=== PATIENT | male | born 1950 | race Hispanic/Latino ===

== ENCOUNTER 2017-02-07 06:22 | Observation (INO) | payer MEDICARE ==
[2017-02-02 18:43] VITALS: BMI 26.2
[2017-02-07] MEDS ORDERED: Lactated Ringer's 1,000 ML IV ONE ×2 (07:00→10:30)
[2017-02-07] MEDS ORDERED: Succinylcholine 200 mg/10 ml Inj IV ONE (07:02)
[2017-02-07] MEDS ORDERED: Rocuronium 10 mg/ml (5 ml) ONE ×2 (07:02→09:40)
[2017-02-07] MEDS ORDERED: Propofol 10 mg/ml Inj (20 ML) ONE (07:02)
[2017-02-07] MEDS ORDERED: Midazolam 2 MG/2 ML VIAL ONE (07:02)
[2017-02-07] MEDS ORDERED: ePHEDrine 50 mg/ml Inj ONE (07:02)
[2017-02-07] MEDS ORDERED: Lidocaine 1% Inj (20ml) ONE (07:12)
[2017-02-07] MEDS ORDERED: Bupivacaine 0.5% Inj(30mL) ONE (07:12)
[2017-02-07] MEDS ORDERED: Lidocaine 2% w Epi 1:100,000 Inj IJ ONE (07:13)
[2017-02-07] MEDS ORDERED: Neostigmine Methylsulfate 3mg/3ml Syringe IV ONE (07:26)
[2017-02-07] MEDS ORDERED: Ropivacaine 0.5% 30ML IV ONE (07:26)
[2017-02-07] MEDS ORDERED: Vasopressin 20 Units/ml Inj ONE (07:26)
[2017-02-07] MEDS ORDERED: Bacitracin Ointment 30 GM TUBE ONE (10:28)
--- NOTE | 2017-02-07 11:26 | PCM.ANESB1 ---
Interscalene Block - Brachial Plexus Date of Procedure: 02/07/17 Procedure Performed: Interscalene Block of Brachial Plexus Left - Procedure Interscalene Block of Brachial Plexus: This procedure was explained to the patient that it is for post-operative pain management. Consent was obtained after a thorough discussion with the patient regarding the benefits and possible complications of local anesthetic block of the Brachial Plexus at the Interscalene area. The patient was brought to the Operating Room and standard monitors were applied. Time out was held with the circulating nurse to confirm the correct surgery and appropriate block. After applying Oxygen by nasal cannula and administering IV Sedation, the patient's head was gently rotated away from the ___left___operative shoulder and the anterior scalene groove was carefully palpated. The ultrasound transducer was then applied to the skin in the transverse plane and the brachial plexus was visualized lateral to the carotid artery and in between the anterior and middle scalene muscles. After identification,the anterior lateral portion of the neck was prepped with Betadine solution three times and Lidocaine 1% was injected subcutaneously for topical analgesia. At this point, a # 22 gauge Stimuplex 2 inches insulated needle was inserted into the interscalene groove and directed in a caudal and midline direction. The needle was inserted lateral to the ultrasound transducer in-plane towards the brachial plexus in a [id number] direction. Needle advancement was performed carefully under direct ultrasound visualization. Nerve stimulator was used and twitched of the affected extremity including the hand brachialis muscles, biceps and the deltoid was obtained at a current of MA. After repeated negative aspiration,__5___cc of___0.5% Ropivacaine__, were injected and this was followed with __15___cc of ___0.5__% __Ropivacaine___ . Under ultrasound guidance the local anesthetics were observed surrounding the roots of the brachial plexus. The needle was removed intact and sterile dressing was applied. The patient had stable vital signs, was conscious and in no apparent distress. The patient tolerated the interscalene block of the bracheal plexus well with stable vital signs and was prepared for subsequent surgery.
--- NOTE | 2017-02-07 15:35 | PCM.SURG1 ---
Surgeon's Initial Post Op Note - Surgeon's Notes Surgeon: Jerry Security Incident Handler: ABEL De Anda Type of Anesthesia: General Endo Anesthesia Administered By: DR Womack Pre-Operative Diagnosis: gr 3 Rotator cuff tear L shoulder. Arthritis L shoulder- glenohumeral joint/ A/C joint Operative Findings: gr 3 tear L rotator cuff. tear glenoid labrum. biceps tendon avulsion. A/C joint arthritis Post-Operative Diagnosis: gr 3 teqr L rotator cuff. tear glenoid labrum. biceps tendon avulsiuon. A/ C joint arthritis. subacromial adhesions/bursa/ Operation Performed: reapir ngr 3 rotator cuff. tear glenoid labrum/. biceps tenodesis. partial distal claviculectomy. arthroscopic debridement/lysis of adhesions in subacromial space Specimen/Specimens Removed: adhesions/bursa/bone/cartilage Estimated Blood Loss: EBL {In ML}: 10 Blood Products Given: N/A Drains Used: No Drains Post-Op Condition: Good Date of Surgery/Procedure: 02/07/17 Time of Surgery/Procedure: 08:35 (time in room anaesthesdia indcution time 0735)
[2017-02-07] MEDS ORDERED: Oxycodone/Acetaminophen 5/325 mg Tab PO PRN (18:35)
--- NOTE | 2017-02-07 18:59 | CP.PCM.HP ---
History of Present Illness - History of Present Illness History of Present Illness: 66 yo M with H/O OA S/P Right Hip replacement X2, Left Hip replacement , BPH , HTN, dyslipidemia and gout was admitted via SDS for left shoulder arthroscopy .Patient has been suffering of left shoulder pain for many years ,failing any conservative approach. Post op patient developed urinary retention with bladder scan showing > [address] Edwards will need to straight cath the patient and monitor overnight. Patient complaining of bilateral feet numbness post op, but able to move both feet with no difficulty. Denies any CP, SOB, palpitation. Developed 1 episode of nausea post op. States that has started to feel some pain to left shoulder despite nerve block. Allergies Percoset PMH; BPH, osteoarthritis, Dyslipidemia, gout Medications:ASA, tylenol # 3,Flomax, Atorvastatin, Norvasc surgery ; lap cholecystectomy, bilateral hip replacement , left shoulder arthroscopy Social history ; Lives in [facility], , denies any smoking ETOH or drug abuse, walks with no assisst devices Family history ; Non e ROS ; 14 point review of system negative except above PMD ; Dr Tres Edwards Present on Admission - Present on Admission Any Indicators Present on Admission: No Review of Systems - Review of Systems All systems: reviewed and no additional remarkable complaints except Past Patient History - Infectious Disease Hx of Infectious Diseases: None - Tetanus Immunizations Tetanus Immunization: Unknown - Past Medical History & Family History Past Medical History?: Yes Past Family History: Reviewed and not pertinent - Past Social History Smoking Status: Never Smoked Chewing Tobacco Use: No Cigar Use: No Alcohol: None Drugs: Denies Home Situation {Lives}: With Family Domestic Violence: Negative - CARDIAC Hx Cardiac Disorders: Yes Hx Hypercholesterolemia: Yes Hx Hypertension: Yes - PULMONARY Hx Respiratory Disorders: Yes Hx Sleep Apnea: Yes - NEUROLOGICAL Hx Neurological Disorder: No - HEENT Hx HEENT Problems: No - RENAL Hx Chronic Kidney Disease: Yes Other/Comment: frequent urination - ENDOCRINE/METABOLIC Hx Endocrine Disorders: No - HEMATOLOGICAL/ONCOLOGICAL Hx Blood Disorders: No - INTEGUMENTARY Hx Dermatological Problems: No - MUSCULOSKELETAL/RHEUMATOLOGICAL Hx Musculoskeletal Disorders: Yes Hx Arthritis: Yes Hx Falls: No Hx Gout: Yes Hx Osteoarthritis: Yes - GASTROINTESTINAL Hx Gastrointestinal Disorders: No - GENITOURINARY/GYNECOLOGICAL Hx Genitourinary Disorders: Yes Hx Prostate Problems: Yes - PSYCHIATRIC Hx Psychophysiologic Disorder: No Hx Substance Use: No - SURGICAL HISTORY Hx Surgeries: Yes Hx Cholecystectomy: Yes Hx Herniorrhaphy: Yes (Left ventral) Hx Joint Replacement: Yes Hx Musculoskeletal Surgery: Yes (Right Biceps and Rotator Cuff Repair after Trauma) Hx Orthopedic Surgery: Yes (right rotator cuff repair, right biceps tendon repair) Other/Comment: Right Hip replacement - ANESTHESIA Hx Anesthesia: Yes Hx Anesthesia Reactions: Yes (difficulty voiding post op) Hx Malignant Hyperthermia: No Has any member of the family had a problem w/ anesthesia?: No Meds Allergies/Adverse Reactions: Allergies Allergy/AdvReac Type Severity Reaction Status Date / Time acetaminophen [From Percocet] Allergy RASH Verified 02/07/17 07:20 oxycodone [From Percocet] Allergy RASH Verified 02/07/17 07:20 Physical Exam - Constitutional Appears: Well, Non-toxic, No Acute Distress - Head Exam Head Exam: ATRAUMATIC, NORMOCEPHALIC - Eye Exam Eye Exam: EOMI, PERRL Pupil Exam: NORMAL ACCOMODATION - ENT Exam ENT Exam: Mucous Membranes Moist, Normal Exam - Neck Exam Neck exam: Positive for: Full Rom, Normal Inspection - Respiratory Exam Respiratory Exam: Clear to Auscultation Bilateral, NORMAL BREATHING PATTERN. absent: Rales, Rhonchi, Wheezes - Cardiovascular Exam Cardiovascular Exam: REGULAR RHYTHM, +S1, +S2. absent: JVD - GI/Abdominal Exam GI & Abdominal Exam: Normal Bowel Sounds, Soft. absent: Distended, Guarding, Rebound, Tenderness - Rectal Exam Rectal Exam: Deferred - Extremities Exam Extremities exam: Positive for: normal capillary refill, normal inspection, pedal pulses present. Negative for: calf tenderness, pedal edema Additional comments: Left shoulder dressing clean and intact, immobilizer in place pulsesintcat, able to move fingers, capillary refill intact - Back Exam Back exam: NORMAL INSPECTION - Neurological Exam Neurological exam: Alert, CN II-XII Intact, Oriented x3, Reflexes Normal - Psychiatric Exam Psychiatric exam: Normal Affect - Skin Skin Exam: Dry, Intact, Normal Color, Warm Results - Vital Signs Recent Vital Signs: Last Vital Signs Temp 98.4 F 02/07/17 18:03 Pulse 77 02/07/17 18:03 Resp 18 02/07/17 18:03 BP 135/66 02/07/17 18:03 Pulse Ox 97 02/07/17 18:03 Assessment & Plan - Assessment and Plan (Free Text) Assessment: 66 yo M with H/O OA S/P Right Hip replacement X2, Left Hip replacement , BPH , HTN, dyslipidemia and gout was admitted via SDS for left shoulder arthroscopy .Patient has been suffering of left shoulder pain for many years ,failing any conservative approach. Post op patient developed urinary retention with bladder scan showing > [address] Edwards will need to straight cath the patient and monitor overnight. Patient complaining of bilateral feet numbness post op, but able to move both feet with no difficulty. Denies any CP, SOB, palpitation. Developed 1 episode of nausea post op. States that has started to feel some pain to left shoulder despite nerve block. 1.Post op urinary retention -Most likely related to anesthesia effect and history of BPH Straight cathed patient bedside with 900 ml output Promote ambulation Resume Flomax PO 2. Osteoarthritis s/p left shoulder arthroscopy and history of bilateral hip replacement pain management with Tramadol PRN Zofran PRN for nausea 3.HTN controlled on Norvasc 2.5 mgh po QD 4. Dyslipidemia on statin 5. Gout history 6. DVt prophylaxis Hold any anticoagulation for now SCD , ambulation Can restart ASA in AM
--- NOTE | 2017-02-07 20:01 | OP ---
PROCEDURE DATE: 02/07/2017 PREOPERATIVE DIAGNOSIS: Rotator cuff arthritis of the left shoulder. POSTOPERATIVE DIAGNOSES: 1. Grade III tear of the left rotator cuff. 2. Tear glenoid and labrum. 3. Biceps tendon avulsion from the superior aspect of the glenoid. 4. Acromioclavicular joint arthritis. 5. Adhesions and bursitis in the subacromial space. PROCEDURES: 1. Primary repair grade III rotator cuff tear, left shoulder. 2. Partial distal claviculectomy. 3. Repair of glenoid and labrum. 4. Biceps tenodesis. 5. Surgical arthroscopy and debridement of the subacromial space with lysis of adhesions and partial bursectomy. SURGEON: Soham Edwards MD. SHUFFLE BOARD OPERATOR: Chika Phelan, Certified Registered Nursing At Home Independent Call Center Agent. ANESTHESIA: General endotracheal anesthesia. COMPLICATIONS: None. DRAINS: None. BLOOD LOSS: Less than 20 mL. OPERATIVE INDICATION: The patient is a 66-year-old gentleman who presents with persistent pain and r estricted range of motion of the left shoulder. The patient has failed conservative management consi sting of anti-inflammatory medication, intraarticular injection therapy. MRI examination had been ac complished. The patient has failed conservative management. Pros, cons, risks and benefits of surgi yoni arthroscopy, decompression and repair are discussed, the possibility of mechanical failure, infec tion, thromboembolic disease, secondary or tertiary surgery is discussed. The patient can no longer stand the discomfort. OPERATIVE PROCEDURE: After having obtained informed consent, after the satisfactory induction of gen eral endotracheal anesthesia by Dr. Womack, after having identified side, site, and procedure, a cri tical pause/timeout, after having obtained informed consent in the above fashion, the patient identif ied, in the modified hou chair position with all bony prominences well padded, the left upper extr emity is prepped and free draped in the usual fashion for upper extremity surgery. The spider should er positioner was employed. The topographic anatomy of the shoulder is marked, the spine and the sca pula, lateral aspect of the acromion, coracoid process, distal third of the clavicle. At a point tone roximately 1 thumb's breadth inferior and 1 thumb's breadth medial to the lateral aspect of the acrom ion, the joint is insufflated with 10 mL of 1% lidocaine without epinephrine. Using a #11 blade, fol lowed by spreading, followed by introduction of blunt trocar, the arthroscope is introduced. Examina tion of the joint commences. With the arthroscope posteriorly, there is found to be a great deal of inflammation in the joint and synovitis and evidence of a labral tear and avulsion of the biceps tend on. Taking great care to stay lateral to the coracoid process, using a #18 gauge spinal needle, foll owed by #11 blade, followed by spreading, introduction of the blunt trocar, with the arthroscope post eriorly, the Wissinger seamus is introduced and the cannula was placed anteriorly. With the arthroscope posteriorly, examination of the joint commences. Again, there was found to be the aforementioned sy novitis. With the arthroscope posteriorly, extensive synovitis and debridement of the glenohumeral j oint is accomplished using the arthroscopic shaver. This having been accomplished, using the arthe-[employer] copic shaver, the synovitis is accomplished and there was found to be a grade III tear of the rotator cuff, grade III tear of the glenoid and labrum with evidence of avulsion of the biceps tendon. With the arthroscope posteriorly, the additional portal was placed posterolaterally, using a #18 gauge sp inal needle, followed by #11 blade, followed by spreading, introduction of the blunt trocar with the arthroscope posteriorly, the interval between the labral tear and the glenoid is developed using the 3.4 mm [employer] suction punch and the arthroscopic shaver. This having been accomplished, with the ar throscope posteriorly, the labral tear was then snared using the lasso. The lasso is burred out post eriorly and the FiberTape was placed. The FiberTape having been placed, this was brought out anterio rly and the second one was brought out anteriorly as well. Drilling is accomplished followed by intr oduction of the obturator. The PushLock anchor is loaded and PushLock anchor is introduced. This feliciano ving been accomplished, the glenoid and labrum was repaired. With the arthroscope posteriorly, the r oot of the biceps tendon was then snared using the lasso. The lasso is brought out posteriorly. Dri lling is accomplished after the sutures were brought out anteriorly and, again, using the PushLock an chor, the biceps tenodesis is accomplished. With the arthroscope posteriorly, further debridement of the glenohumeral joint is accomplished. Attention is now turned to the subacromial space. The arth roscope was placed in the subacromial space, a midlateral portal is accomplished, using a #18 gauge s richy needle, followed by #11 blade, followed by spreading, the arthroscope posteriorly, careful debr idement and lysis of adhesions in the subacromial space is accomplished. With the arthroscope accordion tuner iorly, a thorough lysis of adhesions and partial bursectomy is accomplished. At this point in time, with the arthroscope placed mid laterally, there was found to be a grade III tear of the rotator cuff with retraction both medially and posteriorly as well. Final 2 portals were accomplished just off t he clavicle to allow introduction of the anchors, using a #11 blade followed by spreading, introducti on of the blunt trocar. With the arthroscope mid laterally, 2 sutures are brought out ____ laterally with the arthroscope posterolaterally. These are shuttled superiorly. At this point in time, with the arm in abduction and internal rotation, the anchor is loaded, it is impacted, and with the arm in abduction and internal rotation, the rotator cuff is repaired. The second anchor is placed as well in the same fashion. At this point in time, with the arthroscope mid laterally, 2 sutures are placed in the posterior leaf and they are brought out again superiorly and laterally. This having been acc omplished, the anchors are loaded and with the arm in abduction and internal rotation, the posterior leaf was repaired as well. Extraordinarily complete coverage of the humeral head is accomplished. T he wound is thoroughly irrigated. At this point in time, an extensive debridement and lysis of adhes ions of the subacromial space is completed. Partial acromioplasty is accomplished using the arthrosc opic bur and with the arthroscope mid laterally from an anterior portal and from a posterolateral por shira, a partial distal claviculectomy is accomplished using ____ include the distal 1 cm of the clavic le to include the articular surface. Partial acromioplasty is accomplished. Partial acromioplasty h aving been accomplished, partial ____ claviculectomy having been accomplished, lysis of adhesions and partial bursectomy is completed. The wound is thoroughly irrigated. Closure is in layers with inte rrupted Vicryl and nylon. Intraarticular injection is offered. Frankie Samuels compression dressing an d shoulder immobilizer is applied. Soham Edwards MD cc: [id number] TT: 02/07/2017 20:01:22 vandana
[2017-02-07] MEDS: Acetaminophen-Codeine 300/30 mg Tab PO PRN (22:27)
--- NOTE | 2017-02-07 22:52 | CP.PCM.PCO ---
Physician Communication Note - Physician Communication Note Physician Communication Note: Urinary frequency and lower abdominal pain. Bladder scan =800mls
[2017-02-08 00:53] VITALS: RESP 20
[2017-02-08] MEDS: Acetaminophen-Codeine 300/30 mg Tab PO PRN ×4 (03:14→15:34)
[2017-02-08 06:50] LABS: HEMATOCRIT 42.7 % (35.0-51.0); MEAN CELL VOLUME 89.7 fl (80.0-94.0); MEAN CORPUSCULAR HEMOGLOBIN 30.8 pg (27.0-31.0); MEAN CORPUSCULAR HGB CONC 34.4 g/dL (33.0-37.0); RED CELL DISTRIBUTION WIDTH 13.3 % (11.5-14.5); WHITE BLOOD COUNT 10.5 K/uL (4.8-10.8)
[2017-02-08 07:21] LABS: RBC URINE 1 /hpf (0-3); URINE BACTERIA RARE (<OCC); URINE BILIRUBIN NEGATIVE (NEGATIVE); URINE BLOOD MODERATE (NEGATIVE); URINE COLOR STRAW (YELLOW); URINE GLUCOSE (UA) NEG (Normal); URINE KETONE NEGATIVE (NEGATIVE); URINE LEUKOCYTE ESTERASE NEG Leu/uL (Negative); URINE PROTEIN NEGATIVE (NEGATIVE); URINE UROBILINOGEN 0.2-1.0 mg/dL (0.2-1.0); WBC URINE 1 /hpf (0-5)
[2017-02-08 07:30] LABS: BLOOD UREA NITROGEN 9 mg/dl (9-20); CALCIUM 8.9 mg/dL (8.4-10.2); CARBON DIOXIDE 24 mmol/L (22-30); CHLORIDE 107 mmol/L (98-107); GFR AFRICAN-AMERICAN > 60; GLUCOSE,RANDOM 119 mg/dL (75-110); POTASSIUM 3.5 MMOL/L (3.6-5.0); SODIUM 140 mmol/l (132-148)
--- NOTE | 2017-02-08 08:35 | CP.PCM.PN ---
Subjective - Date & Time of Evaluation Date of Evaluation: 02/08/17 Time of Evaluation: 07:30 - Subjective Subjective: Patient seen and examined bedside. Still complaining of bilateral feet numbness and states that is afraid to walk , because might fall. Again with urinary retention overnight requiring Prince re insertion that was removed early this morning. Pain is controlled. Objective - Vital Signs/Intake and Output Vital Signs (last 24 hours): Temp Pulse Resp BP Pulse Ox 98.7 F 75 20 154/80 H 92 L 02/08/17 08:22 02/08/17 08:22 02/08/17 08:22 02/08/17 08:22 02/08/17 08:22 Intake and Output: 02/08/17 02/08/17 06:59 18:59 Output Total 800 Balance -800 - Medications Medications: Current Medications Acetaminophen/Codeine Phosphate (Tylenol/Codeine 300 Mg/30 Mg) 1 tab PO Q4 PRN PRN Reason: pain scale 4-10 Last Admin: 02/08/17 07:32 Dose: 1 tab Amlodipine Besylate (Norvasc) 5 mg PO DAILY [facility] Aspirin (Aspirin Chewable) 81 mg PO DAILY [facility] Meperidine HCl (Demerol) 12.5 mg IVP Q10M PRN PRN Reason: Pain, severe (8-10) Ondansetron HCl (Zofran Inj) 4 mg IVP Q6 PRN PRN Reason: Nausea/Vomiting Pantoprazole Sodium (Protonix Ec Tab) 40 mg PO DAILY [facility] Tamsulosin HCl (Flomax) 0.4 mg PO DAILY [facility] - Labs Labs: 02/08/17 05:20 02/08/17 05:20 - Constitutional Appears: Non-toxic, No Acute Distress - Head Exam Head Exam: ATRAUMATIC, NORMAL INSPECTION, NORMOCEPHALIC - Eye Exam Eye Exam: EOMI, Normal appearance, PERRL Pupil Exam: NORMAL ACCOMODATION - ENT Exam ENT Exam: Mucous Membranes Moist, Normal Exam - Neck Exam Neck Exam: Full ROM, Normal Inspection - Respiratory Exam Respiratory Exam: Clear to Ausculation Bilateral, NORMAL BREATHING PATTERN. absent: Rales, Rhonchi, Wheezes - Cardiovascular Exam Cardiovascular Exam: REGULAR RHYTHM, RRR, +S1, +S2. absent: JVD - GI/Abdominal Exam GI & Abdominal Exam: Soft, Normal Bowel Sounds. absent: Distended, Guarding, Tenderness - Rectal Exam Rectal Exam: Deferred - Extremities Exam Extremities Exam: Normal Capillary Refill, Normal Inspection. absent: Calf Tenderness, Joint Swelling, Pedal Edema Additional comments: LUE to immobilizer, pulses intact, warm to touch, moving all fingers, capillary refill intact Dressing to Left shoulder clean and intact - Back Exam Back Exam: NORMAL INSPECTION - Neurological Exam Neurological Exam: Alert, Awake, CN II-XII Intact, Oriented x3 - Psychiatric Exam Psychiatric exam: Normal Affect - Skin Skin Exam: Dry, Intact, Normal Color, Warm Assessment and Plan - Assessment and Plan (Free Text) Assessment: 66 yo M with H/O OA S/P Right Hip replacement X2, Left Hip replacement , BPH , HTN, dyslipidemia and gout was admitted via SDS for left shoulder arthroscopy .Patient has been suffering of left shoulder pain for many years ,failing any conservative approach. Post op patient developed urinary retention with bladder scan showing > 500 ml. Patient was straight cathed and placed under observation. He also is complaining of bilateral feet numbness post op, but able to move both feet with no difficulty. Denies any CP, SOB, palpitation.With requrent episode of urinary retention overnight requiring insertion of Prince catheter. Patient known to have BPH and developing urinary retention post op in the past . 1.Post op urinary retention Most likely related to anesthesia effect and history of BPH Prince catheter was inserted overnight due to patient being uncomfortable and restless D/c Prince this AM Continue [facility] PT eval since atient complaining f bilateral feet numbness and fear of fall. Promote ambulation Monitor closely for signs of retention 2. Osteoarthritis s/p left shoulder arthroscopy and history of bilateral hip replacement pain management withTylenol # 3. Off note patient has been taking Tylenol # 3 at home so he has no allergy to Tylenol Zofran PRN for nausea 3.HTN controlled on Norvasc 2.5 mg po QD 4. Dyslipidemia on statin 5. Gout history 6. DVt prophylaxis Hold any anticoagulation for now SCD , ambulation Can restart ASA today
[2017-02-08] MEDS ORDERED: Pantoprazole 40 mg EC Tab PO SCH (09:00)
[2017-02-08] MEDS ORDERED: Potassium Chloride 20 mEq/15 ml LIQ UD PO ONE (09:30)
--- NOTE | 2017-02-08 13:23 | CP.PCM.DIS ---
Provider - Provider Date of Admission: 02/07/17 18:46 Attending physician: Celestina Bearden MD Primary care physician: Soham Edwards III, MD Time Spent in preparation of Discharge (in minutes): 20 Hospital Course - Lab Results Lab Results: Most Recent Lab Values WBC 10.5 K/uL (4.8-10.8) 02/08/17 05:20 RBC 4.76 Mil/uL (4.40-5.90) 02/08/17 05:20 Hgb 14.7 g/dL (12.0-18.0) 02/08/17 05:20 Hct 42.7 % (35.0-51.0) 02/08/17 05:20 MCV 89.7 fl (80.0-94.0) 02/08/17 05:20 MCH 30.8 pg (27.0-31.0) 02/08/17 05:20 MCHC 34.4 g/dL (33.0-37.0) 02/08/17 05:20 RDW 13.3 % (11.5-14.5) 02/08/17 05:20 Plt Count 188 K/uL (130-400) 02/08/17 05:20 Sodium 140 mmol/l (132-148) 02/08/17 05:20 Potassium 3.5 MMOL/L (3.6-5.0) L 02/08/17 05:20 Chloride 107 mmol/L (98-107) 02/08/17 05:20 Carbon Dioxide 24 mmol/L (22-30) 02/08/17 05:20 Anion Gap 13 (10-20) 02/08/17 05:20 BUN 9 mg/dl (9-20) 02/08/17 05:20 Creatinine 0.6 mg/dL (0.8-1.5) L 02/08/17 05:20 Est GFR ( Amer) > 60 02/08/17 05:20 Est GFR (Non-Af Amer) > 60 02/08/17 05:20 Random Glucose 119 mg/dL (75-110) H 02/08/17 05:20 Calcium 8.9 mg/dL (8.4-10.2) 02/08/17 05:20 Urine Color Straw (YELLOW) 02/07/17 06:40 Urine Clarity Clear (Clear) 02/07/17 06:40 Urine pH 6.0 (5.0-8.0) 02/07/17 06:40 Ur Specific [place] 1.005 (1.003-1.030) 02/07/17 06:40 Urine Protein Negative mg/dL (NEGATIVE) 02/07/17 06:40 Urine Glucose (UA) Neg mg/dL (Normal) 02/07/17 06:40 Urine Ketones Negative mg/dL (NEGATIVE) 02/07/17 06:40 Urine Blood Moderate (NEGATIVE) 02/07/17 06:40 Urine Nitrate Negative (NEGATIVE) 02/07/17 06:40 Urine Bilirubin Negative (NEGATIVE) 02/07/17 06:40 Urine Urobilinogen 0.2-1.0 mg/dL (0.2-1.0) 02/07/17 06:40 Ur Leukocyte Esterase Neg Gale/uL (Negative) 02/07/17 06:40 Urine RBC (Auto) 1 /hpf (0-3) 02/07/17 06:40 Urine Microscopic WBC 1 /hpf (0-5) 02/07/17 06:40 Urine Bacteria Rare (<OCC) 02/07/17 06:40 - Hospital Course Hospital Course: 66 yo M with H/O OA S/P Right Hip replacement X2, Left Hip replacement , BPH , HTN, dyslipidemia and gout was admitted via [facility] for left shoulder arthroscopy .Patient has been suffering of left shoulder pain for many years ,failing any conservative approach. Post op patient developed urinary retention with bladder scan showing > 500 ml. Patient was straight cathed and placed under observation. He also is complaining of bilateral feet numbness post op, but able to move both feet with no difficulty. Denies any CP, SOB, palpitation.With recurrent episode of urinary retention overnight requiring insertion of Prince catheter. Patient known to have BPH and developing urinary retention post op in the past . Prince catheter removed this AM @ & AQM and able to void 1100 ml the next 6 hours. PT bhavana appreciated , Patient able to ambulate Cleared by ortho for discharge Will d/c patient home with follow up with prtho and urologist 1.Post op urinary retention Most likely related to anesthesia effect and history of BPH Prince catheter was inserted overnight due to patient being uncomfortable and restless D/c Prince this AM @ 7 AM and able to void > 1100 ml over last 6 hours Continue Flomax. Patient to follow up w ith his urologist PT bhavana appreciated ,since patient complained of bilateral feet numbness and fear of fall. Promote ambulation will d/c home 2. Osteoarthritis s/p left shoulder arthroscopy and history of bilateral hip replacement pain management withTylenol # 3. Off note patient has been taking Tylenol # 3 at home so he has no allergy to Tylenol Zofran PRN for nausea 3.HTN controlled on Norvasc 2.5 mg po QD 4. Dyslipidemia on statin 5. Gout history 6. DVt prophylaxis Hold any anticoagulation for now SCD , ambulation Can restart ASA today Discharge Exam - Head Exam Head Exam: ATRAUMATIC, NORMAL INSPECTION, NORMOCEPHALIC - Eye Exam Eye Exam: EOMI, Normal appearance, PERRL Pupil Exam: NORMAL ACCOMODATION - ENT Exam ENT Exam: Mucous Membranes Moist, Normal Exam - Neck Exam Neck exam: Full Rom, Normal Inspection - Respiratory Exam Respiratory Exam: Clear to PA & Lateral, NORMAL BREATHING PATTERN. absent: Rales, Rhonchi, Wheezes - Cardiovascular Exam Cardiovascular Exam: REGULAR RHYTHM, RRR, +S1, +S2. absent: JVD - GI/Abdominal Exam GI & Abdominal Exam: Normal Bowel Sounds, Soft. absent: Distended, Guarding, Rigid, Tenderness - Rectal Exam Rectal Exam: Deferred - Extremities Exam Extremities exam: normal capillary refill, normal inspection, pedal pulses present Additional comments: Left shoulder dressings clean and intact Left arm to immobilizer, pulses intact - Back Exam Back exam: NORMAL INSPECTION - Neurological Exam Neurological exam: Alert, CN II-XII Intact, Oriented x3, Reflexes Normal - Psychiatric Exam Psychiatric exam: Normal Affect - Skin Skin Exam: Dry, Intact, Normal Color, Warm Discharge Plan - Follow Up Plan Condition: GOOD Disposition: HOME/ ROUTINE Patient education suggested?: Yes Instructions: Shoulder Arthroscopy (DC) Referrals: Soham Edwards III, MD [Primary Care Provider] -
[2017-02-08 16:23] VITALS: BP 133/73; PULSE 72; TEMP 98.3; O2SAT 93
== END 2017-02-08 17:00 | disposition home or self-care (01) ==
LOC: H.OPSURG 06:22 → H.ERHOLD 18:46 → H.MEDSURG1 20:24 → H.OPSURG 20:24 → H.MEDSURG1 21:28
PROVIDERS: ADMIT Hospitalist; ATTEND Hospitalist
DX: M75.102 Unspecified rotator cuff tear or rupture of left shoulder, not specified as traumatic (principal); M19.012 Primary osteoarthritis, left shoulder; M65.9 Synovitis and tenosynovitis, unspecified; N99.89 Other postprocedural complications and disorders of genitourinary system; R33.8 Other retention of urine; E78.5 Hyperlipidemia, unspecified; I10 Essential (primary) hypertension; M10.9 Gout, unspecified; N40.0 Benign prostatic hyperplasia without lower urinary tract symptoms; Z96.643 Presence of artificial hip joint, bilateral
CPT/HCPCS: 29827; 29828; 36415; 80048; 81003; 85027; 88307; 97161; G0378; G8978; G8979; G8980; J0171; J0330; J0690; J2001; J2250; J2405; J2704; J2710; J3010; J7030; J7120

== ENCOUNTER 2017-11-19 06:07 | Observation (INO) | payer MEDICARE ==
[2017-11-19 06:08] VITALS: BMI 26.2
[2017-11-19] MEDS ORDERED: MethylPREDNISolone Depo 40 mg/ml Inj ONE (07:39)
[2017-11-19] MEDS ORDERED: methylPREDNISolone Depo 80 mg/ml Inj ONE (07:39)
[2017-11-19] MEDS ORDERED: Lidocaine 1% Inj (20ml) ONE ×2 (07:40→07:41)
[2017-11-19] MEDS ORDERED: Iohexol 300 10 ML ONE (07:40)
--- NOTE | 2017-11-19 07:50 | ED PDOC ---
HPI: Male Pain Time Seen by Provider: 11/19/17 07:20 Chief Complaint (Nursing): Groin Pain Chief Complaint (Provider): Groin Pain History Per: Patient History/Exam Limitations: no limitations Onset/Duration Of Symptoms: Days (x10) Current Symptoms Are (Timing): Still Present Associated Symptoms: denies: Fever Additional Complaint(s): 67 year old male presents to ED with complaints of right sided groin pain x10 days, has no past medical history, and bilateral hip replacements. (-) weakness , recent injury, or fever. Patient states that the pain is gradually worsening and is affecting his ability to walk properly. Patient states his orthopedist Dr. Edwards recommended ED evaluation if pain became unbearable. PCP: JORDAN Past Medical History Reviewed: Historical Data, Nursing Documentation, Vital Signs Vital Signs: Last Vital Signs Temp 97.7 F 11/19/17 06:26 Pulse 63 11/19/17 06:26 Resp 16 11/19/17 06:26 BP 154/87 H 11/19/17 06:26 Pulse Ox 98 11/19/17 06:26 - Medical History PMH: Arthritis, HTN, Hypercholesterolemia, Chronic Kidney Disease, Sleep Apnea - Surgical History Surgical History: Appendectomy, Cholecystectomy, Hernia Repair Denies: No Surg Hx Other surgeries: bilateral hip replacement surgeries - Family History Family History: States: Unknown Family Hx - Living Arrangements Living Arrangements: With Family - Immunization History Hx Tetanus Toxoid Vaccination: No Hx Influenza Vaccination: No Hx Pneumococcal Vaccination: No - Home Medications Home Medications: Ambulatory Orders Medication Instructions Recorded Aspirin [Aspirin Chewable] 1 tab PO DAILY 11/19/17 Atorvastatin [Lipitor] 1 tab PO DAILY 11/19/17 Multivitamin [Multivitamins] 1 tab PO DAILY 11/19/17 - Allergies Allergies/Adverse Reactions: Allergies Allergy/AdvReac Type Severity Reaction Status Date / Time acetaminophen [From Percocet] Allergy RASH Verified 11/19/17 06:26 oxycodone [From Percocet] Allergy RASH Verified 11/19/17 06:26 Review of Systems ROS Statement: Except As Marked, All Systems Reviewed And Found Negative Constitutional: Negative for: Fever Genitourinary Male: Positive for: Other (Right sided groin pain) Neurological: Negative for: Weakness, Numbness Physical Exam - Reviewed Nursing Documentation Reviewed: Yes Vital Signs Reviewed: Yes - Physical Exam Appears: Positive for: Non-toxic, No Acute Distress Skin: Positive for: Normal Color, Warm, Dry Neck: Positive for: Decreased ROM Cardiovascular/Chest: Negative for: Murmur Respiratory: Positive for: Normal Breath Sounds. Negative for: Respiratory Distress Gastrointestinal/Abdominal: Positive for: Soft. Negative for: Tenderness Male Genital Exam: Positive for: no hernia, inguinal tenderness (TTP to right groin area, no sweling or erythema). Negative for: erythema, hernia mass Extremity: Positive for: Normal ROM. Negative for: Deformity Neurologic/Psych: Positive for: Alert, Oriented. Negative for: Motor/Sensory Deficits - Laboratory Results Result Diagrams: 11/19/17 08:25 11/19/17 08:25 - ECG O2 Sat by Pulse Oximetry: 98 (RA) Pulse Ox Interpretation: Normal Medical Decision Making Medical Decision Makin Initial impression: groin pain Initial plan: * Call Dr. Edwards [phone] Edwards, who will admit the patient under his service. * T&S * EKG * Labs * PTT/PT * CXR * UA Scribe Attestation: Documented by Katrina North acting as a scribe Priscila James MD. Scribe Attestation: All medical record entries made by the Scribe were at my direction and personally dictated by me. I have reviewed the chart and agree that the record accurately reflects my personal performance of the history, physical exam, medical decision making, and the department course for this patient. I have also personally directed, reviewed, and agree with the discharge instructions and disposition. Disposition - Clinical Impression Clinical Impression: Groin pain, DJD (degenerative joint disease) - Patient ED Disposition Is Patient to be Admitted: Yes Discussed With : Soham Edwards III Doctor Will See Patient In The: Hospital Counseled Patient/Family Regarding: Studies Performed, Diagnosis - Disposition Disposition Time: 08:56 Condition: FAIR - Pt Status Changed To: Hospital Disposition Of: Observation - POA Present On Arrival: None
[2017-11-19] MEDS ORDERED: Bacitracin Ointment 30 GM TUBE ONE (07:53)
[2017-11-19] MEDS ORDERED: Propofol 10 mg/ml Inj (20 ML) ONE ×2 (07:58→10:00)
[2017-11-19] MEDS ORDERED: Etomidate 20 mg/10ml Inj IV ONE ×2 (07:58→10:00)
--- NOTE | 2017-11-19 08:04 | CP.SDSHP ---
Same Day Surgery H & P - History Proposed Procedure: Bilateral hip steroid injection Pre-Op Diagnosis: Bilateral intractable hip pain, right greater than left - Previous Medical/Surgical History Cardiac: Hypertension, ASHD/CAD Pain: 6.Severe Pain Previous Surgical History: Bilateral JACK, L shoulder rotator cuff repair, appendectomy, cholecystectomy, right biceps tendon repair - Allergies Allergies: Allergies acetaminophen [From Percocet] Allergy (Verified 11/19/17 06:26) RASH oxycodone [From Percocet] Allergy (Verified 11/19/17 06:26) RASH - Current Medications Current Medications: Atorvastatin, ASA 81 mg, amplodipine - Physical Exam General Appearance: No acute distress Vital Signs: Vital Signs 11/19/17 11/19/17 06:26 07:56 Temperature 97.7 F Pulse Rate 63 Respiratory 16 Rate Blood Pressure 154/87 H O2 Sat by Pulse 98 98 Oximetry Mental Status: Alert & Oriented x3 Neuro: WNL Heart: WNL Lungs: WNL GI: WNL - {Optional Preform as Required} Abdomen: WNL Integument: WNL Ortho: Other (R hip: old JACK scar well healed, groin tenderness, painful ROM 0- 50, no erythema or swelling, sensation DP/SP/TN, motor intact EHL/FHL/TA/G/Q/HS 4/5 hip flex, pedal pulses intact, comp soft NT L hip:old JACK scar well healed, painful ROM 0-50, no erythema or swelling, sensation DP/SP/TN, motor intact EHL/ FHL/TA/G/Q/HS 4/5 hip flex, pedal pulses intact, comp soft NT) - Impression Impression: Patient is a 67 y/o male who presents to the ER with severe bilateral hip pain, right greater than left, which has progressively worsened over the past 10 days. The pain is constant and has severly hindered his activities of daily living, especially walking and flexing his hips. The pain has been resistant to oral pain medications prompting his visit to the ER today. Pt. Evaluated Today:Candidate for Anesthesia & Procedure: Yes (Risks/Chris discussed w/ pt, he agrees to proceed w/ procedure) - Date & Time Date: 11/19/17 Time: 07:30 Short Stay Discharge - Short Stay Discharge Admitting Diagnosis/Reason for Visit: GROIN PAIN Disposition: HOME/ ROUTINE
[2017-11-19 08:37] LABS: BASO % 0.3 % (0.0-2.0); HEMOGLOBIN 15.9 g/dL (12.0-18.0); LYMPH # 1.6 K/uL (1.0-4.3); MEAN CELL VOLUME 88.7 fl (80.0-94.0); MEAN CORPUSCULAR HGB CONC 33.9 g/dL (33.0-37.0); MEAN PLATELET VOLUME 9.3 fl (7.2-11.7); MONO # 0.9 K/uL (0.0-0.8); MONO % 7.1 % (0.0-10.0); NEUT # 9.7 K/uL (1.8-7.0); NEUT % 79.6 % (50.0-75.0); NRBC % 0.1 % (0.0-0.0); RBC 5.28 Mil/uL (4.40-5.90); RED CELL DISTRIBUTION WIDTH 14.2 % (11.5-14.5); WHITE BLOOD COUNT 12.1 K/uL (4.8-10.8)
[2017-11-19 08:38] LABS: URINE BILIRUBIN NEGATIVE (NEGATIVE); URINE BLOOD NEGATIVE (NEGATIVE); URINE CLARITY CLEAR (Clear); URINE COLOR STRAW (YELLOW); URINE GLUCOSE (UA) NEG (Normal); URINE LEUKOCYTE ESTERASE NEG Leu/uL (Negative); URINE PROTEIN NEGATIVE (NEGATIVE); URINE UROBILINOGEN 0.2-1.0 mg/dL (0.2-1.0)
[2017-11-19 08:51] LABS: BLOOD UREA NITROGEN 21 mg/dl (9-20); CALCIUM 9.7 mg/dL (8.4-10.2); GFR AFRICAN-AMERICAN > 60; GFR NON-AFRICAN AMERICAN > 60
--- NOTE | 2017-11-19 09:05 | RAD ---
HISTORY: medical clearance COMPARISON: Chest radiographs 07/12/2015. FINDINGS: LUNGS: No active pulmonary disease. PLEURA: No significant pleural effusion identified, no pneumothorax apparent. CARDIOVASCULAR: Normal. OSSEOUS STRUCTURES: No significant abnormalities. VISUALIZED UPPER ABDOMEN: Normal. OTHER FINDINGS: None. IMPRESSION: No interval acute cardiopulmonary disease appreciated.
--- NOTE | 2017-11-19 09:05 | CP.PCM.HP ---
History of Present Illness - History of Present Illness History of Present Illness: Patient is a 67 y/o male who presents to the ER with severe bilateral hip pain, right greater than left, which has progressively worsened over the past 10 days. The pain is constant and has severly hindered his activities of daily living, especially walking and flexing his hips. The pain has been resistant to oral pain medications, NSAID's and a short course of oral steroid prompting his visit to the ER today. Present on Admission - Present on Admission Any Indicators Present on Admission: No Review of Systems - Review of Systems All systems: reviewed and no additional remarkable complaints except Review of Systems: As per HPI Past Patient History - Infectious Disease Hx of Infectious Diseases: None - Tetanus Immunizations Tetanus Immunization: Unknown - Past Medical History & Family History Past Medical History?: Yes Pertinent Family History: Father: Stroke - Past Social History Smoking Status: Never Smoked Chewing Tobacco Use: No Cigar Use: No Alcohol: None Drugs: Denies - CARDIAC Hx Hypercholesterolemia: Yes Hx Hypertension: Yes - PULMONARY Hx Sleep Apnea: Yes - NEUROLOGICAL Hx Neurological Disorder: No - HEENT Hx HEENT Problems: No - RENAL Hx Chronic Kidney Disease: Yes - ENDOCRINE/METABOLIC Hx Endocrine Disorders: No - HEMATOLOGICAL/ONCOLOGICAL Hx Blood Disorders: No - INTEGUMENTARY Hx Dermatological Problems: No - MUSCULOSKELETAL/RHEUMATOLOGICAL Hx Arthritis: Yes - GASTROINTESTINAL Hx Gastrointestinal Disorders: No - GENITOURINARY/GYNECOLOGICAL Hx Genitourinary Disorders: Yes Hx Prostate Problems: Yes - PSYCHIATRIC Hx Psychophysiologic Disorder: No Hx Substance Use: No - SURGICAL HISTORY Hx Appendectomy: Yes Hx Cholecystectomy: Yes Hx Joint Replacement: Yes (bilateral JACK) Hx Orthopedic Surgery: Yes (Right arm biceps repair) - ANESTHESIA Hx Anesthesia: Yes Hx Anesthesia Reactions: Yes (difficulty voiding post op) Hx Malignant Hyperthermia: No Meds Allergies/Adverse Reactions: Allergies Allergy/AdvReac Type Severity Reaction Status Date / Time acetaminophen [From Percocet] Allergy RASH Verified 11/19/17 06:26 oxycodone [From Percocet] Allergy RASH Verified 11/19/17 06:26 Physical Exam - Constitutional Appears: Well, No Acute Distress - Head Exam Head Exam: ATRAUMATIC, NORMAL INSPECTION, NORMOCEPHALIC - Eye Exam Eye Exam: EOMI, Normal appearance, PERRL - ENT Exam ENT Exam: Mucous Membranes Moist - Neck Exam Neck exam: Positive for: Normal Inspection - Respiratory Exam Respiratory Exam: NORMAL BREATHING PATTERN - Extremities Exam Additional comments: R hip: old JACK scar well healed, groin tenderness, painful ROM 0-50, no erythema or swelling, sensation DP/SP/TN, motor intact EHL/FHL/TA/G/Q/HS 4-/5 hip flex, pedal pulses intact, comp soft NT L hip:old JACK scar well healed, painful ROM 0-90, no erythema or swelling, sensation DP/SP/TN, motor intact EHL/ FHL/TA/G/Q/HS 4/5 hip flex, pedal pulses intact, comp soft NT - Neurological Exam Neurological exam: Alert, Oriented x3 - Psychiatric Exam Psychiatric exam: Normal Affect, Normal Mood - Skin Skin Exam: Normal Color Results - Vital Signs Recent Vital Signs: Last Vital Signs Temp 97.7 F 11/19/17 06:26 Pulse 63 11/19/17 06:26 Resp 16 11/19/17 06:26 BP 154/87 H 11/19/17 06:26 Pulse Ox 98 11/19/17 08:42 - Labs Result Diagrams: 11/19/17 08:25 11/19/17 08:25 Labs: Laboratory Results - last 24 hr 11/19/17 11/19/17 11/19/17 08:25 08:25 08:25 WBC 12.1 H RBC 5.28 Hgb 15.9 Hct 46.8 MCV 88.7 MCH 30.0 MCHC 33.9 RDW 14.2 Plt Count 267 MPV 9.3 Neut % (Auto) 79.6 H Lymph % (Auto) 13.0 L [place] % (Auto) 7.1 Eos % (Auto) 0.0 Baso % (Auto) 0.3 Neut # (Auto) 9.7 H Lymph # (Auto) 1.6 [place] # (Auto) 0.9 H Eos # (Auto) 0.0 Baso # (Auto) 0.0 Sodium 146 Potassium 4.3 Chloride 99 Carbon Dioxide 27 Anion Gap 24 H BUN 21 H Creatinine 0.7 L Est GFR ( Amer) > 60 Est GFR (Non-Af Amer) > 60 Random Glucose 127 H Calcium 9.7 Urine Color Urine Clarity Urine pH Ur Specific [place] Urine Protein Urine Glucose (UA) Urine Ketones Urine Blood Urine Nitrate Urine Bilirubin Urine Urobilinogen Ur Leukocyte Esterase Urine RBC (Auto) Urine Microscopic WBC BBK History Checked Patient has bt 11/19/17 08:25 WBC RBC Hgb Hct MCV MCH MCHC RDW Plt Count MPV Neut % (Auto) Lymph % (Auto) [place] % (Auto) Eos % (Auto) Baso % (Auto) Neut # (Auto) Lymph # (Auto) [place] # (Auto) Eos # (Auto) Baso # (Auto) Sodium Potassium Chloride Carbon Dioxide Anion Gap BUN Creatinine Est GFR ( Amer) Est GFR (Non-Af Amer) Random Glucose Calcium Urine Color Straw Urine Clarity Clear Urine pH 7.0 Ur Specific [place] 1.008 Urine Protein Negative Urine Glucose (UA) Neg Urine Ketones Negative Urine Blood Negative Urine Nitrate Negative Urine Bilirubin Negative Urine Urobilinogen 0.2-1.0 Ur Leukocyte Esterase Neg Urine RBC (Auto) 1 Urine Microscopic WBC < 1 BBK History Checked Assessment & Plan (1) Hip pain Assessment and Plan: Patient is a 67 y/o male who presents with intractable hip pain, R>L. -NPO -OR today for bilateral hip steroid injections -Risks/padma/adv/disadv d/w patient and pt understands. Patient agrees to proceed with procedure listed above -case and plan d/w Dr. Edwards in agreement Status: Acute - Date & Time Date: 11/19/17 Time: 07:30
[2017-11-19 09:15] LABS: PARTIAL THROMBOPLASTIN TIME 25.9 Seconds (25.6-37.1); PROTHROMBIN TIME 11.6 Seconds (9.8-13.1)
[2017-11-19] MEDS ORDERED: Sodium Chloride 0.9% 1,000 ML IV SCH (09:45)
[2017-11-19] MEDS ORDERED: Lidocaine 4% (Laryng-O-Jet) Kit MM ONE (10:00)
[2017-11-19] MEDS ORDERED: Succinylcholine 200 mg/10 ml Inj IV ONE (10:00)
[2017-11-19] MEDS ORDERED: Phenylephrine 10 mg/ml Inj ONE (10:02)
[2017-11-19] MEDS ORDERED: Midazolam 2 MG/2 ML VIAL ONE (11:16)
[2017-11-19] MEDS ORDERED: Dexamethasone 4 mg/1 ml ONE (11:27)
[2017-11-19] MEDS: Iohexol 300 100 ML IJ ONE ×2 (11:55→12:01)
[2017-11-19] MEDS: Bupivacaine 0.5% Inj(30mL) ONE ×2 (11:59→12:02)
[2017-11-19] MEDS ORDERED: Lactated Ringer's 1,000 ML IV ONE ×2 (12:05)
--- NOTE | 2017-11-19 12:17 | PCM.SURG1 ---
Surgeon's Initial Post Op Note - Surgeon's Notes Surgeon: Jerry Operations Research Scientist: ABEL De Anda/2nd assist Cam Das Type of Anesthesia: General Endo Anesthesia Administered By: DR Reyna Pre-Operative Diagnosis: Painful R hip replacemnt/. trochanteric bursitis L hip Operative Findings: no evidence for losseninbg or sepsis bilaterally. trochanteric Bursitis bilateral hips. intrarticular injections both hips Post-Operative Diagnosis: as above Operation Performed: bilateral aspiration arthrograms (hips). bilateral intrarticular injection (hips). mitzy;ateral injections trochanteric bursa (hips) Specimen/Specimens Removed: arthrogram fluids (synovial fluid/arthrography fluid ) Estimated Blood Loss: EBL {In ML}: 8 Blood Products Given: N/A Drains Used: No Drains Post-Op Condition: Good Date of Surgery/Procedure: 11/19/17 Time of Surgery/Procedure: 11:55 (time in room/naesthesia inductionm time/11:20)
[2017-11-19] MEDS ORDERED: Oxycodone/Acetaminophen 5/325 mg Tab PO PRN (12:23)
[2017-11-19] MEDS ORDERED: Lactated Ringer's 1,000 ML IV SCH (12:30)
[2017-11-19 12:48] LABS: FLUID TYPE SYNOVIAL FLUID
[2017-11-19 14:08] LABS: SF GROSS APPEARANCE CLOUDY (CLEAR)
[2017-11-19 14:09] LABS: SYNOVIAL FLUID COMMENT SLIGHTLY BLOODY
[2017-11-19 14:15] LABS: SYNOVIAL FLUID MONO/MACROPHAGE 1 % (0-0)
[2017-11-19 16:03] VITALS: RESP 18; O2SAT 98
--- NOTE | 2017-11-19 17:07 | RAD ---
PROCEDURE: Intraoperative Fluoroscopy. HISTORY: BILATERAL HIP INJECTION FINDINGS: Fluoroscopic assistance was provided. 50.2 seconds fluoroscopy time utilized during this procedure Please refer to the operative report from RUPERT Ho.
[2017-11-19 17:11] VITALS: BP 132/78; PULSE 70; TEMP 97.6
--- NOTE | 2017-11-19 19:50 | CARD ---
APPROVED REPORT EKG Measurement Heart [id number] <Conclusion> Normal sinus rhythm Normal ECG artefact present
--- NOTE | 2017-11-21 12:34 | OP ---
PROCEDURE DATE: 11/19/2017 PREOPERATIVE DIAGNOSES: 1. Painful right hip replacement. 2. Painful left hip replacement. POSTOPERATIVE DIAGNOSES: No evidence for loosening or sepsis bilaterally, trochanteric bursitis on both hips and iliopsoas tendonitis of the right hip. OPERATION PERFORMED: 1. Aspiration arthrogram both hips, bilateral hips, bilateral intra-articular injections including injection of the right iliopsoas. 2. Bilateral hip arthrography with placement of the arthrography needle. 3. Injection, iliopsoas tendon. 4. Injection, trochanteric bursa bilaterally. 5. Positioning of fluoroscope, interpretation of video images. SPECIMENS REMOVED: Arthrography fluid. SURGEON: Soham Edwards MD DATA KEYER: Chika Phelan, certified registered nursing clinical trials assistant. SECOND BOOT MAKER: Cam Das PA-C BLOOD LOSS: Approximately 8 mL. BLOOD PRODUCTS GIVEN: None. COMPLICATIONS: No complications. DRAINS: No drains. POSTOPERATIVE CONDITION: Stable. TIME OF PROCEDURE: 11:55. TIME IN THE ROOM: 11:20. OPERATIVE INDICATION: Job Avalos Jr is a 67-year-old gentleman who presents with bilateral hip pain. The patient presents with marked discomfort, pain, and restricted range of motion of both hips. The patient presents with pain in the area of the trochanteric bursa of the left hip and pain in the right hip as well. The possibility of sepsis or loosening was entertained. The patient is evaluated in the ER and admitted for aspiration arthrograms and local injections. Pros, cons, risks and benefits of same were discussed. OPERATIVE PROCEDURE: After having obtained informed consent in the above fashion, after having identified side, site and procedure, both hips were employed and after the satisfactory induction of the anesthetic, after having obtained informed consent and after having performed a critical pause/time-out, the patient identified as Job Avalos Jr in the supine position with all bony prominences well padded, both lower extremities were prepped and draped in the usual fashion for aspiration arthrogram. Under the surgeon's direction, the fluoroscope was positioned, video images were generated, and therapeutic decisions were made therefrom. The femoral pulse was identified on the right and the right hip was addressed initially, taking great care to stay lateral to the femoral artery, the arthrography needle was placed in the joint, 20 mL of radiopaque contrast were placed in the joint. The right hip was manipulated and aspiration is accomplished. There is no evidence of sepsis. The aspirate was clear. The needle was repositioned and intra-articular injection of Marcaine, Duramorph, and Depo-Medrol was accomplished intra-articularly and the psoas tendon was identified as well and the psoas tendon was injected. At this point in time, the trochanteric bursa was identified laterally. Again under the surgeon's direction, the fluoroscope was positioned, video images were generated, and therapeutic decisions were made therefrom. The trochanteric bursa was injected with the same solution. This having been accomplished, attention was turned to the left hip and the exact same procedure was accomplished. Femoral artery is identified and marked, taking great care with the arthrography needle to stay lateral to the femoral artery, the joint is introduced. The joint is insufflated with approximately 20 mL of radiopaque contrast. The hip was manipulated. Aspiration was removed. The fluid was found to be clear and sent for aerobic, anaerobic, AFB, and fungal cultures and stat Gram stain. At this point in time, the needle was withdrawn and placed into the joint. Intra-articular injection of Marcaine, Duramorph and Depo-Medrol was accomplished. Finally, the trochanteric prominence is identified and the trochanteric bursa was injected with Marcaine, Depo-Medrol, and Duramorph. Compression dressings were applied. Soham Edwards MD
== END 2017-11-19 17:10 | disposition home or self-care (01) ==
LOC: H.ER 06:07 → H.ERHOLD 08:56
PROVIDERS: ADMIT Orthopaedic Surgery; ATTEND Orthopaedic Surgery
DX: M70.62 Trochanteric bursitis, left hip (principal); M16.12 Unilateral primary osteoarthritis, left hip; I12.9 Hypertensive chronic kidney disease with stage 1 through stage 4 chronic kidney disease, or unspecified chronic kidney disease; N18.9 Chronic kidney disease, unspecified; I25.10 Atherosclerotic heart disease of native coronary artery without angina pectoris; E78.00 Pure hypercholesterolemia, unspecified; G47.30 Sleep apnea, unspecified; Z88.6 Allergy status to analgesic agent; Z96.643 Presence of artificial hip joint, bilateral; Z79.82 Long term (current) use of aspirin; Z90.49 Acquired absence of other specified parts of digestive tract
CPT/HCPCS: 27095; 71045; 73525; 80048; 81003; 82948; 85025; 85610; 85730; 86850; 86900; 87015; 87070; 87075; 87101; 87116; 87206; 89051; 93005; 99285; G0378; J0330; J0690; J1030; J1040; J1100; J2001; J2250; J2370; J2405; J2704; J2765; J3010; J7030; J7120; Q9967

== ENCOUNTER 2018-04-29 06:34 | Inpatient (IN) | payer MEDICARE ==
[2018-04-29 06:48] VITALS: BMI 26.4
[2018-04-29] MEDS ORDERED: ceFAZolin IV 1 gm in Dextrose 1 GM/50 ML BAG IVPB ONE (07:16)
[2018-04-29] MEDS ORDERED: GELATIN SPONGE,ABSORB/PORCINE 1 EACH SPONGE TP ONE (07:16)
[2018-04-29] MEDS ORDERED: Bacitracin Ointment 30 GM TUBE ONE (07:16)
[2018-04-29] MEDS ORDERED: Thrombin Topical 5,000 Int Units Spray Kit ONE (07:16)
--- NOTE | 2018-04-29 07:30 | CP.PCM.CON ---
History of Present Illness - History of Present Illness History of Present Illness: Orthopedic consultation Dr. Edwards 67M with right hip pain s/p THR failed conservative mgtm for revision THR. Radiographic evidence of loosening, afeb, no leukocytosis Denies fever/chills/recent falls/numbness/tingling PMH: BPH, HTN, hyperlipidemia, gout, OA, CAD (40% per pt, no stents) PSH: B THR, biceps, shoulder arthroscopy appendectomy, cholecystectomy, hernia ALl: percocet No history of bleeding/clotting disorder, stents, seizure disorder, DVT/PE Review of Systems - Review of Systems All systems: reviewed and no additional remarkable complaints except - Musculoskeletal Musculoskeletal: As Per HPI Past Patient History - Infectious Disease Hx of Infectious Diseases: None - Tetanus Immunizations Tetanus Immunization: Unknown - Past Medical History & Family History Past Medical History?: Yes - Past Social History Smoking Status: Never Smoked Chewing Tobacco Use: No - CARDIAC Hx Cardiac Disorders: Yes Hx Hypercholesterolemia: Yes Hx Hypertension: Yes - PULMONARY Hx Respiratory Disorders: No Hx Sleep Apnea: Yes (uses c-pap) - NEUROLOGICAL Hx Neurological Disorder: No - HEENT Hx HEENT Problems: No - RENAL Hx Chronic Kidney Disease: Yes Other/Comment: frequent urination - ENDOCRINE/METABOLIC Hx Endocrine Disorders: No - HEMATOLOGICAL/ONCOLOGICAL Hx Blood Disorders: No Hx Blood Transfusions: No - INTEGUMENTARY Hx Dermatological Problems: No - MUSCULOSKELETAL/RHEUMATOLOGICAL Hx Musculoskeletal Disorders: Yes Hx Arthritis: Yes Hx Falls: No Hx Gout: Yes Hx Osteoarthritis: Yes - GASTROINTESTINAL Hx Gastrointestinal Disorders: No - GENITOURINARY/GYNECOLOGICAL Hx Genitourinary Disorders: Yes Hx Prostate Problems: Yes - PSYCHIATRIC Hx Psychophysiologic Disorder: No Hx Substance Use: No - SURGICAL HISTORY Hx Surgeries: Yes Hx Appendectomy: Yes Hx Cholecystectomy: Yes Hx Herniorrhaphy: Yes (Left ventral) Hx Joint Replacement: Yes (bilateral JACK) Hx Musculoskeletal Surgery: Yes (Right Biceps and Rotator Cuff Repair after Trauma) Hx Orthopedic Surgery: Yes (Right arm biceps repair) Other/Comment: Right Hip replacement. urolift - ANESTHESIA Hx Anesthesia: Yes Hx Anesthesia Reactions: Yes (difficulty voiding post op) Hx Malignant Hyperthermia: No Has any member of the family had a problem w/ anesthesia?: No Meds Allergies/Adverse Reactions: Allergies Allergy/AdvReac Type Severity Reaction Status Date / Time acetaminophen [From Percocet] Allergy RASH Verified 04/29/18 07:45 oxycodone [From Percocet] Allergy RASH Verified 04/29/18 07:45 Physical Exam - Constitutional Appears: Well, No Acute Distress - Extremities Exam Additional comments: calves soft NT neg homans +DP/PT Pulses calves soft NT neg homans - Expanded Lower Extremities Exam Right Ankle exam: FULL ROM, NORMAL INSPECTION - Neurological Exam Neurological exam: Alert, Oriented x3 - Psychiatric Exam Psychiatric exam: Normal Affect, Normal Mood - Skin Skin Exam: Dry, Intact, Normal Color, Warm Results - Vital Signs Recent Vital Signs: Last Vital Signs Temp 98.1 F 04/29/18 07:20 Pulse 70 04/29/18 07:20 Resp 18 04/29/18 07:20 BP 138/89 04/29/18 07:20 Pulse Ox 98 04/29/18 07:20 - Labs Result Diagrams: 04/29/18 07:20 Assessment & Plan (1) Chronic hip pain after total replacement of hip joint Status: Acute (2) Hypertension Assessment and Plan: cont home meds Status: Chronic Priority: Medium
--- NOTE | 2018-04-29 07:38 | CP.PCM.HP ---
History of Present Illness - History of Present Illness History of Present Illness: PMD: Boaz Scott MD Orthopedist: Dr Edwards Chief complaint: Right hip pain The patient seen and examined on SDS HPI: 67 yo M with H/O OA S/P Right Hip replacement X2, Left Hip replacement , BPH , HTN, dyslipidemia and gout, [id number] of continuous painful right hip with some looseness of the hardware. He is admitted for revision of the right hip 9THR revision). No fever, cough, nausea, vomits, diarrhea nor urinary symptoms. PMH: BPH; Osteoarthritis; HLD; Gout; HTN PSH: Lap Cholecystectomy; Bilateral hip replacement, original right hip replacement in 2007 and revision in 2013; Left Rotator cuff repair; right Bicept reattachment; Both shoulder surgery Urolift SH: Lives in [facility], , denies any smoking ETOH or drug abuse, walks with no assisst devices FH: States: No known family history Allergies: Acetaminophen; Oxycodone Medication: Reviewed Present on Admission - Present on Admission Any Indicators Present on Admission: No History of DVT/PE: No History of Uncontrolled Diabetes: No Urinary Catheter: No Decubitus Ulcer Present: No Review of Systems - Constitutional Constitutional: absent: Anorexia, Chills, Fever, Headache, Lethargy - EENT Eyes: absent: Diplopia, Floaters, Requires Corrective Lenses Ears: absent: Decreased Hearing, Tinnitus Nose/Mouth/Throat: absent: Epistaxis, Nasal Congestion, Nasal Discharge - Cardiovascular Cardiovascular: absent: Chest Pain, Dyspnea, Edema - Respiratory Respiratory: absent: Cough, Dyspnea, Wheezing - Gastrointestinal Gastrointestinal: absent: Constipation, Diarrhea, Nausea, Vomiting - Genitourinary Genitourinary: absent: Dysuria, Flank Pain, Urinary Frequency - Musculoskeletal Musculoskeletal: Arthralgias. absent: Back Pain - Integumentary Integumentary: absent: Pruritus, Rash, Skin Ulcer, Sores, Striae, Swelling - Neurological Neurological: absent: Confusion, Focal Weakness, Weakness - Psychiatric Psychiatric: absent: Anxiety, Depression, Panic Attacks - Endocrine Endocrine: absent: Palpitations, Polydipsia, Polyphagia, Polyuria - Hematologic/Lymphatic Hematologic: absent: Easy Bleeding, Easy Bruising Past Patient History - Infectious Disease Hx of Infectious Diseases: None - Tetanus Immunizations Tetanus Immunization: Unknown - Past Medical History & Family History Past Medical History?: Yes - Past Social History Smoking Status: Never Smoked Chewing Tobacco Use: No Cigar Use: No Alcohol: None Drugs: Denies Home Situation {Lives}: With Family - CARDIAC Hx Cardiac Disorders: Yes Hx Hypercholesterolemia: Yes Hx Hypertension: Yes - PULMONARY Hx Respiratory Disorders: No Hx Sleep Apnea: Yes (uses c-pap) - NEUROLOGICAL Hx Neurological Disorder: No - HEENT Hx HEENT Problems: No - RENAL Hx Chronic Kidney Disease: Yes Other/Comment: frequent urination - ENDOCRINE/METABOLIC Hx Endocrine Disorders: No - HEMATOLOGICAL/ONCOLOGICAL Hx Blood Disorders: No Hx Blood Transfusions: No - INTEGUMENTARY Hx Dermatological Problems: No - MUSCULOSKELETAL/RHEUMATOLOGICAL Hx Musculoskeletal Disorders: Yes Hx Arthritis: Yes Hx Falls: No Hx Gout: Yes Hx Osteoarthritis: Yes - GASTROINTESTINAL Hx Gastrointestinal Disorders: No - GENITOURINARY/GYNECOLOGICAL Hx Genitourinary Disorders: Yes Hx Prostate Problems: Yes - PSYCHIATRIC Hx Psychophysiologic Disorder: No Hx Substance Use: No - SURGICAL HISTORY Hx Surgeries: Yes Hx Appendectomy: Yes Hx Cholecystectomy: Yes Hx Herniorrhaphy: Yes (Left ventral) Hx Joint Replacement: Yes (bilateral JACK) Hx Musculoskeletal Surgery: Yes (Right Biceps and Rotator Cuff Repair after Trauma) Hx Orthopedic Surgery: Yes (Right arm biceps repair) Other/Comment: Right Hip replacement. urolift - ANESTHESIA Hx Anesthesia: Yes Hx Anesthesia Reactions: Yes (difficulty voiding post op) Hx Malignant Hyperthermia: No Has any member of the family had a problem w/ anesthesia?: No Meds Allergies/Adverse Reactions: Allergies Allergy/AdvReac Type Severity Reaction Status Date / Time acetaminophen [From Percocet] Allergy RASH Verified 04/29/18 07:45 oxycodone [From Percocet] Allergy RASH Verified 04/29/18 07:45 Physical Exam - Constitutional Appears: No Acute Distress - Head Exam Head Exam: ATRAUMATIC, NORMAL INSPECTION, NORMOCEPHALIC - Eye Exam Eye Exam: EOMI, Normal appearance Pupil Exam: NORMAL ACCOMODATION, PERRL - ENT Exam ENT Exam: Mucous Membranes Moist, Normal Exam, Normal External Ear Exam - Neck Exam Neck exam: Positive for: Full Rom, Normal Inspection. Negative for: Lymphadenopathy, Tenderness - Respiratory Exam Respiratory Exam: Clear to Auscultation Bilateral. absent: Rales, Rhonchi, Wheezes - Cardiovascular Exam Cardiovascular Exam: REGULAR RHYTHM, RRR, +S1, +S2. absent: Gallop, JVD - GI/Abdominal Exam GI & Abdominal Exam: Normal Bowel Sounds, Soft. absent: Mass, Organomegaly, Tenderness - Rectal Exam Rectal Exam: Deferred - Extremities Exam Extremities exam: Positive for: normal inspection. Negative for: joint swelling , pedal edema Additional comments: Right hip pain on walking - Back Exam Back exam: NORMAL INSPECTION. absent: CVA tenderness (L), CVA tenderness (R) - Neurological Exam Neurological exam: Alert, CN II-XII Intact, Oriented x3, Reflexes Normal - Psychiatric Exam Psychiatric exam: Normal Affect, Normal Mood - Skin Skin Exam: Dry, Normal Color, Warm Results - Vital Signs Recent Vital Signs: Last Vital Signs Temp 98.1 F 04/29/18 07:20 Pulse 70 04/29/18 07:28 Resp 18 04/29/18 07:20 BP 138/89 04/29/18 07:20 Pulse Ox 98 04/29/18 07:20 - Labs Result Diagrams: 04/29/18 07:20 Assessment & Plan - Assessment and Plan (Free Text) Assessment: #. Mal function of Right total Hip replacement hardware #. HTN #. BPH #. HLD #. Sleep Apnea Plan: 67 yo M with H/O OA S/P Right Hip replacement X2, Left Hip replacement , BPH , HTN, dyslipidemia and gout, [id number] of continuous painful right hip with some looseness of the hardware. He is admitted for revision of the right hip 9THR revision). No fever, cough, nausea, vomits, diarrhea nor urinary symptoms. #. Mal function of Right total Hip replacement hardware - Consult orthopedic, Dr Edwards - Orthopedic management - Pain management - PT/OT #. HTN - Amlodipine #. BPH - Oxybutinine #. HLD - Atorvastatin #. Sleep Apnea - CPAP if needed #. DVT prophylaxis with Lovenox starting 04/30/18 #. Code Status: full - Date & Time Date: 04/29/18 Time: 07:38
[2018-04-29] MEDS ORDERED: Tranexamic Acid 1,000 MG in Sodium Chloride 0.9% 100 ML IVPB SCH (07:45)
[2018-04-29 07:46] LABS: BASO # 0.2 K/uL (0.0-0.2); BASO % 1.7 % (0.0-2.0); EOS # 0.3 K/uL (0.0-0.7); EOS % 3.4 % (0.0-4.0); HEMOGLOBIN 14.8 g/dL (12.0-18.0); LYMPH # 2.3 K/uL (1.0-4.3); LYMPH % 25.8 % (20.0-40.0); MEAN CELL VOLUME 89.2 fl (80.0-94.0); MEAN CORPUSCULAR HEMOGLOBIN 30.6 pg (27.0-31.0); MEAN CORPUSCULAR HGB CONC 34.2 g/dL (33.0-37.0); MEAN PLATELET VOLUME 9.3 fl (7.2-11.7); MONO # 1.2 K/uL (0.0-0.8); MONO % 12.9 % (0.0-10.0); NEUT % 56.2 % (50.0-75.0); NRBC % 0.1 % (0.0-0.0); RBC 4.86 Mil/uL (4.40-5.90); RED CELL DISTRIBUTION WIDTH 13.1 % (11.5-14.5)
[2018-04-29] MEDS ORDERED: Propofol 10 mg/ml Inj (20 ML) ONE (08:01)
[2018-04-29] MEDS ORDERED: Midazolam 2 MG/2 ML VIAL ONE (08:02)
[2018-04-29] MEDS ORDERED: Rocuronium 10 mg/ml (5 ml) ONE ×2 (08:03→09:44)
[2018-04-29] MEDS ORDERED: Morphine 1 mg/ml preservative-free Inj(Duramorph) ONE (08:03)
[2018-04-29] MEDS ORDERED: Lactated Ringer's 1,000 ML IV ONE ×3 (08:10→11:00)
[2018-04-29] MEDS ORDERED: ePHEDrine 50 mg/ml Inj ONE (08:48)
[2018-04-29] MEDS ORDERED: EPINEPHrine 1 mg/ml (1:1000) Inj ONE (08:56)
[2018-04-29] MEDS ORDERED: EPINEPHrine 1 mg/ml (1:1000) Inj IV ONE (10:02)
[2018-04-29 10:19] LABS: FLUID TYPE SYNOVIAL FLUID
[2018-04-29 10:45] LABS: FLUID TYPE SYNOVIAL FLUID
[2018-04-29] MEDS ORDERED: Phenylephrine 10 mg/ml Inj ONE (11:29)
[2018-04-29 11:40] LABS: SF GROSS APPEARANCE BLOODY (CLEAR); SYNOVIAL FLUID COMMENT TURBID
[2018-04-29 11:41] LABS: SYNOVIAL FLUID MONO/MACROPHAGE 6 % (0-0)
[2018-04-29 12:22] LABS: FLUID TYPE SYNOVIAL FLUID
[2018-04-29] MEDS ORDERED: HYDROmorphone 1 mg/ml ISec IVP PRN (12:41)
[2018-04-29 12:56] LABS: SF GROSS APPEARANCE TURBID (CLEAR); SYNOVIAL FLUID COMMENT BLOODY; SYNOVIAL FLUID MONO/MACROPHAGE 8 % (0-0)
[2018-04-29 12:57] LABS: SF GROSS APPEARANCE BLOODY (CLEAR); SYNOVIAL FLUID COMMENT TURBID
[2018-04-29 12:58] LABS: SYNOVIAL FLUID MONO/MACROPHAGE 7 % (0-0)
--- NOTE | 2018-04-29 16:02 | RAD ---
PROCEDURE: Right Hip Radiographs. HISTORY: Status post right total hip revision. COMPARISON: Comparison made with prior CT scan of the pelvis and left hip dated 07/12/2015. Tree Inspector film on this exam demonstrated a right-sided total hip replacement. FINDINGS: BONES: Current study reveals right-sided total hip replacement with satisfactory alignment of the acetabular and femoral stem components. No evidence of dislocation. Presumed postoperative air seen surrounding the neck and brain stem component the and abutting the acetabular component. Skin closure sourav seen along the lateral soft tissues. Left total hip replacement with surrounding cerclage wire about the intertrochanteric region again noted again noted exhibiting satisfactory alignment. No evidence of dislocation. JOINTS: As above SOFT TISSUES: Normal. OTHER FINDINGS: None. IMPRESSION: Interval revision right-sided total arthroplasty with surrounding postoperative changes. Re- demonstrated is in situ left-sided total hip replacement. Hardware appears intact and appropriately located without evidence of failure
[2018-04-29] MEDS: ceFAZolin 2 GM in Sodium Chloride 0.9% 100 ML IVPB SCH (16:26)
--- NOTE | 2018-04-29 17:25 | PCM.SURG1 ---
Surgeon's Initial Post Op Note - Surgeon's Notes Surgeon: Jerry Post Exchange Manager: 1st amaris peterson PA-C/ 2nd assist-ABEL De Anda Type of Anesthesia: General Endo, Block Regional Anesthesia Administered By: DR Jone Monroe Pre-Operative Diagnosis: Painful R THR with loosened aceatbular component. fx posterior wall acetabulum. extensive synovitis. no evidence for deep sepsis Operative Findings: as above. loosened acetabular component (aseptic). contracture iliopsoas tendon. extensive synovitis. fx posterior wall acetabulum Post-Operative Diagnosis: as above Operation Performed: Revision R THR (acetabulum and femoral). extraction acetabular component and femoral head. release iliopsoas tendon. arthrotomy/ extensive acetabular synovectomy. computer navigation. \ Specimen/Specimens Removed: failed acetabular componen t femoral head synvovium portion iliopsoas tendon Estimated Blood Loss: EBL {In ML}: 425 Blood Products Given: N/A Drains Used: Hemovac Post-Op Condition: Fair Date of Surgery/Procedure: 04/29/18 Time of Surgery/Procedure: 09:30 (time in room 8:10/anesthesia indcution time 8: 10)
[2018-04-29] MEDS: Lactated Ringer's 1,000 ML IV SCH (23:00)
[2018-04-30] MEDS: ceFAZolin 2 GM in Sodium Chloride 0.9% 100 ML IVPB SCH ×3 (00:37→18:01)
[2018-04-30 06:45] LABS: HEMOGLOBIN 12.1 g/dL (12.0-18.0); MEAN CELL VOLUME 89.8 fl (80.0-94.0); MEAN CORPUSCULAR HEMOGLOBIN 30.2 pg (27.0-31.0); MEAN CORPUSCULAR HGB CONC 33.6 g/dL (33.0-37.0); RBC 4.01 Mil/uL (4.40-5.90); RED CELL DISTRIBUTION WIDTH 13.3 % (11.5-14.5); WHITE BLOOD COUNT 12.5 K/uL (4.8-10.8)
[2018-04-30 06:52] LABS: BLOOD UREA NITROGEN 21 mg/dl (9-20); CALCIUM 8.5 mg/dL (8.4-10.2); GFR NON-AFRICAN AMERICAN > 60
[2018-04-30] MEDS ORDERED: Enoxaparin 40 mg Syringe SC SCH (09:00)
[2018-04-30] MEDS ORDERED: Multivitamin With Minerals Tab PO SCH (09:00)
[2018-04-30] MEDS ORDERED: Patient's Own Med (Multivitamin [Multivitamins] 1 TAB) PO SCH (09:00)
--- NOTE | 2018-04-30 09:01 | OP ---
Copied To: Soham Edwards MD Attending MD: Soham Edwards MD PROCEDURE DATE: 04/29/2018 PREOPERATIVE DIAGNOSIS: Painful loosened right total hip replacement. POSTOPERATIVE DIAGNOSES: 1. Painful loosened acetabular component. 2. Marked and extensive synovitis. 3. Iliopsoas tendon contracture, no evidence for deep sepsis preoperatively. OPERATIVE FINDINGS: 1. Loosened acetabular component (aseptic). 2. Contracture of the iliopsoas tendon. 3. Extensive synovitis of the hip joint. 4. Fracture of the posterior wall of the acetabulum. OPERATIVE PROCEDURE: 1. Revision of total hip replacement arthroplasty, both components. 2. Explant of the previous acetabular component femoral head. 3. Open treatment of an acetabular posterior wall fracture. 4. Extensive synovectomy. 5. Release of iliopsoas tendon. 6. Computer navigation. SURGEON: Soham Edwards MD SWATCH FOLDER: Isabelle Aviles PA-C SECOND CONDITIONER TUMBLER: Chika Phelan, certified registered nursing dental hygiene administrative assistant. SPECIMENS REMOVED: 1. Failed acetabular component, femoral head. 2. Synovitis, portion of iliopsoas tendon. BLOOD LOSS: 425 mL. BLOOD PRODUCTS: No blood products given. DRAINS: One Hemovac drain. OPERATIVE INDICATIONS Job Avalos Jr. is a 67-year-old gentleman who had undergone hip replacement approximately 8 years prior. The patient has had increasing pain in the groin and down the proximal aspect of the thigh over the past 3 months. Aspiration arthrogram was accomplished which was negative for sepsis. The patient presents with marked discomfort, pain, and restricted range of motion of the right hip. The patient has severe discomfort, unable to bear weight. The patient was brought in. Pros, cons, risks and benefits of surgical approach were discussed. The possibility of mechanical failure, infection, thromboembolic disease, secondary or tertiary surgery was discussed. The patient can no longer withstand the discomfort. OPERATIVE PROCEDURE: After having obtained informed consent, after having identified side, site, and procedure and a critical pause/time-out, after the satisfactory induction of the anesthetic, patient identified as Job Avalos. He was placed in a direct lateral decubitus position. All bony prominences were well padded. Great care was taken that the patient is in the direct lateral decubitus position. The planes for the Intellijoint technology are defined, and at this point in time, an incision was carried out two fingerbreadths proximal to the original incision, two fingerbreadths distally. The skin incision was carried down through the skin, subcutaneous tissue. An ellipse of skin was removed. Dissection was carried down through the gluteus wilfrid tendon, and the plane between the fascia trevin and the vastus lateralis was defined and developed. At this point in time, the gluteus wilfrid tendon insertion to the posterior femur was released. Hemostasis was controlled with Aquamantys. Wound talus was sewn in. The Charnley retractor was placed. With internal rotation of the hip, the capsular flap was elevated and tagged. Dissection was carried out to the superior aspect of the acetabulum, and a portion of the reflected head of rectus femoris was elevated. There was a massive amount of scar tissue and synovitis in the hip joint. Extensive synovectomy and debridement of scar was accomplished. The dissection was carried out to the area of the iliopsoas tendon. The iliopsoas tendon remnant was released. Iliopsoas tendon was released. An extensive synovectomy was accomplished. The tissue in the hip joint was excised. Synovectomy of the hip joint was accomplished and the hip was dislocated. The ceramic femoral head was removed and the acetabulum was exposed. The rim of tissue around the acetabulum was carefully debrided. The rectus femoris was elevated, and there was found to be evidence of a fracture of the posterior wall of the acetabulum. This having been accomplished with the hip dislocated, the hip was swung anteriorly. The neck is protected with a Ray-Dean sponge, and this having been accomplished, the femur was brought anteriorly. This having been accomplished, the acetabulum was identified, using a combination of the curved osteotomes, the acetabular component was removed. Extensive synovectomy was accomplished, lysis of adhesions, release of the iliopsoas remnant. The gluteus wilfrid tendon was released. This having been accomplished, the fixation of the femur was identified, and the femoral stem was found to be well fixed. At this point in time with the acetabulum exposed and again having performed arthrotomy and synovectomy, release of the iliopsoas tendon, sequential reaming was carried out to 68 mm. The anterior-posterior girth of the acetabulum was identified, the version was accomplished. At this point in time, the pins were placed in the iliac crest and the optical camera is fixed. This having been accomplished, reaming having been accomplished, the trial component was introduced. The trial component having introduced, the fit was found to be excellent. This having been accomplished, verification of position is offered to approximately 40 degrees of abduction and 21 degrees of anteversion. At this point in time, the autograft reaming are denuded of any articular cartilage, and they are used to bone graft the posterior wall to repair the acetabular fracture. Bone grafting having been accomplished, the #70 Medacta acetabular component was introduced again at approximately 40 degrees of abduction and 20 to 22 degrees of anteversion. The position was found to be excellent. The polyethylene was impacted. It should be noted that the three separate screws were inserted through the cup. Drilling was accomplished sounding with the depth gauge and the appropriate size screws were placed. This having been accomplished, the polyethylene was introduced and attention was turned to the femur. The femur having been introduced, the polyethylene having been impacted, trialing was accomplished with a + 3.5 ceramic head. The 40 mm + 3.5 ceramic is decided upon, the fit of the acetabulum was found to be excellent. It should be noted that autograft bone grafting was accomplished, and the screws in the cup fixate the posterior wall of the acetabulum. Autograft bone grafting is accomplished to the fracture of the posterior wall of the acetabulum and the position was found to be acceptable. This having been accomplished, the hip was trialed in all planes, found to be stable. The pins were removed for the Intellijoint after final positioning of the acetabular component. This having been accomplished, hemostasis controlled with the Aquamantys. Closures in layers with 2-0 Quill, , Vicryl, and sourav for skin over an 8-inch suction Hemovac drain. Frankie Samuels compression dressing was applied. Postoperative x-rays revealed acceptable position of the construct. Soham Edwards MD
[2018-04-30] MEDS: Lactated Ringer's 1,000 ML IV SCH (09:19)
--- NOTE | 2018-04-30 09:21 | CP.PCM.PN ---
Subjective - Date & Time of Evaluation Date of Evaluation: 04/30/18 Time of Evaluation: 09:21 - Subjective Subjective: Patient states pain is severe at times, and he is having pain from sciatica that was recently aggravated. He denies CP/SOB/dizziness/numbness/tingling/ nausea vomiting. Objective - Vital Signs/Intake and Output Vital Signs (last 24 hours): Temp Pulse Resp BP Pulse Ox 99.4 F 91 H 19 115/66 94 L 04/30/18 07:46 04/30/18 09:02 04/30/18 07:46 04/30/18 09:02 04/30/18 07:46 Intake and Output: 04/30/18 04/30/18 06:59 18:59 Intake Total 600 Balance 600 - Medications Medications: Current Medications Amlodipine Besylate (Norvasc) 5 mg PO DAILY [facility] Last Admin: 04/30/18 09:02 Dose: 5 mg Atorvastatin Calcium (Lipitor) 20 mg PO DAILY [facility] Last Admin: 04/30/18 09:01 Dose: 20 mg Enoxaparin Sodium (Lovenox) 40 mg SC DAILY [facility] PRN Reason: Protocol Last Admin: 04/30/18 09:01 Dose: 40 mg Hydromorphone HCl (Dilaudid) 2 mg IVP Q4 PRN PRN Reason: Pain, severe (8-10) Hydromorphone HCl (Dilaudid) 2 mg PO Q4 PRN PRN Reason: Pain, moderate (4-7) Hydromorphone HCl (Dilaudid 0.2 Mg/Ml Entry Level Accountant) 6 mg IV PRN PRN; Protocol PRN Reason: Pain, moderate (4-7) Last Admin: 04/29/18 14:30 Dose: 0 mg Cefazolin Sodium 2 gm/ Sodium (Chloride) 100 mls @ 100 mls/hr IVPB Q8 MICHELLE PRN Reason: Protocol Last Admin: 04/30/18 00:37 Dose: 100 mls/hr Lactated Ringer's (Lactated Ringer's) 1,000 mls @ 100 mls/hr IV .Q10H [facility] Last Admin: 04/29/18 23:00 Dose: Not Given Multivitamins/Minerals (Therapeutic-M Tab) 1 tab PO DAILY [facility] Last Admin: 04/30/18 09:03 Dose: 1 tab Ondansetron HCl (Zofran Inj) 4 mg IVP ONCE PRN PRN Reason: Nausea/Vomiting Oxybutynin Chloride (Ditropan Tab) 5 mg PO BID [facility] Last Admin: 04/30/18 09:00 Dose: 5 mg Tamsulosin HCl (Flomax) 0.4 mg PO DAILY [facility] Last Admin: 04/30/18 09:00 Dose: 0.4 mg - Labs Labs: 04/30/18 05:25 04/30/18 05:25 - Extremities Exam Additional comments: 22cc hemovac, pulled. Dressing intact, small sang drainage +ROM ankle/toes, sensation intact, +DP/PT Pulses calves soft NT neg homans Assessment and Plan (1) Chronic hip pain after total replacement of hip joint Assessment & Plan: POD#1 s/p revision right THR (acetabular component) TTWB d/c planning to home at pt request posterior ip precautions d/c front office director PT/OT d/w Dr. Edwards, agrees with above Status: Acute (2) Hypertension Status: Chronic
--- NOTE | 2018-04-30 09:55 | CP.PCM.PN ---
Subjective - Date & Time of Evaluation Date of Evaluation: 04/30/18 Time of Evaluation: 08:00 - Subjective Subjective: Patient was seen and examined today. He states that he is in more pain now. With + urinary retention overnight requiring straight cath (1400 cc of urine retained). Also c/o right sided sciatic pain which was aggravated. No c/o chest pain, sob, n/v/d. Objective - Vital Signs/Intake and Output Vital Signs (last 24 hours): Temp Pulse Resp BP Pulse Ox 99.4 F 91 H 19 115/66 94 L 04/30/18 07:46 04/30/18 09:02 04/30/18 07:46 04/30/18 09:02 04/30/18 07:46 Intake and Output: 04/30/18 04/30/18 06:59 18:59 Intake Total 600 Balance 600 - Medications Medications: Current Medications Amlodipine Besylate (Norvasc) 5 mg PO DAILY [facility] Last Admin: 04/30/18 09:02 Dose: 5 mg Atorvastatin Calcium (Lipitor) 20 mg PO DAILY [facility] Last Admin: 04/30/18 09:01 Dose: 20 mg Enoxaparin Sodium (Lovenox) 40 mg SC DAILY [facility] PRN Reason: Protocol Last Admin: 04/30/18 09:01 Dose: 40 mg Hydromorphone HCl (Dilaudid) 2 mg IVP Q4 PRN PRN Reason: Pain, severe (8-10) Hydromorphone HCl (Dilaudid) 2 mg PO Q4 PRN PRN Reason: Pain, moderate (4-7) Cefazolin Sodium 2 gm/ Sodium (Chloride) 100 mls @ 100 mls/hr IVPB Q8 [facility]HELLE PRN Reason: Protocol Last Admin: 04/30/18 09:17 Dose: 100 mls/hr Multivitamins/Minerals (Therapeutic-M Tab) 1 tab PO DAILY [facility] Last Admin: 04/30/18 09:03 Dose: 1 tab Ondansetron HCl (Zofran Inj) 4 mg IVP ONCE PRN PRN Reason: Nausea/Vomiting Oxybutynin Chloride (Ditropan Tab) 5 mg PO BID [facility] Last Admin: 04/30/18 09:00 Dose: 5 mg Tamsulosin HCl (Flomax) 0.4 mg PO DAILY [facility] Last Admin: 04/30/18 09:00 Dose: 0.4 mg - Labs Labs: 04/30/18 05:25 04/30/18 05:25 - Additional Findings Additional findings: Physical exam: Constitutional- cooperative, awake, alert Head- NCAT, PERRL Eye- PERRL, EOMI ENT- normal exam, MMM. Neck- normal inspection, supple, no JVD Respiratory- CTAB, no wheezes rales rhonchi Cardiovascular- RRR, +S1, +S2 no MRG GI/Abdominal- normal bowel sounds, soft, no mass, no hsm Skin- warm, dry Extremities Exam- normal capillary refill, normal inspection Neurological Exam- alert, awake, oriented Psych- normal mood, normal affect Assessment and Plan - Assessment and Plan (Free Text) Plan: 67 yo M with H/O OA S/P Right Hip replacement X2, Left Hip replacement , BPH , HTN, dyslipidemia and gout, [id number] of continuous painful right hip with some looseness of the hardware. He is admitted for revision of the right hip 9THR revision). No fever, cough, nausea, vomits, diarrhea nor urinary symptoms. #. Mal function of Right total Hip replacement hardware, POD #1 - Consult orthopedic, Dr Edwards - Orthopedic management - Pain management - PT/OT #. HTN - Amlodipine #. BPH with urinary retention postop - Restart Oxybutynin - Restart Flomax - Monitor #. HLD - Atorvastatin #. Sleep Apnea - CPAP if needed #. DVT prophylaxis with Lovenox starting 04/30/18 #. Code Status: full
[2018-04-30 10:41] LABS: ABG ALLEN TEST YES; ARTERIAL BLOOD GAS HCO3 22.3 mmol/L (21-28); ARTERIAL BLOOD GAS HEMOGLOBIN 12.6 g/dL (11.7-17.4); ARTERIAL BLOOD GAS O2 CAPACITY 17.3 mL/dL (16-24); ARTERIAL BLOOD GAS O2 CONTENT 17.3 ML/dL (15-23); ARTERIAL BLOOD GAS O2 SAT 100.1 % (95-98); ARTERIAL BLOOD GAS PCO2 36 mm/Hg (35-45); ARTERIAL BLOOD GAS PH 7.38 (7.35-7.45); ARTERIAL BLOOD GAS PO2 131 mm/Hg (80-100); ARTERIAL BLOOD GAS TCO2 22.4 mmol/L (22-28)
[2018-04-30] MEDS ORDERED: Iodixanol 320 MG/ML 100 ML BOTTLE IV ONE (10:55)
[2018-04-30] MEDS ORDERED: Sodium Chloride 0.9% 50 ML IV ONE (10:55)
[2018-04-30 10:56] LABS: HEMOGLOBIN 12.7 g/dL (12.0-18.0); MEAN CELL VOLUME 89.9 fl (80.0-94.0); MEAN CORPUSCULAR HEMOGLOBIN 30.6 pg (27.0-31.0); RBC 4.15 Mil/uL (4.40-5.90); RED CELL DISTRIBUTION WIDTH 13.3 % (11.5-14.5); WHITE BLOOD COUNT 14.8 K/uL (4.8-10.8)
[2018-04-30 11:05] LABS: ALB/GLOB RATIO 1.4 (1.0-2.1); ALBUMIN 3.5 g/dL (3.5-5.0); ALT/SGPT 27 U/L (21-72); AST/SGOT 27 U/L (17-59); BLOOD UREA NITROGEN 20 mg/dl (9-20); CALCIUM 8.5 mg/dL (8.4-10.2); GFR NON-AFRICAN AMERICAN > 60
--- NOTE | 2018-04-30 11:35 | CT ---
Date of service: 04/30/2018 PROCEDURE: CT Chest with contrast (Pulmonary Angiogram) HISTORY: mds rn, hypoxic, tachycardic COMPARISON: None available. TECHNIQUE: Axial computed tomography images were obtained of the chest in the pulmonary arterial phase of enhancement. Coronal and sagittal reformatted images were created and reviewed. Intravenous contrast dose: 99 mL Visipaque 320 Radiation dose: Total exam DLP = 395.8 mGy-cm. This CT exam was performed using one or more of the following dose reduction techniques: Automated exposure control, adjustment of the mA and/or kV according to patient size, and/or use of iterative reconstruction technique. FINDINGS: PULMONARY ARTERIES: Extensive bilateral pulmonary emboli extending from both main pulmonary arteries into all segmental branches with complete non opacification of the right lower lobe pulmonary arteries. AORTA: No acute findings. No thoracic aortic aneurysm. LUNGS: Unremarkable. No nodule, mass or pulmonary consolidation. PLEURAL SPACES: Unremarkable. No effusion or pneumothorax. HEART: Dilatation of the right ventricle with bowing of the interventricular septum. No cardiomegaly. No significant pericardial effusion. LYMPH NODES: No lymphadenopathy. BONES, CHEST WALL: Unremarkable. No fracture or destructive lesion OTHER FINDINGS: Prior cholecystectomy. IMPRESSION: Extensive bilateral pulmonary emboli with CT evidence of right heart strain. Findings discussed with Dr. Camacho by Dr. Guo at 11:28 a.m. on 04/30/2018.
--- NOTE | 2018-04-30 11:44 | PCM.RRT ---
[employer] Nurse Assessment - Situation [employer] Responder Arrival Time: 10:26 [employer] Reason for Call: Tachycardia, Respiratory Distress - Respiratory Oxygen Delivery Method: Mask (full) - Diagnostic Test Ordered EKG: Yes (P waves noted, SR with rate of 135) CT Scan: Yes (CT angio ordered ) - Stat Labs Ordered [employer] Stat Labs Ordered: CBC, TROPONIN, ABG [employer] Other Labs Ordered: CMP - Vital Signs Vital Signs: Vitals T 97.5 BP 136/79 HR 130 O2 92% on NC - Vital Signs at end of [employer] Vital Signs at end of [employer]: Vitals T 97.5 BP 109/75 HR 138 RR 22 O2 99% mask I.Reason for [employer] - A) Acute Change in Patient: (Select all that apply): Staff member or family is worried about patient - Neurological Status (Select all that apply): Alert, Oriented, Verbal - Respiratory Oxygen Delivery Method: Face Mask @% - Constitutional Appears: In Acute Distress, Other (tachypnea ) - Respiratory Exam Respiratory Exam: Clear to Ausculation Bilateral, NORMAL BREATHING PATTERN. absent: Wheezes - Cardiovascular Exam Cardiovascular Exam: REGULAR RHYTHM, +S1, +S2 - GI/Abdominal Exam GI & Abdominal Exam: Soft, Normal Bowel Sounds. absent: Tenderness - Neurological Exam Neurological Exam: Alert, Awake Plan - Assessment of Findings&Treatment Plan Assessment/Plan: 67 YO male with PMHx OA S/P Right Hip replacement X2, Left Hip replacement , BPH , HTN, dyslipidemia and gout, is admitted for R hip revision. POD1. [employer] was called for desaturation to the low 70's. [employer] team arrived by bedside with Dr. Santiago and Dr. Wilsno. Pt was started on face mask with max O2, stat EKG was ordered, blood work along with CTA. During [employer], BP dropped to 90's/70's, IVF was started at 250ml/hr after which bp improved. Tachycardia, Tachypnea, O2 desaturation -post op symptoms, likely multifactorial, 2/2 to PE/DVT, pain -s/p Lovenox this AM -stat CTA ordered -EKG: read by me P waves present, tachycardia -stat trops, cbc and cmp -cont O2 via mask -cont IVF @ 250ml/hr -transfer pt to telemetry for monitor -follow up
[2018-04-30] MEDS ORDERED: Heparin 25,000units in D5W 25,000 UNITS/250 ML BAG IV SCH ×3 (11:45→19:22)
--- NOTE | 2018-04-30 11:55 | CP.PCM.CON ---
<Yovani Carter - Last Filed: 04/30/18 12:24> History of Present Illness - History of Present Illness History of Present Illness: Consult Note for ICU 67 yo male patient with PMH of HTN, OA, Gout, BPH and DLD, also multiple b/l hip replacement was admitted yesterday for R hip replacement due to some looseness of the hardware, this morning [employer] was called due to chest pain, sob and desaturation. PMH: HTN, Osteoarthritis; HLD; Gout; BPH PSH: Lap Cholecystectomy; Bilateral hip replacement, Left Rotator cuff repair; right Bicept reattachment SH: Denies any smoking, ETOH or drug abuse FH: No known family history Allergies: Acetaminophen; Oxycodone Medication: Reviewed Review of Systems - Review of Systems All systems: reviewed and no additional remarkable complaints except (as per HPI ) Past Patient History - Infectious Disease Hx of Infectious Diseases: None - Tetanus Immunizations Tetanus Immunization: Unknown - Past Medical History & Family History Past Medical History?: Yes - Past Social History Smoking Status: Never Smoked Chewing Tobacco Use: No - CARDIAC Hx Cardiac Disorders: Yes Hx Hypercholesterolemia: Yes Hx Hypertension: Yes - PULMONARY Hx Respiratory Disorders: No Hx Sleep Apnea: Yes (uses c-pap) - NEUROLOGICAL Hx Neurological Disorder: No - HEENT Hx HEENT Problems: No - RENAL Hx Chronic Kidney Disease: Yes Other/Comment: frequent urination - ENDOCRINE/METABOLIC Hx Endocrine Disorders: No - HEMATOLOGICAL/ONCOLOGICAL Hx Blood Disorders: No Hx Blood Transfusions: No - INTEGUMENTARY Hx Dermatological Problems: No - MUSCULOSKELETAL/RHEUMATOLOGICAL Hx Musculoskeletal Disorders: Yes Hx Arthritis: Yes Hx Falls: No Hx Gout: Yes Hx Osteoarthritis: Yes - GASTROINTESTINAL Hx Gastrointestinal Disorders: No - GENITOURINARY/GYNECOLOGICAL Hx Genitourinary Disorders: Yes Hx Prostate Problems: Yes - PSYCHIATRIC Hx Psychophysiologic Disorder: No Hx Substance Use: No - SURGICAL HISTORY Hx Surgeries: Yes Hx Appendectomy: Yes Hx Cholecystectomy: Yes Hx Herniorrhaphy: Yes (Left ventral) Hx Joint Replacement: Yes (bilateral JACK) Hx Musculoskeletal Surgery: Yes (Right Biceps and Rotator Cuff Repair after Trauma) Hx Orthopedic Surgery: Yes (Right arm biceps repair) Other/Comment: Right Hip replacement. urolift - ANESTHESIA Hx Anesthesia: Yes Hx Anesthesia Reactions: Yes (difficulty voiding post op) Hx Malignant Hyperthermia: No Has any member of the family had a problem w/ anesthesia?: No Meds Allergies/Adverse Reactions: Allergies Allergy/AdvReac Type Severity Reaction Status Date / Time acetaminophen [From Percocet] Allergy RASH Verified 04/29/18 07:45 oxycodone [From Percocet] Allergy RASH Verified 04/29/18 07:45 - Medications Medications: Current Medications Amlodipine Besylate (Norvasc) 5 mg PO DAILY [facility] Last Admin: 04/30/18 09:02 Dose: 5 mg Atorvastatin Calcium (Lipitor) 20 mg PO DAILY [facility] Last Admin: 04/30/18 09:01 Dose: 20 mg Hydromorphone HCl (Dilaudid) 2 mg IVP Q4 PRN PRN Reason: Pain, severe (8-10) Hydromorphone HCl (Dilaudid) 2 mg PO Q4 PRN PRN Reason: Pain, moderate (4-7) Cefazolin Sodium 2 gm/ Sodium (Chloride) 100 mls @ 100 mls/hr IVPB Q8 [facility] PRN Reason: Protocol Last Admin: 04/30/18 09:17 Dose: 100 mls/hr Heparin Sodium/Dextrose (Heparin 25,000 Units/250ml In D5w) 25,000 units in 250 mls @ 10 mls/hr IV .Q24H [facility] PRN Reason: Protocol Multivitamins/Minerals (Therapeutic-M Tab) 1 tab PO DAILY [facility] Last Admin: 04/30/18 09:03 Dose: 1 tab Ondansetron HCl (Zofran Inj) 4 mg IVP ONCE PRN PRN Reason: Nausea/Vomiting Oxybutynin Chloride (Ditropan Tab) 5 mg PO BID [facility] Last Admin: 04/30/18 09:00 Dose: 5 mg Tamsulosin HCl (Flomax) 0.4 mg PO DAILY [facility] Last Admin: 04/30/18 09:00 Dose: 0.4 mg Physical Exam - Constitutional Appears: In Acute Distress - Head Exam Head Exam: NORMAL INSPECTION - Eye Exam Eye Exam: EOMI, PERRL - Respiratory Exam Respiratory Exam: Decreased Breath Sounds. absent: Accessory Muscle Use, Rales , Rhonchi, Wheezes - Cardiovascular Exam Cardiovascular Exam: REGULAR RHYTHM. absent: Tachycardia, JVD - GI/Abdominal Exam GI & Abdominal Exam: Soft. absent: Distended, Tenderness - Extremities Exam Extremities exam: Negative for: calf tenderness, pedal edema - Neurological Exam Neurological exam: Alert, Oriented x3 - Skin Skin Exam: Dry, Warm Results - Vital Signs Recent Vital Signs: Last Vital Signs Temp 99.4 F 04/30/18 07:46 Pulse 91 H 04/30/18 09:02 Resp 19 04/30/18 07:46 BP 115/66 04/30/18 09:02 Pulse Ox 94 L 04/30/18 07:46 - Labs Result Diagrams: 04/30/18 10:48 04/30/18 10:48 Labs: Laboratory Results - last 24 hr 04/29/18 04/29/18 04/30/18 10:40 11:38 05:25 WBC 12.5 H RBC 4.01 L Hgb 12.1 D Hct 36.0 MCV 89.8 MCH 30.2 MCHC 33.6 RDW 13.3 Plt Count 264 pCO2 pO2 HCO3 ABG pH ABG Total CO2 ABG O2 Saturation ABG O2 Content ABG Base Excess ABG Hemoglobin ABG Carboxyhemoglobin POC ABG HHb (Measured) ABG Methemoglobin ABG O2 Capacity Chidi Test A-a O2 Difference Hgb O2 Saturation Vent Mode FiO2 Sodium Potassium Chloride Carbon Dioxide Anion Gap BUN Creatinine Est GFR ( Amer) Est GFR (Non-Af Amer) POC Glucose (mg/dL) Random Glucose Calcium Total Bilirubin AST ALT Alkaline Phosphatase Troponin I Total Protein Albumin Globulin Albumin/Globulin Ratio Fluid Type Synovial fluid Synovial WBC 168.0 H 119.0 Synovial RBC 883362.0 H 88383.0 H Synovial Neutrophils 90.0 H 80.0 H Synovial Lymphocytes 12.0 H 13.0 H Synov Monos/Macrophage 8 H 7 H Synovial Fluid Comment Bloody Turbid 04/30/18 04/30/18 04/30/18 05:25 10:21 10:25 WBC RBC Hgb Hct MCV MCH MCHC RDW Plt Count pCO2 36 pO2 131 H HCO3 22.3 ABG pH 7.38 ABG Total CO2 22.4 ABG O2 Saturation 100.1 H ABG O2 Content 17.3 ABG Base Excess -3.3 L ABG Hemoglobin 12.6 ABG Carboxyhemoglobin 2.1 H POC ABG HHb (Measured) -0.1 L ABG Methemoglobin 1.6 ABG O2 Capacity 17.3 Chidi Test Yes A-a O2 Difference 537.0 Hgb O2 Saturation 96.3 Vent Mode Nrm FiO2 100.0 Sodium 140 Potassium 3.8 Chloride 106 Carbon Dioxide 27 Anion Gap 11 BUN 21 H Creatinine 0.8 Est GFR ( Amer) > 60 Est GFR (Non-Af Amer) > 60 POC Glucose (mg/dL) 200 H Random Glucose 114 H Calcium 8.5 Total Bilirubin AST ALT Alkaline Phosphatase Troponin I Total Protein Albumin Globulin Albumin/Globulin Ratio Fluid Type Synovial WBC Synovial RBC Synovial Neutrophils Synovial Lymphocytes Synov Monos/Macrophage Synovial Fluid Comment 04/30/18 04/30/18 10:48 10:48 WBC 14.8 H RBC 4.15 L Hgb 12.7 Hct 37.3 MCV 89.9 MCH 30.6 MCHC 34.0 RDW 13.3 Plt Count 284 pCO2 pO2 HCO3 ABG pH ABG Total CO2 ABG O2 Saturation ABG O2 Content ABG Base Excess ABG Hemoglobin ABG Carboxyhemoglobin POC ABG HHb (Measured) ABG Methemoglobin ABG O2 Capacity Chidi Test A-a O2 Difference Hgb O2 Saturation Vent Mode FiO2 Sodium 138 Potassium 3.7 Chloride 104 Carbon Dioxide 23 Anion Gap 15 BUN 20 Creatinine 0.9 Est GFR ( Amer) > 60 Est GFR (Non-Af Amer) > 60 POC Glucose (mg/dL) Random Glucose 216 H Calcium 8.5 Total Bilirubin 0.9 AST 27 ALT 27 Alkaline Phosphatase 74 Troponin I 0.0310 Total Protein 6.0 L Albumin 3.5 Globulin 2.5 Albumin/Globulin Ratio 1.4 Fluid Type Synovial WBC Synovial RBC Synovial Neutrophils Synovial Lymphocytes Synov Monos/Macrophage Synovial Fluid Comment Assessment & Plan - Assessment and Plan (Free Text) Assessment: 67 yo M with PMH of OA S/P Right Hip replacement X2, Left Hip replacement , BPH , HTN, dyslipidemia and gout s/p R hip replacement yesterday complicated now with extensive bilateral Pulmonary Embolism. Massive b/l PE with R ventricular strain Plan: - admit to ICU - postsurgery pt, POD1 - CTA: Extensive bilateral pulmonary emboli with CT evidence of right heart strain. - High flow oxygen - Heparin 5000 units IV bolus once followed with Heparin drip 1000 units/hr - f/u echo, PT/PTT, INR - Interventional cardiology consulted, Dr Carbajal called Posible EKO candidate due to RV strain Code Status: full code <Juan Elmore - Last Filed: 04/30/18 13:10> Meds - Medications Medications: Current Medications Amlodipine Besylate (Norvasc) 5 mg PO DAILY [facility] Last Admin: 04/30/18 09:02 Dose: 5 mg Atorvastatin Calcium (Lipitor) 20 mg PO DAILY [facility] Last Admin: 04/30/18 09:01 Dose: 20 mg Hydromorphone HCl (Dilaudid) 2 mg IVP Q4 PRN PRN Reason: Pain, severe (8-10) Hydromorphone HCl (Dilaudid) 2 mg PO Q4 PRN PRN Reason: Pain, moderate (4-7) Cefazolin Sodium 2 gm/ Sodium (Chloride) 100 mls @ 100 mls/hr IVPB Q8 [facility]HELLE PRN Reason: Protocol Last Admin: 04/30/18 09:17 Dose: 100 mls/hr Heparin Sodium/Dextrose (Heparin 25,000 Units/250ml In D5w) 25,000 units in 250 mls @ 16 mls/hr IV .[id number] [facility] PRN Reason: Protocol Multivitamins/Minerals (Therapeutic-M Tab) 1 tab PO DAILY [facility] Last Admin: 04/30/18 09:03 Dose: 1 tab Ondansetron HCl (Zofran Inj) 4 mg IVP ONCE PRN PRN Reason: Nausea/Vomiting Oxybutynin Chloride (Ditropan Tab) 5 mg PO BID [facility] Last Admin: 04/30/18 09:00 Dose: 5 mg Tamsulosin HCl (Flomax) 0.4 mg PO DAILY [facility] Last Admin: 04/30/18 09:00 Dose: 0.4 mg Results - Vital Signs Recent Vital Signs: Last Vital Signs Temp 98.4 F 04/30/18 12:00 Pulse 137 H 04/30/18 12:00 Resp 18 04/30/18 12:01 BP 125/79 04/30/18 12:00 Pulse Ox 100 04/30/18 12:00 - Labs Result Diagrams: 04/30/18 10:48 04/30/18 10:48 Labs: Laboratory Results - last 24 hr 04/29/18 04/29/18 04/30/18 10:40 11:38 05:25 WBC 12.5 H RBC 4.01 L Hgb 12.1 D Hct 36.0 MCV 89.8 MCH 30.2 MCHC 33.6 RDW 13.3 Plt Count 264 PT INR APTT pCO2 pO2 HCO3 ABG pH ABG Total CO2 ABG O2 Saturation ABG O2 Content ABG Base Excess ABG Hemoglobin ABG Carboxyhemoglobin POC ABG HHb (Measured) ABG Methemoglobin ABG O2 Capacity Chidi Test A-a O2 Difference Hgb O2 Saturation Vent Mode FiO2 Sodium Potassium Chloride Carbon Dioxide Anion Gap BUN Creatinine Est GFR ( Amer) Est GFR (Non-Af Amer) POC Glucose (mg/dL) Random Glucose Calcium Total Bilirubin AST ALT Alkaline Phosphatase Troponin I Total Protein Albumin Globulin Albumin/Globulin Ratio Synovial WBC 168.0 H 119.0 Synovial RBC 386168.0 H 61014.0 H Synovial Neutrophils 90.0 H 80.0 H Synovial Lymphocytes 12.0 H 13.0 H Synov Monos/Macrophage 8 H 7 H Synovial Fluid Comment Bloody Turbid 04/30/18 04/30/18 04/30/18 05:25 10:21 10:25 WBC RBC Hgb Hct MCV MCH MCHC RDW Plt Count PT INR APTT pCO2 36 pO2 131 H HCO3 22.3 ABG pH 7.38 ABG Total CO2 22.4 ABG O2 Saturation 100.1 H ABG O2 Content 17.3 ABG Base Excess -3.3 L ABG Hemoglobin 12.6 ABG Carboxyhemoglobin 2.1 H POC ABG HHb (Measured) -0.1 L ABG Methemoglobin 1.6 ABG O2 Capacity 17.3 Chidi Test Yes A-a O2 Difference 537.0 Hgb O2 Saturation 96.3 Vent Mode Nrm FiO2 100.0 Sodium 140 Potassium 3.8 Chloride 106 Carbon Dioxide 27 Anion Gap 11 BUN 21 H Creatinine 0.8 Est GFR ( Amer) > 60 Est GFR (Non-Af Amer) > 60 POC Glucose (mg/dL) 200 H Random Glucose 114 H Calcium 8.5 Total Bilirubin AST ALT Alkaline Phosphatase Troponin I Total Protein Albumin Globulin Albumin/Globulin Ratio Synovial WBC Synovial RBC Synovial Neutrophils Synovial Lymphocytes Synov Monos/Macrophage Synovial Fluid Comment 04/30/18 04/30/18 04/30/18 10:48 10:48 12:04 WBC 14.8 H RBC 4.15 L Hgb 12.7 Hct 37.3 MCV 89.9 MCH 30.6 MCHC 34.0 RDW 13.3 Plt Count 284 PT 14.2 H INR 1.3 APTT 33.6 pCO2 pO2 HCO3 ABG pH ABG Total CO2 ABG O2 Saturation ABG O2 Content ABG Base Excess ABG Hemoglobin ABG Carboxyhemoglobin POC ABG HHb (Measured) ABG Methemoglobin ABG O2 Capacity Chidi Test A-a O2 Difference Hgb O2 Saturation Vent Mode FiO2 Sodium 138 Potassium 3.7 Chloride 104 Carbon Dioxide 23 Anion Gap 15 BUN 20 Creatinine 0.9 Est GFR ( Amer) > 60 Est GFR (Non-Af Amer) > 60 POC Glucose (mg/dL) Random Glucose 216 H Calcium 8.5 Total Bilirubin 0.9 AST 27 ALT 27 Alkaline Phosphatase 74 Troponin I 0.0310 Total Protein 6.0 L Albumin 3.5 Globulin 2.5 Albumin/Globulin Ratio 1.4 Synovial WBC Synovial RBC Synovial Neutrophils Synovial Lymphocytes Synov Monos/Macrophage Synovial Fluid Comment Attending/Attestation - Attestation I have personally seen and examined this patient.: Yes I have fully participated in the care of the patient.: Yes I have reviewed all pertinent clinical information: Yes Notes (Text): 04/30/18 13:04 I have seen and examined the patient. Medical records, lab studies, and imaging were reviewed by me and a management plan was formulated on multidisciplinary rounds with resident Dr. Carter. I agree with their above documented assessment and plan. Patient has massive bilateral PE's with RV strain seen on CT, getting echo to confirm. Possible candidate for EKOS, cardiology Dr. Carbajal consulted. Critical Care Time 35 minutes. Multi-disciplinary rounds were performed with house staff, nursing, speech therapy, respiratory therapy, pharmacy and nutrition with integrated input from the primary team/attending and other consulting services. The documented time is cumulative and includes review of patient data/exams/labs/chart review and examination of the patient on rounds and throughout the day; time is exclusive of any procedures or teaching time. 04/30/18 13:09
[2018-04-30 12:14] LABS: INR 1.3; PROTHROMBIN TIME 14.2 Seconds (9.8-13.1)
[2018-04-30 12:16] LABS: PARTIAL THROMBOPLASTIN TIME 33.6 Seconds (25.6-37.1)
--- NOTE | 2018-04-30 15:37 | PQF ---
PROVIDER RESPONSE TEXT: REVIEWER QUERY TEXT: Kidney Disease, Chronic CKD Stage Chronic Kidney Disease (CKD) is documented in the Medical Record. Please specify the disease stage ( includes probable or suspected) versus CKD ruled out? Such as: -- Chronic kidney disease Stage 1 -- Chronic kidney disease Stage 2 -- Chronic kidney disease Stage 3 -- Chronic kidney disease Stage 4 -- Chronic kidney disease Stage 5 -- Chronic kidney disease Stage 5, requiring dialysis -- End Stage Renal Disease -- Other, please specify BUN:21->20 Creatinine: 0.8->0.9 Est GFR ( Amer/Non-Af Amer): >60/.60----->60/>60 H and P: Hx Chronic Kidney Disease: Yes Stages are defined by the [employer] as follows: CKD Stage I GFR >= 90 ml / min per 1.73 m2 and persistent albuminuria CKD Stage 2 GFR between 60 and 89 with persistent albuminuria CKD Stage 3 GFR between 30 and 59 CKD Stage 4 GFR between 15 and 29 CKD Stage 5 GFR between <15 or End Stage Renal Disease The patient's Clinical Indicators include: xx Query created by: Savannah Singh on 04/30/2018 3:06 PM Electronically signed by: Sarbjit Santiago MD 04/30/2018 3:34 PM
[2018-04-30] MEDS ORDERED: Lactated Ringer's 1,000 ML IV SCH (16:00)
--- NOTE | 2018-04-30 17:28 | CARD ---
APPROVED REPORT Date of service: 04/30/2018 EXAM: Two-dimensional and M-mode echocardiogram with Doppler and color Doppler. Other Information Quality : AverageFairRhythm : Tachycardia Technically limited study due to VERY LIMITED PARASTERNAL WINDOW. INDICATION Pulmonary Embolism 2D DIMENSIONS IVSd0.78 (0.7-1.1cm)LVDd3.75 (3.9-5.9cm) PWd0.83 (0.7-1.1cm)IVSs1.40 (0.8-1.2cm) LVDs2.90 (2.5-4.0cm)FS (%) 22.7 % PWs1.00 (0.8-1.2cm) Mitral Valve E/A ratio0.0 TDI E/Lateral E'0.0E/Medial E'0.0 Tricuspid Valve TR Peak [id number] Peak Gr.44mmHg [id number] LEFT VENTRICLE The left ventricle is normal size. There is normal left ventricular wall thickness. The left ventricular ejection fraction is within the normal range. The Ejection Fraction is 60-65%. No regional wall motion abnormalities noted.. The left ventricular diastolic function is normal. No left ventricle thrombus noted on this study. There is no ventricular septal defect visualized. There is no mass noted in the left ventricle. RIGHT VENTRICLE The right ventricle is mildly dilated There is normal right ventricular wall thickness. The right ventricular systolic function is normal. ATRIA The left atrium size is normal. The right atrium size is normal. The interatrial septum is intact with no evidence for an atrial septal defect. AORTIC VALVE The aortic valve is normal in structure. No aortic regurgitation is present. There is no aortic valvular stenosis. MITRAL VALVE The mitral valve is normal in structure. There is no mitral valve stenosis. There is mild mitral valve regurgitation noted. TRICUSPID VALVE The tricuspid valve is normal in structure. There is no tricuspid valve regurgitation noted. Moderate pulmonary hypertension PULMONIC VALVE The pulmonary valve is poorly visualized There is no pulmonic valvular regurgitation. GREAT VESSELS The aortic root is normal in size. The ascending aorta is normal in size. The pulmonary artery is normal. The IVC is normal in size and collapses >50% with inspiration. PERICARDIAL EFFUSION There is a small, circumferential, pericardial effusion, without evidence of compressive physiology <Conclusion> Technically fair study Mild TR with moderate pulmonary hypertension Dilated RV Normal LV function Small pericardial effusion The Ejection Fraction is 60-65%.
[2018-04-30 19:10] LABS: INR 1.5; PROTHROMBIN TIME 16.4 Seconds (9.8-13.1)
--- NOTE | 2018-04-30 22:41 | CARD ---
APPROVED REPORT Date of service: 04/30/2018 EKG Measurement Heart [id number] <Conclusion> Sinus tachycardia with occasional PVCs Nonspecific ST abnormality Abnormal ECG
[2018-05-01] MEDS: ceFAZolin 2 GM in Sodium Chloride 0.9% 100 ML IVPB SCH ×3 (01:05→17:15)
[2018-05-01] MEDS ORDERED: Povidone Iodine Topical 10% Sol TOP ONE (07:28)
[2018-05-01] MEDS ORDERED: Povidone Iodine Topical 10% Sol ONE (07:34)
[2018-05-01 08:34] LABS: HEMOGLOBIN 11.4 g/dL (12.0-18.0); MEAN CELL VOLUME 88.2 fl (80.0-94.0); MEAN CORPUSCULAR HGB CONC 35.2 g/dL (33.0-37.0); RBC 3.68 Mil/uL (4.40-5.90); RED CELL DISTRIBUTION WIDTH 13.4 % (11.5-14.5); WHITE BLOOD COUNT 18.6 K/uL (4.8-10.8)
[2018-05-01 08:47] LABS: BLOOD UREA NITROGEN 16 mg/dl (9-20); CALCIUM 8.2 mg/dL (8.4-10.2); GFR NON-AFRICAN AMERICAN > 60
--- NOTE | 2018-05-01 09:42 | CP.PCM.PN ---
Subjective - Date & Time of Evaluation Date of Evaluation: 05/01/18 Time of Evaluation: 09:42 - Subjective Subjective: patient feeling ok this morning, mild dyspnea currently HD stable, mild tachycardia 103-109 continuing on high flow 20 LPM at 70% no acute distress Objective - Vital Signs/Intake and Output Vital Signs (last 24 hours): Temp Pulse Resp BP Pulse Ox 98.8 F 114 H 17 115/63 98 05/01/18 04:00 05/01/18 06:00 05/01/18 06:00 05/01/18 06:00 05/01/18 06:00 Intake and Output: 05/01/18 05/01/18 06:59 18:59 Intake Total 1285 Output Total 1250 Balance 35 - Medications Medications: Current Medications Atorvastatin Calcium (Lipitor) 20 mg PO DAILY [facility] Hydromorphone HCl (Dilaudid) 2 mg IVP Q4 PRN PRN Reason: Pain, severe (8-10) Last Admin: 04/30/18 20:46 Dose: 2 mg Hydromorphone HCl (Dilaudid) 2 mg PO Q4 PRN PRN Reason: Pain, moderate (4-7) Hydromorphone HCl (Dilaudid) 1 mg IVP Q4 PRN PRN Reason: Pain, moderate (4-7) Last Admin: 05/01/18 05:21 Dose: 1 mg Cefazolin Sodium 2 gm/ Sodium (Chloride) 100 mls @ 100 mls/hr IVPB Q8 [facility] PRN Reason: Protocol Last Admin: 05/01/18 01:05 Dose: 100 mls/hr Heparin Sodium/Dextrose (Heparin 25,000 Units/250ml In D5w) 25,000 units in 250 mls @ 16 mls/hr IV .[id number] [facility] PRN Reason: Protocol Last Admin: 05/01/18 05:44 Dose: 13 mls/hr Lactated Ringer's (Lactated Ringer's) 1,000 mls @ 75 mls/hr IV .[id number] [facility] Multivitamins/Minerals (Therapeutic-M Tab) 1 tab PO DAILY [facility] Ondansetron HCl (Zofran Inj) 4 mg IVP ONCE PRN PRN Reason: Nausea/Vomiting Oxybutynin Chloride (Ditropan Tab) 5 mg PO BID [facility] Tamsulosin HCl (Flomax) 0.4 mg PO DAILY [facility] - Labs Labs: 05/01/18 08:23 05/01/18 08:23 PT 16.4 Seconds (9.8-13.1) H 04/30/18 18:54 INR 1.5 04/30/18 18:54 APTT 58.2 Seconds (25.6-37.1) H 05/01/18 08:23 - Constitutional Appears: Non-toxic, No Acute Distress - Head Exam Head Exam: ATRAUMATIC, NORMOCEPHALIC - Eye Exam Eye Exam: EOMI, Normal appearance - ENT Exam ENT Exam: Mucous Membranes Moist, Normal Exam - Neck Exam Neck Exam: Full ROM, Normal Inspection - Respiratory Exam Respiratory Exam: Clear to Ausculation Bilateral, NORMAL BREATHING PATTERN - Cardiovascular Exam Cardiovascular Exam: RRR, +S1, +S2 - GI/Abdominal Exam GI & Abdominal Exam: Soft, Normal Bowel Sounds - Extremities Exam Extremities Exam: Normal Capillary Refill. absent: Tenderness - Back Exam Back Exam: NORMAL INSPECTION. absent: rash noted - Neurological Exam Neurological Exam: Alert, Awake, CN II-XII Intact, Oriented x3 - Psychiatric Exam Psychiatric exam: Normal Affect, Normal Mood - Skin Skin Exam: Dry, Warm Assessment and Plan - Assessment and Plan (Free Text) Plan: 67 yo M with H/O OA S/P Right Hip replacement X2, Left Hip replacement , BPH , HTN, dyslipidemia and gout, [id number] of continuous painful right hip with some looseness of the hardware. He is admitted for revision of the right hip 9THR revision). No fever, cough, nausea, vomits, diarrhea nor urinary symptoms. # Bilateral Pulmonary Emboli - on Heparin Drip - Interventional Cardiology was consulted, appreciated. Not candidate for thrombolysis 2/2 recent surgery - Hemodynamically stable, continue gentle hydration for lower BP. #. Malfunction of Right total Hip replacement hardware, POD #1 - Consult orthopedic, Dr Edwards - Orthopedic management - Pain management - PT/OT #. HTN - Amlodipine #. BPH with urinary retention postop - Restart Oxybutynin - Restart Flomax - Monitor #. HLD - Atorvastatin #. Sleep Apnea - CPAP if needed #. DVT prophylaxis with Lovenox starting 04/30/18 #. Code Status: full
[2018-05-01] MEDS: Multivitamin With Minerals Tab PO SCH (09:53)
--- NOTE | 2018-05-01 11:34 | CP.CCUPN ---
<CarterYovani - Last Filed: 05/01/18 11:54> CCU Subjective - Physician Review Subjective (Free Text): Patient seen and examined this morning at bedside, no acute overnight events, reports feeling little better, no hip pain at this time, still sob on exertion, otherwise he denies chest pain, palpitations, nausea, vomiting or abdominal pain. Hemodynamically stable though HR 100-110s. Continuing on high flow 20 LPM at 70% I/O: 2460/1850 CCU Objective - Vital Signs / Intake & Output Vital Signs (Last 4 hours): Vital Signs Pulse Resp BP Pulse Ox 05/01/18 10:00 106 H 23 116/73 97 Intake and Output (Last 8hrs): Intake & Output 04/30/18 05/01/18 05/01/18 22:59 06:59 14:59 Intake Total 375 1185 370 Output Total 250 1250 300 Balance 125 -65 70 Intake: IV 375 885 150 Intake, Piggyback 100 100 Oral 200 120 Output: Urine 250 1250 300 Urine, Voided 250 1250 300 Other: # Voids Urine, Voided 1 - Physical Exam Head: Positive for: Normocephalic Pupils: Positive for: PERRL Extroacular Muscles: Positive for: EOMI Respiratory/Chest: Positive for: Clear to Auscultation, Decreased Breath Sounds Cardiovascular: Positive for: Regular Rate and Rhythm, Normal S1, S2, Tachycardic. Negative for: Murmurs Abdomen: Positive for: Normal Bowel Sounds. Negative for: Tenderness, Distention Lower Extremity: Positive for: Edema. Negative for: CALF TENDERNESS Skin: Positive for: Warm, Dry Psychiatric: Positive for: Alert, Oriented x 3 - Medications Active Medications: Active Medications Generic Name Dose Route Start Last Admin Trade Name Freq PRN Reason Stop Dose Admin Atorvastatin Calcium 20 mg 05/01/18 09:00 05/01/18 09:54 Lipitor PO 20 mg DAILY [facility]HELLE Administration Hydromorphone HCl 2 mg 04/30/18 19:22 04/30/18 20:46 Dilaudid IVP 2 mg Q4 PRN Administration Pain, severe (8-10) Hydromorphone HCl 2 mg 04/30/18 19:22 Dilaudid PO Q4 PRN Pain, moderate (4-7) Hydromorphone HCl 1 mg 04/30/18 19:35 05/01/18 11:19 Dilaudid IVP 1 mg Q4 PRN Administration Pain, moderate (4-7) Cefazolin Sodium 2 gm/ Sodium 100 mls @ 100 mls/hr 05/01/18 01:00 05/01/18 09 :52 Chloride IVPB 100 mls/hr Q8 [facility]HELLE Administration Protocol Heparin Sodium/Dextrose 25,000 units in 250 mls @ 16 mls/hr 04/30/18 19:22 05:44 Heparin 25,000 Units/250ml In D5w IV 13 mls/hr .[id number] [facility] Administration Protocol Lactated Ringer's 1,000 mls @ 75 mls/hr 04/30/18 19:22 Lactated Ringer's IV .[id number] [facility] Multivitamins/Minerals 1 tab 05/01/18 09:00 05/01/18 09:53 Therapeutic-M Tab PO 1 tab DAILY [facility] Administration Ondansetron HCl 4 mg 04/30/18 19:22 Zofran Inj IVP ONCE PRN Nausea/Vomiting Oxybutynin Chloride 5 mg 05/01/18 09:00 05/01/18 09:54 Ditropan Tab PO 5 mg BID [facility] Administration Tamsulosin HCl 0.4 mg 05/01/18 09:00 05/01/18 09:54 Flomax PO 0.4 mg DAILY [facility]LE Administration - Patient Studies Lab Studies: Microbiology Studies 04/29/18 11:38 Fungal Culture - Preliminary Hip Right 04/29/18 10:40 Fungal Culture - Preliminary Hip Right 04/29/18 10:00 Fungal Culture - Preliminary Other: Please Indicate Mycobacterial Culture - Preliminary 04/29/18 15:11 Gram Stain - Final Hip - Right Wound Culture - Preliminary NO GROWTH AFTER 24 HOURS 04/29/18 15:11 Gram Stain - Final Hip - Right Wound Culture - Preliminary NO GROWTH AFTER 24 HOURS 04/29/18 15:11 Gram Stain - Final Hip - Right Wound Culture - Preliminary NO GROWTH AFTER 24 HOURS 04/29/18 15:11 Gram Stain - Final Hip - Right Wound Culture - Preliminary NO GROWTH AFTER 24 HOURS 04/29/18 15:11 Gram Stain - Final Hip - Right Wound Culture - Preliminary NO GROWTH AFTER 24 HOURS 04/29/18 15:11 Gram Stain - Final Hip - Right Wound Culture - Preliminary NO GROWTH AFTER 24 HOURS 04/29/18 15:11 Gram Stain - Final Hip - Right Wound Culture - Preliminary NO GROWTH AFTER 24 HOURS 04/29/18 15:11 Gram Stain - Final Hip - Right Wound Culture - Preliminary NO GROWTH AFTER 24 HOURS 04/29/18 11:38 Gram Stain - Final Body Fluid - Hip-Right Body Fluid Culture - Preliminary NO GROWTH AFTER 24 HOURS 04/29/18 15:14 Gram Stain - Final Hip - Right Wound Culture - Preliminary NO GROWTH AFTER 24 HOURS 04/29/18 15:14 Gram Stain - Final Hip - Right Wound Culture - Preliminary NO GROWTH AFTER 24 HOURS 04/29/18 15:14 Gram Stain - Final Hip - Right Wound Culture - Preliminary NO GROWTH AFTER 24 HOURS 04/29/18 15:14 Gram Stain - Final Hip - Right Wound Culture - Preliminary NO GROWTH AFTER 24 HOURS 04/29/18 15:14 Gram Stain - Final Hip - Right Wound Culture - Preliminary NO GROWTH AFTER 24 HOURS 04/29/18 15:14 Gram Stain - Final Hip - Right Wound Culture - Preliminary NO GROWTH AFTER 24 HOURS 04/29/18 15:14 Gram Stain - Final Hip - Right Wound Culture - Preliminary NO GROWTH AFTER 24 HOURS 04/29/18 15:14 Gram Stain - Final Hip - Right Wound Culture - Preliminary NO GROWTH AFTER 24 HOURS 04/29/18 15:15 Gram Stain - Final Hip - Right Wound Culture - Preliminary NO GROWTH AFTER 24 HOURS 04/29/18 15:15 Gram Stain - Final Hip - Right Wound Culture - Preliminary NO GROWTH AFTER 24 HOURS 04/29/18 15:15 Gram Stain - Final Hip - Right Wound Culture - Preliminary NO GROWTH AFTER 24 HOURS 04/29/18 15:15 Gram Stain - Final Hip - Right Wound Culture - Preliminary NO GROWTH AFTER 24 HOURS 04/29/18 15:15 Gram Stain - Final Hip - Right Wound Culture - Preliminary NO GROWTH AFTER 24 HOURS 04/29/18 15:15 Gram Stain - Final Hip - Right Wound Culture - Preliminary NO GROWTH AFTER 24 HOURS 04/29/18 15:15 Gram Stain - Final Hip - Right Wound Culture - Preliminary NO GROWTH AFTER 24 HOURS 04/29/18 15:15 Gram Stain - Final Hip - Right Wound Culture - Preliminary NO GROWTH AFTER 24 HOURS 04/29/18 10:50 Gram Stain - Final Body Fluid - Hip-Right Body Fluid Culture - Preliminary NO GROWTH AFTER 24 HOURS 04/29/18 10:00 Anaerobic Culture - Preliminary Hip - Right No growth. 04/29/18 10:00 Gram Stain - Final Body Fluid - Hip Body Fluid Culture - Preliminary NO GROWTH AFTER 24 HOURS 04/29/18 11:38 Mycobacterial Culture - Preliminary Other: Please Indicate 04/29/18 10:40 Mycobacterial Culture - Preliminary Other: Please Indicate Lab Studies 05/01/18 05/01/18 05/01/18 Range/Units 08:23 08:23 08:23 WBC 18.6 H (4.8-10.8) K/uL RBC 3.68 L (4.40-5.90) Mil/uL Hgb 11.4 L (12.0-18.0) g/dL Hct 32.5 L (35.0-51.0) % MCV 88.2 (80.0-94.0) fl MCH 31.0 (27.0-31.0) pg MCHC 35.2 (33.0-37.0) g/dL RDW 13.4 (11.5-14.5) % Plt Count 212 (130-400) K/uL PT (9.8-13.1) Seconds INR APTT 58.2 H (25.6-37.1) Seconds Sodium 136 (132-148) mmol/l Potassium 3.7 (3.6-5.0) MMOL/L Chloride 102 (98-107) mmol/L Carbon Dioxide 25 (22-30) mmol/L Anion Gap 13 (10-20) BUN 16 (9-20) mg/dl Creatinine 0.7 L (0.8-1.5) mg/dl Est GFR ( Amer) > 60 Est GFR (Non-Af Amer) > 60 Random Glucose 144 H (75-110) mg/dL Calcium 8.2 L (8.4-10.2) mg/dL 25-OH Vitamin D Total (30.0-100.0) NG/ML 05/01/18 04/30/18 04/30/18 Range/Units 03:01 18:54 12:04 WBC (4.8-10.8) K/uL RBC (4.40-5.90) Mil/uL Hgb (12.0-18.0) g/dL Hct (35.0-51.0) % MCV (80.0-94.0) fl MCH (27.0-31.0) pg MCHC (33.0-37.0) g/dL RDW (11.5-14.5) % Plt Count (130-400) K/uL PT 16.4 H 14.2 H (9.8-13.1) Seconds INR 1.5 1.3 APTT 59.5 H 145.0 H 33.6 (25.6-37.1) Seconds Sodium (132-148) mmol/l Potassium (3.6-5.0) MMOL/L Chloride (98-107) mmol/L Carbon Dioxide (22-30) mmol/L Anion Gap (10-20) BUN (9-20) mg/dl Creatinine (0.8-1.5) mg/dl Est GFR ( Amer) Est GFR (Non-Af Amer) Random Glucose (75-110) mg/dL Calcium (8.4-10.2) mg/dL 25-OH Vitamin D Total (30.0-100.0) NG/ML 04/30/18 Range/Units 09:26 WBC (4.8-10.8) K/uL RBC (4.40-5.90) Mil/uL Hgb (12.0-18.0) g/dL Hct (35.0-51.0) % MCV (80.0-94.0) fl MCH (27.0-31.0) pg MCHC (33.0-37.0) g/dL RDW (11.5-14.5) % Plt Count (130-400) K/uL PT (9.8-13.1) Seconds INR APTT (25.6-37.1) Seconds Sodium (132-148) mmol/l Potassium (3.6-5.0) MMOL/L Chloride (98-107) mmol/L Carbon Dioxide (22-30) mmol/L Anion Gap (10-20) BUN (9-20) mg/dl Creatinine (0.8-1.5) mg/dl Est GFR ( Amer) Est GFR (Non-Af Amer) Random Glucose (75-110) mg/dL Calcium (8.4-10.2) mg/dL 25-OH Vitamin D Total 30.6 (30.0-100.0) NG/ML Laboratory Results - last 24 hr 04/30/18 04/30/18 04/30/18 09:26 12:04 18:54 WBC RBC Hgb Hct MCV MCH MCHC RDW Plt Count PT 14.2 H 16.4 H INR 1.3 1.5 APTT 33.6 145.0 H Sodium Potassium Chloride Carbon Dioxide Anion Gap BUN Creatinine Est GFR ( Amer) Est GFR (Non-Af Amer) Random Glucose Calcium 25-OH Vitamin D Total 30.6 05/01/18 05/01/18 05/01/18 03:01 08:23 08:23 WBC 18.6 H RBC 3.68 L Hgb 11.4 L Hct 32.5 L MCV 88.2 MCH 31.0 MCHC 35.2 RDW 13.4 Plt Count 212 PT INR APTT 59.5 H 58.2 H Sodium Potassium Chloride Carbon Dioxide Anion Gap BUN Creatinine Est GFR ( Amer) Est GFR (Non-Af Amer) Random Glucose Calcium 25-OH Vitamin D Total 05/01/18 08:23 WBC RBC Hgb Hct MCV MCH MCHC RDW Plt Count PT INR APTT Sodium 136 Potassium 3.7 Chloride 102 Carbon Dioxide 25 Anion Gap 13 BUN 16 Creatinine 0.7 L Est GFR ( Amer) > 60 Est GFR (Non-Af Amer) > 60 Random Glucose 144 H Calcium 8.2 L 25-OH Vitamin D Total Review of Systems - Review of Systems All systems: reviewed and no additional remarkable complaints except (as per HPI ) Critical Care Progress Note - Nutrition Nutrition: Nutrition Category Date Time Status Heart Healthy Diet [DIET] Diets 04/29/18 Dinner Active Assessment/Plan - Assessment and Plan (Free Text) Assessment: 67 yo M with PMH of OA S/P Right Hip replacement X3, Left Hip replacement , BPH , HTN, dyslipidemia and gout s/p R hip replacement POD 2 complicated with massive bilateral Pulmonary Embolism. Plan: Massive b/l PE with R ventricular strain - POD 2 - CTA 04/30/18: Extensive bilateral pulmonary emboli with CT evidence of right heart strain. - High flow oxygen 20 LPM at 70% - On Heparin drip 1000 units/hr - PT/PTT: 16.4/58.2, INR 1.5 - Interventional cardiology consulted, Dr Carbajal: Not candidate for thrombolysis 2/2 recent surgery - Hemodynamically stable, continue gentle hydration for lower BP Right total Hip replacement hardware, POD 2 - c/w Orthopedic management by Dr Edwards - Pain management - PT/OT HTN - Hold Amlodipine for now due to lower BP BPH with urinary retention postop - Restart Oxybutynin - Restart Flomax - Monitor HLD - Atorvastatin DVT prophylaxis -Heparin drip <Kurt Hays - Last Filed: 05/01/18 18:48> CCU Subjective - Physician Review Subjective (Free Text): Attestation: Patient seen and examined at the bedside with Resident Dr. Raven Carter; and I agree with her outline of plans and management documented below as discussed on AM rounds reflecting my review of all applicable clinical data, and participation in the care of the patient throughout the day in ICU; today, May 01, 2018.
--- NOTE | 2018-05-01 11:36 | CP.PCM.CON ---
History of Present Illness - History of Present Illness History of Present Illness: Pulmonology consult note for Dr. Pino. Mr. Avalos is a 67 yo M with history of hypertension, gout, BPH, obstructive sleep apnea, osteoarthritis, POD 2 after revision of right THR. On POD 1, he developed shortness of breath, chest pain and desaturation into the 70s. [employer] was called; CT angio showed extensive bilateral pulmonary emboli with evidence of right heart strain. He was seen and examined this morning at bedside rounds; reported feeling okay, denied chest pain or shortness of breath, and was saturating 97% on high flow oxygen. He denies past history of clots. Relates that he was not very mobile and was in bed throughout the week before surgery; also stated he had a procedure a little over a week before to "pin the prostate," to try to avoid urinary retention which he often gets after surgery. Surg hx: lap cholecystectomy bilateral hip replacements,, left rotator cuff repair; right bicep reattachment, prostate pinning Social hx: Denies tobacco, alcohol, drug use Allergies: Acetaminophen; Oxycodone Past Patient History - Infectious Disease Hx of Infectious Diseases: None - Tetanus Immunizations Tetanus Immunization: Unknown - Past Medical History & Family History Past Medical History?: Yes - Past Social History Smoking Status: Never Smoked Chewing Tobacco Use: No - CARDIAC Hx Cardiac Disorders: Yes Hx Hypercholesterolemia: Yes Hx Hypertension: Yes - PULMONARY Hx Respiratory Disorders: No Hx Sleep Apnea: Yes (uses c-pap) - NEUROLOGICAL Hx Neurological Disorder: No - HEENT Hx HEENT Problems: No - RENAL Hx Chronic Kidney Disease: Yes Other/Comment: frequent urination - ENDOCRINE/METABOLIC Hx Endocrine Disorders: No - HEMATOLOGICAL/ONCOLOGICAL Hx Blood Disorders: No Hx Blood Transfusions: No - INTEGUMENTARY Hx Dermatological Problems: No - MUSCULOSKELETAL/RHEUMATOLOGICAL Hx Musculoskeletal Disorders: Yes Hx Arthritis: Yes Hx Falls: No Hx Gout: Yes Hx Osteoarthritis: Yes - GASTROINTESTINAL Hx Gastrointestinal Disorders: No - GENITOURINARY/GYNECOLOGICAL Hx Genitourinary Disorders: Yes Hx Prostate Problems: Yes - PSYCHIATRIC Hx Psychophysiologic Disorder: No Hx Substance Use: No - SURGICAL HISTORY Hx Surgeries: Yes Hx Appendectomy: Yes Hx Cholecystectomy: Yes Hx Herniorrhaphy: Yes (Left ventral) Hx Joint Replacement: Yes (bilateral JACK) Hx Musculoskeletal Surgery: Yes (Right Biceps and Rotator Cuff Repair after Trauma) Hx Orthopedic Surgery: Yes (Right arm biceps repair) Other/Comment: Right Hip replacement. urolift - ANESTHESIA Hx Anesthesia: Yes Hx Anesthesia Reactions: Yes (difficulty voiding post op) Hx Malignant Hyperthermia: No Has any member of the family had a problem w/ anesthesia?: No Meds Allergies/Adverse Reactions: Allergies Allergy/AdvReac Type Severity Reaction Status Date / Time acetaminophen [From Percocet] Allergy RASH Verified 04/29/18 07:45 oxycodone [From Percocet] Allergy RASH Verified 04/29/18 07:45 - Medications Medications: Current Medications Atorvastatin Calcium (Lipitor) 20 mg PO DAILY [facility] Last Admin: 05/01/18 09:54 Dose: 20 mg Hydromorphone HCl (Dilaudid) 2 mg IVP Q4 PRN PRN Reason: Pain, severe (8-10) Last Admin: 04/30/18 20:46 Dose: 2 mg Hydromorphone HCl (Dilaudid) 2 mg PO Q4 PRN PRN Reason: Pain, moderate (4-7) Hydromorphone HCl (Dilaudid) 1 mg IVP Q4 PRN PRN Reason: Pain, moderate (4-7) Last Admin: 05/01/18 05:21 Dose: 1 mg Cefazolin Sodium 2 gm/ Sodium (Chloride) 100 mls @ 100 mls/hr IVPB Q8 [facility] PRN Reason: Protocol Last Admin: 05/01/18 09:52 Dose: 100 mls/hr Heparin Sodium/Dextrose (Heparin 25,000 Units/250ml In D5w) 25,000 units in 250 mls @ 16 mls/hr IV .[id number] [facility] PRN Reason: Protocol Last Admin: 05/01/18 05:44 Dose: 13 mls/hr Lactated Ringer's (Lactated Ringer's) 1,000 mls @ 75 mls/hr IV .[id number] [facility] Multivitamins/Minerals (Therapeutic-M Tab) 1 tab PO DAILY [facility] Last Admin: 05/01/18 09:53 Dose: 1 tab Ondansetron HCl (Zofran Inj) 4 mg IVP ONCE PRN PRN Reason: Nausea/Vomiting Oxybutynin Chloride (Ditropan Tab) 5 mg PO BID [facility] Last Admin: 05/01/18 09:54 Dose: 5 mg Tamsulosin HCl (Flomax) 0.4 mg PO DAILY [facility] Last Admin: 05/01/18 09:54 Dose: 0.4 mg Physical Exam - Additional Findings Additional findings: Well developed male, sitting up in bed in no acute distress, wearing HFNC. Alert and oriented x3, able to speak in full sentences. Heart sounds distant, S1S2, regular rhythm. Lung sounds diminished but equal. Clear of rales, wheezes. No clubbing, cyanosis or edema noted on extremities. Results - Vital Signs Recent Vital Signs: Last Vital Signs Temp 98.8 F 05/01/18 04:00 Pulse 106 H 05/01/18 10:00 Resp 23 05/01/18 10:00 BP 116/73 05/01/18 10:00 Pulse Ox 97 05/01/18 10:00 - Labs Result Diagrams: 05/01/18 08:23 05/01/18 08:23 Labs: Laboratory Results - last 24 hr 04/30/18 04/30/18 04/30/18 09:26 10:48 12:04 WBC RBC Hgb Hct MCV MCH MCHC RDW Plt Count PT 14.2 H INR 1.3 APTT 33.6 Sodium Potassium Chloride Carbon Dioxide Anion Gap BUN Creatinine Est GFR ( Amer) Est GFR (Non-Af Amer) Random Glucose Calcium Troponin I 0.0310 25-OH Vitamin D Total 30.6 04/30/18 05/01/18 05/01/18 18:54 03:01 08:23 WBC 18.6 H RBC 3.68 L Hgb 11.4 L Hct 32.5 L MCV 88.2 MCH 31.0 MCHC 35.2 RDW 13.4 Plt Count 212 PT 16.4 H INR 1.5 APTT 145.0 H 59.5 H Sodium Potassium Chloride Carbon Dioxide Anion Gap BUN Creatinine Est GFR ( Amer) Est GFR (Non-Af Amer) Random Glucose Calcium Troponin I 25-OH Vitamin D Total 05/01/18 05/01/18 08:23 08:23 WBC RBC Hgb Hct MCV MCH MCHC RDW Plt Count PT INR APTT 58.2 H Sodium 136 Potassium 3.7 Chloride 102 Carbon Dioxide 25 Anion Gap 13 BUN 16 Creatinine 0.7 L Est GFR ( Amer) > 60 Est GFR (Non-Af Amer) > 60 Random Glucose 144 H Calcium 8.2 L Troponin I 25-OH Vitamin D Total Assessment & Plan (1) Pulmonary emboli Assessment and Plan: Continue with HFNC, maintain adequate O2 sat Agree with heparin drip Recommend doppler studies of bilateral lower extremities; may consider SVC filter Status: Acute (2) Obstructive sleep apnea Assessment and Plan: CPAP at night, or HFNC Status: Acute (3) Chronic hip pain after total replacement of hip joint Status: Acute
--- NOTE | 2018-05-01 11:54 | CP.PCM.PN ---
Subjective - Date & Time of Evaluation Date of Evaluation: 05/01/18 Time of Evaluation: 07:15 - Subjective Subjective: Patient seen and examined at bedside. C/o soreness of the right hip secondary to surgery. Denies CP/SOB this AM. No acute events overnight. Objective - Vital Signs/Intake and Output Vital Signs (last 24 hours): Temp Pulse Resp BP Pulse Ox 98.8 F 106 H 23 116/73 97 05/01/18 04:00 05/01/18 10:00 05/01/18 10:00 05/01/18 10:00 05/01/18 10:00 Intake and Output: 05/01/18 05/01/18 06:59 18:59 Intake Total 1285 370 Output Total 1250 300 Balance 35 70 - Medications Medications: Current Medications Atorvastatin Calcium (Lipitor) 20 mg PO DAILY [facility] Last Admin: 05/01/18 09:54 Dose: 20 mg Hydromorphone HCl (Dilaudid) 2 mg IVP Q4 PRN PRN Reason: Pain, severe (8-10) Last Admin: 04/30/18 20:46 Dose: 2 mg Hydromorphone HCl (Dilaudid) 2 mg PO Q4 PRN PRN Reason: Pain, moderate (4-7) Hydromorphone HCl (Dilaudid) 1 mg IVP Q4 PRN PRN Reason: Pain, moderate (4-7) Last Admin: 05/01/18 11:19 Dose: 1 mg Cefazolin Sodium 2 gm/ Sodium (Chloride) 100 mls @ 100 mls/hr IVPB Q8 [facility] PRN Reason: Protocol Last Admin: 05/01/18 09:52 Dose: 100 mls/hr Heparin Sodium/Dextrose (Heparin 25,000 Units/250ml In D5w) 25,000 units in 250 mls @ 16 mls/hr IV .[id number] [facility] PRN Reason: Protocol Last Admin: 05/01/18 05:44 Dose: 13 mls/hr Lactated Ringer's (Lactated Ringer's) 1,000 mls @ 75 mls/hr IV .[id number] [facility] Multivitamins/Minerals (Therapeutic-M Tab) 1 tab PO DAILY [facility] Last Admin: 05/01/18 09:53 Dose: 1 tab Ondansetron HCl (Zofran Inj) 4 mg IVP ONCE PRN PRN Reason: Nausea/Vomiting Oxybutynin Chloride (Ditropan Tab) 5 mg PO BID [facility] Last Admin: 05/01/18 09:54 Dose: 5 mg Tamsulosin HCl (Flomax) 0.4 mg PO DAILY [facility] Last Admin: 05/01/18 09:54 Dose: 0.4 mg - Labs Labs: 05/01/18 08:23 05/01/18 08:23 PT 16.4 Seconds (9.8-13.1) H 04/30/18 18:54 INR 1.5 04/30/18 18:54 APTT 58.2 Seconds (25.6-37.1) H 05/01/18 08:23 - Extremities Exam Additional comments: R hip: aquacel CDI, drain dressings CDI, dressings removed revealing surgical wound intact with mild sang drainage, drain site clean and dry, navigation portal site CDI with nylon sutures sensation intact SP/DP/TN motor intact EHL/FHL/TA/G pedal pulses intact comps soft NT Assessment and Plan (1) Chronic hip pain after total replacement of hip joint Assessment & Plan: POD #2 s/p R revision JACK, acute b/l PE -dressings changed to wet to dry betadine dressings -pain control -medical management, therapeutic anticoagulation being administered -cardiology and pulmonology on board -PT/OT TTWB once medically cleared -posterior hip precautions -above d/w Dr. Edwards in agreement Status: Acute
[2018-05-01] MEDS: Lactated Ringer's 1,000 ML IV SCH (12:22)
--- NOTE | 2018-05-01 19:15 | CP.PCM.PN ---
Subjective - Date & Time of Evaluation Date of Evaluation: 05/01/18 Time of Evaluation: 19:13 - Subjective Subjective: UROLOGY Pt seen today still in ICU urologically his voiding condition is improving. He feels his flow is stronger and does not have taht feeling of incomplete voiding. Will follow up only if his urologic condition warrants Objective - Vital Signs/Intake and Output Vital Signs (last 24 hours): Temp Pulse Resp BP Pulse Ox 98.5 F 98 H 22 113/95 H 100 05/01/18 16:00 05/01/18 16:00 05/01/18 16:00 05/01/18 16:00 05/01/18 16:00 Intake and Output: 05/01/18 05/02/18 18:59 06:59 Intake Total 670 Output Total 1400 Balance -730 - Medications Medications: Current Medications Acetaminophen (Tylenol 325mg Tab) 650 mg PO Q6 PRN PRN Reason: Fever >100.4 F Last Admin: 05/01/18 13:08 Dose: 650 mg Atorvastatin Calcium (Lipitor) 20 mg PO DAILY [facility] Last Admin: 05/01/18 09:54 Dose: 20 mg Hydromorphone HCl (Dilaudid) 2 mg IVP Q4 PRN PRN Reason: Pain, severe (8-10) Last Admin: 04/30/18 20:46 Dose: 2 mg Hydromorphone HCl (Dilaudid) 2 mg PO Q4 PRN PRN Reason: Pain, moderate (4-7) Hydromorphone HCl (Dilaudid) 1 mg IVP Q4 PRN PRN Reason: Pain, moderate (4-7) Last Admin: 05/01/18 11:19 Dose: 1 mg Cefazolin Sodium 2 gm/ Sodium (Chloride) 100 mls @ 100 mls/hr IVPB Q8 [facility] PRN Reason: Protocol Last Admin: 05/01/18 17:15 Dose: 100 mls/hr Heparin Sodium/Dextrose (Heparin 25,000 Units/250ml In D5w) 25,000 units in 250 mls @ 16 mls/hr IV .[id number] [facility] PRN Reason: Protocol Last Admin: 05/01/18 05:44 Dose: 13 mls/hr Lactated Ringer's (Lactated Ringer's) 1,000 mls @ 75 mls/hr IV .[id number] [facility] Last Admin: 05/01/18 12:22 Dose: 75 mls/hr Multivitamins/Minerals (Therapeutic-M Tab) 1 tab PO DAILY [facility] Last Admin: 05/01/18 09:53 Dose: 1 tab Ondansetron HCl (Zofran Inj) 4 mg IVP ONCE PRN PRN Reason: Nausea/Vomiting Oxybutynin Chloride (Ditropan Tab) 5 mg PO BID [facility] Last Admin: 05/01/18 17:12 Dose: 5 mg Tamsulosin HCl (Flomax) 0.4 mg PO DAILY [facility] Last Admin: 05/01/18 09:54 Dose: 0.4 mg - Labs Labs: 05/01/18 08:23 05/01/18 08:23 PT 16.4 Seconds (9.8-13.1) H 04/30/18 18:54 INR 1.5 04/30/18 18:54 APTT 58.2 Seconds (25.6-37.1) H 05/01/18 08:23
[2018-05-01] MEDS ORDERED: Heparin 25,000units in D5W 25,000 UNITS/250 ML BAG IV SCH (22:45)
[2018-05-02] MEDS: ceFAZolin 2 GM in Sodium Chloride 0.9% 100 ML IVPB SCH ×3 (00:02→16:44)
--- NOTE | 2018-05-02 04:51 | CON ---
Copied To: Briseida Burgos MD Attending MD: Briseida Burgos MD DATE: 04/30/2018 This is a 67-year-old male patient who I was called to see because of intermittent acute urinary retention. The patient has a recent urologic history of having a procedure called UroLift to open the prostate because of symptomatic prostate condition. The patient subsequently was admitted to the hospital for orthopedic infection, and it was found that he was retaining in excess of 1400 mL. He was straight catheterized, then the retention went down to under 500 mL. He has been now on antibiotic suppressive therapy, cefazolin 2 g every 8 hours while he is on Flomax 0.4 mg. When I evaluated the patient, he was in the ICU. His abdomen was not distended. He showed me some recent voided urine which was visually clear. He feels that he is able to void, but he is having some difficulty. I think that this is probably a consequence of the inflammatory process of immediate post UroLift procedure. So, I told him that if the conditions permit and he is able to void in small amounts, that would be preferential at this time than to be placing catheters on an intermittent or continuous basis because my suspicion is eventually the inflammatory process will calm down, and the UroLift should be able to do what it was intended to do and that is to open the prostate and allow more complete flow of urine. So at this time, we will monitor his condition with intermittent bladder scanning and make sure that he does not go into work retention and follow him in 24 hours for continued observation. Briseida Burgos MD
[2018-05-02] MEDS: Lactated Ringer's 1,000 ML IV SCH ×2 (04:53→20:30)
[2018-05-02 05:32] LABS: BASO # 0.1 K/uL (0.0-0.2); BASO % 0.6 % (0.0-2.0); EOS # 0.1 K/uL (0.0-0.7); EOS % 0.6 % (0.0-4.0); HEMOGLOBIN 9.4 g/dL (12.0-18.0); LYMPH # 1.9 K/uL (1.0-4.3); MEAN CELL VOLUME 88.6 fl (80.0-94.0); MEAN CORPUSCULAR HEMOGLOBIN 30.5 pg (27.0-31.0); MEAN CORPUSCULAR HGB CONC 34.5 g/dL (33.0-37.0); MEAN PLATELET VOLUME 9.6 fl (7.2-11.7); MONO # 1.7 K/uL (0.0-0.8); MONO % 10.2 % (0.0-10.0); NEUT # 13.2 K/uL (1.8-7.0); NEUT % 77.6 % (50.0-75.0); RBC 3.06 Mil/uL (4.40-5.90)
[2018-05-02 06:03] LABS: BLOOD UREA NITROGEN 13 mg/dl (9-20); GFR NON-AFRICAN AMERICAN > 60
[2018-05-02 06:04] LABS: ALB/GLOB RATIO 1.1 (1.0-2.1); ALBUMIN 2.5 g/dL (3.5-5.0); ALT/SGPT 25 U/L (21-72); AST/SGOT 20 U/L (17-59); CALCIUM 7.9 mg/dL (8.4-10.2)
--- NOTE | 2018-05-02 08:32 | CP.PCM.PN ---
Subjective - Date & Time of Evaluation Date of Evaluation: 05/02/18 Time of Evaluation: 07:20 - Subjective Subjective: Patient seen and examined at bedside comfortable. Pain is well controlled this AM. No acute events overnight. Denies CP/SOB/dizziness. Objective - Vital Signs/Intake and Output Vital Signs (last 24 hours): Temp Pulse Resp BP Pulse Ox 98.4 F 84 16 98/62 L 98 05/02/18 08:00 05/02/18 08:00 05/02/18 08:05 05/02/18 08:00 05/02/18 08:00 Intake and Output: 05/02/18 05/02/18 06:59 18:59 Intake Total 950 Output Total 750 Balance 200 - Medications Medications: Current Medications Acetaminophen (Tylenol 325mg Tab) 650 mg PO Q6 PRN PRN Reason: Fever >100.4 F Last Admin: 05/01/18 13:08 Dose: 650 mg Atorvastatin Calcium (Lipitor) 20 mg PO DAILY [facility] Last Admin: 05/01/18 09:54 Dose: 20 mg Docusate Sodium (Colace) 200 mg PO BID [facility] Hydromorphone HCl (Dilaudid) 2 mg IVP Q4 PRN PRN Reason: Pain, severe (8-10) Last Admin: 05/02/18 07:25 Dose: 2 mg Hydromorphone HCl (Dilaudid) 2 mg PO Q4 PRN PRN Reason: Pain, moderate (4-7) Hydromorphone HCl (Dilaudid) 1 mg IVP Q4 PRN PRN Reason: Pain, moderate (4-7) Last Admin: 05/01/18 11:19 Dose: 1 mg Cefazolin Sodium 2 gm/ Sodium (Chloride) 100 mls @ 100 mls/hr IVPB Q8 [facility] PRN Reason: Protocol Last Admin: 05/02/18 00:02 Dose: 100 mls/hr Lactated Ringer's (Lactated Ringer's) 1,000 mls @ 75 mls/hr IV .[id number] [facility] Last Admin: 05/02/18 04:53 Dose: 75 mls/hr Heparin Sodium/Dextrose (Heparin 25,000 Units/250ml In D5w) 25,000 units in 250 mls @ 13 mls/hr IV .[id number] [facility] PRN Reason: Protocol Last Admin: 05/02/18 00:03 Dose: 13 mls/hr Multivitamins/Minerals (Therapeutic-M Tab) 1 tab PO DAILY [facility] Last Admin: 05/01/18 09:53 Dose: 1 tab Ondansetron HCl (Zofran Inj) 4 mg IVP ONCE PRN PRN Reason: Nausea/Vomiting Oxybutynin Chloride (Ditropan Tab) 5 mg PO BID [facility] Last Admin: 05/01/18 17:12 Dose: 5 mg Tamsulosin HCl (Flomax) 0.4 mg PO DAILY [facility] Last Admin: 05/01/18 09:54 Dose: 0.4 mg - Labs Labs: 05/02/18 04:20 05/02/18 04:20 PT 16.4 Seconds (9.8-13.1) H 04/30/18 18:54 INR 1.5 04/30/18 18:54 APTT 53.4 Seconds (25.6-37.1) H 05/02/18 04:20 - Extremities Exam Additional comments: R hip: wet to dry betadine dressings intact, dressings removed revealing surgical wound intact with minimal serosang drainage from areas across wound, drain site clean and dry, navigation portal site CDI with nylon sutures sensation intact SP/DP/TN motor intact EHL/FHL/TA/G pedal pulses intact comps soft NT Assessment and Plan (1) 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 Edwards in agreement Status: Acute
[2018-05-02] MEDS: Multivitamin With Minerals Tab PO SCH (08:49)
[2018-05-02] MEDS ORDERED: Potassium Chloride 20 mEq/15 ml LIQ UD PO ONE ×2 (08:58→14:00)
--- NOTE | 2018-05-02 09:29 | CP.PCM.CON ---
History of Present Illness - History of Present Illness History of Present Illness: Consultation for evaluation of massive PE / potential EKOS directed thrombolysis HPI: 67 year old male s/p hip sx sunday developed severe SOB / IT ARCHITECT found to have massive bilateral PE with RV strain on echo. Hemodynamically stable Review of Systems - Review of Systems Systems not reviewed;Unavailable: Acuity of Condition - Constitutional Constitutional: As Per HPI - EENT Eyes: As Per HPI Ears: As Per HPI Nose/Mouth/Throat: As Per HPI - Cardiovascular Cardiovascular: As Per HPI - Respiratory Respiratory: As Per HPI - Gastrointestinal Gastrointestinal: As Per HPI - Genitourinary Genitourinary: As Per HPI - Reproductive: Male Reproductive:Male: As Per HPI - Musculoskeletal Musculoskeletal: As Per HPI - Integumentary Integumentary: As Per HPI - Neurological Neurological: As Per HPI - Psychiatric Psychiatric: As Per HPI - Endocrine Endocrine: As Per HPI - Hematologic/Lymphatic Hematologic: As Per HPI Past Patient History - Infectious Disease Hx of Infectious Diseases: None - Tetanus Immunizations Tetanus Immunization: Unknown - Past Medical History & Family History Past Medical History?: Yes - Past Social History Smoking Status: Never Smoked Chewing Tobacco Use: No - CARDIAC Hx Cardiac Disorders: Yes Hx Hypercholesterolemia: Yes Hx Hypertension: Yes - PULMONARY Hx Respiratory Disorders: No Hx Sleep Apnea: Yes (uses c-pap) - NEUROLOGICAL Hx Neurological Disorder: No - HEENT Hx HEENT Problems: No - RENAL Hx Chronic Kidney Disease: Yes Other/Comment: frequent urination - ENDOCRINE/METABOLIC Hx Endocrine Disorders: No - HEMATOLOGICAL/ONCOLOGICAL Hx Blood Disorders: No Hx Blood Transfusions: No - INTEGUMENTARY Hx Dermatological Problems: No - MUSCULOSKELETAL/RHEUMATOLOGICAL Hx Musculoskeletal Disorders: Yes Hx Arthritis: Yes Hx Falls: No Hx Gout: Yes Hx Osteoarthritis: Yes - GASTROINTESTINAL Hx Gastrointestinal Disorders: No - GENITOURINARY/GYNECOLOGICAL Hx Genitourinary Disorders: Yes Hx Prostate Problems: Yes - PSYCHIATRIC Hx Psychophysiologic Disorder: No Hx Substance Use: No - SURGICAL HISTORY Hx Surgeries: Yes Hx Appendectomy: Yes Hx Cholecystectomy: Yes Hx Herniorrhaphy: Yes (Left ventral) Hx Joint Replacement: Yes (bilateral JACK) Hx Musculoskeletal Surgery: Yes (Right Biceps and Rotator Cuff Repair after Trauma) Hx Orthopedic Surgery: Yes (Right arm biceps repair) Other/Comment: Right Hip replacement. urolift - ANESTHESIA Hx Anesthesia: Yes Hx Anesthesia Reactions: Yes (difficulty voiding post op) Hx Malignant Hyperthermia: No Has any member of the family had a problem w/ anesthesia?: No Meds Allergies/Adverse Reactions: Allergies Allergy/AdvReac Type Severity Reaction Status Date / Time acetaminophen [From Percocet] Allergy RASH Verified 04/29/18 07:45 oxycodone [From Percocet] Allergy RASH Verified 04/29/18 07:45 - Medications Medications: Current Medications Acetaminophen (Tylenol 325mg Tab) 650 mg PO Q6 PRN PRN Reason: Fever >100.4 F Last Admin: 05/01/18 13:08 Dose: 650 mg Atorvastatin Calcium (Lipitor) 20 mg PO DAILY [facility] Last Admin: 05/02/18 08:49 Dose: 20 mg Docusate Sodium (Colace) 200 mg PO BID [facility] Hydromorphone HCl (Dilaudid) 2 mg IVP Q4 PRN PRN Reason: Pain, severe (8-10) Last Admin: 05/02/18 07:25 Dose: 2 mg Hydromorphone HCl (Dilaudid) 2 mg PO Q4 PRN PRN Reason: Pain, moderate (4-7) Hydromorphone HCl (Dilaudid) 1 mg IVP Q4 PRN PRN Reason: Pain, moderate (4-7) Last Admin: 05/01/18 11:19 Dose: 1 mg Cefazolin Sodium 2 gm/ Sodium (Chloride) 100 mls @ 100 mls/hr IVPB Q8 [facility] PRN Reason: Protocol Last Admin: 05/02/18 08:49 Dose: 100 mls/hr Lactated Ringer's (Lactated Ringer's) 1,000 mls @ 75 mls/hr IV .[id number] [facility] Last Admin: 05/02/18 04:53 Dose: 75 mls/hr Heparin Sodium/Dextrose (Heparin 25,000 Units/250ml In D5w) 25,000 units in 250 mls @ 13 mls/hr IV .[id number] [facility] PRN Reason: Protocol Last Admin: 05/02/18 00:03 Dose: 13 mls/hr Multivitamins/Minerals (Therapeutic-M Tab) 1 tab PO DAILY [facility] Last Admin: 05/02/18 08:49 Dose: 1 tab Ondansetron HCl (Zofran Inj) 4 mg IVP ONCE PRN PRN Reason: Nausea/Vomiting Oxybutynin Chloride (Ditropan Tab) 5 mg PO BID [facility] Last Admin: 05/02/18 08:49 Dose: 5 mg Potassium Chloride (Potassium Chloride Oral Soln) 20 meq PO ONCE ONE Stop: 05/02/18 14:01 Tamsulosin HCl (Flomax) 0.4 mg PO DAILY [facility] Last Admin: 05/02/18 08:49 Dose: 0.4 mg Physical Exam - Constitutional Appears: Well - Head Exam Head Exam: ATRAUMATIC, NORMAL INSPECTION, NORMOCEPHALIC - Eye Exam Eye Exam: EOMI, Normal appearance, PERRL Pupil Exam: NORMAL ACCOMODATION, PERRL - ENT Exam ENT Exam: Mucous Membranes Moist, Normal Exam - Neck Exam Neck exam: Positive for: Normal Inspection - Respiratory Exam Respiratory Exam: Clear to Auscultation Bilateral, NORMAL BREATHING PATTERN - Cardiovascular Exam Cardiovascular Exam: Tachycardia, REGULAR RHYTHM, +S1, +S2, Systolic Murmur - GI/Abdominal Exam GI & Abdominal Exam: Normal Bowel Sounds, Soft. absent: Tenderness - Extremities Exam Extremities exam: Positive for: normal inspection - Back Exam Back exam: NORMAL INSPECTION - Neurological Exam Neurological exam: Alert, CN II-XII Intact, Normal Gait, Oriented x3, Reflexes Normal - Psychiatric Exam Psychiatric exam: Normal Affect, Normal Mood - Skin Skin Exam: Dry, Intact, Normal Color, Warm Results - Vital Signs Recent Vital Signs: Last Vital Signs Temp 98.4 F 05/02/18 08:00 Pulse 84 05/02/18 08:00 Resp 16 05/02/18 08:05 BP 98/62 L 05/02/18 08:00 Pulse Ox 98 05/02/18 08:00 - Labs Result Diagrams: 05/02/18 04:20 05/02/18 04:20 Labs: Laboratory Results - last 24 hr 04/29/18 05/02/18 05/02/18 07:20 04:20 04:20 WBC 17.0 H RBC 3.06 L Hgb 9.4 L D Hct 27.1 L MCV 88.6 MCH 30.5 MCHC 34.5 RDW 13.0 Plt Count 165 MPV 9.6 Neut % (Auto) 77.6 H Lymph % (Auto) 11.0 L [place] % (Auto) 10.2 H Eos % (Auto) 0.6 Baso % (Auto) 0.6 Neut # (Auto) 13.2 H Lymph # (Auto) 1.9 [place] # (Auto) 1.7 H Eos # (Auto) 0.1 Baso # (Auto) 0.1 APTT Sodium 136 Potassium 3.2 L Chloride 103 Carbon Dioxide 29 Anion Gap 7 L BUN 13 Creatinine 0.7 L Est GFR ( Amer) > 60 Est GFR (Non-Af Amer) > 60 Random Glucose 127 H Calcium 7.9 L Total Bilirubin 0.8 AST 20 ALT 25 Alkaline Phosphatase 52 Troponin I 0.4640 H* Total Protein 4.7 L Albumin 2.5 L D Globulin 2.2 Albumin/Globulin Ratio 1.1 Crossmatch See Detail 05/02/18 04:20 WBC RBC Hgb Hct MCV MCH MCHC RDW Plt Count MPV Neut % (Auto) Lymph % (Auto) [place] % (Auto) Eos % (Auto) Baso % (Auto) Neut # (Auto) Lymph # (Auto) [place] # (Auto) Eos # (Auto) Baso # (Auto) APTT 53.4 H Sodium Potassium Chloride Carbon Dioxide Anion Gap BUN Creatinine Est GFR ( Amer) Est GFR (Non-Af Amer) Random Glucose Calcium Total Bilirubin AST ALT Alkaline Phosphatase Troponin I Total Protein Albumin Globulin Albumin/Globulin Ratio Crossmatch Assessment & Plan (1) Acute massive pulmonary embolism Assessment and Plan: discussed with who is reluctant for thrombolysis due to recent surgery medical management with IV heparin serial echoes to assess RV function Status: Acute (2) 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
--- NOTE | 2018-05-02 09:36 | CP.CCUPN ---
<Yovani Carter - Last Filed: 05/02/18 13:13> CCU Subjective - Physician Review Subjective (Free Text): Patient seen and examined this morning at bedside, no acute overnight events, endorses feeling better, no sob at this time . Otherwise he denies chest pain, palpitations, nausea, vomiting or abdominal pain. Hemodynamically stable Continuing on high flow 30 LPM at 55% CCU Objective - Vital Signs / Intake & Output Vital Signs (Last 4 hours): Vital Signs Temp Pulse Resp BP Pulse Ox 05/02/18 08:05 16 05/02/18 08:00 98.4 F 84 22 98/62 L 98 05/02/18 06:00 92 H 17 106/52 L 99 Intake and Output (Last 8hrs): Intake & Output 05/01/18 05/02/18 05/02/18 22:59 06:59 14:59 Intake Total 675 600 175 Output Total 950 400 Balance -275 200 175 Intake: IV 525 600 75 Intake, Piggyback 100 100 Oral 50 Output: Urine 950 400 Urine, Voided 950 400 - Physical Exam Head: Positive for: Normocephalic Pupils: Positive for: PERRL Extroacular Muscles: Positive for: EOMI Respiratory/Chest: Positive for: Clear to Auscultation, Decreased Breath Sounds Cardiovascular: Positive for: Regular Rate and Rhythm, Normal S1, S2, Tachycardic. Negative for: Murmurs Abdomen: Positive for: Normal Bowel Sounds. Negative for: Tenderness, Distention Lower Extremity: Positive for: Edema. Negative for: CALF TENDERNESS Skin: Positive for: Warm, Dry Psychiatric: Positive for: Alert, Oriented x 3 - Medications Active Medications: Active Medications Generic Name Dose Route Start Last Admin Trade Name Freq PRN Reason Stop Dose Admin Acetaminophen 650 mg 05/01/18 12:36 05/01/18 13:08 Tylenol 325mg Tab PO 650 mg Q6 PRN Administration Fever >100.4 F Atorvastatin Calcium 20 mg 05/01/18 09:00 05/02/18 08:49 Lipitor PO 20 mg DAILY MICHELLE Administration Docusate Sodium 200 mg 05/02/18 09:00 Colace PO BID MICHELLE Hydromorphone HCl 2 mg 04/30/18 19:22 05/02/18 07:25 Dilaudid IVP 2 mg Q4 PRN Administration Pain, severe (8-10) Hydromorphone HCl 2 mg 04/30/18 19:22 Dilaudid PO Q4 PRN Pain, moderate (4-7) Hydromorphone HCl 1 mg 04/30/18 19:35 05/01/18 11:19 Dilaudid IVP 1 mg Q4 PRN Administration Pain, moderate (4-7) Cefazolin Sodium 2 gm/ Sodium 100 mls @ 100 mls/hr 05/01/18 01:00 05/02/18 08 :49 Chloride IVPB 100 mls/hr Q8 MICHELLE Administration Protocol Lactated Ringer's 1,000 mls @ 75 mls/hr 04/30/18 19:22 05/02/18 04:53 Lactated Ringer's IV 75 mls/hr .[id number] MICHELLE Administration Heparin Sodium/Dextrose 25,000 units in 250 mls @ 13 mls/hr 05/01/18 22:45 00:03 Heparin 25,000 Units/250ml In D5w IV 13 mls/hr .[id number] MICHELLE Administration Protocol Multivitamins/Minerals 1 tab 05/01/18 09:00 05/02/18 08:49 Therapeutic-M Tab PO 1 tab DAILY MICHELLE Administration Ondansetron HCl 4 mg 04/30/18 19:22 Zofran Inj IVP ONCE PRN Nausea/Vomiting Oxybutynin Chloride 5 mg 05/01/18 09:00 05/02/18 08:49 Ditropan Tab PO 5 mg BID MICHELLE Administration Potassium Chloride 20 meq 05/02/18 14:00 Potassium Chloride Oral Soln PO 05/02/18 14:01 ONCE ONE Tamsulosin HCl 0.4 mg 05/01/18 09:00 05/02/18 08:49 Flomax PO 0.4 mg DAILY MICHELLE Administration - Patient Studies Lab Studies: Microbiology Studies 04/29/18 15:14 Gram Stain - Final Hip - Right Anaerobic Culture - Final NO ANAEROBES ISOLATED. Wound Culture - Preliminary No growth. 04/29/18 15:11 Gram Stain - Final Hip - Right Wound Culture - Preliminary No growth. 04/29/18 15:11 Gram Stain - Final Hip - Right Wound Culture - Preliminary No growth. 04/29/18 15:11 Gram Stain - Final Hip - Right Wound Culture - Preliminary No growth. 04/29/18 15:11 Gram Stain - Final Hip - Right Wound Culture - Preliminary No growth. 04/29/18 15:11 Gram Stain - Final Hip - Right Wound Culture - Preliminary No growth. 04/29/18 15:11 Gram Stain - Final Hip - Right Wound Culture - Preliminary No growth. 04/29/18 15:11 Gram Stain - Final Hip - Right Wound Culture - Preliminary No growth. 04/29/18 11:38 Gram Stain - Final Body Fluid - Hip-Right Body Fluid Culture - Preliminary NO GROWTH AFTER 2 DAYS 04/29/18 15:14 Gram Stain - Final Hip - Right Wound Culture - Preliminary No growth. 04/29/18 15:14 Gram Stain - Final Hip - Right Wound Culture - Preliminary No growth. 04/29/18 15:14 Gram Stain - Final Hip - Right Wound Culture - Preliminary No growth. 04/29/18 15:14 Gram Stain - Final Hip - Right Wound Culture - Preliminary No growth. 04/29/18 15:14 Gram Stain - Final Hip - Right Wound Culture - Preliminary No growth. 04/29/18 15:14 Gram Stain - Final Hip - Right Wound Culture - Preliminary No growth. 04/29/18 15:14 Gram Stain - Final Hip - Right Wound Culture - Preliminary No growth. 04/29/18 15:15 Gram Stain - Final Hip - Right Wound Culture - Preliminary No growth. 04/29/18 15:15 Gram Stain - Final Hip - Right Wound Culture - Preliminary No growth. 04/29/18 15:15 Gram Stain - Final Hip - Right Wound Culture - Preliminary No growth. 04/29/18 15:15 Gram Stain - Final Hip - Right Wound Culture - Preliminary No growth. 04/29/18 15:15 Gram Stain - Final Hip - Right Wound Culture - Preliminary No growth. 04/29/18 15:15 Gram Stain - Final Hip - Right Wound Culture - Preliminary No growth. 04/29/18 15:15 Gram Stain - Final Hip - Right Wound Culture - Preliminary No growth. 04/29/18 15:15 Gram Stain - Final Hip - Right Wound Culture - Preliminary No growth. 04/29/18 10:50 Gram Stain - Final Body Fluid - Hip-Right Body Fluid Culture - Preliminary NO GROWTH AFTER 2 DAYS 04/29/18 10:00 Anaerobic Culture - Final Hip - Right NO ANAEROBES ISOLATED. 04/29/18 10:00 Gram Stain - Final Body Fluid - Hip Body Fluid Culture - Preliminary NO GROWTH AFTER 2 DAYS 04/29/18 11:38 Fungal Culture - Preliminary Hip Right 04/29/18 10:40 Fungal Culture - Preliminary Hip Right 04/29/18 10:00 Fungal Culture - Preliminary Other: Please Indicate Mycobacterial Culture - Preliminary Lab Studies 05/02/18 05/02/18 05/02/18 Range/Units 04:20 04:20 04:20 WBC 17.0 H (4.8-10.8) K/uL RBC 3.06 L (4.40-5.90) Mil/uL Hgb 9.4 L D (12.0-18.0) g/dL Hct 27.1 L (35.0-51.0) % MCV 88.6 (80.0-94.0) fl MCH 30.5 (27.0-31.0) pg MCHC 34.5 (33.0-37.0) g/dL RDW 13.0 (11.5-14.5) % Plt Count 165 (130-400) K/uL MPV 9.6 (7.2-11.7) fl Neut % (Auto) 77.6 H (50.0-75.0) % Lymph % (Auto) 11.0 L (20.0-40.0) % Glenn % (Auto) 10.2 H (0.0-10.0) % Eos % (Auto) 0.6 (0.0-4.0) % Baso % (Auto) 0.6 (0.0-2.0) % Neut # (Auto) 13.2 H (1.8-7.0) K/uL Lymph # (Auto) 1.9 (1.0-4.3) K/uL Glenn # (Auto) 1.7 H (0.0-0.8) K/uL Eos # (Auto) 0.1 (0.0-0.7) K/uL Baso # (Auto) 0.1 (0.0-0.2) K/uL APTT 53.4 H (25.6-37.1) Seconds Sodium 136 (132-148) mmol/l Potassium 3.2 L (3.6-5.0) MMOL/L Chloride 103 (98-107) mmol/L Carbon Dioxide 29 (22-30) mmol/L Anion Gap 7 L (10-20) BUN 13 (9-20) mg/dl Creatinine 0.7 L (0.8-1.5) mg/dl Est GFR ( Amer) > 60 Est GFR (Non-Af Amer) > 60 Random Glucose 127 H (75-110) mg/dL Calcium 7.9 L (8.4-10.2) mg/dL Total Bilirubin 0.8 (0.2-1.3) mg/dl AST 20 (17-59) U/L ALT 25 (21-72) U/L Alkaline Phosphatase 52 (38-126) U/L Troponin I 0.4640 H* (0.00-0.120) ng/mL Total Protein 4.7 L (6.3-8.2) G/DL Albumin 2.5 L D (3.5-5.0) g/dL Globulin 2.2 (2.2-3.9) gm/dL Albumin/Globulin Ratio 1.1 (1.0-2.1) Crossmatch 04/29/18 Range/Units 07:20 WBC (4.8-10.8) K/uL RBC (4.40-5.90) Mil/uL Hgb (12.0-18.0) g/dL Hct (35.0-51.0) % MCV (80.0-94.0) fl MCH (27.0-31.0) pg MCHC (33.0-37.0) g/dL RDW (11.5-14.5) % Plt Count (130-400) K/uL MPV (7.2-11.7) fl Neut % (Auto) (50.0-75.0) % Lymph % (Auto) (20.0-40.0) % Glenn % (Auto) (0.0-10.0) % Eos % (Auto) (0.0-4.0) % Baso % (Auto) (0.0-2.0) % Neut # (Auto) (1.8-7.0) K/uL Lymph # (Auto) (1.0-4.3) K/uL Glenn # (Auto) (0.0-0.8) K/uL Eos # (Auto) (0.0-0.7) K/uL Baso # (Auto) (0.0-0.2) K/uL APTT (25.6-37.1) Seconds Sodium (132-148) mmol/l Potassium (3.6-5.0) MMOL/L Chloride (98-107) mmol/L Carbon Dioxide (22-30) mmol/L Anion Gap (10-20) BUN (9-20) mg/dl Creatinine (0.8-1.5) mg/dl Est GFR ( Amer) Est GFR (Non-Af Amer) Random Glucose (75-110) mg/dL Calcium (8.4-10.2) mg/dL Total Bilirubin (0.2-1.3) mg/dl AST (17-59) U/L ALT (21-72) U/L Alkaline Phosphatase (38-126) U/L Troponin I (0.00-0.120) ng/mL Total Protein (6.3-8.2) G/DL Albumin (3.5-5.0) g/dL Globulin (2.2-3.9) gm/dL Albumin/Globulin Ratio (1.0-2.1) Crossmatch See Detail Laboratory Results - last 24 hr 04/29/18 05/02/18 05/02/18 07:20 04:20 04:20 WBC 17.0 H RBC 3.06 L Hgb 9.4 L D Hct 27.1 L MCV 88.6 MCH 30.5 MCHC 34.5 RDW 13.0 Plt Count 165 MPV 9.6 Neut % (Auto) 77.6 H Lymph % (Auto) 11.0 L Glenn % (Auto) 10.2 H Eos % (Auto) 0.6 Baso % (Auto) 0.6 Neut # (Auto) 13.2 H Lymph # (Auto) 1.9 Glenn # (Auto) 1.7 H Eos # (Auto) 0.1 Baso # (Auto) 0.1 APTT Sodium 136 Potassium 3.2 L Chloride 103 Carbon Dioxide 29 Anion Gap 7 L BUN 13 Creatinine 0.7 L Est GFR ( Amer) > 60 Est GFR (Non-Af Amer) > 60 Random Glucose 127 H Calcium 7.9 L Total Bilirubin 0.8 AST 20 ALT 25 Alkaline Phosphatase 52 Troponin I 0.4640 H* Total Protein 4.7 L Albumin 2.5 L D Globulin 2.2 Albumin/Globulin Ratio 1.1 Crossmatch See Detail 05/02/18 04:20 WBC RBC Hgb Hct MCV MCH MCHC RDW Plt Count MPV Neut % (Auto) Lymph % (Auto) Glenn % (Auto) Eos % (Auto) Baso % (Auto) Neut # (Auto) Lymph # (Auto) Glenn # (Auto) Eos # (Auto) Baso # (Auto) APTT 53.4 H Sodium Potassium Chloride Carbon Dioxide Anion Gap BUN Creatinine Est GFR ( Amer) Est GFR (Non-Af Amer) Random Glucose Calcium Total Bilirubin AST ALT Alkaline Phosphatase Troponin I Total Protein Albumin Globulin Albumin/Globulin Ratio Crossmatch Review of Systems - Review of Systems All systems: reviewed and no additional remarkable complaints except (as per HPI ) Critical Care Progress Note - Nutrition Nutrition: Nutrition Category Date Time Status Heart Healthy Diet [DIET] Diets 04/29/18 Dinner Active Assessment/Plan - Assessment and Plan (Free Text) Assessment: 67 yo M with PMH of OA S/P Right Hip replacement X3, Left Hip replacement , BPH , HTN, dyslipidemia and gout s/p R hip replacement POD 3 complicated with massive bilateral Pulmonary Embolism. Plan: Massive b/l PE with R ventricular strain - POD 3 - CTA 04/30/18: Extensive bilateral pulmonary emboli with CT evidence of right heart strain. - High flow oxygen 30 LPM at 55% - Positive troponin x1, f/u series. - C/ on Heparin drip 1000 units/hr - PT/PTT: 16.4/58.2, INR 1.5 - Interventional cardiology consulted, Dr Carbajal: Not candidate for thrombolysis 2/2 recent surgery - Hemodynamically stable - Duplex vein US b/l: no evidence of DVT. - CXR: no active pulmonary disease. Right total Hip replacement hardware, POD 2 - c/w Orthopedic management by Dr Edwards - Pain management - PT/OT HTN - Hold Amlodipine for now due to lower BP BPH with urinary retention postop - Restart Oxybutynin - Restart Flomax - Monitor HLD - Atorvastatin DVT prophylaxis -Heparin drip Case discussed with Dr Hays, ICU attending. <Kurt Hays - Last Filed: 05/02/18 15:19> CCU Subjective - Physician Review Subjective (Free Text): Attestation: Patient seen and examined at the bedside with Resident Dr. Raven Carter; and I agree with her outline of plans and management documented above as discussed on AM rounds reflecting my review of all applicable clinical data, and participation in the care of the patient throughout the day in ICU; today, May 02, 2018. As he remains on IV Heparin drip, decrease in HGb noted, may have been due to hemodilution from IVFs, R hip does not appear to be swollen, bulging, nor any change in the appearance of ongoing serosanguinous drainage fluid has not been noted. Will repeat HGB and if significantly lower (e.g. approx. 8), will give PRBCs.
--- NOTE | 2018-05-02 11:12 | CP.PCM.PN ---
Subjective - Date & Time of Evaluation Date of Evaluation: 05/02/18 Time of Evaluation: 07:30 - Subjective Subjective: Patient seen and examined at bedside. Sitting up in bed, breathing comfortably on high flow O2 NC. He denies chest pain, SOB, palpitations. Patient's charts, labs, and nurse notes reviewed. Advised to adjust high flow to 30LMP of 55% O2 Recommend portable bilateral lower extremity Dopplers every 5-7 days Portable CXR ordered Advise to ambulate patient once doppler reports are back Case discussed w/ attending Will continue to monitor Objective - Vital Signs/Intake and Output Vital Signs (last 24 hours): Temp Pulse Resp BP Pulse Ox 98.4 F 86 17 105/61 98 05/02/18 08:00 05/02/18 10:00 05/02/18 10:41 05/02/18 10:00 05/02/18 10:00 Intake and Output: 05/02/18 05/02/18 06:59 18:59 Intake Total 950 325 Output Total 750 Balance 200 325 - Medications Medications: Current Medications Acetaminophen (Tylenol 325mg Tab) 650 mg PO Q6 PRN PRN Reason: Fever >100.4 F Last Admin: 05/01/18 13:08 Dose: 650 mg Atorvastatin Calcium (Lipitor) 20 mg PO DAILY [facility] Last Admin: 05/02/18 08:49 Dose: 20 mg Docusate Sodium (Colace) 200 mg PO BID [facility] Last Admin: 05/02/18 10:13 Dose: 200 mg Hydromorphone HCl (Dilaudid) 2 mg IVP Q4 PRN PRN Reason: Pain, severe (8-10) Last Admin: 05/02/18 07:25 Dose: 2 mg Hydromorphone HCl (Dilaudid) 2 mg PO Q4 PRN PRN Reason: Pain, moderate (4-7) Hydromorphone HCl (Dilaudid) 1 mg IVP Q4 PRN PRN Reason: Pain, moderate (4-7) Last Admin: 05/01/18 11:19 Dose: 1 mg Cefazolin Sodium 2 gm/ Sodium (Chloride) 100 mls @ 100 mls/hr IVPB Q8 MICHELLE PRN Reason: Protocol Last Admin: 05/02/18 08:49 Dose: 100 mls/hr Lactated Ringer's (Lactated Ringer's) 1,000 mls @ 75 mls/hr IV .[id number] [facility] Last Admin: 05/02/18 04:53 Dose: 75 mls/hr Heparin Sodium/Dextrose (Heparin 25,000 Units/250ml In D5w) 25,000 units in 250 mls @ 13 mls/hr IV .[id number] [facility] PRN Reason: Protocol Last Admin: 05/02/18 00:03 Dose: 13 mls/hr Multivitamins/Minerals (Therapeutic-M Tab) 1 tab PO DAILY [facility] Last Admin: 05/02/18 08:49 Dose: 1 tab Ondansetron HCl (Zofran Inj) 4 mg IVP ONCE PRN PRN Reason: Nausea/Vomiting Oxybutynin Chloride (Ditropan Tab) 5 mg PO BID [facility] Last Admin: 05/02/18 08:49 Dose: 5 mg Potassium Chloride (Potassium Chloride Oral Soln) 20 meq PO ONCE ONE Stop: 05/02/18 14:01 Tamsulosin HCl (Flomax) 0.4 mg PO DAILY [facility] Last Admin: 05/02/18 08:49 Dose: 0.4 mg - Labs Labs: 05/02/18 04:20 05/02/18 04:20 PT 16.4 Seconds (9.8-13.1) H 04/30/18 18:54 INR 1.5 04/30/18 18:54 APTT 53.4 Seconds (25.6-37.1) H 05/02/18 04:20 - Constitutional Appears: No Acute Distress - Eye Exam Eye Exam: Normal appearance - ENT Exam ENT Exam: Mucous Membranes Moist - Respiratory Exam Respiratory Exam: Decreased Breath Sounds, NORMAL BREATHING PATTERN - Cardiovascular Exam Cardiovascular Exam: RRR, +S1, +S2 - GI/Abdominal Exam GI & Abdominal Exam: Soft, Normal Bowel Sounds. absent: Tenderness - Extremities Exam Extremities Exam: Normal Inspection. absent: Calf Tenderness, Pedal Edema - Back Exam Back Exam: absent: CVA tenderness (L), CVA tenderness (R) - Neurological Exam Neurological Exam: Alert, Awake, Oriented x3 - Skin Skin Exam: Dry, Intact, Warm
--- NOTE | 2018-05-02 11:24 | CP.PCM.PN ---
<Elmer Blakely - Last Filed: 05/02/18 17:06> Subjective - Date & Time of Evaluation Date of Evaluation: 05/02/18 Time of Evaluation: 11:21 - Subjective Subjective: Patient lying bed, talking on phone in no distress. wearing High flow NC: 55% FIO2 at 30L/min. HR: 80-90s BP: 105/61 Patient taken for u/s of lower extremities. Objective - Vital Signs/Intake and Output Vital Signs (last 24 hours): Temp Pulse Resp BP Pulse Ox 98.4 F 86 17 105/61 98 05/02/18 08:00 05/02/18 10:00 05/02/18 10:41 05/02/18 10:00 05/02/18 10:00 Intake and Output: 05/02/18 05/02/18 06:59 18:59 Intake Total 950 325 Output Total 750 Balance 200 325 - Medications Medications: Current Medications Acetaminophen (Tylenol 325mg Tab) 650 mg PO Q6 PRN PRN Reason: Fever >100.4 F Last Admin: 05/01/18 13:08 Dose: 650 mg Atorvastatin Calcium (Lipitor) 20 mg PO DAILY [facility] Last Admin: 05/02/18 08:49 Dose: 20 mg Docusate Sodium (Colace) 200 mg PO BID [facility] Last Admin: 05/02/18 10:13 Dose: 200 mg Hydromorphone HCl (Dilaudid) 2 mg IVP Q4 PRN PRN Reason: Pain, severe (8-10) Last Admin: 05/02/18 07:25 Dose: 2 mg Hydromorphone HCl (Dilaudid) 2 mg PO Q4 PRN PRN Reason: Pain, moderate (4-7) Hydromorphone HCl (Dilaudid) 1 mg IVP Q4 PRN PRN Reason: Pain, moderate (4-7) Last Admin: 05/01/18 11:19 Dose: 1 mg Cefazolin Sodium 2 gm/ Sodium (Chloride) 100 mls @ 100 mls/hr IVPB Q8 MICHELLE PRN Reason: Protocol Last Admin: 05/02/18 08:49 Dose: 100 mls/hr Lactated Ringer's (Lactated Ringer's) 1,000 mls @ 75 mls/hr IV .[id number] [facility] Last Admin: 05/02/18 04:53 Dose: 75 mls/hr Heparin Sodium/Dextrose (Heparin 25,000 Units/250ml In D5w) 25,000 units in 250 mls @ 13 mls/hr IV .[id number] MICHELLE PRN Reason: Protocol Last Admin: 05/02/18 00:03 Dose: 13 mls/hr Multivitamins/Minerals (Therapeutic-M Tab) 1 tab PO DAILY [facility] Last Admin: 05/02/18 08:49 Dose: 1 tab Ondansetron HCl (Zofran Inj) 4 mg IVP ONCE PRN PRN Reason: Nausea/Vomiting Oxybutynin Chloride (Ditropan Tab) 5 mg PO BID [facility] Last Admin: 05/02/18 08:49 Dose: 5 mg Potassium Chloride (Potassium Chloride Oral Soln) 20 meq PO ONCE ONE Stop: 05/02/18 14:01 Tamsulosin HCl (Flomax) 0.4 mg PO DAILY [facility] Last Admin: 05/02/18 08:49 Dose: 0.4 mg - Labs Labs: 05/02/18 04:20 05/02/18 04:20 PT 16.4 Seconds (9.8-13.1) H 04/30/18 18:54 INR 1.5 04/30/18 18:54 APTT 53.4 Seconds (25.6-37.1) H 05/02/18 04:20 - Constitutional Appears: Non-toxic, No Acute Distress - Head Exam Head Exam: ATRAUMATIC, NORMAL INSPECTION, NORMOCEPHALIC - Eye Exam Eye Exam: Normal appearance - Respiratory Exam Respiratory Exam: Clear to Ausculation Bilateral (wearing high flow NC) - Cardiovascular Exam Cardiovascular Exam: REGULAR RHYTHM, +S1, +S2 - Extremities Exam Extremities Exam: absent: Pedal Edema - Neurological Exam Neurological Exam: Alert, Awake - Psychiatric Exam Psychiatric exam: Normal Affect, Normal Mood - Skin Skin Exam: Dry, Intact, Normal Color, Warm Assessment and Plan - Assessment and Plan (Free Text) Assessment: POD#2 s/p total right hip replacement 67 yo M with H/O OA S/P Right Hip replacement X2, Left Hip replacement , BPH , HTN, dyslipidemia and gout, complaining of continuous painful right hip with some looseness of the hardware. He is admitted for revision of the right hip 9THR revision, admission complicated by bilateral pulmonary emboli, now with +troponins indicative of right heart strain. #. Bilateral Pulmonary Emboli - now with right heart strain - on Heparin Drip - Interventional Cardiology was consulted, appreciated. Not candidate for thrombolysis 2/2 recent surgery - Hemodynamically stable, continue gentle hydration for lower BP. - u/s of lower extremities - trend troponins #. Malfunction of Right total Hip replacement hardware, POD #2 - Consult orthopedic, Dr Edwards - Orthopedic management - Pain management - PT/OT #. HTN - Amlodipine #. BPH with urinary retention postop - continue Oxybutynin - continue Flomax - Monitor #. HLD - Atorvastatin #. Sleep Apnea - CPAP if needed #. DVT prophylaxis with Lovenox starting 04/30/18 #. Code Status: full <Nia Sanabria - Last Filed: 05/02/18 17:40> Objective - Vital Signs/Intake and Output Vital Signs (last 24 hours): Temp Pulse Resp BP Pulse Ox 99.6 F 90 24 120/59 L 96 05/02/18 16:00 05/02/18 16:00 05/02/18 16:00 05/02/18 16:00 05/02/18 16:00 Intake and Output: 05/02/18 05/02/18 06:59 18:59 Intake Total 950 325 Output Total 750 Balance 200 325 - Medications Medications: Current Medications Acetaminophen (Tylenol 325mg Tab) 650 mg PO Q6 PRN PRN Reason: Fever >100.4 F Last Admin: 05/01/18 13:08 Dose: 650 mg Atorvastatin Calcium (Lipitor) 20 mg PO DAILY [facility] Last Admin: 05/02/18 08:49 Dose: 20 mg Docusate Sodium (Colace) 200 mg PO BID [facility] Last Admin: 05/02/18 16:42 Dose: 200 mg Hydromorphone HCl (Dilaudid) 2 mg IVP Q4 PRN PRN Reason: Pain, severe (8-10) Last Admin: 05/02/18 07:25 Dose: 2 mg Hydromorphone HCl (Dilaudid) 2 mg PO Q4 PRN PRN Reason: Pain, moderate (4-7) Hydromorphone HCl (Dilaudid) 1 mg IVP Q4 PRN PRN Reason: Pain, moderate (4-7) Last Admin: 05/01/18 11:19 Dose: 1 mg Cefazolin Sodium 2 gm/ Sodium (Chloride) 100 mls @ 100 mls/hr IVPB Q8 MICHELLE PRN Reason: Protocol Last Admin: 05/02/18 16:44 Dose: 100 mls/hr Lactated Ringer's (Lactated Ringer's) 1,000 mls @ 75 mls/hr IV .[id number] [facility] Last Admin: 05/02/18 04:53 Dose: 75 mls/hr Heparin Sodium/Dextrose (Heparin 25,000 Units/250ml In D5w) 25,000 units in 250 mls @ 13 mls/hr IV .[id number] MICHELLE PRN Reason: Protocol Last Admin: 05/02/18 00:03 Dose: 13 mls/hr Multivitamins/Minerals (Therapeutic-M Tab) 1 tab PO DAILY [facility] Last Admin: 05/02/18 08:49 Dose: 1 tab Ondansetron HCl (Zofran Inj) 4 mg IVP ONCE PRN PRN Reason: Nausea/Vomiting Oxybutynin Chloride (Ditropan Tab) 5 mg PO BID [facility] Last Admin: 05/02/18 16:42 Dose: 5 mg Pantoprazole Sodium (Protonix Inj) 40 mg IVP DAILY [facility] Last Admin: 05/02/18 15:55 Dose: 40 mg Tamsulosin HCl (Flomax) 0.4 mg PO DAILY [facility] Last Admin: 05/02/18 08:49 Dose: 0.4 mg - Labs Labs: 05/02/18 04:20 05/02/18 04:20 PT 16.4 Seconds (9.8-13.1) H 04/30/18 18:54 INR 1.5 04/30/18 18:54 APTT 53.4 Seconds (25.6-37.1) H 05/02/18 04:20 Attending/Attestation - Attestation I have personally seen and examined this patient.: Yes I have fully participated in the care of the patient.: Yes I have reviewed all pertinent clinical information, including history, physical exam and plan: Yes Notes (Text): 05/02/18 17:39 Seen, examined, and discussed with residents Dr. Blakely. Agree with findings and plan as above.
--- NOTE | 2018-05-02 12:10 | RAD ---
Date of service: 05/02/2018 HISTORY: PE COMPARISON: 11/19/2017. FINDINGS: LUNGS: The lungs are well inflated and clear. PLEURA: No significant pleural effusion identified, no pneumothorax apparent. CARDIOVASCULAR: Normal. OSSEOUS STRUCTURES: No significant abnormalities. VISUALIZED UPPER ABDOMEN: Normal. OTHER FINDINGS: None. IMPRESSION: No active pulmonary disease.
--- NOTE | 2018-05-02 12:28 | US ---
Date of service: 05/02/2018 PROCEDURE: Bilateral lower extremity venous duplex Doppler. HISTORY: pulmonary embolism, r/o DVT COMPARISON: None available. TECHNIQUE: Bilateral common femoral, superficial femoral, popliteal and posterior tibial veins were evaluated. Flow was assessed with color Doppler, compressibility, assessment of phasic flow and augmentation response. FINDINGS: COMMON FEMORAL VEIN: Right CFV: Unremarkable. Left CFV: Unremarkable. SUPERFICIAL FEMORAL VEIN: Right SFV: Unremarkable. Left SFV: Unremarkable. POPLITEAL VEIN: Right Popliteal: Unremarkable. Left Popliteal: Unremarkable. POSTERIOR TIBIAL VEIN: Right PTV: Unremarkable. Left PTV: Unremarkable. OTHER FINDINGS: None. IMPRESSION: No evidence of deep venous thrombosis.
--- NOTE | 2018-05-02 14:49 | CP.PCM.PN ---
Subjective - Date & Time of Evaluation Date of Evaluation: 05/02/18 Time of Evaluation: 14:48 - Subjective Subjective: CARDIOLOGY PROGRESS NOTE FOR DR. RUDI Cary D.O. PGY-1 Patient seen and examined at bedside today in ICU. No acute events overnight. Pt reports improvement in symptoms, denies sob, chest pain, palpitations, diophoresis, nausea, vomiting, constipation, diarrhea, abdominal pain. Vitals currently stable. Currently on high flow mask 30 L/min @ 55%. Pt found to have elevated troponin this am. Objective - Vital Signs/Intake and Output Vital Signs (last 24 hours): Temp Pulse Resp BP Pulse Ox 98.3 F 89 19 97/64 L 100 05/02/18 12:00 05/02/18 14:00 05/02/18 14:00 05/02/18 14:00 05/02/18 14:00 Intake and Output: 05/02/18 05/02/18 06:59 18:59 Intake Total 950 325 Output Total 750 Balance 200 325 - Medications Medications: Current Medications Acetaminophen (Tylenol 325mg Tab) 650 mg PO Q6 PRN PRN Reason: Fever >100.4 F Last Admin: 05/01/18 13:08 Dose: 650 mg Atorvastatin Calcium (Lipitor) 20 mg PO DAILY [facility] Last Admin: 05/02/18 08:49 Dose: 20 mg Docusate Sodium (Colace) 200 mg PO BID [facility] Last Admin: 05/02/18 10:13 Dose: 200 mg Hydromorphone HCl (Dilaudid) 2 mg IVP Q4 PRN PRN Reason: Pain, severe (8-10) Last Admin: 05/02/18 07:25 Dose: 2 mg Hydromorphone HCl (Dilaudid) 2 mg PO Q4 PRN PRN Reason: Pain, moderate (4-7) Hydromorphone HCl (Dilaudid) 1 mg IVP Q4 PRN PRN Reason: Pain, moderate (4-7) Last Admin: 05/01/18 11:19 Dose: 1 mg Cefazolin Sodium 2 gm/ Sodium (Chloride) 100 mls @ 100 mls/hr IVPB Q8 MICHELLE PRN Reason: Protocol Last Admin: 05/02/18 08:49 Dose: 100 mls/hr Lactated Ringer's (Lactated Ringer's) 1,000 mls @ 75 mls/hr IV .[id number] [facility] Last Admin: 05/02/18 04:53 Dose: 75 mls/hr Heparin Sodium/Dextrose (Heparin 25,000 Units/250ml In D5w) 25,000 units in 250 mls @ 13 mls/hr IV .[id number] [facility] PRN Reason: Protocol Last Admin: 05/02/18 00:03 Dose: 13 mls/hr Multivitamins/Minerals (Therapeutic-M Tab) 1 tab PO DAILY [facility] Last Admin: 05/02/18 08:49 Dose: 1 tab Ondansetron HCl (Zofran Inj) 4 mg IVP ONCE PRN PRN Reason: Nausea/Vomiting Oxybutynin Chloride (Ditropan Tab) 5 mg PO BID [facility] Last Admin: 05/02/18 08:49 Dose: 5 mg Tamsulosin HCl (Flomax) 0.4 mg PO DAILY [facility] Last Admin: 05/02/18 08:49 Dose: 0.4 mg - Labs Labs: 05/02/18 04:20 05/02/18 04:20 PT 16.4 Seconds (9.8-13.1) H 04/30/18 18:54 INR 1.5 04/30/18 18:54 APTT 53.4 Seconds (25.6-37.1) H 05/02/18 04:20 - Constitutional Appears: Well, Non-toxic, No Acute Distress - Head Exam Head Exam: NORMAL INSPECTION - Eye Exam Eye Exam: EOMI, Normal appearance - ENT Exam ENT Exam: Mucous Membranes Moist, Normal Exam - Neck Exam Neck Exam: Normal Inspection - Respiratory Exam Respiratory Exam: Clear to Ausculation Bilateral, NORMAL BREATHING PATTERN - Cardiovascular Exam Cardiovascular Exam: Tachycardia, +S1, +S2, Murmur (systolic) - GI/Abdominal Exam GI & Abdominal Exam: Soft, Tenderness, Normal Bowel Sounds - Extremities Exam Extremities Exam: Normal Inspection - Back Exam Back Exam: NORMAL INSPECTION - Neurological Exam Neurological Exam: Alert, Awake, Oriented x3 - Psychiatric Exam Psychiatric exam: Normal Affect, Normal Mood - Skin Skin Exam: Dry, Normal Color, Warm Assessment and Plan - Assessment and Plan (Free Text) Assessment: 67 y/o M POD3 s/p R THR revision. [employer] was called on POD1 due to desaturation in low 70%, hypotension and tachycardia. Pt was found to have b/l PE w/ RH strain on CTA. Therapeutic dose heparin and heparin drip were started. Plan: Acute b/l pulmonary embolism Pt not a candidate for thrombolysis 2/2 recent surgery Recommend serial echocardiograms to monitor R heart function Continue High Flow NC, maintain adequate O2sat Continue heparin drip f/u doppler l/e Appreciate pulmonology recs: Dr. Pino CTA (04/30/18): Extensive bilateral pulmonary emboli with CT evidence of right heart strain. Echocardiogram (04/30/18): Technically fair study. Mild TR w/ moderate pulmonary HTN. Dilated RV. Normal LV function. Small pericardial effusion. EF 60-65% POD s/p R Total hip replacement Appreciate ortho recs: Dr. Edwards Continue pain mgmt PT/OT HTN Hold amlodipine for hypotension HLD Continue atorvastatin HHD BPH Continue oxybutynin/flomax monitor for signs of hypotension Appreciate urology recs: Dr. Burgos GI/DVTppx: Protonix/Heparin Case seen, discussed and reviewed with attending physician, Dr. Carbajal
[2018-05-02 18:01] LABS: BASO % 0.4 % (0.0-2.0); EOS # 0.2 K/uL (0.0-0.7); EOS % 1.4 % (0.0-4.0); HEMOGLOBIN 9.2 g/dL (12.0-18.0); LYMPH # 1.2 K/uL (1.0-4.3); LYMPH % 8.8 % (20.0-40.0); MEAN CELL VOLUME 89.6 fl (80.0-94.0); MEAN CORPUSCULAR HEMOGLOBIN 30.3 pg (27.0-31.0); MEAN CORPUSCULAR HGB CONC 33.8 g/dL (33.0-37.0); MEAN PLATELET VOLUME 9.3 fl (7.2-11.7); MONO # 1.3 K/uL (0.0-0.8); MONO % 9.5 % (0.0-10.0); NEUT # 10.7 K/uL (1.8-7.0); NEUT % 79.9 % (50.0-75.0); PLATELET COUNT 176 K/uL (130-400); RBC 3.04 Mil/uL (4.40-5.90); RED CELL DISTRIBUTION WIDTH 13.4 % (11.5-14.5); WHITE BLOOD COUNT 13.3 K/uL (4.8-10.8)
[2018-05-02 21:37] LABS: EOSINOPHIL 1 % (0-7); LYMPHOCYTE 8 % (20-50); MONOCYTE 7 % (0-10); NEUTROPHIL 84 % (42-75); PLATELET ESTIMATE NORMAL (NORMAL); TOTAL CELLS COUNTED 100
[2018-05-02 21:38] LABS: ANISOCYTOSIS SLIGHT; LARGE PLATELETS PRESENT; OVALOCYTES SLIGHT
[2018-05-03] MEDS: ceFAZolin 2 GM in Sodium Chloride 0.9% 100 ML IVPB SCH ×3 (01:13→16:50)
[2018-05-03] MEDS ORDERED: Heparin 25,000units in D5W 25,000 UNITS/250 ML BAG IV SCH (05:45)
[2018-05-03 05:47] LABS: HEMOGLOBIN 8.4 g/dL (12.0-18.0); RBC 2.74 Mil/uL (4.40-5.90); WHITE BLOOD COUNT 12.8 K/uL (4.8-10.8)
[2018-05-03 05:48] LABS: BASO # 0.1 K/uL (0.0-0.2); BASO % 0.7 % (0.0-2.0); EOS # 0.3 K/uL (0.0-0.7); EOS % 2.5 % (0.0-4.0); MEAN CELL VOLUME 88.9 fl (80.0-94.0); MEAN CORPUSCULAR HEMOGLOBIN 30.8 pg (27.0-31.0); MEAN CORPUSCULAR HGB CONC 34.7 g/dL (33.0-37.0); MEAN PLATELET VOLUME 9.5 fl (7.2-11.7); MONO # 1.7 K/uL (0.0-0.8); MONO % 13.1 % (0.0-10.0); NEUT # 8.6 K/uL (1.8-7.0); NEUT % 67.7 % (50.0-75.0); RED CELL DISTRIBUTION WIDTH 13.3 % (11.5-14.5)
[2018-05-03 06:15] LABS: ALB/GLOB RATIO 1.1 (1.0-2.1); ALBUMIN 2.4 g/dL (3.5-5.0); ALT/SGPT 25 U/L (21-72); AST/SGOT 19 U/L (17-59); BLOOD UREA NITROGEN 10 mg/dl (9-20); CALCIUM 7.7 mg/dL (8.4-10.2); GFR NON-AFRICAN AMERICAN > 60
--- NOTE | 2018-05-03 07:20 | CP.CCUPN ---
<Yovani Carter - Last Filed: 05/03/18 09:54> CCU Subjective - Physician Review Subjective (Free Text): Patient seen and examined this morning at bedside, no acute overnight events, reports feeling better, no sob or chest pain. Otherwise he denies chest pain, palpitations, nausea, vomiting or abdominal pain. Hemodynamically stable Now on NC at 3 LPM CCU Objective - Vital Signs / Intake & Output Vital Signs (Last 4 hours): Vital Signs Temp Pulse Resp BP Pulse Ox 05/03/18 05:26 19 05/03/18 05:00 76 19 114/63 100 05/03/18 04:00 99.5 F 72 16 119/61 100 Intake and Output (Last 8hrs): Intake & Output 05/02/18 05/03/18 05/03/18 22:59 06:59 14:59 Intake Total 300 Output Total 500 Balance -200 Intake: IV 300 Output: Urine 500 Urine, Voided 500 - Physical Exam Head: Positive for: Normocephalic Pupils: Positive for: PERRL Extroacular Muscles: Positive for: EOMI Respiratory/Chest: Positive for: Clear to Auscultation, Decreased Breath Sounds Cardiovascular: Positive for: Regular Rate and Rhythm, Normal S1, S2, Tachycardic. Negative for: Murmurs Abdomen: Positive for: Normal Bowel Sounds. Negative for: Tenderness, Distention Lower Extremity: Positive for: Edema. Negative for: CALF TENDERNESS Skin: Positive for: Warm, Dry Psychiatric: Positive for: Alert, Oriented x 3 - Medications Active Medications: Active Medications Generic Name Dose Route Start Last Admin Trade Name Freq PRN Reason Stop Dose Admin Acetaminophen 650 mg 05/01/18 12:36 05/01/18 13:08 Tylenol 325mg Tab PO 650 mg Q6 PRN Administration Fever >100.4 F Atorvastatin Calcium 20 mg 05/01/18 09:00 05/02/18 08:49 Lipitor PO 20 mg DAILY MICHELLE Administration Docusate Sodium 200 mg 05/02/18 09:00 05/02/18 16:42 Colace PO 200 mg BID MICHELLE Administration Hydromorphone HCl 2 mg 04/30/18 19:22 05/03/18 05:00 Dilaudid IVP 2 mg Q4 PRN Administration Pain, severe (8-10) Hydromorphone HCl 2 mg 04/30/18 19:22 Dilaudid PO Q4 PRN Pain, moderate (4-7) Hydromorphone HCl 1 mg 04/30/18 19:35 05/01/18 11:19 Dilaudid IVP 1 mg Q4 PRN Administration Pain, moderate (4-7) Cefazolin Sodium 2 gm/ Sodium 100 mls @ 100 mls/hr 05/01/18 01:00 05/03/18 01 :13 Chloride IVPB 100 mls/hr Q8 MICHELLE Administration Protocol Lactated Ringer's 1,000 mls @ 75 mls/hr 04/30/18 19:22 05/02/18 04:53 Lactated Ringer's IV 75 mls/hr .[id number] MICHELLE Administration Heparin Sodium/Dextrose 25,000 units in 250 mls @ 13 mls/hr 05/03/18 05:45 Heparin 25,000 Units/250ml In D5w IV .[id number] MICHELLE Protocol Multivitamins/Minerals 1 tab 05/01/18 09:00 05/02/18 08:49 Therapeutic-M Tab PO 1 tab DAILY MICHELLE Administration Ondansetron HCl 4 mg 04/30/18 19:22 Zofran Inj IVP ONCE PRN Nausea/Vomiting Oxybutynin Chloride 5 mg 05/01/18 09:00 05/02/18 16:42 Ditropan Tab PO 5 mg BID MICHELLE Administration Pantoprazole Sodium 40 mg 05/02/18 15:30 05/02/18 15:55 Protonix Inj IVP 40 mg DAILY MICHELLE Administration Tamsulosin HCl 0.4 mg 05/01/18 09:00 05/02/18 08:49 Flomax PO 0.4 mg DAILY MICHELLE Administration - Patient Studies Lab Studies: Microbiology Studies 04/29/18 10:50 Gram Stain - Final Body Fluid - Hip-Right Anaerobic Culture - Final NO ANAEROBES ISOLATED. Body Fluid Culture - Preliminary NO GROWTH AFTER 3 DAYS 04/29/18 15:15 Gram Stain - Final Hip - Right Anaerobic Culture - Final NO ANAEROBES ISOLATED. Wound Culture - Final No growth. 04/29/18 15:11 Gram Stain - Final Hip - Right Anaerobic Culture - Final NO ANAEROBES ISOLATED. Wound Culture - Final No growth. 04/29/18 11:38 Gram Stain - Final Body Fluid - Hip-Right Anaerobic Culture - Final NO ANAEROBES ISOLATED. Body Fluid Culture - Preliminary NO GROWTH AFTER 3 DAYS 04/29/18 15:11 Gram Stain - Final Hip - Right Wound Culture - Final No growth. 04/29/18 15:11 Gram Stain - Final Hip - Right Wound Culture - Final No growth. 04/29/18 15:11 Gram Stain - Final Hip - Right Wound Culture - Final No growth. 04/29/18 15:11 Gram Stain - Final Hip - Right Wound Culture - Final No growth. 04/29/18 15:11 Gram Stain - Final Hip - Right Wound Culture - Final No growth. 04/29/18 15:11 Gram Stain - Final Hip - Right Wound Culture - Final No growth. 04/29/18 15:11 Gram Stain - Final Hip - Right Wound Culture - Final No growth. 04/29/18 15:14 Gram Stain - Final Hip - Right Wound Culture - Final No growth. 04/29/18 15:14 Gram Stain - Final Hip - Right Wound Culture - Final No growth. 04/29/18 15:14 Gram Stain - Final Hip - Right Wound Culture - Final No growth. 04/29/18 15:14 Gram Stain - Final Hip - Right Wound Culture - Final No growth. 04/29/18 15:14 Gram Stain - Final Hip - Right Wound Culture - Final No growth. 04/29/18 15:14 Gram Stain - Final Hip - Right Wound Culture - Final No growth. 04/29/18 15:14 Gram Stain - Final Hip - Right Wound Culture - Final No growth. 04/29/18 15:14 Gram Stain - Final Hip - Right Anaerobic Culture - Final NO ANAEROBES ISOLATED. Wound Culture - Final No growth. 04/29/18 15:15 Gram Stain - Final Hip - Right Wound Culture - Final No growth. 04/29/18 15:15 Gram Stain - Final Hip - Right Wound Culture - Final No growth. 04/29/18 15:15 Gram Stain - Final Hip - Right Wound Culture - Final No growth. 04/29/18 15:15 Gram Stain - Final Hip - Right Wound Culture - Final No growth. 04/29/18 15:15 Gram Stain - Final Hip - Right Wound Culture - Final No growth. 04/29/18 15:15 Gram Stain - Final Hip - Right Wound Culture - Final No growth. 04/29/18 15:15 Gram Stain - Final Hip - Right Wound Culture - Final No growth. 04/29/18 10:00 Gram Stain - Final Body Fluid - Hip Body Fluid Culture - Preliminary NO GROWTH AFTER 3 DAYS Lab Studies 05/03/18 05/03/18 05/03/18 Range/Units 04:20 04:20 04:20 WBC 12.8 H (4.8-10.8) K/uL RBC 2.74 L (4.40-5.90) Mil/uL Hgb 8.4 L (12.0-18.0) g/dL Hct 24.3 L (35.0-51.0) % MCV 88.9 (80.0-94.0) fl MCH 30.8 (27.0-31.0) pg MCHC 34.7 (33.0-37.0) g/dL RDW 13.3 (11.5-14.5) % Plt Count 186 (130-400) K/uL MPV 9.5 (7.2-11.7) fl Neut % (Auto) 67.7 (50.0-75.0) % Lymph % (Auto) 16.0 L (20.0-40.0) % Horry % (Auto) 13.1 H (0.0-10.0) % Eos % (Auto) 2.5 (0.0-4.0) % Baso % (Auto) 0.7 (0.0-2.0) % Neut # (Auto) 8.6 H (1.8-7.0) K/uL Lymph # (Auto) 2.0 (1.0-4.3) K/uL Horry # (Auto) 1.7 H (0.0-0.8) K/uL Eos # (Auto) 0.3 (0.0-0.7) K/uL Baso # (Auto) 0.1 (0.0-0.2) K/uL Neutrophils % (Manual) (42-75) % Lymphocytes % (Manual) (20-50) % Monocytes % (Manual) (0-10) % Eosinophils % (Manual) (0-7) % Platelet Estimate (NORMAL) Large Platelets Anisocytosis (manual) Ovalocytes APTT 40.7 H (25.6-37.1) Seconds Sodium 138 (132-148) mmol/l Potassium 3.6 (3.6-5.0) MMOL/L Chloride 104 (98-107) mmol/L Carbon Dioxide 31 H (22-30) mmol/L Anion Gap 7 L (10-20) BUN 10 (9-20) mg/dl Creatinine 0.7 L (0.8-1.5) mg/dl Est GFR ( Amer) > 60 Est GFR (Non-Af Amer) > 60 Random Glucose 109 (75-110) mg/dL Calcium 7.7 L (8.4-10.2) mg/dL Total Bilirubin 0.5 (0.2-1.3) mg/dl AST 19 (17-59) U/L ALT 25 (21-72) U/L Alkaline Phosphatase 51 (38-126) U/L Troponin I (0.00-0.120) ng/mL Total Protein 4.6 L (6.3-8.2) G/DL Albumin 2.4 L (3.5-5.0) g/dL Globulin 2.2 (2.2-3.9) gm/dL Albumin/Globulin Ratio 1.1 (1.0-2.1) Blood Type Antibody Screen Crossmatch BBK History Checked 05/02/18 05/02/18 05/02/18 Range/Units 20:18 17:50 13:40 WBC 13.3 H (4.8-10.8) K/uL RBC 3.04 L (4.40-5.90) Mil/uL Hgb 9.2 L (12.0-18.0) g/dL Hct 27.3 L (35.0-51.0) % MCV 89.6 (80.0-94.0) fl MCH 30.3 (27.0-31.0) pg MCHC 33.8 (33.0-37.0) g/dL RDW 13.4 (11.5-14.5) % Plt Count 176 (130-400) K/uL MPV 9.3 (7.2-11.7) fl Neut % (Auto) 79.9 H (50.0-75.0) % Lymph % (Auto) 8.8 L (20.0-40.0) % Horry % (Auto) 9.5 (0.0-10.0) % Eos % (Auto) 1.4 (0.0-4.0) % Baso % (Auto) 0.4 (0.0-2.0) % Neut # (Auto) 10.7 H (1.8-7.0) K/uL Lymph # (Auto) 1.2 (1.0-4.3) K/uL Horry # (Auto) 1.3 H (0.0-0.8) K/uL Eos # (Auto) 0.2 (0.0-0.7) K/uL Baso # (Auto) 0.0 (0.0-0.2) K/uL Neutrophils % (Manual) 84 H (42-75) % Lymphocytes % (Manual) 8 L (20-50) % Monocytes % (Manual) 7 (0-10) % Eosinophils % (Manual) 1 (0-7) % Platelet Estimate Normal (NORMAL) Large Platelets Present Anisocytosis (manual) Slight Ovalocytes Slight APTT (25.6-37.1) Seconds Sodium (132-148) mmol/l Potassium (3.6-5.0) MMOL/L Chloride (98-107) mmol/L Carbon Dioxide (22-30) mmol/L Anion Gap (10-20) BUN (9-20) mg/dl Creatinine (0.8-1.5) mg/dl Est GFR ( Amer) Est GFR (Non-Af Amer) Random Glucose (75-110) mg/dL Calcium (8.4-10.2) mg/dL Total Bilirubin (0.2-1.3) mg/dl AST (17-59) U/L ALT (21-72) U/L Alkaline Phosphatase (38-126) U/L Troponin I 0.2880 H* 0.2920 H* (0.00-0.120) ng/mL Total Protein (6.3-8.2) G/DL Albumin (3.5-5.0) g/dL Globulin (2.2-3.9) gm/dL Albumin/Globulin Ratio (1.0-2.1) Blood Type Antibody Screen Crossmatch BBK History Checked 05/02/18 04/29/18 Range/Units 09:56 07:20 WBC (4.8-10.8) K/uL RBC (4.40-5.90) Mil/uL Hgb (12.0-18.0) g/dL Hct (35.0-51.0) % MCV (80.0-94.0) fl MCH (27.0-31.0) pg MCHC (33.0-37.0) g/dL RDW (11.5-14.5) % Plt Count (130-400) K/uL MPV (7.2-11.7) fl Neut % (Auto) (50.0-75.0) % Lymph % (Auto) (20.0-40.0) % Horry % (Auto) (0.0-10.0) % Eos % (Auto) (0.0-4.0) % Baso % (Auto) (0.0-2.0) % Neut # (Auto) (1.8-7.0) K/uL Lymph # (Auto) (1.0-4.3) K/uL Horry # (Auto) (0.0-0.8) K/uL Eos # (Auto) (0.0-0.7) K/uL Baso # (Auto) (0.0-0.2) K/uL Neutrophils % (Manual) (42-75) % Lymphocytes % (Manual) (20-50) % Monocytes % (Manual) (0-10) % Eosinophils % (Manual) (0-7) % Platelet Estimate (NORMAL) Large Platelets Anisocytosis (manual) Ovalocytes APTT (25.6-37.1) Seconds Sodium (132-148) mmol/l Potassium (3.6-5.0) MMOL/L Chloride (98-107) mmol/L Carbon Dioxide (22-30) mmol/L Anion Gap (10-20) BUN (9-20) mg/dl Creatinine (0.8-1.5) mg/dl Est GFR ( Amer) Est GFR (Non-Af Amer) Random Glucose (75-110) mg/dL Calcium (8.4-10.2) mg/dL Total Bilirubin (0.2-1.3) mg/dl AST (17-59) U/L ALT (21-72) U/L Alkaline Phosphatase (38-126) U/L Troponin I (0.00-0.120) ng/mL Total Protein (6.3-8.2) G/DL Albumin (3.5-5.0) g/dL Globulin (2.2-3.9) gm/dL Albumin/Globulin Ratio (1.0-2.1) Blood Type O POSITIVE Antibody Screen Negative Crossmatch See Detail See Detail BBK History Checked Patient has bt Laboratory Results - last 24 hr 04/29/18 05/02/18 05/02/18 07:20 09:56 13:40 WBC RBC Hgb Hct MCV MCH MCHC RDW Plt Count MPV Neut % (Auto) Lymph % (Auto) H[place] % (Auto) Eos % (Auto) Baso % (Auto) Neut # (Auto) Lymph # (Auto) Horry # (Auto) Eos # (Auto) Baso # (Auto) Neutrophils % (Manual) Lymphocytes % (Manual) Monocytes % (Manual) Eosinophils % (Manual) Platelet Estimate Large Platelets Anisocytosis (manual) Ovalocytes APTT Sodium Potassium Chloride Carbon Dioxide Anion Gap BUN Creatinine Est GFR ( Amer) Est GFR (Non-Af Amer) Random Glucose Calcium Total Bilirubin AST ALT Alkaline Phosphatase Troponin I 0.2920 H* Total Protein Albumin Globulin Albumin/Globulin Ratio Blood Type O POSITIVE Antibody Screen Negative Crossmatch See Detail See Detail BBK History Checked Patient has bt 05/02/18 05/02/18 05/03/18 17:50 20:18 04:20 WBC 13.3 H 12.8 H RBC 3.04 L 2.74 L Hgb 9.2 L 8.4 L Hct 27.3 L 24.3 L MCV 89.6 88.9 MCH 30.3 30.8 MCHC 33.8 34.7 RDW 13.4 13.3 Plt Count 176 186 MPV 9.3 9.5 Neut % (Auto) 79.9 H 67.7 Lymph % (Auto) 8.8 L 16.0 L H[place] % (Auto) 9.5 13.1 H Eos % (Auto) 1.4 2.5 Baso % (Auto) 0.4 0.7 Neut # (Auto) 10.7 H 8.6 H Lymph # (Auto) 1.2 2.0 H[place] # (Auto) 1.3 H 1.7 H Eos # (Auto) 0.2 0.3 Baso # (Auto) 0.0 0.1 Neutrophils % (Manual) 84 H Lymphocytes % (Manual) 8 L Monocytes % (Manual) 7 Eosinophils % (Manual) 1 Platelet Estimate Normal Large Platelets Present Anisocytosis (manual) Slight Ovalocytes Slight APTT Sodium Potassium Chloride Carbon Dioxide Anion Gap BUN Creatinine Est GFR ( Amer) Est GFR (Non-Af Amer) Random Glucose Calcium Total Bilirubin AST ALT Alkaline Phosphatase Troponin I 0.2880 H* Total Protein Albumin Globulin Albumin/Globulin Ratio Blood Type Antibody Screen Crossmatch BBK History Checked 05/03/18 05/03/18 04:20 04:20 WBC RBC Hgb Hct MCV MCH MCHC RDW Plt Count MPV Neut % (Auto) Lymph % (Auto) [place] % (Auto) Eos % (Auto) Baso % (Auto) Neut # (Auto) Lymph # (Auto) H[place] # (Auto) Eos # (Auto) Baso # (Auto) Neutrophils % (Manual) Lymphocytes % (Manual) Monocytes % (Manual) Eosinophils % (Manual) Platelet Estimate Large Platelets Anisocytosis (manual) Ovalocytes APTT 40.7 H Sodium 138 Potassium 3.6 Chloride 104 Carbon Dioxide 31 H Anion Gap 7 L BUN 10 Creatinine 0.7 L Est GFR ( Amer) > 60 Est GFR (Non-Af Amer) > 60 Random Glucose 109 Calcium 7.7 L Total Bilirubin 0.5 AST 19 ALT 25 Alkaline Phosphatase 51 Troponin I Total Protein 4.6 L Albumin 2.4 L Globulin 2.2 Albumin/Globulin Ratio 1.1 Blood Type Antibody Screen Crossmatch BBK History Checked Review of Systems - Review of Systems All systems: reviewed and no additional remarkable complaints except (as per HPI ) Critical Care Progress Note - Nutrition Nutrition: Nutrition Category Date Time Status Heart Healthy Diet [DIET] Diets 04/29/18 Dinner Active Assessment/Plan - Assessment and Plan (Free Text) Assessment: 67 yo M with PMH of OA S/P Right Hip replacement X3, Left Hip replacement , BPH , HTN, dyslipidemia and gout s/p R hip replacement POD 4 with massive bilateral Pulmonary Embolism. Plan: Massive b/l PE with R ventricular strain - POD 4 - CTA 04/30/18: Extensive bilateral pulmonary emboli with CT evidence of right heart strain. - Now on NC at 3 LPM, O2 sat 98% - Positive troponin x3 - d/c Heparin drip, start Lovenox 90 mg Q12H - Appreciate Interventional cardiology recommds Dr Carbajal - Appreciated Pulmonology recommds Dr Pino - Hemodynamically stable - Duplex vein US b/l: no evidence of DVT. - CXR: no active pulmonary disease. Right total Hip replacement hardware, POD 2 - c/w Orthopedic management by Dr Edwards - Pain management - PT/OT HTN - Hold Amlodipine for now due to lower BP BPH with urinary retention postop - Restart Oxybutynin - Restart Flomax - Monitor HLD - Atorvastatin DVT prophylaxis -Heparin drip Case discussed with Dr Hays, ICU attending. <Kurt Hays - Last Filed: 05/03/18 13:02> CCU Subjective - Physician Review Subjective (Free Text): Attestation: Patient seen and examined at the bedside with Resident Dr. Raven Carter; and I agree with her outline of plans and management documented above as discussed on AM rounds reflecting my review of all applicable clinical data, and participation in the care of the patient throughout the day in ICU; today, May 03, 2018. As discussed with Dr. Edwards: PRBCs today, mobilization OOB with Physical Therapists today as IV heparin drip is stopped and converted to SQ Lovenox.
--- NOTE | 2018-05-03 08:01 | CP.PCM.PN ---
<Elmer Blakely - Last Filed: 05/03/18 11:27> Subjective - Date & Time of Evaluation Date of Evaluation: 05/03/18 Time of Evaluation: 08:00 - Subjective Subjective: No overnight events. Patient lying in bed, breathing comforatbly. Wearing HighFlow NC: FIO2 55%, 30LPM Troponins trending down. Objective - Vital Signs/Intake and Output Vital Signs (last 24 hours): Temp Pulse Resp BP Pulse Ox 99.5 F 76 18 114/63 100 05/03/18 04:00 05/03/18 05:00 05/03/18 07:54 05/03/18 05:00 05/03/18 05:00 Intake and Output: 05/03/18 05/03/18 06:59 18:59 Intake Total 0 Balance 0 - Medications Medications: Current Medications Acetaminophen (Tylenol 325mg Tab) 650 mg PO Q6 PRN PRN Reason: Fever >100.4 F Last Admin: 05/01/18 13:08 Dose: 650 mg Atorvastatin Calcium (Lipitor) 20 mg PO DAILY [facility] Last Admin: 05/02/18 08:49 Dose: 20 mg Docusate Sodium (Colace) 200 mg PO BID [facility] Last Admin: 05/02/18 16:42 Dose: 200 mg Hydromorphone HCl (Dilaudid) 2 mg IVP Q4 PRN PRN Reason: Pain, severe (8-10) Last Admin: 05/03/18 05:00 Dose: 2 mg Hydromorphone HCl (Dilaudid) 2 mg PO Q4 PRN PRN Reason: Pain, moderate (4-7) Hydromorphone HCl (Dilaudid) 1 mg IVP Q4 PRN PRN Reason: Pain, moderate (4-7) Last Admin: 05/01/18 11:19 Dose: 1 mg Cefazolin Sodium 2 gm/ Sodium (Chloride) 100 mls @ 100 mls/hr IVPB Q8 [facility] PRN Reason: Protocol Last Admin: 05/03/18 01:13 Dose: 100 mls/hr Lactated Ringer's (Lactated Ringer's) 1,000 mls @ 75 mls/hr IV .[id number] [facility] Last Admin: 05/02/18 20:30 Dose: 75 mls/hr Heparin Sodium/Dextrose (Heparin 25,000 Units/250ml In D5w) 25,000 units in 250 mls @ 13 mls/hr IV .[id number] [facility] PRN Reason: Protocol Last Titration: 05/03/18 07:00 Dose: 15 mls/hr Multivitamins/Minerals (Therapeutic-M Tab) 1 tab PO DAILY [facility] Last Admin: 05/02/18 08:49 Dose: 1 tab Ondansetron HCl (Zofran Inj) 4 mg IVP ONCE PRN PRN Reason: Nausea/Vomiting Oxybutynin Chloride (Ditropan Tab) 5 mg PO BID [facility] Last Admin: 05/02/18 16:42 Dose: 5 mg Pantoprazole Sodium (Protonix Inj) 40 mg IVP DAILY [facility] Last Admin: 05/02/18 15:55 Dose: 40 mg Tamsulosin HCl (Flomax) 0.4 mg PO DAILY [facility] Last Admin: 05/02/18 08:49 Dose: 0.4 mg - Labs Labs: 05/03/18 04:20 05/03/18 04:20 PT 16.4 Seconds (9.8-13.1) H 04/30/18 18:54 INR 1.5 04/30/18 18:54 APTT 40.7 Seconds (25.6-37.1) H 05/03/18 04:20 - Constitutional Appears: Non-toxic (wearing nasal cannula) - Eye Exam Eye Exam: Normal appearance - ENT Exam ENT Exam: Mucous Membranes Moist - Respiratory Exam Respiratory Exam: Clear to Ausculation Bilateral. absent: Prolonged Expiratory Phase, Respiratory Distress - Cardiovascular Exam Cardiovascular Exam: REGULAR RHYTHM, +S1, +S2. absent: Murmur - GI/Abdominal Exam GI & Abdominal Exam: absent: Distended, Tenderness - Extremities Exam Extremities Exam: Normal Inspection - Neurological Exam Neurological Exam: Alert, Awake, Oriented x3 - Psychiatric Exam Psychiatric exam: Normal Affect, Normal Mood - Skin Skin Exam: Dry, Intact, Normal Color, Warm Assessment and Plan - Assessment and Plan (Free Text) Assessment: POD#3 s/p total right hip replacement 67 yo M with H/O OA S/P Right Hip replacement X2, Left Hip replacement , BPH , HTN, dyslipidemia and gout, complaining of continuous painful right hip with some looseness of the hardware. He is admitted for revision of the right hip THR revision, admission complicated by bilateral pulmonary emboli, now with +troponins indicative of right heart strain. Troponins are trending down. #. Bilateral Pulmonary Emboli - now with right heart strain, troponin trending down - on Heparin Drip - Interventional Cardiology was consulted, appreciated. Not candidate for thrombolysis 2/2 recent surgery - Hemodynamically stable, continue gentle hydration for lower BP. - u/s of lower extremities was negative for dvt #. Malfunction of Right total Hip replacement hardware, POD #3 - Consult orthopedic, Dr Edwards - Orthopedic management - Pain management - PT/OT #. HTN - Amlodipine #. BPH with urinary retention postop - continue Oxybutynin - continue Flomax - Monitor #. HLD - Atorvastatin #. Sleep Apnea - CPAP if needed #. DVT prophylaxis with Lovenox starting 04/30/18 #. Code Status: full <Nia Sanabria - Last Filed: 05/03/18 18:14> Objective - Vital Signs/Intake and Output Vital Signs (last 24 hours): Temp Pulse Resp BP Pulse Ox 99.2 F 95 H 16 153/82 H 98 05/03/18 16:00 05/03/18 18:00 05/03/18 18:00 05/03/18 18:00 05/03/18 18:00 Intake and Output: 05/03/18 05/03/18 06:59 18:59 Intake Total 1123 Output Total 1500 Balance -377 - Medications Medications: Current Medications Acetaminophen (Tylenol 325mg Tab) 650 mg PO Q6 PRN PRN Reason: Fever >100.4 F Last Admin: 05/01/18 13:08 Dose: 650 mg Atorvastatin Calcium (Lipitor) 20 mg PO DAILY [facility] Last Admin: 05/03/18 09:25 Dose: 20 mg Docusate Sodium (Colace) 200 mg PO BID [facility] Last Admin: 05/03/18 16:49 Dose: 200 mg Enoxaparin Sodium (Lovenox) 90 mg SC Q12 [facility] PRN Reason: Protocol Last Admin: 05/03/18 09:20 Dose: 90 mg Hydromorphone HCl (Dilaudid) 2 mg IVP Q4 PRN PRN Reason: Pain, severe (8-10) Last Admin: 05/03/18 14:34 Dose: 2 mg Hydromorphone HCl (Dilaudid) 2 mg PO Q4 PRN PRN Reason: Pain, moderate (4-7) Hydromorphone HCl (Dilaudid) 1 mg IVP Q4 PRN PRN Reason: Pain, moderate (4-7) Last Admin: 05/01/18 11:19 Dose: 1 mg Cefazolin Sodium 2 gm/ Sodium (Chloride) 100 mls @ 100 mls/hr IVPB Q8 [facility] PRN Reason: Protocol Last Admin: 05/03/18 16:50 Dose: 100 mls/hr Lactated Ringer's (Lactated Ringer's) 1,000 mls @ 75 mls/hr IV .[id number] [facility] Last Admin: 05/02/18 20:30 Dose: 75 mls/hr Multivitamins/Minerals (Therapeutic-M Tab) 1 tab PO DAILY [facility] Last Admin: 05/03/18 09:22 Dose: 1 tab Ondansetron HCl (Zofran Inj) 4 mg IVP ONCE PRN PRN Reason: Nausea/Vomiting Oxybutynin Chloride (Ditropan Tab) 5 mg PO BID [facility] Last Admin: 05/03/18 16:51 Dose: 5 mg Pantoprazole Sodium (Protonix Inj) 40 mg IVP DAILY [facility] Last Admin: 05/03/18 09:26 Dose: 40 mg Tamsulosin HCl (Flomax) 0.4 mg PO DAILY [facility] Last Admin: 05/03/18 09:21 Dose: 0.4 mg - Labs Labs: 05/03/18 04:20 05/03/18 04:20 PT 16.4 Seconds (9.8-13.1) H 04/30/18 18:54 INR 1.5 04/30/18 18:54 APTT 40.7 Seconds (25.6-37.1) H 05/03/18 04:20 Attending/Attestation - Attestation I have personally seen and examined this patient.: Yes I have fully participated in the care of the patient.: Yes I have reviewed all pertinent clinical information, including history, physical exam and plan: Yes Notes (Text): 05/03/18 18:14 Seen, examined, and discussed with residents Drs. Blakely and Marcellus. Agree with findings and plan as above.
--- NOTE | 2018-05-03 08:49 | CP.PCM.PN ---
Subjective - Date & Time of Evaluation Date of Evaluation: 05/03/18 Time of Evaluation: 10:47 - Subjective Subjective: Patient states pain in hip is controlled. Has not been out of bed since transfer to ICU. Sciatica pain also controlled. Denies numbness/tingling. Objective - Vital Signs/Intake and Output Vital Signs (last 24 hours): Temp Pulse Resp BP Pulse Ox 99.3 F 84 16 107/61 99 05/03/18 08:00 05/03/18 08:00 05/03/18 08:00 05/03/18 08:00 05/03/18 08:00 Intake and Output: 05/03/18 05/03/18 06:59 18:59 Intake Total 0 Balance 0 - Medications Medications: Current Medications Acetaminophen (Tylenol 325mg Tab) 650 mg PO Q6 PRN PRN Reason: Fever >100.4 F Last Admin: 05/01/18 13:08 Dose: 650 mg Atorvastatin Calcium (Lipitor) 20 mg PO DAILY [facility] Last Admin: 05/02/18 08:49 Dose: 20 mg Docusate Sodium (Colace) 200 mg PO BID [facility] Last Admin: 05/02/18 16:42 Dose: 200 mg Heparin Sodium (Porcine) (Heparin) 3,600 units IVP ONCE ONE PRN Reason: Protocol Stop: 05/03/18 09:01 Hydromorphone HCl (Dilaudid) 2 mg IVP Q4 PRN PRN Reason: Pain, severe (8-10) Last Admin: 05/03/18 05:00 Dose: 2 mg Hydromorphone HCl (Dilaudid) 2 mg PO Q4 PRN PRN Reason: Pain, moderate (4-7) Hydromorphone HCl (Dilaudid) 1 mg IVP Q4 PRN PRN Reason: Pain, moderate (4-7) Last Admin: 05/01/18 11:19 Dose: 1 mg Cefazolin Sodium 2 gm/ Sodium (Chloride) 100 mls @ 100 mls/hr IVPB Q8 [facility] PRN Reason: Protocol Last Admin: 05/03/18 01:13 Dose: 100 mls/hr Lactated Ringer's (Lactated Ringer's) 1,000 mls @ 75 mls/hr IV .[id number] [facility] Last Admin: 05/02/18 20:30 Dose: 75 mls/hr Heparin Sodium/Dextrose (Heparin 25,000 Units/250ml In D5w) 25,000 units in 250 mls @ 13 mls/hr IV .[id number] [facility]HEL[facility] PRN Reason: Protocol Last Titration: 05/03/18 07:00 Dose: 15 mls/hr Multivitamins/Minerals (Therapeutic-M Tab) 1 tab PO DAILY [facility] Last Admin: 05/02/18 08:49 Dose: 1 tab Ondansetron HCl (Zofran Inj) 4 mg IVP ONCE PRN PRN Reason: Nausea/Vomiting Oxybutynin Chloride (Ditropan Tab) 5 mg PO BID [facility] Last Admin: 05/02/18 16:42 Dose: 5 mg Pantoprazole Sodium (Protonix Inj) 40 mg IVP DAILY [facility] Last Admin: 05/02/18 15:55 Dose: 40 mg Tamsulosin HCl (Flomax) 0.4 mg PO DAILY [facility] Last Admin: 05/02/18 08:49 Dose: 0.4 mg - Labs Labs: 05/03/18 04:20 05/03/18 04:20 PT 16.4 Seconds (9.8-13.1) H 04/30/18 18:54 INR 1.5 04/30/18 18:54 APTT 40.7 Seconds (25.6-37.1) H 05/03/18 04:20 - Extremities Exam Additional comments: +ROM ankle/toes, sensation intact +DP;/PT pulses incision intact, small amount sang drainage noted actively, thigh swollen but soft, mildly tender, betadine dressing applied. Assessment and Plan (1) Chronic hip pain after total replacement of hip joint Assessment & Plan: PO#4 s/p revision right THR PT/OT orthopedically stable daily dressing changes d/c planning plan for downgrade today d/w Dr. Edwards, agrees with above Status: Acute (2) Hypertension Status: Chronic (3) Acute blood loss anemia Assessment & Plan: s/p PRBCs Status: Acute
[2018-05-03] MEDS ORDERED: Enoxaparin 80 mg Syringe SC SCH (09:00)
[2018-05-03] MEDS: Enoxaparin 100 mg Syringe SC SCH ×2 (09:20→20:32)
[2018-05-03] MEDS: Multivitamin With Minerals Tab PO SCH (09:22)
--- NOTE | 2018-05-03 10:34 | CP.PCM.PN ---
Subjective - Date & Time of Evaluation Date of Evaluation: 05/03/18 Time of Evaluation: 08:00 - Subjective Subjective: Patient seen and examined at bedside. Sitting up in bed, breathing comfortably on high flow O2 NC, O2 saturation 100% . He denies chest pain, SOB, palpitations. Patient's charts, labs, and nurse notes reviewed. Discontinued high flow O2, started 4L O2 NC, which patient tolerated, saturating at 96% Agree w/ plans for PRBC transfusion Agree w/ d/c of heparin drip and starting Lovenox SC Hypercoagulable work up ordered: factor V leiden, prothrombin, antithrombin iii , homocysteine, MTHFR, anticardiolipin, antiphospholipid Recommend to assess Proteins C & S 2 weeks after patient completes anticoagulation course Bilateral lower extremity Dopplers did not show any DVTs Portable CXR negative for pleural effusions Case discussed w/ fourdrinier tender, Dr. Hays and attending physician Will continue to monitor Objective - Vital Signs/Intake and Output Vital Signs (last 24 hours): Temp Pulse Resp BP Pulse Ox 98.8 F 89 18 119/65 99 05/03/18 10:17 05/03/18 10:17 05/03/18 10:17 05/03/18 10:17 05/03/18 08:00 Intake and Output: 05/03/18 05/03/18 06:59 18:59 Intake Total 180 Balance 180 - Medications Medications: Current Medications Acetaminophen (Tylenol 325mg Tab) 650 mg PO Q6 PRN PRN Reason: Fever >100.4 F Last Admin: 05/01/18 13:08 Dose: 650 mg Atorvastatin Calcium (Lipitor) 20 mg PO DAILY [facility] Last Admin: 05/03/18 09:25 Dose: 20 mg Docusate Sodium (Colace) 200 mg PO BID [facility] Last Admin: 05/03/18 09:20 Dose: 200 mg Enoxaparin Sodium (Lovenox) 90 mg SC Q12 [facility]HELLE PRN Reason: Protocol Last Admin: 05/03/18 09:20 Dose: 90 mg Hydromorphone HCl (Dilaudid) 2 mg IVP Q4 PRN PRN Reason: Pain, severe (8-10) Last Admin: 05/03/18 05:00 Dose: 2 mg Hydromorphone HCl (Dilaudid) 2 mg PO Q4 PRN PRN Reason: Pain, moderate (4-7) Hydromorphone HCl (Dilaudid) 1 mg IVP Q4 PRN PRN Reason: Pain, moderate (4-7) Last Admin: 05/01/18 11:19 Dose: 1 mg Cefazolin Sodium 2 gm/ Sodium (Chloride) 100 mls @ 100 mls/hr IVPB Q8 [facility] PRN Reason: Protocol Last Admin: 05/03/18 09:24 Dose: 100 mls/hr Lactated Ringer's (Lactated Ringer's) 1,000 mls @ 75 mls/hr IV .[id number] [facility] Last Admin: 05/02/18 20:30 Dose: 75 mls/hr Multivitamins/Minerals (Therapeutic-M Tab) 1 tab PO DAILY [facility] Last Admin: 05/03/18 09:22 Dose: 1 tab Ondansetron HCl (Zofran Inj) 4 mg IVP ONCE PRN PRN Reason: Nausea/Vomiting Oxybutynin Chloride (Ditropan Tab) 5 mg PO BID [facility] Last Admin: 05/03/18 09:22 Dose: 5 mg Pantoprazole Sodium (Protonix Inj) 40 mg IVP DAILY [facility] Last Admin: 05/03/18 09:26 Dose: 40 mg Tamsulosin HCl (Flomax) 0.4 mg PO DAILY [facility] Last Admin: 05/03/18 09:21 Dose: 0.4 mg - Labs Labs: 05/03/18 04:20 05/03/18 04:20 PT 16.4 Seconds (9.8-13.1) H 04/30/18 18:54 INR 1.5 04/30/18 18:54 APTT 40.7 Seconds (25.6-37.1) H 05/03/18 04:20 - Constitutional Appears: No Acute Distress - ENT Exam ENT Exam: Mucous Membranes Moist - Respiratory Exam Respiratory Exam: Decreased Breath Sounds, Clear to Ausculation Bilateral, NORMAL BREATHING PATTERN. absent: Accessory Muscle Use, Chest Wall Tenderness - Cardiovascular Exam Cardiovascular Exam: REGULAR RHYTHM, RRR, +S1, +S2. absent: Bradycardia, Tachycardia - GI/Abdominal Exam GI & Abdominal Exam: Soft, Normal Bowel Sounds. absent: Tenderness - Extremities Exam Extremities Exam: absent: Calf Tenderness, Pedal Edema, Tenderness - Neurological Exam Neurological Exam: Alert, Awake, Oriented x3 - Psychiatric Exam Psychiatric exam: Normal Affect - Skin Skin Exam: Dry, Intact, Warm
--- NOTE | 2018-05-03 18:28 | CARD ---
APPROVED REPORT Date of service: 05/03/2018 EXAM: LIMITED Two-dimensional and M-mode echocardiogram with Doppler and color Doppler. Other Information Quality : FairRhythm : NSR INDICATION Pulmonary Embolism 2D DIMENSIONS IVSd0.76 (0.7-1.1cm)LVDd4.39 (3.9-5.9cm) PWd0.74 (0.7-1.1cm)IVSs1.08 (0.8-1.2cm) LVDs3.83 (2.5-4.0cm)FS (%) 12.7 % PWs1.02 (0.8-1.2cm) Mitral Valve MV E Cshyqbqr13.9cm/sMV DECEL [id number] A Bbfwlzzi89.1cm/s MV IVL76vpF/A ratio1.2MVA (PHT)4.41cm2 TDI Lateral E' Peak V11.57cm/sMedial E' Peak V15.56cm/sE/Lateral E'6.7 E/Medial E'5.0 LEFT VENTRICLE The left ventricle is normal size. There is normal left ventricular wall thickness. The left ventricular systolic function is normal. The estimated ejection fraction is 60-65% No regional wall motion abnormalities noted.. The left ventricular diastolic function is normal. No left ventricle thrombus noted on this study. There is no ventricular septal defect visualized. There is no mass noted in the left ventricle. RIGHT VENTRICLE The right ventricle is normal size. There is normal right ventricular wall thickness. The right ventricular systolic function is normal. ATRIA The left atrium size is normal. The right atrium size is normal. The interatrial septum is intact with no evidence for an atrial septal defect. AORTIC VALVE The aortic valve is normal in structure. No aortic regurgitation is present. There is no aortic valvular stenosis. MITRAL VALVE The mitral valve is normal in structure. There is no mitral valve stenosis. There is no mitral valve regurgitation noted. TRICUSPID VALVE The tricuspid valve is normal in structure. There is no tricuspid valve regurgitation noted. PULMONIC VALVE The pulmonary valve is normal in structure. There is no pulmonic valvular regurgitation. GREAT VESSELS The aortic root is normal in size. The ascending aorta is normal in size. The pulmonary artery is normal. The IVC is normal in size and collapses >50% with inspiration. PERICARDIAL EFFUSION There is no pericardial effusion. <Conclusion> Normal transthoracic echocardiogram. The estimated ejection fraction is 60-65%
[2018-05-04] MEDS: ceFAZolin 2 GM in Sodium Chloride 0.9% 100 ML IVPB SCH ×3 (00:59→16:56)
[2018-05-04 05:56] LABS: BASO # 0.1 K/uL (0.0-0.2); BASO % 0.5 % (0.0-2.0); EOS # 0.5 K/uL (0.0-0.7); EOS % 4.6 % (0.0-4.0); HEMOGLOBIN 9.9 g/dL (12.0-18.0); LYMPH # 1.5 K/uL (1.0-4.3); LYMPH % 13.6 % (20.0-40.0); MEAN CELL VOLUME 89.3 fl (80.0-94.0); MEAN CORPUSCULAR HEMOGLOBIN 30.2 pg (27.0-31.0); MEAN CORPUSCULAR HGB CONC 33.8 g/dL (33.0-37.0); MEAN PLATELET VOLUME 9.2 fl (7.2-11.7); MONO # 1.3 K/uL (0.0-0.8); MONO % 11.7 % (0.0-10.0); NEUT # 7.8 K/uL (1.8-7.0); NEUT % 69.6 % (50.0-75.0); NRBC % 0.2 % (0.0-0.0); RBC 3.28 Mil/uL (4.40-5.90); RED CELL DISTRIBUTION WIDTH 13.3 % (11.5-14.5); WHITE BLOOD COUNT 11.2 K/uL (4.8-10.8)
[2018-05-04 06:06] LABS: ALB/GLOB RATIO 1.1 (1.0-2.1); ALBUMIN 2.6 g/dL (3.5-5.0); ALT/SGPT 31 U/L (21-72); AST/SGOT 38 U/L (17-59); BLOOD UREA NITROGEN 9 mg/dl (9-20); CALCIUM 7.7 mg/dL (8.4-10.2); GFR NON-AFRICAN AMERICAN > 60
[2018-05-04] MEDS: Lactated Ringer's 1,000 ML IV SCH (06:50)
[2018-05-04] MEDS ORDERED: Potassium Chloride 20 mEq ER Tab PO ONE (07:31)
[2018-05-04] MEDS: Enoxaparin 100 mg Syringe SC SCH ×2 (08:49→21:17)
[2018-05-04] MEDS: Multivitamin With Minerals Tab PO SCH (08:50)
--- NOTE | 2018-05-04 10:07 | CP.PCM.PN ---
Subjective - Date & Time of Evaluation Date of Evaluation: 05/04/18 Time of Evaluation: 10:07 - Subjective Subjective: Seen on morning rounds in the intensive care unit. The patient is presently seated out of bed in an orthopedic chair and appears comfortable. He states he is feeling well and offers no complaints of shortness of breath or chest discomfort. His vital signs have remained stable and he has been on oxygen via nasal cannula without the need for high flow. He was transfused 2 units of packed red blood cells yesterday and his hemoglobin today was 9.9 with platelets of 221 and WBCs of 11.2. His chemistries show borderline potassium of 3.5 with normal renal function a mildly elevated glucose of 117 and mildly decreased calcium of 7.7. Phosphorus and magnesium levels have both been drawn and are normal. All cultures to date have been negative. Repeat echocardiogram done yesterday showed good LV function and normal RV function and dimensions. He has been switched from heparin drip to subcutaneous enoxaparin yesterday. The right lower extremity does have some mild edema without any cyanosis. The left lower extremity has minimal dependent edema at the ankle with no cyanosis. The neck is supple and trachea is midline. No neck vein distention. No dullness on chest percussion, no subcutaneous emphysema. Breath sounds are slightly diminished bilaterally, equally in both lungs. Rare medium rales are heard in the lower lobes without any wheezes or bronchial breath sounds. Heart sounds are slightly distant and the rhythm is regular. No abnormal precordial motion. No accentuation of P2. The patient appears to be stable post submassive, provoked pulmonary embolism. No further evidence of right ventricular strain. Maintain supplemental oxygen via nasal cannula at 2 L/m. Resume use of nasal CPAP. The patient may be switched to oral anticoagulation. May be transferred out of intensive care. Continue physical therapy as requested by orthopedics. Case was discussed with the quality control inspector. ICU time 35min. Objective - Vital Signs/Intake and Output Vital Signs (last 24 hours): Temp Pulse Resp BP Pulse Ox 98.8 F 90 16 131/79 97 05/04/18 08:00 05/04/18 08:00 05/04/18 08:00 05/04/18 08:00 05/04/18 08:00 Intake and Output: 05/03/18 05/04/18 23:59 11:59 Intake Total 1118 750 Output Total 1700 2300 Balance -582 -1040 - Medications Medications: Current Medications Acetaminophen (Tylenol 325mg Tab) 650 mg PO Q6 PRN PRN Reason: Fever >100.4 F Last Admin: 05/01/18 13:08 Dose: 650 mg Atorvastatin Calcium (Lipitor) 20 mg PO DAILY [facility] Last Admin: 05/04/18 08:50 Dose: 20 mg Docusate Sodium (Colace) 200 mg PO BID [facility] Last Admin: 05/04/18 08:50 Dose: 200 mg Enoxaparin Sodium (Lovenox) 90 mg SC Q12 [facility] PRN Reason: Protocol Last Admin: 05/04/18 08:49 Dose: 90 mg Hydromorphone HCl (Dilaudid) 2 mg IVP Q4 PRN PRN Reason: Pain, severe (8-10) Last Admin: 05/03/18 14:34 Dose: 2 mg Hydromorphone HCl (Dilaudid) 1 mg IVP Q4 PRN PRN Reason: Pain, moderate (4-7) Last Admin: 05/04/18 06:58 Dose: 1 mg Cefazolin Sodium 2 gm/ Sodium (Chloride) 100 mls @ 100 mls/hr IVPB Q8 [facility] PRN Reason: Protocol Last Admin: 05/04/18 08:48 Dose: 100 mls/hr Multivitamins/Minerals (Therapeutic-M Tab) 1 tab PO DAILY [facility] Last Admin: 05/04/18 08:50 Dose: 1 tab Ondansetron HCl (Zofran Inj) 4 mg IVP ONCE PRN PRN Reason: Nausea/Vomiting Oxybutynin Chloride (Ditropan Tab) 5 mg PO BID [facility] Last Admin: 05/04/18 08:50 Dose: 5 mg Pantoprazole Sodium (Protonix Inj) 40 mg IVP DAILY [facility] Last Admin: 05/04/18 08:49 Dose: 40 mg Tamsulosin HCl (Flomax) 0.4 mg PO DAILY [facility] Last Admin: 05/04/18 08:49 Dose: 0.4 mg - Labs Labs: 05/04/18 04:20 05/04/18 04:20 PT 16.4 Seconds (9.8-13.1) H 04/30/18 18:54 INR 1.5 04/30/18 18:54 APTT 40.7 Seconds (25.6-37.1) H 05/03/18 04:20 Assessment and Plan (1) Acute massive pulmonary embolism Assessment & Plan: SUB-MASSIVE. Status: Acute (2) Obstructive sleep apnea Assessment & Plan: On nCPAP at home, has DME here with him. Status: Acute
--- NOTE | 2018-05-04 10:25 | CP.PCM.PN ---
Subjective - Date & Time of Evaluation Date of Evaluation: 05/04/18 Time of Evaluation: 10:23 - Subjective Subjective: Patient seen and examined at bedside. Patient awake, alert in NAD. denies any chest pain, deneis any abdominal pain. Objective - Vital Signs/Intake and Output Vital Signs (last 24 hours): Temp Pulse Resp BP Pulse Ox 98.8 F 90 16 131/79 97 05/04/18 08:00 05/04/18 08:00 05/04/18 08:00 05/04/18 08:00 05/04/18 08:00 Intake and Output: 05/04/18 05/04/18 06:59 18:59 Intake Total 900 150 Output Total 2500 Balance -1600 150 - Medications Medications: Current Medications Acetaminophen (Tylenol 325mg Tab) 650 mg PO Q6 PRN PRN Reason: Fever >100.4 F Last Admin: 05/01/18 13:08 Dose: 650 mg Atorvastatin Calcium (Lipitor) 20 mg PO DAILY [facility] Last Admin: 05/04/18 08:50 Dose: 20 mg Docusate Sodium (Colace) 200 mg PO BID [facility] Last Admin: 05/04/18 08:50 Dose: 200 mg Enoxaparin Sodium (Lovenox) 90 mg SC Q12 [facility] PRN Reason: Protocol Last Admin: 05/04/18 08:49 Dose: 90 mg Hydromorphone HCl (Dilaudid) 2 mg IVP Q4 PRN PRN Reason: Pain, severe (8-10) Last Admin: 05/03/18 14:34 Dose: 2 mg Hydromorphone HCl (Dilaudid) 1 mg IVP Q4 PRN PRN Reason: Pain, moderate (4-7) Last Admin: 05/04/18 06:58 Dose: 1 mg Cefazolin Sodium 2 gm/ Sodium (Chloride) 100 mls @ 100 mls/hr IVPB Q8 [facility] PRN Reason: Protocol Last Admin: 05/04/18 08:48 Dose: 100 mls/hr Multivitamins/Minerals (Therapeutic-M Tab) 1 tab PO DAILY [facility] Last Admin: 05/04/18 08:50 Dose: 1 tab Ondansetron HCl (Zofran Inj) 4 mg IVP ONCE PRN PRN Reason: Nausea/Vomiting Oxybutynin Chloride (Ditropan Tab) 5 mg PO BID [facility] Last Admin: 05/04/18 08:50 Dose: 5 mg Pantoprazole Sodium (Protonix Inj) 40 mg IVP DAILY [facility] Last Admin: 05/04/18 08:49 Dose: 40 mg Potassium Chloride (K-Dur 20 Meq Er Tab) 40 meq PO Q8H [facility] Stop: 05/04/18 18:31 Tamsulosin HCl (Flomax) 0.4 mg PO DAILY [facility] Last Admin: 05/04/18 08:49 Dose: 0.4 mg Vitamin B Complex/Vit C/Folic Acid (Nephro-Glenny) 1 tab PO DAILY [facility] - Labs Labs: 05/04/18 04:20 05/04/18 04:20 PT 16.4 Seconds (9.8-13.1) H 04/30/18 18:54 INR 1.5 04/30/18 18:54 APTT 40.7 Seconds (25.6-37.1) H 05/03/18 04:20 - Head Exam Head Exam: ATRAUMATIC, NORMAL INSPECTION, NORMOCEPHALIC - ENT Exam ENT Exam: Mucous Membranes Moist, Normal Exam - Respiratory Exam Respiratory Exam: Clear to Ausculation Bilateral, NORMAL BREATHING PATTERN - Cardiovascular Exam Cardiovascular Exam: REGULAR RHYTHM, +S1, +S2 - GI/Abdominal Exam GI & Abdominal Exam: Normal Bowel Sounds - Extremities Exam Extremities Exam: Normal Inspection Additional comments: right hip wound dressing clean - Neurological Exam Neurological Exam: Alert, Awake, CN II-XII Intact, Oriented x3 Assessment and Plan - Assessment and Plan (Free Text) Assessment: Pulmonary embolus: continue AC, consider switching to oral eliquis, monitor for bleeding, HR and Bp stable -POD #5 THR: continue wound care as per ortho -Pain control with oral opoid + colace/senna -PT/OT -Activity -continue Pt/OT eval daily -replace potassium -Patient remains hemodynamically stable. -Restart home medications d/w Dr. Pino
--- NOTE | 2018-05-04 10:34 | CP.PCM.PN ---
<Chio Peguero - Last Filed: 05/04/18 15:55> Subjective - Date & Time of Evaluation Date of Evaluation: 05/04/18 Time of Evaluation: 09:30 - Subjective Subjective: Patient was seen and examined at bedside in ICU this morning with attending Dr. Sanabria. Seen alert, oriented, and in NAD. Normal oxygen sat on supplemental oxygen via NC at 2 LPM. Denies chest pain, SOB, N/V, dizziness, or other symptoms at this evaluation. Off of High flow since yesterday Switched from heparin drip to subcutaneous enoxaparin yesterday. NO events reported overnight. Objective - Vital Signs/Intake and Output Vital Signs (last 24 hours): Temp Pulse Resp BP Pulse Ox 98.8 F 90 16 131/79 97 05/04/18 08:00 05/04/18 08:00 05/04/18 08:00 05/04/18 08:00 05/04/18 08:00 Intake and Output: 05/04/18 05/04/18 06:59 18:59 Intake Total 900 150 Output Total 2500 Balance -1600 150 - Medications Medications: Current Medications Acetaminophen (Tylenol 325mg Tab) 650 mg PO Q6 PRN PRN Reason: Fever >100.4 F Last Admin: 05/01/18 13:08 Dose: 650 mg Atorvastatin Calcium (Lipitor) 20 mg PO DAILY [facility] Last Admin: 05/04/18 08:50 Dose: 20 mg Docusate Sodium (Colace) 200 mg PO BID [facility] Last Admin: 05/04/18 08:50 Dose: 200 mg Enoxaparin Sodium (Lovenox) 90 mg SC Q12 [facility] PRN Reason: Protocol Last Admin: 05/04/18 08:49 Dose: 90 mg Hydromorphone HCl (Dilaudid) 2 mg IVP Q4 PRN PRN Reason: Pain, severe (8-10) Last Admin: 05/03/18 14:34 Dose: 2 mg Hydromorphone HCl (Dilaudid) 1 mg IVP Q4 PRN PRN Reason: Pain, moderate (4-7) Last Admin: 05/04/18 06:58 Dose: 1 mg Cefazolin Sodium 2 gm/ Sodium (Chloride) 100 mls @ 100 mls/hr IVPB Q8 [facility] PRN Reason: Protocol Last Admin: 05/04/18 08:48 Dose: 100 mls/hr Multivitamins/Minerals (Therapeutic-M Tab) 1 tab PO DAILY [facility] Last Admin: 05/04/18 08:50 Dose: 1 tab Ondansetron HCl (Zofran Inj) 4 mg IVP ONCE PRN PRN Reason: Nausea/Vomiting Oxybutynin Chloride (Ditropan Tab) 5 mg PO BID [facility] Last Admin: 05/04/18 08:50 Dose: 5 mg Pantoprazole Sodium (Protonix Inj) 40 mg IVP DAILY [facility] Last Admin: 05/04/18 08:49 Dose: 40 mg Potassium Chloride (K-Dur 20 Meq Er Tab) 40 meq PO Q8H [facility] Stop: 05/04/18 18:31 Tamsulosin HCl (Flomax) 0.4 mg PO DAILY [facility] Last Admin: 05/04/18 08:49 Dose: 0.4 mg Vitamin B Complex/Vit C/Folic Acid (Nephro-Glenny) 1 tab PO DAILY [facility] - Labs Labs: 05/04/18 04:20 05/04/18 04:20 PT 16.4 Seconds (9.8-13.1) H 04/30/18 18:54 INR 1.5 04/30/18 18:54 APTT 40.7 Seconds (25.6-37.1) H 05/03/18 04:20 - Additional Findings Additional findings: - Constitutional Appears: Non-toxic (wearing nasal cannula) - Eye Exam Eye Exam: Normal appearance - ENT Exam ENT Exam: Mucous Membranes Moist - Respiratory Exam Respiratory Exam: Clear to Ausculation Bilateral. absent: Prolonged Expiratory Phase, Respiratory Distress - Cardiovascular Exam Cardiovascular Exam: REGULAR RHYTHM, +S1, +S2. absent: Murmur - GI/Abdominal Exam GI & Abdominal Exam: absent: Distended, Tenderness - Extremities Exam Extremities Exam: Normal Inspection - Neurological Exam Neurological Exam: Alert, Awake, Oriented x3 - Psychiatric Exam Psychiatric exam: Normal Affect, Normal Mood - Skin Skin Exam: Dry, Intact, Normal Color, Warm Assessment and Plan - Assessment and Plan (Free Text) Assessment: POD#4 s/p total right hip replacement 67 yo M with H/O OA S/P Right Hip replacement X2, Left Hip replacement , BPH , HTN, dyslipidemia and gout admitted for revision of the right hip THR revision, admission complicated by bilateral pulmonary emboli, and with +troponins indicative of right heart strain. Troponins are trending down. Since yesterday has been off of high flow. O2 Sat WNL on 2 LMP via NC. He was transfused 2 units of packed red blood cells yesterday, hemoglobin improved. His chemistries show borderline potassium , and received potassium PO. Phosphorus and magnesium levels have both been drawn and are normal. All cultures to date have been negative. Repeat echocardiogram done yesterday showed good LV function and normal RV function and dimensions.He has been switched from heparin drip to subcutaneous enoxaparin yesterday. Plan: 67 yo M with H/O OA S/P Right Hip replacement X2, Left Hip replacement , BPH , HTN, dyslipidemia and gout, complaining of continuous painful right hip with some looseness of the hardware. He is admitted for revision of the right hip THR revision, admission complicated by bilateral pulmonary emboli, now with +troponins indicative of right heart strain. Troponins are trending down. Bilateral Pulmonary Emboli - Hemodynamically stable -started on therapeutic Lovenox on 05/03/18 - with right heart strain, troponin trending down - DC Heparin Drip on 05/03/18 - be switched to oral anticoagulation. - possible transfer out of intensive care. - Interventional Cardiology was consulted, appreciated. Not candidate for thrombolysis 2/2 recent surgery - u/s of lower extremities was negative for dvt . Malfunction of Right total Hip replacement hardware, POD #3 - Consult orthopedic, Dr Edwards - Orthopedic management - Pain management - PT/OT . HTN -controlled - c/w home Amlodipine . BPH with urinary retention postop -improving - continue Oxybutynin - continue Flomax - Monitor HLD - Atorvastatin Sleep Apnea - CPAP if needed DVT prophylaxis with Lovenox starting 04/30/18 . Code Status: full code <Nia Sanabria - Last Filed: 05/04/18 16:34> Objective - Vital Signs/Intake and Output Vital Signs (last 24 hours): Temp Pulse Resp BP Pulse Ox 97.9 F 95 H 24 118/58 L 96 05/04/18 16:10 05/04/18 16:10 05/04/18 16:10 05/04/18 16:10 05/04/18 16:10 Intake and Output: 05/04/18 05/04/18 06:59 18:59 Intake Total 900 450 Output Total 2500 500 Balance -1600 -50 - Medications Medications: Current Medications Acetaminophen (Tylenol 325mg Tab) 650 mg PO Q6 PRN PRN Reason: Fever >100.4 F Last Admin: 05/01/18 13:08 Dose: 650 mg Amlodipine Besylate (Norvasc) 5 mg PO DAILY [facility] Atorvastatin Calcium (Lipitor) 20 mg PO DAILY [facility] Last Admin: 05/04/18 08:50 Dose: 20 mg Docusate Sodium (Colace) 200 mg PO BID [facility] Last Admin: 05/04/18 08:50 Dose: 200 mg Enoxaparin Sodium (Lovenox) 90 mg SC Q12 [facility] PRN Reason: Protocol Last Admin: 05/04/18 08:49 Dose: 90 mg Hydromorphone HCl (Dilaudid) 2 mg IVP Q4 PRN PRN Reason: Pain, severe (8-10) Last Admin: 05/04/18 13:44 Dose: 2 mg Hydromorphone HCl (Dilaudid) 1 mg IVP Q4 PRN PRN Reason: Pain, moderate (4-7) Last Admin: 05/04/18 06:58 Dose: 1 mg Cefazolin Sodium 2 gm/ Sodium (Chloride) 100 mls @ 100 mls/hr IVPB Q8 [facility] PRN Reason: Protocol Last Admin: 05/04/18 08:48 Dose: 100 mls/hr Multivitamins/Minerals (Therapeutic-M Tab) 1 tab PO DAILY [facility] Last Admin: 05/04/18 08:50 Dose: 1 tab Ondansetron HCl (Zofran Inj) 4 mg IVP ONCE PRN PRN Reason: Nausea/Vomiting Oxybutynin Chloride (Ditropan Tab) 5 mg PO BID [facility] Last Admin: 05/04/18 08:50 Dose: 5 mg Pantoprazole Sodium (Protonix Inj) 40 mg IVP DAILY [facility] Last Admin: 05/04/18 08:49 Dose: 40 mg Potassium Chloride (K-Dur 20 Meq Er Tab) 40 meq PO Q8H [facility] Stop: 05/04/18 18:31 Tamsulosin HCl (Flomax) 0.4 mg PO DAILY [facility] Last Admin: 05/04/18 08:49 Dose: 0.4 mg Vitamin B Complex/Vit C/Folic Acid (Nephro-Glenny) 1 tab PO DAILY [facility] - Labs Labs: 05/04/18 04:20 05/04/18 04:20 PT 16.4 Seconds (9.8-13.1) H 04/30/18 18:54 INR 1.5 04/30/18 18:54 APTT 40.7 Seconds (25.6-37.1) H 05/03/18 04:20 Attending/Attestation - Attestation I have personally seen and examined this patient.: Yes I have fully participated in the care of the patient.: Yes I have reviewed all pertinent clinical information, including history, physical exam and plan: Yes Notes (Text): 05/04/18 16:33 Seen, examined, discussed with resident Dr. Peguero. Agree with findings and plan as above. Consider downgrading tomorrow, and switching over to DOAC.
--- NOTE | 2018-05-04 11:53 | CP.PCM.PN ---
Subjective - Date & Time of Evaluation Date of Evaluation: 05/04/18 Time of Evaluation: 11:25 - Subjective Subjective: S-pt comfortable. OOB and accomplished several steps Objective - Vital Signs/Intake and Output Vital Signs (last 24 hours): Temp Pulse Resp BP Pulse Ox 98.8 F 90 16 131/79 97 05/04/18 08:00 05/04/18 08:00 05/04/18 08:00 05/04/18 08:00 05/04/18 08:00 Intake and Output: 05/04/18 05/04/18 06:59 18:59 Intake Total 900 150 Output Total 2500 Balance -1600 150 - Medications Medications: Current Medications Acetaminophen (Tylenol 325mg Tab) 650 mg PO Q6 PRN PRN Reason: Fever >100.4 F Last Admin: 05/01/18 13:08 Dose: 650 mg Atorvastatin Calcium (Lipitor) 20 mg PO DAILY [facility] Last Admin: 05/04/18 08:50 Dose: 20 mg Docusate Sodium (Colace) 200 mg PO BID [facility] Last Admin: 05/04/18 08:50 Dose: 200 mg Enoxaparin Sodium (Lovenox) 90 mg SC Q12 [facility] PRN Reason: Protocol Last Admin: 05/04/18 08:49 Dose: 90 mg Hydromorphone HCl (Dilaudid) 2 mg IVP Q4 PRN PRN Reason: Pain, severe (8-10) Last Admin: 05/03/18 14:34 Dose: 2 mg Hydromorphone HCl (Dilaudid) 1 mg IVP Q4 PRN PRN Reason: Pain, moderate (4-7) Last Admin: 05/04/18 06:58 Dose: 1 mg Cefazolin Sodium 2 gm/ Sodium (Chloride) 100 mls @ 100 mls/hr IVPB Q8 [facility] PRN Reason: Protocol Last Admin: 05/04/18 08:48 Dose: 100 mls/hr Multivitamins/Minerals (Therapeutic-M Tab) 1 tab PO DAILY [facility] Last Admin: 05/04/18 08:50 Dose: 1 tab Ondansetron HCl (Zofran Inj) 4 mg IVP ONCE PRN PRN Reason: Nausea/Vomiting Oxybutynin Chloride (Ditropan Tab) 5 mg PO BID [facility] Last Admin: 05/04/18 08:50 Dose: 5 mg Pantoprazole Sodium (Protonix Inj) 40 mg IVP DAILY [facility] Last Admin: 05/04/18 08:49 Dose: 40 mg Potassium Chloride (K-Dur 20 Meq Er Tab) 40 meq PO Q8H [facility] Stop: 05/04/18 18:31 Tamsulosin HCl (Flomax) 0.4 mg PO DAILY [facility] Last Admin: 05/04/18 08:49 Dose: 0.4 mg Vitamin B Complex/Vit C/Folic Acid (Nephro-Glenny) 1 tab PO DAILY [facility] - Labs Labs: 05/04/18 04:20 05/04/18 04:20 PT 16.4 Seconds (9.8-13.1) H 04/30/18 18:54 INR 1.5 04/30/18 18:54 APTT 40.7 Seconds (25.6-37.1) H 05/03/18 04:20 - Skin Additional comments: Objective systemic- as per inspector radar and electronics/Dr Zheng; Musculoskeletal PT OOB R hip wound benign N/V intact no gross deficits Assessment and Plan - Assessment and Plan (Free Text) Assessment: A- s/p co mplex R revision THR s/p PE P- orthopedically stable for transfer out of iCU pt hemodynamically stabble
[2018-05-04] MEDS: Potassium Chloride 20 mEq ER Tab PO SCH (16:59)
[2018-05-04] MEDS: Multivitamin Vitamin B Complex (Nephro-Vite) Tab PO SCH (17:00)
[2018-05-04 17:05] LABS: CARDIOLIPIN AB (IGA) <11 APL (<=11)
[2018-05-05] MEDS: Potassium Chloride 20 mEq ER Tab PO SCH (00:28)
[2018-05-05] MEDS: ceFAZolin 2 GM in Sodium Chloride 0.9% 100 ML IVPB SCH ×3 (00:29→17:13)
[2018-05-05 06:55] LABS: HEMOGLOBIN 10.1 g/dL (12.0-18.0); MEAN CELL VOLUME 89.7 fl (80.0-94.0); MEAN CORPUSCULAR HEMOGLOBIN 30.1 pg (27.0-31.0); MEAN CORPUSCULAR HGB CONC 33.5 g/dL (33.0-37.0); RBC 3.37 Mil/uL (4.40-5.90); RED CELL DISTRIBUTION WIDTH 13.3 % (11.5-14.5); WHITE BLOOD COUNT 13.6 K/uL (4.8-10.8)
[2018-05-05 07:14] LABS: BLOOD UREA NITROGEN 10 mg/dl (9-20); CALCIUM 8.1 mg/dL (8.4-10.2); GFR NON-AFRICAN AMERICAN > 60
--- NOTE | 2018-05-05 08:51 | CP.PCM.PN ---
<Chio Peguero - Last Filed: 05/05/18 10:52> Subjective - Date & Time of Evaluation Date of Evaluation: 05/05/18 Time of Evaluation: 07:45 - Subjective Subjective: Patient seen and examined at bedside during ICU rounds with attending Dr. Sanabria. Patient feeling better this morning. No vents reported overnight. No in acute distress. Stable WNL oxygen saturation in 2 LPM via NC. Afebrile, and rest of vitals signs stable. Patient is stable to be transferred to telemetry floor . Objective - Vital Signs/Intake and Output Vital Signs (last 24 hours): Temp Pulse Resp BP Pulse Ox 98.5 F 75 15 123/54 L 95 05/05/18 08:00 05/05/18 08:00 05/05/18 08:03 05/05/18 08:00 05/05/18 08:00 Intake and Output: 05/05/18 05/05/18 06:59 18:59 Intake Total 1100 Output Total 1500 Balance -400 - Medications Medications: Current Medications Acetaminophen (Tylenol 325mg Tab) 650 mg PO Q6 PRN PRN Reason: Fever >100.4 F Last Admin: 05/01/18 13:08 Dose: 650 mg Amlodipine Besylate (Norvasc) 5 mg PO DAILY [facility] Atorvastatin Calcium (Lipitor) 20 mg PO DAILY [facility] Last Admin: 05/04/18 08:50 Dose: 20 mg Docusate Sodium (Colace) 200 mg PO BID [facility] Last Admin: 05/04/18 17:01 Dose: 200 mg Enoxaparin Sodium (Lovenox) 90 mg SC Q12 [facility] PRN Reason: Protocol Hydromorphone HCl (Dilaudid) 2 mg IVP Q4 PRN PRN Reason: Pain, severe (8-10) Last Admin: 05/04/18 23:24 Dose: 2 mg Hydromorphone HCl (Dilaudid) 1 mg IVP Q4 PRN PRN Reason: Pain, moderate (4-7) Last Admin: 05/04/18 06:58 Dose: 1 mg Cefazolin Sodium 2 gm/ Sodium (Chloride) 100 mls @ 100 mls/hr IVPB Q8 [facility] PRN Reason: Protocol Last Admin: 05/05/18 00:29 Dose: 100 mls/hr Multivitamins/Minerals (Therapeutic-M Tab) 1 tab PO DAILY [facility] Last Admin: 05/04/18 08:50 Dose: 1 tab Ondansetron HCl (Zofran Inj) 4 mg IVP ONCE PRN PRN Reason: Nausea/Vomiting Oxybutynin Chloride (Ditropan Tab) 5 mg PO BID [facility] Last Admin: 05/04/18 17:00 Dose: 5 mg Pantoprazole Sodium (Protonix Inj) 40 mg IVP DAILY [facility] Last Admin: 05/04/18 08:49 Dose: 40 mg Tamsulosin HCl (Flomax) 0.4 mg PO DAILY [facility] Last Admin: 05/04/18 08:49 Dose: 0.4 mg Vitamin B Complex/Vit C/Folic Acid (Nephro-Glenny) 1 tab PO DAILY [facility] Last Admin: 05/04/18 17:00 Dose: 1 tab - Labs Labs: 05/05/18 05:00 05/05/18 05:00 PT 16.4 Seconds (9.8-13.1) H 04/30/18 18:54 INR 1.5 04/30/18 18:54 APTT 40.7 Seconds (25.6-37.1) H 05/03/18 04:20 - Additional Findings Additional findings: Additional findings: - Constitutional Appears: Non-toxic (wearing nasal cannula) - Eye Exam Eye Exam: Normal appearance - ENT Exam ENT Exam: Mucous Membranes Moist - Respiratory Exam Respiratory Exam: Breath sounds are slightly diminished bilaterally, but equally in both lungs absent: Prolonged Expiratory Phase, Respiratory Distress - Cardiovascular Exam Cardiovascular Exam: REGULAR RHYTHM, +S1, +S2. absent: Murmur - GI/Abdominal Exam GI & Abdominal Exam: absent: Distended, Tenderness - Extremities Exam Extremities Exam: Normal Inspection - Neurological Exam Neurological Exam: Alert, Awake, Oriented x3 - Psychiatric Exam Psychiatric exam: Normal Affect, Normal Mood - Skin Skin Exam: Dry, Intact, Normal Color, Warm Assessment and Plan - Assessment and Plan (Free Text) Assessment: POD#5 s/p total right hip replacement 67 yo M with H/O OA S/P Right Hip replacement X2, Left Hip replacement , BPH , HTN, dyslipidemia and gout admitted for revision of the right hip THR revision, admission complicated by bilateral pulmonary emboli, and with +troponins indicative of right heart strain. Troponins are trending down. Since yesterday has been off of high flow. O2 Sat WNL on 2 LMP via NC. He was transfused 2 units of packed red blood cells yesterday, hemoglobin improved. His chemistries show borderline potassium , and received potassium PO. Phosphorus and magnesium levels have both been drawn and are normal. All cultures to date have been negative. Repeat echocardiogram done yesterday showed good LV function and normal RV function and dimensions.He has been switched from heparin drip to subcutaneous enoxaparin, and now switched to PO Eliquis 10 mg PO BID x first 7 days, and is stable to be transfer to tele today. . Plan: Bilateral Pulmonary Emboli - Hemodynamically stable -started on Eliquis today - with right heart strain, troponin trending down - DC therapeutic lovenox - DC Heparin Drip on 05/03/18 -transfer from intensive care to telemetry . - Interventional Cardiology was consulted, appreciated. Not candidate for thrombolysis 2/2 recent surgery - u/s of lower extremities was negative for dvt . Malfunction of Right total Hip replacement hardware, POD #3 - Consult orthopedic, Dr Edwards - Orthopedic management - Pain management - PT/OT . HTN -controlled - c/w home Amlodipine Leukocytosis -afebrile -on antibiotic -UA and Urine CX -repeat CBC with diff in am BPH with urinary retention postop -improving - continue Oxybutynin - continue Flomax - Monitor HLD - Atorvastatin Sleep Apnea - CPAP if needed DVT prophylaxis with Lovenox starting 04/30/18 . Code Status: full code <Nia Sanabria Jv - Last Filed: 05/05/18 13:22> Objective - Vital Signs/Intake and Output Vital Signs (last 24 hours): Temp Pulse Resp BP Pulse Ox 98.6 F 88 19 117/65 98 05/05/18 12:00 05/05/18 12:00 05/05/18 12:00 05/05/18 12:00 05/05/18 12:00 Intake and Output: 05/05/18 05/05/18 06:59 18:59 Intake Total 1100 Output Total 1500 Balance -400 - Medications Medications: Current Medications Acetaminophen (Tylenol 325mg Tab) 650 mg PO Q6 PRN PRN Reason: Fever >100.4 F Last Admin: 05/01/18 13:08 Dose: 650 mg Amlodipine Besylate (Norvasc) 5 mg PO DAILY [facility] Last Admin: 05/05/18 09:13 Dose: 5 mg Apixaban (Eliquis) 10 mg PO BID [facility] PRN Reason: Protocol Stop: 05/12/18 09:31 Last Admin: 05/05/18 09:51 Dose: 10 mg Atorvastatin Calcium (Lipitor) 20 mg PO DAILY [facility] Last Admin: 05/05/18 09:16 Dose: 20 mg Bisacodyl (Dulcolax) 10 mg [place] DAILY PRN PRN Reason: Constipation Clotrimazole (Lotrimin 1% Cream) 1 applic TOP BID [facility] Last Admin: 05/05/18 12:26 Dose: 1 applic Docusate Sodium (Colace) 200 mg PO BID [facility] Last Admin: 05/05/18 09:12 Dose: 200 mg Hydromorphone HCl (Dilaudid) 0.5 mg IVP Q4 PRN PRN Reason: Pain, moderate (4-7) Last Admin: 05/05/18 12:24 Dose: 0.5 mg Cefazolin Sodium 2 gm/ Sodium (Chloride) 100 mls @ 100 mls/hr IVPB Q8 [facility] PRN Reason: Protocol Last Admin: 05/05/18 09:11 Dose: 100 mls/hr Multivitamins/Minerals (Therapeutic-M Tab) 1 tab PO DAILY [facility] Last Admin: 05/05/18 09:16 Dose: 1 tab Ondansetron HCl (Zofran Inj) 4 mg IVP ONCE PRN PRN Reason: Nausea/Vomiting Oxybutynin Chloride (Ditropan Tab) 5 mg PO BID [facility] Last Admin: 05/05/18 09:16 Dose: 5 mg Tamsulosin HCl (Flomax) 0.4 mg PO DAILY [facility] Last Admin: 05/05/18 09:16 Dose: 0.4 mg Vitamin B Complex/Vit C/Folic Acid (Nephro-Glenny) 1 tab PO DAILY [facility] Last Admin: 05/05/18 09:13 Dose: 1 tab - Labs Labs: 05/05/18 05:00 05/05/18 05:00 PT 16.4 Seconds (9.8-13.1) H 04/30/18 18:54 INR 1.5 04/30/18 18:54 APTT 40.7 Seconds (25.6-37.1) H 05/03/18 04:20 Attending/Attestation - Attestation I have personally seen and examined this patient.: Yes I have fully participated in the care of the patient.: Yes I have reviewed all pertinent clinical information, including history, physical exam and plan: Yes Notes (Text): 05/05/18 13:22 Seen examined and discussed with resident, agree with findings and plan as above.
--- NOTE | 2018-05-05 09:10 | CP.PCM.PN ---
Subjective - Date & Time of Evaluation Date of Evaluation: 05/05/18 Time of Evaluation: 09:00 - Subjective Subjective: Patient seen and examiend at bedside. Patient has no specific complaints. Patient was informed of various oral anticoagulants. after long discussion, patient reqeusted to be started on eliquis Objective - Vital Signs/Intake and Output Vital Signs (last 24 hours): Temp Pulse Resp BP Pulse Ox 98.5 F 75 15 123/54 L 95 05/05/18 08:00 05/05/18 08:00 05/05/18 08:03 05/05/18 08:00 05/05/18 08:00 Intake and Output: 05/05/18 05/05/18 06:59 18:59 Intake Total 1100 Output Total 1500 Balance -400 - Medications Medications: Current Medications Acetaminophen (Tylenol 325mg Tab) 650 mg PO Q6 PRN PRN Reason: Fever >100.4 F Last Admin: 05/01/18 13:08 Dose: 650 mg Amlodipine Besylate (Norvasc) 5 mg PO DAILY [facility] Atorvastatin Calcium (Lipitor) 20 mg PO DAILY [facility] Last Admin: 05/04/18 08:50 Dose: 20 mg Docusate Sodium (Colace) 200 mg PO BID [facility] Last Admin: 05/04/18 17:01 Dose: 200 mg Enoxaparin Sodium (Lovenox) 90 mg SC Q12 [facility] PRN Reason: Protocol Hydromorphone HCl (Dilaudid) 2 mg IVP Q4 PRN PRN Reason: Pain, severe (8-10) Last Admin: 05/04/18 23:24 Dose: 2 mg Hydromorphone HCl (Dilaudid) 1 mg IVP Q4 PRN PRN Reason: Pain, moderate (4-7) Last Admin: 05/04/18 06:58 Dose: 1 mg Cefazolin Sodium 2 gm/ Sodium (Chloride) 100 mls @ 100 mls/hr IVPB Q8 [facility] PRN Reason: Protocol Last Admin: 05/05/18 00:29 Dose: 100 mls/hr Multivitamins/Minerals (Therapeutic-M Tab) 1 tab PO DAILY [facility] Last Admin: 05/04/18 08:50 Dose: 1 tab Ondansetron HCl (Zofran Inj) 4 mg IVP ONCE PRN PRN Reason: Nausea/Vomiting Oxybutynin Chloride (Ditropan Tab) 5 mg PO BID [facility] Last Admin: 05/04/18 17:00 Dose: 5 mg Pantoprazole Sodium (Protonix Inj) 40 mg IVP DAILY [facility] Last Admin: 05/04/18 08:49 Dose: 40 mg Tamsulosin HCl (Flomax) 0.4 mg PO DAILY [facility] Last Admin: 05/04/18 08:49 Dose: 0.4 mg Vitamin B Complex/Vit C/Folic Acid (Nephro-Glenny) 1 tab PO DAILY [facility] Last Admin: 05/04/18 17:00 Dose: 1 tab - Labs Labs: 05/05/18 05:00 05/05/18 05:00 PT 16.4 Seconds (9.8-13.1) H 04/30/18 18:54 INR 1.5 04/30/18 18:54 APTT 40.7 Seconds (25.6-37.1) H 05/03/18 04:20 - Head Exam Head Exam: ATRAUMATIC, NORMAL INSPECTION, NORMOCEPHALIC - Neck Exam Neck Exam: Normal Inspection - Respiratory Exam Respiratory Exam: NORMAL BREATHING PATTERN - Cardiovascular Exam Cardiovascular Exam: REGULAR RHYTHM, +S1, +S2 - GI/Abdominal Exam GI & Abdominal Exam: Normal Bowel Sounds - Extremities Exam Extremities Exam: Normal Capillary Refill Additional comments: right hip wound intact - Neurological Exam Neurological Exam: Alert, Awake, Oriented x3 - Skin Skin Exam: Normal Color Assessment and Plan - Assessment and Plan (Free Text) Assessment: Pulmonary embolus: stop lovenox and start eliquis. Pharmacist Darren called and requested that hospital policy requires that a image consultant, it auditor, hemtologist or orthopeaedic surgeon actually write the order. I had initially placed an order for eliquis, but then changed it back to lovenox as per hospital policy as per request by pharmacy. -POD #6 THR: continue wound care as per ortho -Pain control with oral opoid + colace/senna -Skin rash: erythema: topical clotrimazole BID -PT/OT -Activity -continue Pt/OT eval daily -Patient remains hemodynamically stable.
[2018-05-05] MEDS: Multivitamin Vitamin B Complex (Nephro-Vite) Tab PO SCH (09:13)
[2018-05-05] MEDS: Enoxaparin 100 mg Syringe SC SCH ×2 (09:15→09:28)
[2018-05-05] MEDS: Multivitamin With Minerals Tab PO SCH (09:16)
[2018-05-05 11:59] LABS: URINE BILIRUBIN NEGATIVE (NEGATIVE); URINE BLOOD NEGATIVE (NEGATIVE); URINE CLARITY CLEAR (Clear); URINE COLOR YELLOW (YELLOW); URINE GLUCOSE (UA) NEG (Normal); URINE LEUKOCYTE ESTERASE NEG Leu/uL (Negative); URINE PROTEIN NEGATIVE (NEGATIVE); URINE UROBILINOGEN 0.2-1.0 mg/dL (0.2-1.0)
[2018-05-05 12:26] LABS: URINE BACTERIA FEW (<OCC)
[2018-05-05 16:24] LABS: URINE BILIRUBIN NEGATIVE (NEGATIVE); URINE BLOOD NEGATIVE (NEGATIVE); URINE CLARITY CLEAR (Clear); URINE COLOR YELLOW (YELLOW); URINE GLUCOSE (UA) NEG (Normal); URINE LEUKOCYTE ESTERASE NEG Leu/uL (Negative); URINE PROTEIN NEGATIVE (NEGATIVE); URINE UROBILINOGEN 0.2-1.0 mg/dL (0.2-1.0)
[2018-05-06] MEDS: ceFAZolin 2 GM in Sodium Chloride 0.9% 100 ML IVPB SCH ×3 (01:00→17:37)
[2018-05-06 05:43] LABS: BASO # 0.1 K/uL (0.0-0.2); BASO % 0.5 % (0.0-2.0); EOS # 0.7 K/uL (0.0-0.7); EOS % 4.9 % (0.0-4.0); HEMOGLOBIN 9.6 g/dL (12.0-18.0); LYMPH # 1.8 K/uL (1.0-4.3); LYMPH % 12.1 % (20.0-40.0); MEAN CELL VOLUME 89.1 fl (80.0-94.0); MEAN CORPUSCULAR HEMOGLOBIN 29.7 pg (27.0-31.0); MEAN CORPUSCULAR HGB CONC 33.3 g/dL (33.0-37.0); MEAN PLATELET VOLUME 8.9 fl (7.2-11.7); MONO # 1.7 K/uL (0.0-0.8); NEUT # 10.2 K/uL (1.8-7.0); NEUT % 70.5 % (50.0-75.0); NRBC % 0.3 % (0.0-0.0); RBC 3.24 Mil/uL (4.40-5.90); RED CELL DISTRIBUTION WIDTH 13.6 % (11.5-14.5); WHITE BLOOD COUNT 14.5 K/uL (4.8-10.8)
[2018-05-06 05:44] LABS: BLOOD UREA NITROGEN 13 mg/dl (9-20); CALCIUM 8.1 mg/dL (8.4-10.2); GFR NON-AFRICAN AMERICAN > 60
--- NOTE | 2018-05-06 07:59 | CP.PCM.PN ---
<Chio Peguero - Last Filed: 05/06/18 13:26> Subjective - Date & Time of Evaluation Date of Evaluation: 05/06/18 Time of Evaluation: 09:10 - Subjective Subjective: Patient was seen and examined in ICU unit durng rounds with attending Dr. Stokes. Ptient is seen alert, oriented, and in no acute distress. Has been sitting on the chair during physical therapy. Denies chest pain, SOB, dizziness, palpitations, blood in urine or stools, urinary symptoms, or other symptoms. Stable WNL oxygen saturation in 2 LPM via NC. Awaiting for transfer to telemetry. Objective - Vital Signs/Intake and Output Vital Signs (last 24 hours): Temp Pulse Resp BP Pulse Ox 99.0 F 76 13 142/78 98 05/06/18 04:00 05/06/18 06:00 05/06/18 06:00 05/06/18 06:00 05/06/18 06:00 Intake and Output: 05/06/18 05/06/18 06:59 18:59 Output Total 1250 Balance -1250 - Medications Medications: Current Medications Acetaminophen (Tylenol 325mg Tab) 650 mg PO Q6 PRN PRN Reason: Fever >100.4 F Last Admin: 05/01/18 13:08 Dose: 650 mg Amlodipine Besylate (Norvasc) 5 mg PO DAILY [facility] Last Admin: 05/05/18 09:13 Dose: 5 mg Apixaban (Eliquis) 10 mg PO BID [facility] PRN Reason: Protocol Stop: 05/12/18 09:31 Last Admin: 05/05/18 17:54 Dose: 10 mg Atorvastatin Calcium (Lipitor) 20 mg PO DAILY [facility] Last Admin: 05/05/18 09:16 Dose: 20 mg Bisacodyl (Dulcolax) 10 mg [place] DAILY PRN PRN Reason: Constipation Clotrimazole (Lotrimin 1% Cream) 1 applic TOP BID [facility] Last Admin: 05/05/18 17:14 Dose: 1 applic Docusate Sodium (Colace) 200 mg PO BID [facility] Last Admin: 05/05/18 17:13 Dose: 200 mg Hydromorphone HCl (Dilaudid) 0.5 mg IVP Q4 PRN PRN Reason: Pain, moderate (4-7) Last Admin: 05/06/18 06:01 Dose: 0.5 mg Cefazolin Sodium 2 gm/ Sodium (Chloride) 100 mls @ 100 mls/hr IVPB Q8 [facility] PRN Reason: Protocol Last Admin: 05/06/18 01:00 Dose: 100 mls/hr Multivitamins/Minerals (Therapeutic-M Tab) 1 tab PO DAILY [facility] Last Admin: 05/05/18 09:16 Dose: 1 tab Ondansetron HCl (Zofran Inj) 4 mg IVP ONCE PRN PRN Reason: Nausea/Vomiting Oxybutynin Chloride (Ditropan Tab) 5 mg PO BID [facility] Last Admin: 05/05/18 17:13 Dose: 5 mg Tamsulosin HCl (Flomax) 0.4 mg PO DAILY [facility] Last Admin: 05/05/18 09:16 Dose: 0.4 mg Vitamin B Complex/Vit C/Folic Acid (Nephro-Glenny) 1 tab PO DAILY [facility] Last Admin: 05/05/18 09:13 Dose: 1 tab - Labs Labs: 05/06/18 05:05 05/06/18 05:05 PT 16.4 Seconds (9.8-13.1) H 04/30/18 18:54 INR 1.5 04/30/18 18:54 APTT 40.7 Seconds (25.6-37.1) H 05/03/18 04:20 - Additional Findings Additional findings: Additional Findings Additional findings: Additional findings: - Constitutional Appears: Non-toxic (wearing nasal cannula) - Eye Exam Eye Exam: Normal appearance - ENT Exam ENT Exam: Mucous Membranes Moist - Respiratory Exam Respiratory Exam: Lungs clear to auscultations bilateral absent: Prolonged Expiratory Phase, Respiratory Distress, rales, rhonchi or wheezing - Cardiovascular Exam Cardiovascular Exam: REGULAR RHYTHM, +S1, +S2. absent: Murmur - GI/Abdominal Exam GI & Abdominal Exam: absent: Distended, Tenderness - Extremities Exam Extremities Exam: Normal Inspection - Neurological Exam Neurological Exam: Alert, Awake, Oriented x3 - Psychiatric Exam Psychiatric exam: Normal Affect, Normal Mood - Skin Skin Exam: Dry, Intact, Normal Color, Warm Assessment and Plan - Assessment and Plan (Free Text) Assessment: POD#6 s/p total right hip replacement 67 yo M with H/O OA S/P Right Hip replacement X2, Left Hip replacement , BPH , HTN, dyslipidemia and gout admitted for revision of the right hip THR revision, admission complicated by bilateral pulmonary emboli, and with +troponins indicative of right heart strain. Troponins are trending down. Since yesterday has been off of high flow. O2 Sat WNL on 2 LMP via NC. He was transfused 2 units of packed red blood cells yesterday, hemoglobin improved. His chemistries show borderline potassium , and received potassium PO. Phosphorus and magnesium levels have both been drawn and are normal. All cultures to date have been negative. Repeat echocardiogram done yesterday showed good LV function and normal RV function and dimensions.He has been switched from heparin drip to subcutaneous enoxaparin, and now switched to PO Eliquis 10 mg PO BID x first 7 days, and is stable for transfer to telemetry. Remains hemodynamically stable. Plan: Bilateral Pulmonary Emboli -Hemodynamically stable -c/w Eliquis -c/w physical therapy -PT recommended TCU - with right heart strain, troponin trending down - DC therapeutic lovenox - DC Heparin Drip on 05/03/18 -transfer from intensive care to telemetry . - Interventional Cardiology was consulted, appreciated. Not candidate for thrombolysis 2/ recent surgery - u/s of lower extremities was negative for dvt Malfunction of Right total Hip replacement hardware, POD #6 -c/w PT -PT recommended TCU - Consult orthopedic, Dr Edwards - Orthopedic management - Pain management Anemia -s/p surgery -normal H/H before surgery -FOBT negative on 05/05/18 -will monitor HTN -controlled - c/w home Amlodipine Leukocytosis -afebrile -on antibiotic -UA on 05/05 neg - Urine CX pending -repeat CBC with diff in am BPH with urinary retention postop -improving - continue Oxybutynin - continue Flomax - Monitor HLD - Atorvastatin Sleep Apnea - CPAP if needed DVT prophylaxis with Lovenox starting 04/30/18 . Code Status: full code <Kath Stokes - Last Filed: 05/06/18 16:15> Objective - Vital Signs/Intake and Output Vital Signs (last 24 hours): Temp Pulse Resp BP Pulse Ox 98.2 F 82 18 126/65 98 05/06/18 08:00 05/06/18 10:00 05/06/18 10:00 05/06/18 10:00 05/06/18 10:00 Intake and Output: 05/06/18 05/06/18 06:59 18:59 Output Total 1250 Balance -1250 - Medications Medications: Current Medications Acetaminophen (Tylenol 325mg Tab) 650 mg PO Q6 PRN PRN Reason: Fever >100.4 F Last Admin: 05/01/18 13:08 Dose: 650 mg Amlodipine Besylate (Norvasc) 5 mg PO DAILY [facility] Last Admin: 05/06/18 09:18 Dose: 5 mg Apixaban (Eliquis) 10 mg PO BID [facility] PRN Reason: Protocol Stop: 05/12/18 09:31 Last Admin: 05/06/18 09:17 Dose: 10 mg Atorvastatin Calcium (Lipitor) 20 mg PO DAILY [facility] Last Admin: 05/06/18 09:18 Dose: 20 mg Bisacodyl (Dulcolax) 10 mg [place] DAILY PRN PRN Reason: Constipation Clotrimazole (Lotrimin 1% Cream) 1 applic TOP BID [facility] Last Admin: 05/06/18 09:19 Dose: 1 applic Cyclobenzaprine HCl (Flexeril) 5 mg PO TID PRN PRN Reason: Muscle spasm Last Admin: 05/06/18 13:23 Dose: 5 mg Docusate Sodium (Colace) 200 mg PO BID [facility] Last Admin: 05/06/18 09:18 Dose: 200 mg Hydromorphone HCl (Dilaudid) 0.5 mg IVP Q4 PRN PRN Reason: Pain, moderate (4-7) Last Admin: 05/06/18 10:37 Dose: 0.5 mg Cefazolin Sodium 2 gm/ Sodium (Chloride) 100 mls @ 100 mls/hr IVPB Q8 [facility] PRN Reason: Protocol Last Admin: 05/06/18 09:50 Dose: 100 mls/hr Multivitamins/Minerals (Therapeutic-M Tab) 1 tab PO DAILY [facility] Last Admin: 05/06/18 09:18 Dose: 1 tab Ondansetron HCl (Zofran Inj) 4 mg IVP ONCE PRN PRN Reason: Nausea/Vomiting Oxybutynin Chloride (Ditropan Tab) 5 mg PO BID [facility] Last Admin: 05/06/18 09:23 Dose: 5 mg Tamsulosin HCl (Flomax) 0.4 mg PO DAILY [facility] Last Admin: 05/06/18 09:18 Dose: 0.4 mg - Labs Labs: 05/06/18 05:05 05/06/18 05:05 PT 16.4 Seconds (9.8-13.1) H 04/30/18 18:54 INR 1.5 04/30/18 18:54 APTT 40.7 Seconds (25.6-37.1) H 05/03/18 04:20 Attending/Attestation - Attestation I have personally seen and examined this patient.: Yes I have fully participated in the care of the patient.: Yes I have reviewed all pertinent clinical information, including history, physical exam and plan: Yes
[2018-05-06] MEDS: Multivitamin With Minerals Tab PO SCH (09:18)
[2018-05-06] MEDS: Multivitamin Vitamin B Complex (Nephro-Vite) Tab PO SCH (09:19)
--- NOTE | 2018-05-06 11:16 | CP.PCM.PN ---
Subjective - Date & Time of Evaluation Date of Evaluation: 05/06/18 Time of Evaluation: 11:00 - Subjective Subjective: S - pt much improved minimal discomfort R hip today has had therapy today Objective - Vital Signs/Intake and Output Vital Signs (last 24 hours): Temp Pulse Resp BP Pulse Ox 98.2 F 82 18 126/65 98 05/06/18 08:00 05/06/18 10:00 05/06/18 10:00 05/06/18 10:00 05/06/18 10:00 Intake and Output: 05/06/18 05/06/18 06:59 18:59 Output Total 1250 Balance -1250 - Medications Medications: Current Medications Acetaminophen (Tylenol 325mg Tab) 650 mg PO Q6 PRN PRN Reason: Fever >100.4 F Last Admin: 05/01/18 13:08 Dose: 650 mg Amlodipine Besylate (Norvasc) 5 mg PO DAILY [facility] Last Admin: 05/06/18 09:18 Dose: 5 mg Apixaban (Eliquis) 10 mg PO BID [facility] PRN Reason: Protocol Stop: 05/12/18 09:31 Last Admin: 05/06/18 09:17 Dose: 10 mg Atorvastatin Calcium (Lipitor) 20 mg PO DAILY [facility] Last Admin: 05/06/18 09:18 Dose: 20 mg Bisacodyl (Dulcolax) 10 mg [place] DAILY PRN PRN Reason: Constipation Clotrimazole (Lotrimin 1% Cream) 1 applic TOP BID [facility] Last Admin: 05/06/18 09:19 Dose: 1 applic Cyclobenzaprine HCl (Flexeril) 5 mg PO TID PRN PRN Reason: Muscle spasm Docusate Sodium (Colace) 200 mg PO BID [facility] Last Admin: 05/06/18 09:18 Dose: 200 mg Hydromorphone HCl (Dilaudid) 0.5 mg IVP Q4 PRN PRN Reason: Pain, moderate (4-7) Last Admin: 05/06/18 10:37 Dose: 0.5 mg Cefazolin Sodium 2 gm/ Sodium (Chloride) 100 mls @ 100 mls/hr IVPB Q8 [facility] PRN Reason: Protocol Last Admin: 05/06/18 09:50 Dose: 100 mls/hr Multivitamins/Minerals (Therapeutic-M Tab) 1 tab PO DAILY [facility] Last Admin: 05/06/18 09:18 Dose: 1 tab Ondansetron HCl (Zofran Inj) 4 mg IVP ONCE PRN PRN Reason: Nausea/Vomiting Oxybutynin Chloride (Ditropan Tab) 5 mg PO BID [facility] Last Admin: 05/06/18 09:23 Dose: 5 mg Tamsulosin HCl (Flomax) 0.4 mg PO DAILY [facility] Last Admin: 05/06/18 09:18 Dose: 0.4 mg Vitamin B Complex/Vit C/Folic Acid (Nephro-Glenny) 1 tab PO DAILY [facility] Last Admin: 05/06/18 09:19 Dose: 1 tab - Labs Labs: 05/06/18 05:05 05/06/18 05:05 PT 16.4 Seconds (9.8-13.1) H 04/30/18 18:54 INR 1.5 04/30/18 18:54 APTT 40.7 Seconds (25.6-37.1) H 05/03/18 04:20 - Additional Findings Additional findings: Obj dressing changed wound beign n?V intact orthopedically stable area of non puurlent-oputely sanguinous drainage L hip Assessment and Plan - Assessment and Plan (Free Text) Assessment: A- s/p R THR revision s/p PE anticoagulation causing wound hematyom R hip P betadine wet to dry dressing changes daily abios anticoagulation as per pulmonary
[2018-05-06] MEDS ORDERED: Potassium Chloride 20 mEq ER Tab PO ONE (11:57)
[2018-05-07] MEDS: ceFAZolin 2 GM in Sodium Chloride 0.9% 100 ML IVPB SCH ×3 (00:45→16:06)
--- NOTE | 2018-05-07 08:15 | CP.PCM.PN ---
Subjective - Date & Time of Evaluation Date of Evaluation: 05/07/18 Time of Evaluation: 07:30 - Subjective Subjective: Patient seen and examined at bedside comfortable. Pain well controlled. Denies CP/SOB/dizziness. No acute events overnight. Objective - Vital Signs/Intake and Output Vital Signs (last 24 hours): Temp Pulse Resp BP Pulse Ox 97.9 F 83 18 127/71 96 05/07/18 05:14 05/07/18 05:14 05/07/18 05:14 05/07/18 05:14 05/07/18 06:22 - Medications Medications: Current Medications Acetaminophen (Tylenol 325mg Tab) 650 mg PO Q6 PRN PRN Reason: Fever >100.4 F Last Admin: 05/01/18 13:08 Dose: 650 mg Amlodipine Besylate (Norvasc) 5 mg PO DAILY [facility] Last Admin: 05/06/18 09:18 Dose: 5 mg Apixaban (Eliquis) 10 mg PO BID [facility] PRN Reason: Protocol Stop: 05/12/18 09:31 Last Admin: 05/06/18 17:35 Dose: 10 mg Atorvastatin Calcium (Lipitor) 20 mg PO DAILY [facility] Last Admin: 05/06/18 09:18 Dose: 20 mg Bisacodyl (Dulcolax) 10 mg [place] DAILY PRN PRN Reason: Constipation Clotrimazole (Lotrimin 1% Cream) 1 applic TOP BID [facility] Last Admin: 05/06/18 17:52 Dose: 1 applic Cyclobenzaprine HCl (Flexeril) 5 mg PO TID PRN PRN Reason: Muscle spasm Last Admin: 05/06/18 22:31 Dose: 5 mg Docusate Sodium (Colace) 200 mg PO BID [facility] Last Admin: 05/06/18 17:35 Dose: 200 mg Hydromorphone HCl (Dilaudid) 0.5 mg IVP Q4 PRN PRN Reason: Pain, moderate (4-7) Last Admin: 05/07/18 04:43 Dose: 0.5 mg Cefazolin Sodium 2 gm/ Sodium (Chloride) 100 mls @ 100 mls/hr IVPB Q8 [facility] PRN Reason: Protocol Last Admin: 05/07/18 00:45 Dose: 100 mls/hr Multivitamins/Minerals (Therapeutic-M Tab) 1 tab PO DAILY [facility] Last Admin: 05/06/18 09:18 Dose: 1 tab Ondansetron HCl (Zofran Inj) 4 mg IVP ONCE PRN PRN Reason: Nausea/Vomiting Oxybutynin Chloride (Ditropan Tab) 5 mg PO BID [facility] Last Admin: 05/06/18 17:35 Dose: 5 mg Tamsulosin HCl (Flomax) 0.4 mg PO DAILY [facility] Last Admin: 05/06/18 09:18 Dose: 0.4 mg - Labs Labs: 05/06/18 05:05 05/06/18 05:05 PT 16.4 Seconds (9.8-13.1) H 04/30/18 18:54 INR 1.5 04/30/18 18:54 APTT 40.7 Seconds (25.6-37.1) H 05/03/18 04:20 - Extremities Exam Additional comments: R hip: mild to mod swelling wet to dry dressings intact, wound intact with sourav, mild sanguinous drainage from mid wound sensation intact SP/DP/TN motor intact EHL/FHL/TA/G pedal pulses intact comps soft NT b/l Assessment and Plan (1) Chronic hip pain after total replacement of hip joint Assessment & Plan: POD #8 s/p R revision JACK, acute b/l PE -changed wet to dry betadine dressings -PT/OT TTWB -posterior hip precautions -abx as per ID -orthopedically stable -above d/w Dr. Edwards in agreement Status: Acute
[2018-05-07] MEDS: Multivitamin With Minerals Tab PO SCH (08:50)
--- NOTE | 2018-05-07 09:51 | CP.PCM.PN ---
Subjective - Date & Time of Evaluation Date of Evaluation: 05/07/18 Time of Evaluation: 09:43 - Subjective Subjective: Seen on morning rounds in telemetry. Appears quite comfortable. Used BiPAP mask ventilator in CPAP mode, poorly tolerated last night. Has serosanguinous drainage from the surgical site. Was able to participate with physical therapy. Awake, alert, comfortable. No cyanosis, minimal edema RLE. No calf tenderness or Marky's sign. Neck is supple and trachea midline. Breath sounds are present bilaterally w/o wheezes. Few dry rales in dependant zones of both lower lobes. Heart sounds well heard. Oxygenating well with standard nasal canula. Will stop BiPAP mask overnight ventilation. Resume HFNC at 20LPM and 28% oxygen for overnight (well tolerated in ICU). Appears stable on current medical regimen. Continue physical therapy. Objective - Vital Signs/Intake and Output Vital Signs (last 24 hours): Temp Pulse Resp BP Pulse Ox 98 F 73 18 112/65 97 05/07/18 08:18 05/07/18 08:18 05/07/18 08:18 05/07/18 08:51 05/07/18 08:18 Intake and Output: 05/06/18 05/07/18 23:59 11:59 Intake Total 200 Output Total 1700 Balance -1500 - Medications Medications: Current Medications Acetaminophen (Tylenol 325mg Tab) 650 mg PO Q6 PRN PRN Reason: Fever >100.4 F Last Admin: 05/01/18 13:08 Dose: 650 mg Amlodipine Besylate (Norvasc) 5 mg PO DAILY [facility] Last Admin: 05/07/18 08:51 Dose: 5 mg Apixaban (Eliquis) 10 mg PO BID [facility] PRN Reason: Protocol Stop: 05/12/18 09:31 Last Admin: 05/07/18 08:51 Dose: 10 mg Atorvastatin Calcium (Lipitor) 20 mg PO DAILY [facility] Last Admin: 05/07/18 08:51 Dose: 20 mg Bisacodyl (Dulcolax) 10 mg [place] DAILY PRN PRN Reason: Constipation Clotrimazole (Lotrimin 1% Cream) 1 applic TOP BID [facility] Last Admin: 05/07/18 08:49 Dose: 1 applic Cyclobenzaprine HCl (Flexeril) 5 mg PO TID PRN PRN Reason: Muscle spasm Last Admin: 05/07/18 08:51 Dose: 5 mg Docusate Sodium (Colace) 200 mg PO BID [facility] Last Admin: 05/07/18 08:50 Dose: 200 mg Hydromorphone HCl (Dilaudid) 0.5 mg IVP Q4 PRN PRN Reason: Pain, moderate (4-7) Last Admin: 05/07/18 04:43 Dose: 0.5 mg Cefazolin Sodium 2 gm/ Sodium (Chloride) 100 mls @ 100 mls/hr IVPB Q8 [facility] PRN Reason: Protocol Last Admin: 05/07/18 08:48 Dose: 100 mls/hr Multivitamins/Minerals (Therapeutic-M Tab) 1 tab PO DAILY [facility] Last Admin: 05/07/18 08:50 Dose: 1 tab Ondansetron HCl (Zofran Inj) 4 mg IVP ONCE PRN PRN Reason: Nausea/Vomiting Oxybutynin Chloride (Ditropan Tab) 5 mg PO BID [facility] Last Admin: 05/07/18 08:53 Dose: 5 mg Tamsulosin HCl (Flomax) 0.4 mg PO DAILY [facility] Last Admin: 05/07/18 08:52 Dose: 0.4 mg - Labs Labs: 05/06/18 05:05 05/06/18 05:05 PT 16.4 Seconds (9.8-13.1) H 04/30/18 18:54 INR 1.5 04/30/18 18:54 APTT 40.7 Seconds (25.6-37.1) H 05/03/18 04:20 Assessment and Plan (1) Acute massive pulmonary embolism Status: Acute (2) Obstructive sleep apnea Status: Acute
--- NOTE | 2018-05-07 12:58 | CP.PCM.PN ---
<Chio Peguero - Last Filed: 05/07/18 12:56> Subjective - Date & Time of Evaluation Date of Evaluation: 05/07/18 Time of Evaluation: 09:00 - Subjective Subjective: Patient seen and examined at bedside this morning with attending Dr. Stokes. Patient seen alert, awake, and in no acute distress. No events overnight. Oxygen sat stable, and WNL on 2 LPM via NC. Objective - Vital Signs/Intake and Output Vital Signs (last 24 hours): Temp Pulse Resp BP Pulse Ox 98.2 F 89 18 107/64 96 05/07/18 12:17 05/07/18 12:17 05/07/18 12:17 05/07/18 12:17 05/07/18 12:17 - Medications Medications: Current Medications Acetaminophen (Tylenol 325mg Tab) 650 mg PO Q6 PRN PRN Reason: Fever >100.4 F Last Admin: 05/01/18 13:08 Dose: 650 mg Amlodipine Besylate (Norvasc) 5 mg PO DAILY [facility] Last Admin: 05/07/18 08:51 Dose: 5 mg Apixaban (Eliquis) 10 mg PO BID [facility] PRN Reason: Protocol Stop: 05/12/18 09:31 Last Admin: 05/07/18 08:51 Dose: 10 mg Atorvastatin Calcium (Lipitor) 20 mg PO DAILY [facility] Last Admin: 05/07/18 08:51 Dose: 20 mg Bisacodyl (Dulcolax) 10 mg UT DAILY PRN PRN Reason: Constipation Clotrimazole (Lotrimin 1% Cream) 1 applic TOP BID [facility] Last Admin: 05/07/18 08:49 Dose: 1 applic Cyclobenzaprine HCl (Flexeril) 5 mg PO TID PRN PRN Reason: Muscle spasm Last Admin: 05/07/18 08:51 Dose: 5 mg Docusate Sodium (Colace) 200 mg PO BID [facility] Last Admin: 05/07/18 08:50 Dose: 200 mg Hydromorphone HCl (Dilaudid) 0.5 mg IVP Q4 PRN PRN Reason: Pain, moderate (4-7) Last Admin: 05/07/18 04:43 Dose: 0.5 mg Cefazolin Sodium 2 gm/ Sodium (Chloride) 100 mls @ 100 mls/hr IVPB Q8 [facility] PRN Reason: Protocol Last Admin: 05/07/18 08:48 Dose: 100 mls/hr Multivitamins/Minerals (Therapeutic-M Tab) 1 tab PO DAILY [facility] Last Admin: 05/07/18 08:50 Dose: 1 tab Ondansetron HCl (Zofran Inj) 4 mg IVP ONCE PRN PRN Reason: Nausea/Vomiting Oxybutynin Chloride (Ditropan Tab) 5 mg PO BID [facility] Last Admin: 05/07/18 08:53 Dose: 5 mg Tamsulosin HCl (Flomax) 0.4 mg PO DAILY [facility] Last Admin: 05/07/18 08:52 Dose: 0.4 mg - Labs Labs: 05/06/18 05:05 05/06/18 05:05 PT 16.4 Seconds (9.8-13.1) H 04/30/18 18:54 INR 1.5 04/30/18 18:54 APTT 40.7 Seconds (25.6-37.1) H 05/03/18 04:20 - Skin Additional comments: Constitutional Appears: Non-toxic (wearing nasal cannula) - Eye Exam Eye Exam: Normal appearance - ENT Exam ENT Exam: Mucous Membranes Moist - Respiratory Exam Respiratory Exam: Lungs clear to auscultations bilateral absent: Prolonged Expiratory Phase, Respiratory Distress, rales, rhonchi or wheezing - Cardiovascular Exam Cardiovascular Exam: REGULAR RHYTHM, +S1, +S2. absent: Murmur - GI/Abdominal Exam GI & Abdominal Exam: absent: Distended, Tenderness - Extremities Exam Extremities Exam: Normal Inspection - Neurological Exam Neurological Exam: Alert, Awake, Oriented x3 - Psychiatric Exam Psychiatric exam: Normal Affect, Normal Mood - Skin Skin Exam: Dry, Intact, Normal Color, Warm Assessment and Plan - Assessment and Plan (Free Text) Assessment: POD#7 s/p total right hip replacement 67 yo M with H/O OA S/P Right Hip replacement X2, Left Hip replacement , BPH , HTN, dyslipidemia and gout admitted for revision of the right hip THR revision, admission complicated by bilateral pulmonary emboli, and with +troponins indicative of right heart strain. Troponins are trending down. Since yesterday has been off of high flow. O2 Sat WNL on 2 LMP via NC. He was transfused 2 units of packed red blood cells yesterday, hemoglobin improved. His chemistries show borderline potassium , and received potassium PO. Phosphorus and magnesium levels have both been drawn and are normal. All cultures to date have been negative. Repeat echocardiogram done yesterday showed good LV function and normal RV function and dimensions.He has been switched from heparin drip to subcutaneous enoxaparin, and now switched to PO Eliquis 10 mg PO BID x first 7 days. Remains hemodynamically stable. Yesterday was transferred to Tele. Has serosanguinous drainage from the surgical site, and leukocytosis in CBC. ID consult placed by Orthopedic surgeon. Plan: Bilateral Pulmonary Emboli -Hemodynamically stable -c/w Eliquis (started on 05/05) -c/w physical therapy -PT recommended TCU - with right heart strain, troponin trending down - DC therapeutic lovenox - DC Heparin Drip on 05/03/18 -transfer from intensive care to telemetry . - Interventional Cardiology was consulted, appreciated. Not candidate for thrombolysis / recent surgery - u/s of lower extremities was negative for dvt Malfunction of Right total Hip replacement hardware, POD #7 -Has serosanguinous drainage from the surgical site. -leukocytosis in CBC. -ID consult as per Orthopedic surgeon. -c/w PT. Was able to participate with physical therapy. -PT recommended TCU - Consult orthopedic, Dr Edwards - Orthopedic management - Pain management Anemia -s/p surgery -normal H/H before surgery -FOBT negative on 05/05/18 -will monitor HTN -controlled - c/w home Amlodipine Leukocytosis -afebrile -ID consult as per Orthopedic surgeon. -f/u ID recommendations -on antibiotic -UA on 05/05 neg -Urine CX neg -repeat CBC with diff in am BPH with urinary retention postop -improving - continue Oxybutynin - continue Flomax - Monitor HLD - Atorvastatin Sleep Apnea - CPAP if needed DVT prophylaxis with Lovenox starting 04/30/18 . Code Status: full code <Kath Stokes - Last Filed: 05/07/18 14:23> Objective - Vital Signs/Intake and Output Vital Signs (last 24 hours): Temp Pulse Resp BP Pulse Ox 98.2 F 89 18 107/64 96 05/07/18 12:17 05/07/18 12:17 05/07/18 12:17 05/07/18 12:17 05/07/18 12:17 - Medications Medications: Current Medications Acetaminophen (Tylenol 325mg Tab) 650 mg PO Q6 PRN PRN Reason: Fever >100.4 F Last Admin: 05/01/18 13:08 Dose: 650 mg Amlodipine Besylate (Norvasc) 5 mg PO DAILY [facility] Last Admin: 05/07/18 08:51 Dose: 5 mg Apixaban (Eliquis) 10 mg PO BID [facility] PRN Reason: Protocol Stop: 05/12/18 09:31 Last Admin: 05/07/18 08:51 Dose: 10 mg Atorvastatin Calcium (Lipitor) 20 mg PO DAILY [facility] Last Admin: 05/07/18 08:51 Dose: 20 mg Bisacodyl (Dulcolax) 10 mg UT DAILY PRN PRN Reason: Constipation Clotrimazole (Lotrimin 1% Cream) 1 applic TOP BID [facility] Last Admin: 05/07/18 08:49 Dose: 1 applic Cyclobenzaprine HCl (Flexeril) 5 mg PO TID PRN PRN Reason: Muscle spasm Last Admin: 05/07/18 08:51 Dose: 5 mg Docusate Sodium (Colace) 200 mg PO BID [facility] Last Admin: 05/07/18 08:50 Dose: 200 mg Hydromorphone HCl (Dilaudid) 0.5 mg IVP Q4 PRN PRN Reason: Pain, moderate (4-7) Last Admin: 05/07/18 13:53 Dose: 0.5 mg Cefazolin Sodium 2 gm/ Sodium (Chloride) 100 mls @ 100 mls/hr IVPB Q8 [facility] PRN Reason: Protocol Last Admin: 05/07/18 08:48 Dose: 100 mls/hr Vancomycin HCl 1 gm/ Sodium (Chloride) 250 mls @ 166.667 mls/hr IVPB STAT STA PRN Reason: Protocol Stop: 05/07/18 15:36 Multivitamins/Minerals (Therapeutic-M Tab) 1 tab PO DAILY [facility] Last Admin: 05/07/18 08:50 Dose: 1 tab Ondansetron HCl (Zofran Inj) 4 mg IVP ONCE PRN PRN Reason: Nausea/Vomiting Oxybutynin Chloride (Ditropan Tab) 5 mg PO BID [facility] Last Admin: 05/07/18 08:53 Dose: 5 mg Tamsulosin HCl (Flomax) 0.4 mg PO DAILY [facility] Last Admin: 05/07/18 08:52 Dose: 0.4 mg - Labs Labs: 05/06/18 05:05 05/06/18 05:05 PT 16.4 Seconds (9.8-13.1) H 04/30/18 18:54 INR 1.5 04/30/18 18:54 APTT 40.7 Seconds (25.6-37.1) H 05/03/18 04:20 Attending/Attestation - Attestation I have personally seen and examined this patient.: Yes I have fully participated in the care of the patient.: Yes I have reviewed all pertinent clinical information, including history, physical exam and plan: Yes Notes (Text): Continued IV Cefazolin IV q 8 post op due to leukocytosis , ID consulted . Discussed case with Dr Jonatan sargent to start pt on IV Vancomycin Plan to d/c pt to TCU for Physical therapy and to cont IV antibiotics
[2018-05-07 15:33] VITALS: RESP 20
--- NOTE | 2018-05-07 17:26 | CP.PCM.PN ---
Subjective - Date & Time of Evaluation Date of Evaluation: 05/07/18 Time of Evaluation: 17:24 - Subjective Subjective: i d note possible infected hematoma culture drainage start rx c vancomycin/maxipeme full consult dictated Objective - Vital Signs/Intake and Output Vital Signs (last 24 hours): Temp Pulse Resp BP Pulse Ox 97.9 F 85 20 115/65 95 05/07/18 15:32 05/07/18 15:32 05/07/18 15:32 05/07/18 15:32 05/07/18 15:32 - Medications Medications: Current Medications Acetaminophen (Tylenol 325mg Tab) 650 mg PO Q6 PRN PRN Reason: Fever >100.4 F Last Admin: 05/01/18 13:08 Dose: 650 mg Amlodipine Besylate (Norvasc) 5 mg PO DAILY [facility] Last Admin: 05/07/18 08:51 Dose: 5 mg Apixaban (Eliquis) 10 mg PO BID [facility] PRN Reason: Protocol Stop: 05/12/18 09:31 Last Admin: 05/07/18 16:06 Dose: 10 mg Atorvastatin Calcium (Lipitor) 20 mg PO DAILY [facility] Last Admin: 05/07/18 08:51 Dose: 20 mg Bisacodyl (Dulcolax) 10 mg ID DAILY PRN PRN Reason: Constipation Clotrimazole (Lotrimin 1% Cream) 1 applic TOP BID [facility] Last Admin: 05/07/18 16:07 Dose: 1 applic Cyclobenzaprine HCl (Flexeril) 5 mg PO TID PRN PRN Reason: Muscle spasm Last Admin: 05/07/18 16:07 Dose: 5 mg Docusate Sodium (Colace) 200 mg PO BID [facility] Last Admin: 05/07/18 16:07 Dose: 200 mg Hydromorphone HCl (Dilaudid) 0.5 mg IVP Q4 PRN PRN Reason: Pain, moderate (4-7) Last Admin: 05/07/18 13:53 Dose: 0.5 mg Vancomycin HCl 1 gm/ Sodium (Chloride) 250 mls @ 166.667 mls/hr IVPB Q12 [facility] PRN Reason: Protocol Cefepime HCl 1 gm/ Sodium (Chloride) 100 mls @ 100 mls/hr IVPB Q12 [facility] PRN Reason: Protocol Multivitamins/Minerals (Therapeutic-M Tab) 1 tab PO DAILY [facility] Last Admin: 05/07/18 08:50 Dose: 1 tab Ondansetron HCl (Zofran Inj) 4 mg IVP ONCE PRN PRN Reason: Nausea/Vomiting Oxybutynin Chloride (Ditropan Tab) 5 mg PO BID [facility] Last Admin: 05/07/18 16:09 Dose: 5 mg Tamsulosin HCl (Flomax) 0.4 mg PO DAILY [facility] Last Admin: 05/07/18 08:52 Dose: 0.4 mg - Labs Labs: 05/06/18 05:05 05/06/18 05:05 PT 16.4 Seconds (9.8-13.1) H 04/30/18 18:54 INR 1.5 04/30/18 18:54 APTT 40.7 Seconds (25.6-37.1) H 05/03/18 04:20
--- NOTE | 2018-05-07 18:40 | CP.PCM.DIS ---
Provider - Provider Date of Admission: 04/29/18 07:58 Attending physician: Chris Pinto Primary care physician: Soham Edwards III, MD Hospital Course - Lab Results Lab Results: Micro Results 04/29/18 11:38 Hip Right Fungal Culture - Preliminary NO FUNGUS GROWTH IN 1 WEEK. 04/29/18 10:40 Hip Right Fungal Culture - Preliminary NO FUNGUS GROWTH IN 1 WEEK. 04/29/18 10:00 Other: Please Indicate Fungal Culture - Preliminary NO FUNGUS GROWTH IN 1 WEEK. 04/29/18 10:00 Other: Please Indicate Mycobacterial Culture - Preliminary 04/29/18 11:38 Other: Please Indicate Mycobacterial Culture - Preliminary 04/29/18 10:40 Other: Please Indicate Mycobacterial Culture - Preliminary 05/05/18 11:29 Urine,Clean Catch Urine Culture - Final No Growth (<1,000 CFU/ML) 04/29/18 11:38 Body Fluid - Hip-Right Gram Stain - Final 04/29/18 11:38 Body Fluid - Hip-Right Anaerobic Culture - Final NO ANAEROBES ISOLATED. 04/29/18 11:38 Body Fluid - Hip-Right Body Fluid Culture - Final No growth. 04/29/18 10:50 Body Fluid - Hip-Right Gram Stain - Final 04/29/18 10:50 Body Fluid - Hip-Right Anaerobic Culture - Final NO ANAEROBES ISOLATED. 04/29/18 10:50 Body Fluid - Hip-Right Body Fluid Culture - Final No growth. 04/29/18 10:00 Body Fluid - Hip Gram Stain - Final 04/29/18 10:00 Body Fluid - Hip Body Fluid Culture - Final No growth. 04/29/18 15:15 Hip - Right Gram Stain - Final 04/29/18 15:15 Hip - Right Anaerobic Culture - Final NO ANAEROBES ISOLATED. 04/29/18 15:15 Hip - Right Wound Culture - Final No growth. 04/29/18 15:11 Hip - Right Gram Stain - Final 04/29/18 15:11 Hip - Right Anaerobic Culture - Final NO ANAEROBES ISOLATED. 04/29/18 15:11 Hip - Right Wound Culture - Final No growth. 04/29/18 15:11 Hip - Right Gram Stain - Final 04/29/18 15:11 Hip - Right Wound Culture - Final No growth. 04/29/18 15:11 Hip - Right Gram Stain - Final 04/29/18 15:11 Hip - Right Wound Culture - Final No growth. 04/29/18 15:11 Hip - Right Gram Stain - Final 04/29/18 15:11 Hip - Right Wound Culture - Final No growth. 04/29/18 15:11 Hip - Right Gram Stain - Final 04/29/18 15:11 Hip - Right Wound Culture - Final No growth. 04/29/18 15:11 Hip - Right Gram Stain - Final 04/29/18 15:11 Hip - Right Wound Culture - Final No growth. 04/29/18 15:11 Hip - Right Gram Stain - Final 04/29/18 15:11 Hip - Right Wound Culture - Final No growth. 04/29/18 15:11 Hip - Right Gram Stain - Final 04/29/18 15:11 Hip - Right Wound Culture - Final No growth. 04/29/18 15:14 Hip - Right Gram Stain - Final 04/29/18 15:14 Hip - Right Wound Culture - Final No growth. 04/29/18 15:14 Hip - Right Gram Stain - Final 04/29/18 15:14 Hip - Right Wound Culture - Final No growth. 04/29/18 15:14 Hip - Right Gram Stain - Final 04/29/18 15:14 Hip - Right Wound Culture - Final No growth. 04/29/18 15:14 Hip - Right Gram Stain - Final 04/29/18 15:14 Hip - Right Wound Culture - Final No growth. 04/29/18 15:14 Hip - Right Gram Stain - Final 04/29/18 15:14 Hip - Right Wound Culture - Final No growth. 04/29/18 15:14 Hip - Right Gram Stain - Final 04/29/18 15:14 Hip - Right Wound Culture - Final No growth. 04/29/18 15:14 Hip - Right Gram Stain - Final 04/29/18 15:14 Hip - Right Wound Culture - Final No growth. 04/29/18 15:14 Hip - Right Gram Stain - Final 04/29/18 15:14 Hip - Right Anaerobic Culture - Final NO ANAEROBES ISOLATED. 04/29/18 15:14 Hip - Right Wound Culture - Final No growth. 04/29/18 15:15 Hip - Right Gram Stain - Final 04/29/18 15:15 Hip - Right Wound Culture - Final No growth. 04/29/18 15:15 Hip - Right Gram Stain - Final 04/29/18 15:15 Hip - Right Wound Culture - Final No growth. 04/29/18 15:15 Hip - Right Gram Stain - Final 04/29/18 15:15 Hip - Right Wound Culture - Final No growth. 04/29/18 15:15 Hip - Right Gram Stain - Final 04/29/18 15:15 Hip - Right Wound Culture - Final No growth. 04/29/18 15:15 Hip - Right Gram Stain - Final 04/29/18 15:15 Hip - Right Wound Culture - Final No growth. 04/29/18 15:15 Hip - Right Gram Stain - Final 04/29/18 15:15 Hip - Right Wound Culture - Final No growth. 04/29/18 15:15 Hip - Right Gram Stain - Final 04/29/18 15:15 Hip - Right Wound Culture - Final No growth. 04/29/18 10:00 Hip - Right Anaerobic Culture - Final NO ANAEROBES ISOLATED. Most Recent Lab Values WBC 14.5 K/uL (4.8-10.8) H 05/06/18 05:05 RBC 3.24 Mil/uL (4.40-5.90) L 05/06/18 05:05 Hgb 9.6 g/dL (12.0-18.0) L 05/06/18 05:05 Hct 28.9 % (35.0-51.0) L 05/06/18 05:05 MCV 89.1 fl (80.0-94.0) 05/06/18 05:05 MCH 29.7 pg (27.0-31.0) 05/06/18 05:05 MCHC 33.3 g/dL (33.0-37.0) 05/06/18 05:05 RDW 13.6 % (11.5-14.5) 05/06/18 05:05 Plt Count 277 K/uL (130-400) 05/06/18 05:05 MPV 8.9 fl (7.2-11.7) 05/06/18 05:05 Neut % (Auto) 70.5 % (50.0-75.0) 05/06/18 05:05 Lymph % (Auto) 12.1 % (20.0-40.0) L 05/06/18 05:05 Norman % (Auto) 12.0 % (0.0-10.0) H 05/06/18 05:05 Eos % (Auto) 4.9 % (0.0-4.0) H 05/06/18 05:05 Baso % (Auto) 0.5 % (0.0-2.0) 05/06/18 05:05 Neut # (Auto) 10.2 K/uL (1.8-7.0) H 05/06/18 05:05 Lymph # (Auto) 1.8 K/uL (1.0-4.3) 05/06/18 05:05 Norman # (Auto) 1.7 K/uL (0.0-0.8) H 05/06/18 05:05 Eos # (Auto) 0.7 K/uL (0.0-0.7) 05/06/18 05:05 Baso # (Auto) 0.1 K/uL (0.0-0.2) 05/06/18 05:05 Neutrophils % (Manual) 84 % (42-75) H 05/02/18 17:50 Lymphocytes % (Manual) 8 % (20-50) L 05/02/18 17:50 Monocytes % (Manual) 7 % (0-10) 05/02/18 17:50 Eosinophils % (Manual) 1 % (0-7) 05/02/18 17:50 Platelet Estimate Normal (NORMAL) 05/02/18 17:50 Large Platelets Present 05/02/18 17:50 Anisocytosis (manual) Slight 05/02/18 17:50 Ovalocytes Slight 05/02/18 17:50 PT 16.4 Seconds (9.8-13.1) H 04/30/18 18:54 INR 1.5 04/30/18 18:54 APTT 40.7 Seconds (25.6-37.1) H 05/03/18 04:20 Factor V see note 05/03/18 11:04 pCO2 36 mm/Hg (35-45) 04/30/18 10:25 pO2 131 mm/Hg (80-100) H 04/30/18 10:25 HCO3 22.3 mmol/L (21-28) 04/30/18 10:25 ABG pH 7.38 (7.35-7.45) 04/30/18 10:25 ABG Total CO2 22.4 mmol/L (22-28) 04/30/18 10:25 ABG O2 Saturation 100.1 % (95-98) H 04/30/18 10:25 ABG O2 Content 17.3 ML/dL (15-23) 04/30/18 10:25 ABG Base Excess -3.3 mmol/L (-2.0-3.0) L 04/30/18 10:25 ABG Hemoglobin 12.6 g/dL (11.7-17.4) 04/30/18 10:25 ABG Carboxyhemoglobin 2.1 % (0.5-1.5) H 04/30/18 10:25 POC ABG HHb (Measured) -0.1 % (0.0-5.0) L 04/30/18 10:25 ABG Methemoglobin 1.6 % (0.0-3.0) 04/30/18 10:25 ABG O2 Capacity 17.3 mL/dL (16-24) 04/30/18 10:25 Chidi Test Yes 04/30/18 10:25 A-a O2 Difference 537.0 mm/Hg 04/30/18 10:25 Hgb O2 Saturation 96.3 % (95.0-98.0) 04/30/18 10:25 Vent Mode Nrm 04/30/18 10:25 FiO2 100.0 % 04/30/18 10:25 Sodium 137 mmol/l (132-148) 05/06/18 05:05 Potassium 3.6 MMOL/L (3.6-5.0) 05/06/18 05:05 Chloride 106 mmol/L (98-107) 05/06/18 05:05 Carbon Dioxide 27 mmol/L (22-30) 05/06/18 05:05 Anion Gap 8 (10-20) L 05/06/18 05:05 BUN 13 mg/dl (9-20) 05/06/18 05:05 Creatinine 0.7 mg/dl (0.8-1.5) L 05/06/18 05:05 Est GFR ( Amer) > 60 05/06/18 05:05 Est GFR (Non-Af Amer) > 60 05/06/18 05:05 POC Glucose (mg/dL) 200 mg/dL (65-110) H 04/30/18 10:21 Random Glucose 111 mg/dL (75-110) H 05/06/18 05:05 Calcium 8.1 mg/dL (8.4-10.2) L 05/06/18 05:05 Phosphorus 3.1 mg/dl (2.5-4.5) 05/05/18 05:00 Magnesium 2.4 MG/DL (1.6-2.3) H 05/05/18 05:00 Total Bilirubin 0.8 mg/dl (0.2-1.3) 05/04/18 04:20 AST 38 U/L (17-59) 05/04/18 04:20 ALT 31 U/L (21-72) 05/04/18 04:20 Alkaline Phosphatase 76 U/L (38-126) 05/04/18 04:20 Troponin I 0.2880 ng/mL (0.00-0.120) H* 05/02/18 20:18 Total Protein 4.9 G/DL (6.3-8.2) L 05/04/18 04:20 Albumin 2.6 g/dL (3.5-5.0) L 05/04/18 04:20 Globulin 2.3 gm/dL (2.2-3.9) 05/04/18 04:20 Albumin/Globulin Ratio 1.1 (1.0-2.1) 05/04/18 04:20 25-OH Vitamin D Total 30.6 NG/ML (30.0-100.0) 04/30/18 09:26 Homocysteine 6.2 umol/L (6.6-14.8) L 05/03/18 11:04 Urine Color Yellow (YELLOW) 05/05/18 16:19 Urine Clarity Clear (Clear) 05/05/18 16:19 Urine pH 7.0 (5.0-8.0) 05/05/18 16:19 Ur Specific Borden < 1.005 (1.003-1.030) 05/05/18 16:19 Urine Protein Negative mg/dL (NEGATIVE) 05/05/18 16:19 Urine Glucose (UA) Neg mg/dL (Normal) 05/05/18 16:19 Urine Ketones Negative mg/dL (NEGATIVE) 05/05/18 16:19 Urine Blood Negative (NEGATIVE) 05/05/18 16:19 Urine Nitrate Negative (NEGATIVE) 05/05/18 16:19 Urine Bilirubin Negative (NEGATIVE) 05/05/18 16:19 Urine Urobilinogen 0.2-1.0 mg/dL (0.2-1.0) 05/05/18 16:19 Ur Leukocyte Esterase Neg Gale/uL (Negative) 05/05/18 16:19 Urine RBC (Auto) < 1 /hpf (0-3) 05/05/18 16:19 Urine Microscopic WBC < 1 /hpf (0-5) 05/05/18 16:19 Urine Bacteria Few (<OCC) H 05/05/18 11:29 Fluid Type Synovial fluid 04/29/18 11:38 Synovial WBC 119.0 /mm3 (0.0-150.0) 04/29/18 11:38 Synovial RBC 16057.0 /mm3 (0.0-0.0) H 04/29/18 11:38 Synovial Neutrophils 80.0 % (0-0) H 04/29/18 11:38 Synovial Lymphocytes 13.0 % (0-0) H 04/29/18 11:38 Synov Monos/Macrophage 7 % (0-0) H 04/29/18 11:38 Synovial Fluid Comment Turbid 04/29/18 11:38 Stool Occult Blood Negative (NEGATIVE) 05/05/18 13:40 Anti-Cardiolipin IgG Ab <14 GPL (<=14) 05/03/18 11:04 Anti-Cardiolipin IgA Ab <11 APL (<=11) 05/03/18 11:04 Anti-Cardiolipin IgM Ab <12 MPL (<=12) 05/03/18 11:04 MTHFR DNA Mutation Anal see note 05/03/18 11:04 MTHFR Interpretation see note 05/03/18 11:04 MTHFR Reviewed By see note 05/03/18 11:04 Prothrombin Mut Interp see note 05/03/18 11:04 Prothrombin Gene Mutate see note 05/03/18 11:04 Prothromb Gene Review see note 05/03/18 11:04 Blood Type O POSITIVE 05/02/18 09:56 Antibody Screen Negative 05/02/18 09:56 Crossmatch See Detail 05/02/18 09:56 BBK History Checked Patient has bt 05/02/18 09:56 Discharge Exam - Head Exam Head Exam: ATRAUMATIC, NORMAL INSPECTION, NORMOCEPHALIC Discharge Plan - Discharge Medications Prescriptions: Cefepime IV 1 gm in Dextrose [Maxipime IV 1 gm Premix] 1 gm IVPB Q12 #1 bag Vancomycin/0.9 % Sod Chloride [Vanco 1 Gram/150 ml-0.9% NaCl] 1 gm IV Q12 #1 plast..bag - Follow Up Plan Condition: GOOD Disposition: TRANSF TO SNF Additional Instructions: d/c to TCU Referrals: Soham Edwards III, MD [Primary Care Provider] - Jone Pino MD [Staff Provider] - Mauricio Cheung MD [Medical Doctor] -
[2018-05-07 20:06] VITALS: BP 127/69; PULSE 91; TEMP 98.7; O2SAT 96
[2018-05-07] MEDS ORDERED: Cefepime 1 GM in Sodium Chloride 0.9% 100 ML IVPB SCH (21:00)
== END 2018-05-07 22:05 | DRG 466 ==
LOC: H.OPSURG 06:34 → H.MEDSURG1 07:58 → H.ICU/CCU 04-30 11:31 → H.TEL 05-07 00:04
PROVIDERS: ADMIT Internal Medicine; ATTEND Internal Medicine
PROC: 0SP90JZ Removal of Synthetic Substitute from Right Hip Joint, Open Approach (ICD-10-PCS; 2018-04-29)
PROC: 0SB90ZZ Excision of Right Hip Joint, Open Approach (ICD-10-PCS; 2018-04-29)
PROC: 0SN90ZZ Release Right Hip Joint, Open Approach (ICD-10-PCS; 2018-04-29)
PROC: 0QU607Z Supplement Right Upper Femur with Autologous Tissue Substitute, Open Approach (ICD-10-PCS; 2018-04-29)
PROC: 8E0YXBZ Computer Assisted Procedure of Lower Extremity (ICD-10-PCS; 2018-04-29)
PROC: 0SR903A Replacement of Right Hip Joint with Ceramic Synthetic Substitute, Uncemented, Open Approach (ICD-10-PCS; principal; 2018-04-29 07:45)
PROC: 5A0955Z Assistance with Respiratory Ventilation, Greater than 96 Consecutive Hours (ICD-10-PCS; 2018-04-30)
PROC: 30233N1 Transfusion of Nonautologous Red Blood Cells into Peripheral Vein, Percutaneous Approach (ICD-10-PCS; 2018-05-03)
DX: T84.030A Mechanical loosening of internal right hip prosthetic joint, initial encounter (principal); S32.421A Displaced fracture of posterior wall of right acetabulum, initial encounter for closed fracture; I26.99 Other pulmonary embolism without acute cor pulmonale; T81.718A Complication of other artery following a procedure, not elsewhere classified, initial encounter; D62 Acute posthemorrhagic anemia; L76.32 Postprocedural hematoma of skin and subcutaneous tissue following other procedure; T84.84XA Pain due to internal orthopedic prosthetic devices, implants and grafts, initial encounter; X58.XXXA Exposure to other specified factors, initial encounter; Z96.643 Presence of artificial hip joint, bilateral; Y79.2 Prosthetic and other implants, materials and accessory orthopedic devices associated with adverse incidents; M65.9 Synovitis and tenosynovitis, unspecified; Y83.8 Other surgical procedures as the cause of abnormal reaction of the patient, or of later complication, without mention of misadventure at the time of the procedure; G47.33 Obstructive sleep apnea (adult) (pediatric); G89.29 Other chronic pain; M24.551 Contracture, right hip; M54.31 Sciatica, right side; N40.1 Benign prostatic hyperplasia with lower urinary tract symptoms; R33.8 Other retention of urine; E78.5 Hyperlipidemia, unspecified; M10.9 Gout, unspecified; E78.00 Pure hypercholesterolemia, unspecified; I25.10 Atherosclerotic heart disease of native coronary artery without angina pectoris; D72.829 Elevated white blood cell count, unspecified; R21 Rash and other nonspecific skin eruption; I10 Essential (primary) hypertension

== ENCOUNTER 2018-05-07 22:16 | Inpatient (IN) | payer OTHER, MEDICARE ==
[2018-05-07 22:32] VITALS: BMI 28.1
[2018-05-08] MEDS: NS IVPB SCH ×2 (05:28→17:24)
[2018-05-08] MEDS: CEFEPIME IVPB SCH ×2 (05:28→17:24)
[2018-05-08] MEDS ORDERED: DEXTROSE IVPB SCH (09:00)
[2018-05-08] MEDS ORDERED: Patient's Own Med (Vancomycin/0.9 % Sod Chloride [Vanco 1 Gram/150 Ml-0.9% Nacl] 1 GM) IV SCH (09:00)
[2018-05-08] MEDS ORDERED: CEFEPIME IVPB SCH (09:00)
[2018-05-08] MEDS: Multivitamin With Minerals Tab PO SCH (09:01)
--- NOTE | 2018-05-08 09:52 | CP.PCM.CON ---
History of Present Illness - History of Present Illness History of Present Illness: This 67-year-old male is well known to me from his admission in the acute medical floor/intensive care unit. He underwent revision of the right hip and on the first day postoperatively had submassive pulmonary embolism. He did have a urological procedure done approximately one week prior to his orthopedic surgery but did not inform anyone. He apparently had been bedbound for the week preceding his orthopedic surgery as well. He did well with standard anticoagulation initially using heparin and subsequently switching to Lovenox then Eliquis which he remains on currently at 10 mg by mouth twice daily. He has had some drop in his hemoglobin which did require transfusion of packed red blood cells without any evidence of overt bleeding. It is felt that there was probably some degree of blood oozing at the operative site because of the extensive repair that was required. He suffers from obstructive sleep apnea and uses nasal CPAP at home with a pressure of 15 cm of water. He does have his DME with him and will resume nightly use. Past Patient History - Infectious Disease Hx of Infectious Diseases: None - Tetanus Immunizations Tetanus Immunization: Unknown - Past Medical History & Family History Past Medical History?: Yes - Past Social History Smoking Status: Never Smoked Chewing Tobacco Use: No Cigar Use: No Alcohol: Social Drugs: Denies - CARDIAC Hx Hypercholesterolemia: Yes Hx Hypertension: Yes - PULMONARY Hx Pulmonary Embolism: Yes Hx Sleep Apnea: Yes (uses c-pap) - NEUROLOGICAL Hx Neurological Disorder: No - HEENT Hx HEENT Problems: No - RENAL Hx Chronic Kidney Disease: Yes Other/Comment: frequent urination - ENDOCRINE/METABOLIC Hx Endocrine Disorders: No - HEMATOLOGICAL/ONCOLOGICAL Hx Anemia: Yes Hx Blood Transfusions: Yes - INTEGUMENTARY Hx Dermatological Problems: No - MUSCULOSKELETAL/RHEUMATOLOGICAL Hx Arthritis: Yes Hx Falls: No Hx Gout: Yes Hx Osteoarthritis: Yes - GASTROINTESTINAL Hx Gastrointestinal Disorders: No - GENITOURINARY/GYNECOLOGICAL Hx Prostate Problems: Yes - PSYCHIATRIC Hx Psychophysiologic Disorder: No Hx Substance Use: No - SURGICAL HISTORY Hx Appendectomy: Yes Hx Cholecystectomy: Yes Hx Herniorrhaphy: Yes (Left ventral) Hx Joint Replacement: Yes (MIKEY THR) Hx Musculoskeletal Surgery: Yes (Right Biceps and Rotator Cuff Repair after Trauma) Hx Orthopedic Surgery: Yes (Right arm biceps repair) Other/Comment: Right Hip replacement. urolift - ANESTHESIA Hx Anesthesia: Yes Hx Anesthesia Reactions: Yes (difficulty voiding post op) Hx Malignant Hyperthermia: No Meds Allergies/Adverse Reactions: Allergies Allergy/AdvReac Type Severity Reaction Status Date / Time acetaminophen [From Percocet] Allergy RASH Verified 04/29/18 07:45 oxycodone [From Percocet] Allergy RASH Verified 04/29/18 07:45 - Medications Medications: Current Medications Acetaminophen (Tylenol 325mg Tab) 650 mg PO Q6 PRN PRN Reason: Fever >100.4 F Amlodipine Besylate (Norvasc) 5 mg PO DAILY [facility] Last Admin: 05/08/18 09:02 Dose: 5 mg Apixaban (Eliquis) 10 mg PO BID [facility] PRN Reason: Protocol Last Admin: 05/08/18 09:01 Dose: 10 mg Atorvastatin Calcium (Lipitor) 20 mg PO [facility] Bisacodyl (Dulcolax) 10 mg [place] DAILY PRN PRN Reason: Constipation Clotrimazole (Lotrimin 1% Cream) 1 applic TOP BID [facility] Last Admin: 05/08/18 08:59 Dose: 1 u Cyclobenzaprine HCl (Flexeril) 5 mg PO TID PRN PRN Reason: Muscle spasm Last Admin: 05/07/18 23:24 Dose: 5 mg Docusate Sodium (Colace) 200 mg PO BID [facility] Last Admin: 05/08/18 09:00 Dose: 200 mg Hydromorphone HCl (Dilaudid) 0.5 mg PO Q4 PRN PRN Reason: Pain, moderate (4-7) Last Admin: 05/08/18 05:09 Dose: 0.5 mg Cefepime HCl 1 gm/ Sodium (Chloride) 100 mls @ 100 mls/hr IVPB Q12@0500,1700 [facility] Last Admin: 05/08/18 05:28 Dose: 100 mls/hr Vancomycin HCl 1 gm/ Sodium (Chloride) 250 mls @ 166.667 mls/hr IVPB Q12 [facility] Last Admin: 05/08/18 09:07 Dose: 166.667 mls/hr Multivitamins/Minerals (Therapeutic-M Tab) 1 tab PO DAILY [facility] Last Admin: 05/08/18 09:01 Dose: 1 tab Oxybutynin Chloride (Ditropan Tab) 10 mg PO DAILY [facility] Last Admin: 05/08/18 09:01 Dose: 10 mg Tamsulosin HCl (Flomax) 0.4 mg PO DAILY [facility] Last Admin: 05/08/18 09:01 Dose: 0.4 mg Physical Exam - Additional Findings Additional findings: Well-nourished, well-developed, in no acute distress. He appears relatively comfortable during the examination. His memory is intact and his speech is fluent. The pharynx is pink and mucous membranes are moist without exudate. The neck is supple trachea is midline. No neck vein distention or carotid bruit. No dullness on chest percussion. Equal expansion. Breath sounds appear well heard bilaterally without any audible wheezing. Few scattered basal rales are heard posteriorly. No bronchial breath sounds or egophony. No rub. Heart sounds are well heard and the rhythm is regular. No murmur. Abdomen is soft and nontender with normal bowel sounds. A large surgical dressing is applied to the right hip and there is noted to be significant edema in the right side. No visible ecchymosis or bleeding. Results - Vital Signs Recent Vital Signs: Last Vital Signs Temp 98.2 F 05/08/18 07:51 Pulse 85 05/08/18 09:02 Resp 20 05/08/18 07:51 BP 137/79 05/08/18 09:02 Pulse Ox 97 05/08/18 07:51 Assessment & Plan (1) DJD (degenerative joint disease) Assessment and Plan: S/P revision prior right hip replacement. Status: Chronic Priority: High (2) Obstructive sleep apnea Assessment and Plan: To use nCPAP from home. Status: Chronic Priority: High (3) Pulmonary emboli Assessment and Plan: Sub-massive PE; hemodynamically stable Status: Acute Priority: High Comment: Continue [id number] mg by mouth twice a day for the first week, after which the dose will be reduced to 5 mg twice a day for 3 months. Monitor hemoglobin and hematocrit. - Date & Time Date: 05/08/18 Time: 09:52
--- NOTE | 2018-05-08 10:22 | CP.PCM.CON ---
History of Present Illness - History of Present Illness History of Present Illness: IC- 67 yo male CC- s/pcomplex R THR Reision s/p PE HPI- 67 yp male s/p complex R THR revision- presents to TCU after mgmet of hip reconstruction and mgmt of massive pt comfortable at time of eval Past Patient History - Infectious Disease Hx of Infectious Diseases: None - Tetanus Immunizations Tetanus Immunization: Unknown - Past Medical History & Family History Past Medical History?: Yes - Past Social History Smoking Status: Never Smoked - CARDIAC Hx Cardiac Disorders: Yes Hx Hypercholesterolemia: Yes Hx Hypertension: Yes - PULMONARY Hx Respiratory Disorders: No Hx Pulmonary Embolism: Yes Hx Sleep Apnea: Yes (uses c-pap) - NEUROLOGICAL Hx Neurological Disorder: No - HEENT Hx HEENT Problems: No - RENAL Hx Chronic Kidney Disease: Yes Other/Comment: frequent urination - ENDOCRINE/METABOLIC Hx Endocrine Disorders: No - HEMATOLOGICAL/ONCOLOGICAL Hx Blood Disorders: No Hx Blood Transfusions: Yes - INTEGUMENTARY Hx Dermatological Problems: No - MUSCULOSKELETAL/RHEUMATOLOGICAL Hx Musculoskeletal Disorders: Yes Hx Arthritis: Yes Hx Falls: No Hx Gout: Yes Hx Osteoarthritis: Yes - GASTROINTESTINAL Hx Gastrointestinal Disorders: No - GENITOURINARY/GYNECOLOGICAL Hx Genitourinary Disorders: Yes Hx Prostate Problems: Yes - PSYCHIATRIC Hx Psychophysiologic Disorder: No Hx Substance Use: No - SURGICAL HISTORY Hx Surgeries: Yes Hx Appendectomy: Yes Hx Cholecystectomy: Yes Hx Herniorrhaphy: Yes (Left ventral) Hx Joint Replacement: Yes (MIKEY THR) Hx Musculoskeletal Surgery: Yes (Right Biceps and Rotator Cuff Repair after Trauma) Hx Orthopedic Surgery: Yes (Right arm biceps repair) Other/Comment: Right Hip replacement. urolift - ANESTHESIA Hx Anesthesia: Yes Hx Anesthesia Reactions: Yes (difficulty voiding post op) Hx Malignant Hyperthermia: No Meds Allergies/Adverse Reactions: Allergies Allergy/AdvReac Type Severity Reaction Status Date / Time acetaminophen [From Percocet] Allergy RASH Verified 04/29/18 07:45 oxycodone [From Percocet] Allergy RASH Verified 04/29/18 07:45 - Medications Medications: Current Medications Acetaminophen (Tylenol 325mg Tab) 650 mg PO Q6 PRN PRN Reason: Fever >100.4 F Amlodipine Besylate (Norvasc) 5 mg PO DAILY [facility] Last Admin: 05/08/18 09:02 Dose: 5 mg Apixaban (Eliquis) 10 mg PO BID [facility] PRN Reason: Protocol Last Admin: 05/08/18 09:01 Dose: 10 mg Atorvastatin Calcium (Lipitor) 20 mg PO HS [facility] Bisacodyl (Dulcolax) 10 mg [place] DAILY PRN PRN Reason: Constipation Last Admin: 05/08/18 10:07 Dose: 10 mg Clotrimazole (Lotrimin 1% Cream) 1 applic TOP BID [facility] Last Admin: 05/08/18 08:59 Dose: 1 u Cyclobenzaprine HCl (Flexeril) 5 mg PO TID PRN PRN Reason: Muscle spasm Last Admin: 05/07/18 23:24 Dose: 5 mg Docusate Sodium (Colace) 200 mg PO BID [facility] Last Admin: 05/08/18 09:00 Dose: 200 mg Hydromorphone HCl (Dilaudid) 0.5 mg PO Q4 PRN PRN Reason: Pain, moderate (4-7) Last Admin: 05/08/18 10:04 Dose: 0.5 mg Cefepime HCl 1 gm/ Sodium (Chloride) 100 mls @ 100 mls/hr IVPB Q12@0500,1700 [facility] Last Admin: 05/08/18 05:28 Dose: 100 mls/hr Vancomycin HCl 1 gm/ Sodium (Chloride) 250 mls @ 166.667 mls/hr IVPB Q12 [facility] Last Admin: 05/08/18 09:07 Dose: 166.667 mls/hr Multivitamins/Minerals (Therapeutic-M Tab) 1 tab PO DAILY [facility] Last Admin: 05/08/18 09:01 Dose: 1 tab Oxybutynin Chloride (Ditropan Tab) 10 mg PO DAILY [facility] Last Admin: 05/08/18 09:01 Dose: 10 mg Tamsulosin HCl (Flomax) 0.4 mg PO DAILY [facility] Last Admin: 05/08/18 09:01 Dose: 0.4 mg Physical Exam - Additional Findings Additional findings: Physical exam systemic- pt comfortable at bedrest rspirations WITHOUT sterna; fetraction pt feeling better Musculskeltal stance/gait- deferred wound improved N/V intact no active drainage at thi spoint Results - Vital Signs Recent Vital Signs: Last Vital Signs Temp 98.2 F 05/08/18 07:51 Pulse 85 05/08/18 09:02 Resp 20 05/08/18 07:51 BP 137/79 05/08/18 09:02 Pulse Ox 97 05/08/18 07:51 Assessment & Plan - Assessment and Plan (Free Text) Assessment: A- s/p Revision THR s/p PE P_ 10 pcent foort flat weight bearing with walker
--- NOTE | 2018-05-08 10:39 | CP.PCM.PN ---
Subjective - Date & Time of Evaluation Date of Evaluation: 05/08/18 Time of Evaluation: 07:20 Objective - Vital Signs/Intake and Output Vital Signs (last 24 hours): Temp Pulse Resp BP Pulse Ox 98.2 F 85 20 137/79 97 05/08/18 07:51 05/08/18 09:02 05/08/18 07:51 05/08/18 09:02 05/08/18 07:51 - Medications Medications: Current Medications Acetaminophen (Tylenol 325mg Tab) 650 mg PO Q6 PRN PRN Reason: Fever >100.4 F Amlodipine Besylate (Norvasc) 5 mg PO DAILY [facility] Last Admin: 05/08/18 09:02 Dose: 5 mg Apixaban (Eliquis) 10 mg PO BID [facility] PRN Reason: Protocol Last Admin: 05/08/18 09:01 Dose: 10 mg Atorvastatin Calcium (Lipitor) 20 mg PO HS [facility] Bisacodyl (Dulcolax) 10 mg [facility] DAILY PRN PRN Reason: Constipation Last Admin: 05/08/18 10:07 Dose: 10 mg Clotrimazole (Lotrimin 1% Cream) 1 applic TOP BID [facility] Last Admin: 05/08/18 08:59 Dose: 1 u Cyclobenzaprine HCl (Flexeril) 5 mg PO TID PRN PRN Reason: Muscle spasm Last Admin: 05/07/18 23:24 Dose: 5 mg Docusate Sodium (Colace) 200 mg PO BID [facility] Last Admin: 05/08/18 09:00 Dose: 200 mg Hydromorphone HCl (Dilaudid) 0.5 mg PO Q4 PRN PRN Reason: Pain, moderate (4-7) Last Admin: 05/08/18 10:04 Dose: 0.5 mg Cefepime HCl 1 gm/ Sodium (Chloride) 100 mls @ 100 mls/hr IVPB Q12@0500,1700 [facility] Last Admin: 05/08/18 05:28 Dose: 100 mls/hr Vancomycin HCl 1 gm/ Sodium (Chloride) 250 mls @ 166.667 mls/hr IVPB Q12 [facility] Last Admin: 05/08/18 09:07 Dose: 166.667 mls/hr Multivitamins/Minerals (Therapeutic-M Tab) 1 tab PO DAILY [facility] Last Admin: 05/08/18 09:01 Dose: 1 tab Oxybutynin Chloride (Ditropan Tab) 10 mg PO DAILY [facility] Last Admin: 05/08/18 09:01 Dose: 10 mg Tamsulosin HCl (Flomax) 0.4 mg PO DAILY [facility] Last Admin: 05/08/18 09:01 Dose: 0.4 mg
--- NOTE | 2018-05-08 12:41 | CP.PCM.HP ---
History of Present Illness - History of Present Illness History of Present Illness: 67 yo male with history of bilateral hip replacement, HTN, HLD, BPH and Gout was admitted and had revision of right THR on 04/29/18 because of persistent pain on the right hip. 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 CT scan angio was positive for bilateral extensive PE with right heart strain. Patient was started immediately on therapeutic IV Heparin and sent to ICU for management and monitoring. Heparin was switched to therapeutic SC Lovenox then oral Eliquiz. In spite of continuous IV Cefazolin surgical wound got infected. Antibiotic was switched to Cepefime and Vanco. ID was also consulted. When he was hemodynamically stable he was transferred to TCU for continuation of IV antibiotics and therapy. Present on Admission - Present on Admission Any Indicators Present on Admission: No History of DVT/PE: No History of Uncontrolled Diabetes: No Urinary Catheter: No Decubitus Ulcer Present: No Review of Systems - Review of Systems All systems: reviewed and no additional remarkable complaints except (aside from those mentioned above, 12 point system review were negative by me) Past Patient History - Infectious Disease Hx of Infectious Diseases: None - Tetanus Immunizations Tetanus Immunization: Unknown - Past Medical History & Family History Past Medical History?: Yes - Past Social History Smoking Status: Never Smoked Chewing Tobacco Use: No Cigar Use: No Alcohol: None Drugs: Denies - CARDIAC Hx Cardiac Disorders: Yes Hx Hypercholesterolemia: Yes Hx Hypertension: Yes - PULMONARY Hx Respiratory Disorders: No Hx Pulmonary Embolism: Yes Hx Sleep Apnea: Yes (uses c-pap) - NEUROLOGICAL Hx Neurological Disorder: No - HEENT Hx HEENT Problems: No - RENAL Hx Chronic Kidney Disease: Yes Other/Comment: frequent urination - ENDOCRINE/METABOLIC Hx Endocrine Disorders: No - HEMATOLOGICAL/ONCOLOGICAL Hx Blood Disorders: No Hx Blood Transfusions: Yes - INTEGUMENTARY Hx Dermatological Problems: No - MUSCULOSKELETAL/RHEUMATOLOGICAL Hx Musculoskeletal Disorders: Yes Hx Arthritis: Yes Hx Falls: No Hx Gout: Yes Hx Osteoarthritis: Yes - GASTROINTESTINAL Hx Gastrointestinal Disorders: No - GENITOURINARY/GYNECOLOGICAL Hx Genitourinary Disorders: Yes Hx Prostate Problems: Yes - PSYCHIATRIC Hx Psychophysiologic Disorder: No Hx Substance Use: No - SURGICAL HISTORY Hx Surgeries: Yes Hx Appendectomy: Yes Hx Cholecystectomy: Yes Hx Herniorrhaphy: Yes (Left ventral) Hx Joint Replacement: Yes (MIKEY THR) Hx Musculoskeletal Surgery: Yes (Right Biceps and Rotator Cuff Repair after Trauma) Hx Orthopedic Surgery: Yes (Right arm biceps repair) Other/Comment: Right Hip replacement. urolift - ANESTHESIA Hx Anesthesia: Yes Hx Anesthesia Reactions: Yes (difficulty voiding post op) Hx Malignant Hyperthermia: No Meds Allergies/Adverse Reactions: Allergies Allergy/AdvReac Type Severity Reaction Status Date / Time acetaminophen [From Percocet] Allergy RASH Verified 04/29/18 07:45 oxycodone [From Percocet] Allergy RASH Verified 04/29/18 07:45 Physical Exam - Constitutional Appears: No Acute Distress - Head Exam Head Exam: ATRAUMATIC - Eye Exam Eye Exam: absent: Scleral icterus - ENT Exam ENT Exam: Mucous Membranes Moist - Neck Exam Neck exam: Negative for: Meningismus - Respiratory Exam Respiratory Exam: absent: Rales, Rhonchi, Wheezes, Respiratory Distress - Cardiovascular Exam Cardiovascular Exam: REGULAR RHYTHM, +S1, +S2 - GI/Abdominal Exam GI & Abdominal Exam: Soft. absent: Tenderness - Rectal Exam Rectal Exam: Deferred - Extremities Exam Extremities exam: Negative for: full ROM (limited ROM on right hip) - Neurological Exam Neurological exam: Alert, Oriented x3 - Psychiatric Exam Psychiatric exam: Normal Affect - Skin Skin Exam: Dry, Intact Results - Vital Signs Recent Vital Signs: Last Vital Signs Temp 98.2 F 05/08/18 07:51 Pulse 85 05/08/18 11:24 Resp 20 05/08/18 07:51 BP 137/79 05/08/18 11:24 Pulse Ox 98 05/08/18 11:24 Assessment & Plan - Assessment and Plan (Free Text) Assessment: 67 yo male with history of bilateral hip replacement, HTN, HLD, BPH and Gout was admitted and had revision of right THR on 04/29/18 because of persistent pain on the right hip. 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 CT scan angio was positive for bilateral extensive PE with right heart strain. Patient was started immediately on therapeutic IV Heparin and sent to ICU for management and monitoring. Heparin was switched to therapeutic [place] Lovenox then oral Eliquiz. In spite of continuous IV Cefazolin surgical wound got infected. Antibiotic was switched to Cepefime and Vanco. ID was also consulted. When he was hemodynamically stable he was transferred to TCU for continuation of IV antibiotics and therapy. 1. Bilateral Pulmonary Emboli continue Eliquis 10mg PO BID 2. Post Revision of Right THR afebrile but still with leukocytosis no active drainage ID consult with Dr Cheung orthopedict consult with Dr Edwards continue PT continue pain management 3. Anemia secondary to blood loss from surgery Hgb: 9.6 4. HTN BP stable continue Amlodipine 5. BPH urinary retention resolved continue Oxybutynin and Flomax 6. HLD continue Atorvastatin
[2018-05-08 17:19] LABS: BASO # 0.1 K/uL (0.0-0.2); BASO % 0.6 % (0.0-2.0); EOS # 0.5 K/uL (0.0-0.7); EOS % 2.9 % (0.0-4.0); HEMOGLOBIN 10.9 g/dL (12.0-18.0); LYMPH # 1.7 K/uL (1.0-4.3); LYMPH % 10.8 % (20.0-40.0); MEAN CELL VOLUME 88.7 fl (80.0-94.0); MEAN CORPUSCULAR HEMOGLOBIN 29.6 pg (27.0-31.0); MEAN CORPUSCULAR HGB CONC 33.3 g/dL (33.0-37.0); MEAN PLATELET VOLUME 7.9 fl (7.2-11.7); MONO # 1.6 K/uL (0.0-0.8); MONO % 9.6 % (0.0-10.0); NEUT # 12.3 K/uL (1.8-7.0); NEUT % 76.1 % (50.0-75.0); NRBC % 0.4 % (0.0-0.0); RBC 3.69 Mil/uL (4.40-5.90); RED CELL DISTRIBUTION WIDTH 13.9 % (11.5-14.5); WHITE BLOOD COUNT 16.2 K/uL (4.8-10.8)
[2018-05-08 17:44] LABS: ALBUMIN 3.1 g/dL (3.5-5.0); ALT/SGPT 44 U/L (21-72); AST/SGOT 65 U/L (17-59); BLOOD UREA NITROGEN 12 mg/dl (9-20); CALCIUM 8.6 mg/dL (8.4-10.2); GFR NON-AFRICAN AMERICAN > 60
--- NOTE | 2018-05-08 22:59 | CP.PCM.PN ---
Subjective - Date & Time of Evaluation Date of Evaluation: 05/08/18 Time of Evaluation: 22:57 - Subjective Subjective: UROLOGY Pt seen in follow up. He is currently voiding well with no dysuria or difficulty voiding. He is urologically stable at this time will only need routine outpatient follow up Objective - Vital Signs/Intake and Output Vital Signs (last 24 hours): Temp Pulse Resp BP Pulse Ox 99.0 F 79 20 126/65 97 05/08/18 19:22 05/08/18 19:22 05/08/18 19:22 05/08/18 19:22 05/08/18 19:22 - Medications Medications: Current Medications Acetaminophen (Tylenol 325mg Tab) 650 mg PO Q6 PRN PRN Reason: Fever >100.4 F Amlodipine Besylate (Norvasc) 5 mg PO DAILY [facility] Last Admin: 05/08/18 09:02 Dose: 5 mg Apixaban (Eliquis) 10 mg PO BID [facility] PRN Reason: Protocol Last Admin: 05/08/18 17:21 Dose: 10 mg Atorvastatin Calcium (Lipitor) 20 mg PO HS [facility] Last Admin: 05/08/18 21:10 Dose: 20 mg Bisacodyl (Dulcolax) 10 mg [facility] DAILY PRN PRN Reason: Constipation Last Admin: 05/08/18 10:07 Dose: 10 mg Clotrimazole (Lotrimin 1% Cream) 1 applic TOP BID [facility] Last Admin: 05/08/18 17:24 Dose: 1 u Cyclobenzaprine HCl (Flexeril) 5 mg PO TID PRN PRN Reason: Muscle spasm Last Admin: 05/07/18 23:24 Dose: 5 mg Docusate Sodium (Colace) 200 mg PO BID [facility] Last Admin: 05/08/18 17:20 Dose: 200 mg Hydromorphone HCl (Dilaudid) 0.5 mg PO Q4 PRN PRN Reason: Pain, moderate (4-7) Last Admin: 05/08/18 10:04 Dose: 0.5 mg Cefepime HCl 1 gm/ Sodium (Chloride) 100 mls @ 100 mls/hr IVPB Q12@0500,1700 [facility] Last Admin: 05/08/18 17:24 Dose: 100 mls/hr Vancomycin HCl 1 gm/ Sodium (Chloride) 250 mls @ 166.667 mls/hr IVPB Q12 [facility] Last Admin: 05/08/18 21:10 Dose: 166.667 mls/hr Multivitamins/Minerals (Therapeutic-M Tab) 1 tab PO DAILY [facility] Last Admin: 05/08/18 09:01 Dose: 1 tab Oxybutynin Chloride (Ditropan Tab) 10 mg PO DAILY [facility] Last Admin: 05/08/18 09:01 Dose: 10 mg Psyllium Hydrophilic Mucilloid (Hydrocil Instant) 1 pkt PO DAILY [facility] Tamsulosin HCl (Flomax) 0.4 mg PO DAILY [facility] Last Admin: 05/08/18 09:01 Dose: 0.4 mg - Labs Labs: 05/08/18 17:04 05/08/18 17:04
[2018-05-09] MEDS: CEFEPIME IVPB SCH ×2 (05:38→17:22)
[2018-05-09] MEDS: NS IVPB SCH ×2 (05:38→17:22)
[2018-05-09 07:38] LABS: BLOOD UREA NITROGEN 12 mg/dl (9-20); CALCIUM 8.5 mg/dL (8.4-10.2); GFR NON-AFRICAN AMERICAN > 60
[2018-05-09 07:40] LABS: BASO # 0.1 K/uL (0.0-0.2); BASO % 0.8 % (0.0-2.0); EOS # 0.7 K/uL (0.0-0.7); HEMOGLOBIN 10.3 g/dL (12.0-18.0); LYMPH # 1.7 K/uL (1.0-4.3); LYMPH % 12.9 % (20.0-40.0); MEAN CELL VOLUME 89.3 fl (80.0-94.0); MEAN CORPUSCULAR HEMOGLOBIN 29.4 pg (27.0-31.0); MEAN PLATELET VOLUME 8.7 fl (7.2-11.7); MONO # 1.4 K/uL (0.0-0.8); MONO % 10.6 % (0.0-10.0); NEUT # 9.5 K/uL (1.8-7.0); NEUT % 70.7 % (50.0-75.0); RBC 3.5 Mil/uL (4.40-5.90); WHITE BLOOD COUNT 13.4 K/uL (4.8-10.8)
--- NOTE | 2018-05-09 07:40 | CARD ---
APPROVED REPORT Date of service: 05/08/2018 EKG Measurement Heart [id number] <Conclusion> Normal sinus rhythm Normal ECG
--- NOTE | 2018-05-09 08:27 | RAD ---
Date of service: 05/08/2018 HISTORY: chest pain COMPARISON: Portable chest 05/02/2018. FINDINGS: LUNGS: Linear atelectasis identified in the inferior left base. Remaining lung morales are clear. PLEURA: No significant pleural effusion identified, no pneumothorax apparent. CARDIOVASCULAR: Normal. OSSEOUS STRUCTURES: No significant abnormalities. VISUALIZED UPPER ABDOMEN: Normal. OTHER FINDINGS: None. IMPRESSION: Linear atelectasis left base. No definite acute infiltrate pleural effusion or pneumothorax identified. No pulmonary vascular congestion.
[2018-05-09] MEDS: Psyllium Packet PO SCH (09:05)
[2018-05-09] MEDS: Multivitamin With Minerals Tab PO SCH (09:07)
--- NOTE | 2018-05-09 10:34 | CP.PCM.PN ---
Subjective - Date & Time of Evaluation Date of Evaluation: 05/09/18 Time of Evaluation: 10:31 - Subjective Subjective: Seen on morning rounds in TCU. Seated in bedside chair, appears comfortable. Slept fairly well last night using his own nCPAP. Was able to do well with physical therapy yesterday. Vital signs remain stable, continues to be afebrile. WBC still elevated, but trending downwards. Had some transient left upper chest pain yesterday, EKG/CXR/trop noted. Breath sounds are diminished slightly bilaterally. No rales, rhonchi or wheezes heard. No rub. Heart sounds slightly dimimnished, regular. Doing well post PE. Continue Eliquis 10MG BID for two more days. Begin 5MG BID on 05/12/18. Continue Eliquis for three months if no coagulopathy. Objective - Vital Signs/Intake and Output Vital Signs (last 24 hours): Temp Pulse Resp BP Pulse Ox 98.4 F 79 18 139/71 98 05/09/18 08:15 05/09/18 09:08 05/09/18 08:15 05/09/18 09:08 05/09/18 08:15 - Medications Medications: Current Medications Acetaminophen (Tylenol 325mg Tab) 650 mg PO Q6 PRN PRN Reason: Fever >100.4 F Amlodipine Besylate (Norvasc) 5 mg PO DAILY [facility] Last Admin: 05/09/18 09:08 Dose: 5 mg Apixaban (Eliquis) 10 mg PO BID [facility] PRN Reason: Protocol Last Admin: 05/09/18 09:05 Dose: 10 mg Atorvastatin Calcium (Lipitor) 20 mg PO HS [facility] Last Admin: 05/08/18 21:10 Dose: 20 mg Bisacodyl (Dulcolax) 10 mg [place] DAILY PRN PRN Reason: Constipation Last Admin: 05/08/18 10:07 Dose: 10 mg Clotrimazole (Lotrimin 1% Cream) 1 applic TOP BID [facility] Last Admin: 05/09/18 09:06 Dose: 1 u Cyclobenzaprine HCl (Flexeril) 5 mg PO TID PRN PRN Reason: Muscle spasm Last Admin: 05/07/18 23:24 Dose: 5 mg Docusate Sodium (Colace) 200 mg PO BID [facility] Last Admin: 05/09/18 09:03 Dose: 200 mg Hydromorphone HCl (Dilaudid) 0.5 mg PO Q4 PRN PRN Reason: Pain, moderate (4-7) Last Admin: 05/08/18 10:04 Dose: 0.5 mg Cefepime HCl 1 gm/ Sodium (Chloride) 100 mls @ 100 mls/hr IVPB Q12@0500,1700 [facility] Last Admin: 05/09/18 05:38 Dose: 100 mls/hr Vancomycin HCl 1 gm/ Sodium (Chloride) 250 mls @ 166.667 mls/hr IVPB Q12 [facility] Last Admin: 05/09/18 09:09 Dose: 166.667 mls/hr Multivitamins/Minerals (Therapeutic-M Tab) 1 tab PO DAILY [facility] Last Admin: 05/09/18 09:07 Dose: 1 tab Oxybutynin Chloride (Ditropan Tab) 10 mg PO DAILY [facility] Last Admin: 05/09/18 09:04 Dose: 10 mg Psyllium Hydrophilic Mucilloid (Hydrocil Instant) 1 pkt PO DAILY [facility] Last Admin: 05/09/18 09:05 Dose: 1 pkt Tamsulosin HCl (Flomax) 0.4 mg PO DAILY [facility] Last Admin: 05/09/18 09:05 Dose: 0.4 mg - Labs Labs: 05/09/18 07:14 05/09/18 07:14 Assessment and Plan (1) DJD (degenerative joint disease) Status: Chronic (2) Obstructive sleep apnea Status: Chronic (3) Pulmonary emboli Status: Acute
--- NOTE | 2018-05-09 11:22 | CP.PCM.PN ---
Subjective - Date & Time of Evaluation Date of Evaluation: 05/09/18 Time of Evaluation: 07:20 - Subjective Subjective: Patient seen and examined at bedside comfortable. Pain well controlled. Denies CP/SOB/fever/dizziness. No other complaints. Objective - Vital Signs/Intake and Output Vital Signs (last 24 hours): Temp Pulse Resp BP Pulse Ox 98.4 F 79 18 139/71 98 05/09/18 08:15 05/09/18 09:08 05/09/18 08:15 05/09/18 09:08 05/09/18 08:15 - Medications Medications: Current Medications Acetaminophen (Tylenol 325mg Tab) 650 mg PO Q6 PRN PRN Reason: Fever >100.4 F Amlodipine Besylate (Norvasc) 5 mg PO DAILY [facility] Last Admin: 05/09/18 09:08 Dose: 5 mg Apixaban (Eliquis) 10 mg PO BID [facility] PRN Reason: Protocol Last Admin: 05/09/18 09:05 Dose: 10 mg Atorvastatin Calcium (Lipitor) 20 mg PO HS [facility] Last Admin: 05/08/18 21:10 Dose: 20 mg Bisacodyl (Dulcolax) 10 mg [place] DAILY PRN PRN Reason: Constipation Last Admin: 05/08/18 10:07 Dose: 10 mg Clotrimazole (Lotrimin 1% Cream) 1 applic TOP BID [facility] Last Admin: 05/09/18 09:06 Dose: 1 u Cyclobenzaprine HCl (Flexeril) 5 mg PO TID PRN PRN Reason: Muscle spasm Last Admin: 05/07/18 23:24 Dose: 5 mg Docusate Sodium (Colace) 200 mg PO BID [facility] Last Admin: 05/09/18 09:03 Dose: 200 mg Hydromorphone HCl (Dilaudid) 0.5 mg PO Q4 PRN PRN Reason: Pain, moderate (4-7) Last Admin: 05/08/18 10:04 Dose: 0.5 mg Cefepime HCl 1 gm/ Sodium (Chloride) 100 mls @ 100 mls/hr IVPB Q12@0500,1700 [facility] Last Admin: 05/09/18 05:38 Dose: 100 mls/hr Vancomycin HCl 1 gm/ Sodium (Chloride) 250 mls @ 166.667 mls/hr IVPB Q12 [facility] Last Admin: 05/09/18 09:09 Dose: 166.667 mls/hr Multivitamins/Minerals (Therapeutic-M Tab) 1 tab PO DAILY [facility] Last Admin: 05/09/18 09:07 Dose: 1 tab Oxybutynin Chloride (Ditropan Tab) 10 mg PO DAILY [facility] Last Admin: 05/09/18 09:04 Dose: 10 mg Psyllium Hydrophilic Mucilloid (Hydrocil Instant) 1 pkt PO DAILY [facility] Last Admin: 05/09/18 09:05 Dose: 1 pkt Tamsulosin HCl (Flomax) 0.4 mg PO DAILY [facility] Last Admin: 05/09/18 09:05 Dose: 0.4 mg - Labs Labs: 05/09/18 07:14 05/09/18 07:14 - Extremities Exam Additional comments: R hip: mild swelling wet to dry dressings intact, wound intact with sourav, no drainage sensation intact SP/DP/TN motor intact EHL/FHL/TA/G pedal pulses intact comps soft NT b/l Assessment and Plan (1) Status post right hip replacement Assessment & Plan: POD #10 s/p R revision JACK, acute b/l PE -changed wet to dry betadine dressings, wound dry. Dry dressing change tomorrow -PT/OT 10%FF WB -posterior hip precautions -abx as per ID -orthopedically stable -above d/w Dr. Edwards in agreement Status: Acute
--- NOTE | 2018-05-09 19:18 | CP.PCM.PN ---
Subjective - Date & Time of Evaluation Date of Evaluation: 05/09/18 Time of Evaluation: 17:00 - Subjective Subjective: Patient seen and examined. Chest pain had not re-appear. Objective - Vital Signs/Intake and Output Vital Signs (last 24 hours): Temp Pulse Resp BP Pulse Ox 98.1 F 95 H 20 116/64 98 05/09/18 15:33 05/09/18 15:33 05/09/18 15:33 05/09/18 15:33 05/09/18 15:33 - Medications Medications: Current Medications Acetaminophen (Tylenol 325mg Tab) 650 mg PO Q6 PRN PRN Reason: Fever >100.4 F Amlodipine Besylate (Norvasc) 5 mg PO DAILY [facility] Last Admin: 05/09/18 09:08 Dose: 5 mg Apixaban (Eliquis) 10 mg PO BID [facility] PRN Reason: Protocol Last Admin: 05/09/18 17:23 Dose: 10 mg Atorvastatin Calcium (Lipitor) 20 mg PO HS [facility] Last Admin: 05/08/18 21:10 Dose: 20 mg Bisacodyl (Dulcolax) 10 mg [place] DAILY PRN PRN Reason: Constipation Last Admin: 05/08/18 10:07 Dose: 10 mg Clotrimazole (Lotrimin 1% Cream) 1 applic TOP BID [facility] Last Admin: 05/09/18 17:22 Dose: 1 u Cyclobenzaprine HCl (Flexeril) 5 mg PO TID PRN PRN Reason: Muscle spasm Last Admin: 05/07/18 23:24 Dose: 5 mg Docusate Sodium (Colace) 200 mg PO BID [facility] Last Admin: 05/09/18 17:23 Dose: 200 mg Hydromorphone HCl (Dilaudid) 0.5 mg PO Q4 PRN PRN Reason: Pain, moderate (4-7) Last Admin: 05/08/18 10:04 Dose: 0.5 mg Cefepime HCl 1 gm/ Sodium (Chloride) 100 mls @ 100 mls/hr IVPB Q12@0500,1700 [facility] Last Admin: 05/09/18 17:22 Dose: 100 mls/hr Vancomycin HCl 1 gm/ Sodium (Chloride) 250 mls @ 166.667 mls/hr IVPB Q12 [facility] Last Admin: 05/09/18 09:09 Dose: 166.667 mls/hr Multivitamins/Minerals (Therapeutic-M Tab) 1 tab PO DAILY [facility] Last Admin: 05/09/18 09:07 Dose: 1 tab Oxybutynin Chloride (Ditropan Tab) 10 mg PO DAILY [facility] Last Admin: 05/09/18 09:04 Dose: 10 mg Psyllium Hydrophilic Mucilloid (Hydrocil Instant) 1 pkt PO DAILY [facility] Last Admin: 05/09/18 09:05 Dose: 1 pkt Tamsulosin HCl (Flomax) 0.4 mg PO DAILY [facility] Last Admin: 05/09/18 09:05 Dose: 0.4 mg - Labs Labs: 05/09/18 07:14 05/09/18 07:14 - Constitutional Appears: No Acute Distress - Head Exam Head Exam: ATRAUMATIC - Eye Exam Eye Exam: absent: Scleral icterus - ENT Exam ENT Exam: Mucous Membranes Moist - Neck Exam Neck Exam: absent: Meningismus - Respiratory Exam Respiratory Exam: absent: Rales, Rhonchi, Wheezes, Respiratory Distress - Cardiovascular Exam Cardiovascular Exam: REGULAR RHYTHM, +S1, +S2 - GI/Abdominal Exam GI & Abdominal Exam: Soft. absent: Tenderness - Rectal Exam Rectal Exam: Deferred - Extremities Exam Extremities Exam: absent: Full ROM (limited ROM on right hip) - Back Exam Back Exam: NORMAL INSPECTION - Neurological Exam Neurological Exam: Alert, Oriented x3 - Psychiatric Exam Psychiatric exam: Normal Affect - Skin Skin Exam: Dry, Intact Assessment and Plan - Assessment and Plan (Free Text) Assessment: 67 yo male with history of bilateral hip replacement, HTN, HLD, BPH and Gout was admitted and had revision of right THR on 04/29/18 because of persistent pain on the right hip. Surgery went well but the next day [employer]FORMATION [employer] was called because of desaturation associated with SOB, diaphoresis, hypotension and tachycardia. CT scan angio was positive for bilateral extensive PE with right heart strain. Patient was started immediately on therapeutic IV Heparin and sent to ICU for management and monitoring. Heparin was switched to therapeutic [place] Lovenox then oral Eliquiz. In spite of continuous IV Cefazolin surgical wound got infected. Antibiotic was switched to Cepefime and Vanco. ID was also consulted. When he was hemodynamically stable he was transferred to TCU for continuation of IV antibiotics and therapy. 1. Bilateral Pulmonary Emboli continue Eliquis 10mg PO BID had chest pain yesterday but EKG and Troponin were within normal limit CXray: linear atelectasis on left base 2. Post Revision of Right THR leukocyte trending down no active drainage ID consult with Dr Cheung appreciated orthopedict consult with Dr Edwards continue PT continue pain management 3. Anemia secondary to blood loss from surgery Hgb: 10.3 4. HTN BP stable continue Amlodipine 5. BPH on Oxybutynin and Flomax 6. HLD continue Atorvastatin
[2018-05-10] MEDS: NS IVPB SCH ×2 (05:43→17:30)
[2018-05-10] MEDS: CEFEPIME IVPB SCH ×2 (05:43→17:30)
[2018-05-10 06:31] LABS: HEMOGLOBIN 10.2 g/dL (12.0-18.0); MEAN CELL VOLUME 88.4 fl (80.0-94.0); MEAN CORPUSCULAR HEMOGLOBIN 29.4 pg (27.0-31.0); MEAN CORPUSCULAR HGB CONC 33.2 g/dL (33.0-37.0); RBC 3.48 Mil/uL (4.40-5.90); RED CELL DISTRIBUTION WIDTH 14.1 % (11.5-14.5); WHITE BLOOD COUNT 14.4 K/uL (4.8-10.8)
--- NOTE | 2018-05-10 08:15 | CP.PCM.PN ---
Subjective - Date & Time of Evaluation Date of Evaluation: 05/10/18 Time of Evaluation: 08:00 - Subjective Subjective: S- pt MARKEDLY IMPROVED Objective - Vital Signs/Intake and Output Vital Signs (last 24 hours): Temp Pulse Resp BP Pulse Ox 98.1 F 73 20 129/69 99 05/10/18 07:39 05/10/18 07:39 05/10/18 07:39 05/10/18 07:39 05/10/18 07:39 - Medications Medications: Current Medications Acetaminophen (Tylenol 325mg Tab) 650 mg PO Q6 PRN PRN Reason: Fever >100.4 F Amlodipine Besylate (Norvasc) 5 mg PO DAILY [facility] Last Admin: 05/09/18 09:08 Dose: 5 mg Apixaban (Eliquis) 10 mg PO BID [facility] PRN Reason: Protocol Last Admin: 05/09/18 17:23 Dose: 10 mg Atorvastatin Calcium (Lipitor) 20 mg PO HS [facility] Last Admin: 05/09/18 22:07 Dose: 20 mg Bisacodyl (Dulcolax) 10 mg [place] DAILY PRN PRN Reason: Constipation Last Admin: 05/08/18 10:07 Dose: 10 mg Clotrimazole (Lotrimin 1% Cream) 1 applic TOP BID [facility] Last Admin: 05/09/18 17:22 Dose: 1 u Cyclobenzaprine HCl (Flexeril) 5 mg PO TID PRN PRN Reason: Muscle spasm Last Admin: 05/07/18 23:24 Dose: 5 mg Docusate Sodium (Colace) 200 mg PO BID [facility] Last Admin: 05/09/18 17:23 Dose: 200 mg Hydromorphone HCl (Dilaudid) 0.5 mg PO Q4 PRN PRN Reason: Pain, moderate (4-7) Last Admin: 05/08/18 10:04 Dose: 0.5 mg Cefepime HCl 1 gm/ Sodium (Chloride) 100 mls @ 100 mls/hr IVPB Q12@0500,1700 [facility] Last Admin: 05/10/18 05:43 Dose: 100 mls/hr Vancomycin HCl 1 gm/ Sodium (Chloride) 250 mls @ 166.667 mls/hr IVPB Q12 [facility] Last Admin: 05/09/18 21:30 Dose: 166.667 mls/hr Multivitamins/Minerals (Therapeutic-M Tab) 1 tab PO DAILY [facility] Last Admin: 05/09/18 09:07 Dose: 1 tab Oxybutynin Chloride (Ditropan Tab) 10 mg PO DAILY [facility] Last Admin: 05/09/18 09:04 Dose: 10 mg Psyllium Hydrophilic Mucilloid (Hydrocil Instant) 1 pkt PO DAILY [facility] Last Admin: 05/09/18 09:05 Dose: 1 pkt Tamsulosin HCl (Flomax) 0.4 mg PO DAILY [facility] Last Admin: 05/09/18 09:05 Dose: 0.4 mg - Labs Labs: 05/10/18 05:35 05/09/18 07:14 - Skin Additional comments: O pt comfortable at bedrest R hip wound benign no active drainage thigh soft- no evdience for active bleeding Assessment and Plan - Assessment and Plan (Free Text) Assessment: A- s/p successful Revision THR s/p masisve Pulmonary embolus P- orthopediclly stable continu 10 pcent weigth bearing with walker
[2018-05-10] MEDS: Psyllium Packet PO SCH (08:38)
[2018-05-10] MEDS: Multivitamin With Minerals Tab PO SCH (08:39)
--- NOTE | 2018-05-10 10:00 | CP.PCM.PN ---
Subjective - Date & Time of Evaluation Date of Evaluation: 05/10/18 Time of Evaluation: 09:58 - Subjective Subjective: Patient in PT, says pain is improving. NO new complaints. Objective - Vital Signs/Intake and Output Vital Signs (last 24 hours): Temp Pulse Resp BP Pulse Ox 98.1 F 73 20 129/69 99 05/10/18 07:39 05/10/18 08:39 05/10/18 07:39 05/10/18 08:39 05/10/18 07:39 - Medications Medications: Current Medications Acetaminophen (Tylenol 325mg Tab) 650 mg PO Q6 PRN PRN Reason: Fever >100.4 F Amlodipine Besylate (Norvasc) 5 mg PO DAILY [facility] Last Admin: 05/10/18 08:39 Dose: 5 mg Apixaban (Eliquis) 10 mg PO BID [facility] PRN Reason: Protocol Last Admin: 05/10/18 08:38 Dose: 10 mg Atorvastatin Calcium (Lipitor) 20 mg PO HS [facility] Last Admin: 05/09/18 22:07 Dose: 20 mg Bisacodyl (Dulcolax) 10 mg [place] DAILY PRN PRN Reason: Constipation Last Admin: 05/08/18 10:07 Dose: 10 mg Clotrimazole (Lotrimin 1% Cream) 1 applic TOP BID [facility] Last Admin: 05/10/18 08:38 Dose: 1 applic Cyclobenzaprine HCl (Flexeril) 5 mg PO TID PRN PRN Reason: Muscle spasm Last Admin: 05/07/18 23:24 Dose: 5 mg Docusate Sodium (Colace) 200 mg PO BID [facility] Last Admin: 05/10/18 08:37 Dose: 200 mg Hydromorphone HCl (Dilaudid) 0.5 mg PO Q4 PRN PRN Reason: Pain, moderate (4-7) Last Admin: 05/08/18 10:04 Dose: 0.5 mg Cefepime HCl 1 gm/ Sodium (Chloride) 100 mls @ 100 mls/hr IVPB Q12@0500,1700 [facility] Last Admin: 05/10/18 05:43 Dose: 100 mls/hr Vancomycin HCl 1 gm/ Sodium (Chloride) 250 mls @ 166.667 mls/hr IVPB Q12 [facility] Last Admin: 05/10/18 08:40 Dose: 166.667 mls/hr Multivitamins/Minerals (Therapeutic-M Tab) 1 tab PO DAILY [facility] Last Admin: 05/10/18 08:39 Dose: 1 tab Oxybutynin Chloride (Ditropan Tab) 10 mg PO DAILY [facility] Last Admin: 05/10/18 08:38 Dose: 10 mg Psyllium Hydrophilic Mucilloid (Hydrocil Instant) 1 pkt PO DAILY [facility] Last Admin: 05/10/18 08:38 Dose: 1 pkt Tamsulosin HCl (Flomax) 0.4 mg PO DAILY [facility] Last Admin: 05/10/18 08:38 Dose: 0.4 mg - Labs Labs: 05/10/18 05:35 05/09/18 07:14 - Extremities Exam Additional comments: Incision intact, no erythema. dry. Dry dressing applied. +ROM ankle/toes sensation intact, +DP/PT calves soft NT neg homans Assessment and Plan (1) Chronic hip pain after total replacement of hip joint Assessment & Plan: POD#11 s/p revision right hip replacement dry dressing change PT/OT orthopedically stable eliquis for PE cont post hip precautions d/w Dr. Edwards, agrees with above Status: Acute
--- NOTE | 2018-05-10 12:16 | CP.PCM.PN ---
Subjective - Date & Time of Evaluation Date of Evaluation: 05/10/18 Time of Evaluation: 12:14 - Subjective Subjective: Comfortable, sleeping fairly well. Using nCPAP nitely as directed. SpO2 93% at rest on room air. Vital signs remain stable, continues to be afebrile. Leukocytosis remains mildly elevated @ 14.4, Hgb is stable. RLE edema gradually decreasing, wound healing well w/o drainage. Participates with physical therapy. Last CXR from the was okay with a small area of subsegmental atelectasis at the left base. Will discuss with ortho and infectious disease regarding discharge. On Sunday his Eliquis should be changed to 5MG PO BID and continued for at least 3 months. Objective - Vital Signs/Intake and Output Vital Signs (last 24 hours): Temp Pulse Resp BP Pulse Ox 98.1 F 82 20 129/69 96 05/10/18 07:39 05/10/18 09:38 05/10/18 07:39 05/10/18 08:39 05/10/18 09:38 - Medications Medications: Current Medications Acetaminophen (Tylenol 325mg Tab) 650 mg PO Q6 PRN PRN Reason: Fever >100.4 F Amlodipine Besylate (Norvasc) 5 mg PO DAILY [facility] Last Admin: 05/10/18 08:39 Dose: 5 mg Apixaban (Eliquis) 10 mg PO BID [facility] PRN Reason: Protocol Last Admin: 05/10/18 08:38 Dose: 10 mg Atorvastatin Calcium (Lipitor) 20 mg PO HS [facility] Last Admin: 05/09/18 22:07 Dose: 20 mg Bisacodyl (Dulcolax) 10 mg [place] DAILY PRN PRN Reason: Constipation Last Admin: 05/08/18 10:07 Dose: 10 mg Clotrimazole (Lotrimin 1% Cream) 1 applic TOP BID [facility] Last Admin: 05/10/18 08:38 Dose: 1 applic Cyclobenzaprine HCl (Flexeril) 5 mg PO TID PRN PRN Reason: Muscle spasm Last Admin: 05/07/18 23:24 Dose: 5 mg Docusate Sodium (Colace) 200 mg PO BID [facility] Last Admin: 05/10/18 08:37 Dose: 200 mg Hydromorphone HCl (Dilaudid) 0.5 mg PO Q4 PRN PRN Reason: Pain, moderate (4-7) Last Admin: 05/08/18 10:04 Dose: 0.5 mg Cefepime HCl 1 gm/ Sodium (Chloride) 100 mls @ 100 mls/hr IVPB Q12@0500,1700 [facility] Last Admin: 05/10/18 05:43 Dose: 100 mls/hr Vancomycin HCl 1 gm/ Sodium (Chloride) 250 mls @ 166.667 mls/hr IVPB Q12 [facility] Last Admin: 05/10/18 08:40 Dose: 166.667 mls/hr Multivitamins/Minerals (Therapeutic-M Tab) 1 tab PO DAILY [facility] Last Admin: 05/10/18 08:39 Dose: 1 tab Oxybutynin Chloride (Ditropan Tab) 10 mg PO DAILY [facility] Last Admin: 05/10/18 08:38 Dose: 10 mg Psyllium Hydrophilic Mucilloid (Hydrocil Instant) 1 pkt PO DAILY [facility] Last Admin: 05/10/18 08:38 Dose: 1 pkt Tamsulosin HCl (Flomax) 0.4 mg PO DAILY [facility] Last Admin: 05/10/18 08:38 Dose: 0.4 mg - Labs Labs: 05/10/18 05:35 05/09/18 07:14 Assessment and Plan (1) DJD (degenerative joint disease) Status: Chronic (2) Obstructive sleep apnea Status: Chronic (3) Pulmonary emboli Status: Acute
--- NOTE | 2018-05-10 13:24 | CP.PCM.PN ---
Subjective - Date & Time of Evaluation Date of Evaluation: 05/10/18 Time of Evaluation: 10:00 - Subjective Subjective: no acute hip pain Objective - Vital Signs/Intake and Output Vital Signs (last 24 hours): Temp Pulse Resp BP Pulse Ox 98.1 F 82 20 129/69 96 05/10/18 07:39 05/10/18 09:38 05/10/18 07:39 05/10/18 08:39 05/10/18 09:38 - Medications Medications: Current Medications Acetaminophen (Tylenol 325mg Tab) 650 mg PO Q6 PRN PRN Reason: Fever >100.4 F Amlodipine Besylate (Norvasc) 5 mg PO DAILY [facility] Last Admin: 05/10/18 08:39 Dose: 5 mg Apixaban (Eliquis) 10 mg PO BID [facility] PRN Reason: Protocol Stop: 05/11/18 23:59 Last Admin: 05/10/18 08:38 Dose: 10 mg Apixaban (Eliquis) 5 mg PO BID [facility] PRN Reason: Protocol Atorvastatin Calcium (Lipitor) 20 mg PO HS [facility] Last Admin: 05/09/18 22:07 Dose: 20 mg Bisacodyl (Dulcolax) 10 mg [place] DAILY PRN PRN Reason: Constipation Last Admin: 05/08/18 10:07 Dose: 10 mg Clotrimazole (Lotrimin 1% Cream) 1 applic TOP BID [facility] Last Admin: 05/10/18 08:38 Dose: 1 applic Cyclobenzaprine HCl (Flexeril) 5 mg PO TID PRN PRN Reason: Muscle spasm Last Admin: 05/07/18 23:24 Dose: 5 mg Docusate Sodium (Colace) 200 mg PO BID [facility] Last Admin: 05/10/18 08:37 Dose: 200 mg Hydromorphone HCl (Dilaudid) 0.5 mg PO Q4 PRN PRN Reason: Pain, moderate (4-7) Last Admin: 05/08/18 10:04 Dose: 0.5 mg Cefepime HCl 1 gm/ Sodium (Chloride) 100 mls @ 100 mls/hr IVPB Q12@0500,1700 [facility] Last Admin: 05/10/18 05:43 Dose: 100 mls/hr Vancomycin HCl 1 gm/ Sodium (Chloride) 250 mls @ 166.667 mls/hr IVPB Q12 [facility] Last Admin: 05/10/18 08:40 Dose: 166.667 mls/hr Multivitamins/Minerals (Therapeutic-M Tab) 1 tab PO DAILY [facility] Last Admin: 05/10/18 08:39 Dose: 1 tab Oxybutynin Chloride (Ditropan Tab) 10 mg PO DAILY [facility] Last Admin: 05/10/18 08:38 Dose: 10 mg Psyllium Hydrophilic Mucilloid (Hydrocil Instant) 1 pkt PO DAILY [facility] Last Admin: 05/10/18 08:38 Dose: 1 pkt Tamsulosin HCl (Flomax) 0.4 mg PO DAILY [facility] Last Admin: 05/10/18 08:38 Dose: 0.4 mg - Labs Labs: 05/10/18 05:35 05/09/18 07:14 - Head Exam Head Exam: ATRAUMATIC, NORMAL INSPECTION, NORMOCEPHALIC - Eye Exam Eye Exam: EOMI, Normal appearance, PERRL Pupil Exam: NORMAL ACCOMODATION - ENT Exam ENT Exam: Mucous Membranes Moist, Normal Exam - Neck Exam Neck Exam: Normal Inspection - Respiratory Exam Respiratory Exam: Clear to Ausculation Bilateral, NORMAL BREATHING PATTERN - Cardiovascular Exam Cardiovascular Exam: REGULAR RHYTHM - GI/Abdominal Exam GI & Abdominal Exam: Soft, Normal Bowel Sounds - Rectal Exam Rectal Exam: NORMAL INSPECTION - Exam External exam: NORMAL EXTERNAL EXAM - Extremities Exam Extremities Exam: Full ROM, Normal Capillary Refill - Back Exam Back Exam: NORMAL INSPECTION - Neurological Exam Neurological Exam: Alert, Awake Neuro motor strength exam: Right Lower Extremity: 3 - Psychiatric Exam Psychiatric exam: Normal Affect, Normal Mood - Skin Skin Exam: Dry, Intact Assessment and Plan (1) Status post right hip replacement Assessment & Plan: plan for physical, occupational therapy , limited wt bearing as per ortho continue present program Status: Chronic (2) Acute blood loss anemia Status: Acute (3) Acute massive pulmonary embolism Status: Acute (4) Chronic hip pain 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
--- NOTE | 2018-05-10 13:27 | CP.PCM.CON ---
History of Present Illness - History of Present Illness History of Present Illness: 67 year old male with status post hip replacement on the right side, with history of COPD, pulmonary embolism Review of Systems - Musculoskeletal Musculoskeletal: Abnormal Gait, Muscle Weakness Past Patient History - Infectious Disease Hx of Infectious Diseases: None - Tetanus Immunizations Tetanus Immunization: Unknown - Past Medical History & Family History Past Medical History?: Yes - Past Social History Smoking Status: Never Smoked Chewing Tobacco Use: No Cigar Use: No Alcohol: Social Drugs: Denies - CARDIAC Hx Hypercholesterolemia: Yes Hx Hypertension: Yes - PULMONARY Hx Pulmonary Embolism: Yes Hx Sleep Apnea: Yes (uses c-pap) - NEUROLOGICAL Hx Neurological Disorder: No - HEENT Hx HEENT Problems: No - RENAL Hx Chronic Kidney Disease: Yes Other/Comment: frequent urination - ENDOCRINE/METABOLIC Hx Endocrine Disorders: No - HEMATOLOGICAL/ONCOLOGICAL Hx Anemia: Yes Hx Blood Transfusions: Yes - INTEGUMENTARY Hx Dermatological Problems: No - MUSCULOSKELETAL/RHEUMATOLOGICAL Hx Arthritis: Yes Hx Falls: No Hx Gout: Yes Hx Osteoarthritis: Yes - GASTROINTESTINAL Hx Gastrointestinal Disorders: No - GENITOURINARY/GYNECOLOGICAL Hx Prostate Problems: Yes - PSYCHIATRIC Hx Psychophysiologic Disorder: No Hx Substance Use: No - SURGICAL HISTORY Hx Appendectomy: Yes Hx Cholecystectomy: Yes Hx Herniorrhaphy: Yes (Left ventral) Hx Joint Replacement: Yes (MIKEY THR) Hx Musculoskeletal Surgery: Yes (Right Biceps and Rotator Cuff Repair after Trauma) Hx Orthopedic Surgery: Yes (Right arm biceps repair) Other/Comment: Right Hip replacement. urolift - ANESTHESIA Hx Anesthesia: Yes Hx Anesthesia Reactions: Yes (difficulty voiding post op) Hx Malignant Hyperthermia: No Meds Allergies/Adverse Reactions: Allergies Allergy/AdvReac Type Severity Reaction Status Date / Time acetaminophen [From Percocet] Allergy RASH Verified 04/29/18 07:45 oxycodone [From Percocet] Allergy RASH Verified 04/29/18 07:45 - Medications Medications: Current Medications Acetaminophen (Tylenol 325mg Tab) 650 mg PO Q6 PRN PRN Reason: Fever >100.4 F Amlodipine Besylate (Norvasc) 5 mg PO DAILY [facility] Last Admin: 05/10/18 08:39 Dose: 5 mg Apixaban (Eliquis) 10 mg PO BID [facility] PRN Reason: Protocol Stop: 05/11/18 23:59 Last Admin: 05/10/18 08:38 Dose: 10 mg Apixaban (Eliquis) 5 mg PO BID [facility] PRN Reason: Protocol Atorvastatin Calcium (Lipitor) 20 mg PO HS [facility] Last Admin: 05/09/18 22:07 Dose: 20 mg Bisacodyl (Dulcolax) 10 mg [place] DAILY PRN PRN Reason: Constipation Last Admin: 05/08/18 10:07 Dose: 10 mg Clotrimazole (Lotrimin 1% Cream) 1 applic TOP BID [facility] Last Admin: 05/10/18 08:38 Dose: 1 applic Cyclobenzaprine HCl (Flexeril) 5 mg PO TID PRN PRN Reason: Muscle spasm Last Admin: 05/07/18 23:24 Dose: 5 mg Docusate Sodium (Colace) 200 mg PO BID [facility] Last Admin: 05/10/18 08:37 Dose: 200 mg Hydromorphone HCl (Dilaudid) 0.5 mg PO Q4 PRN PRN Reason: Pain, moderate (4-7) Last Admin: 05/08/18 10:04 Dose: 0.5 mg Cefepime HCl 1 gm/ Sodium (Chloride) 100 mls @ 100 mls/hr IVPB Q12@0500,1700 [facility] Last Admin: 05/10/18 05:43 Dose: 100 mls/hr Vancomycin HCl 1 gm/ Sodium (Chloride) 250 mls @ 166.667 mls/hr IVPB Q12 [facility] Last Admin: 05/10/18 08:40 Dose: 166.667 mls/hr Multivitamins/Minerals (Therapeutic-M Tab) 1 tab PO DAILY [facility] Last Admin: 05/10/18 08:39 Dose: 1 tab Oxybutynin Chloride (Ditropan Tab) 10 mg PO DAILY [facility] Last Admin: 05/10/18 08:38 Dose: 10 mg Psyllium Hydrophilic Mucilloid (Hydrocil Instant) 1 pkt PO DAILY [facility] Last Admin: 05/10/18 08:38 Dose: 1 pkt Tamsulosin HCl (Flomax) 0.4 mg PO DAILY [facility] Last Admin: 05/10/18 08:38 Dose: 0.4 mg Physical Exam - Head Exam Head Exam: ATRAUMATIC, NORMAL INSPECTION, NORMOCEPHALIC - Eye Exam Eye Exam: EOMI, Normal appearance, PERRL Pupil Exam: NORMAL ACCOMODATION - ENT Exam ENT Exam: Mucous Membranes Moist, Normal Exam - Respiratory Exam Respiratory Exam: Clear to Auscultation Bilateral, NORMAL BREATHING PATTERN - Cardiovascular Exam Cardiovascular Exam: REGULAR RHYTHM - GI/Abdominal Exam GI & Abdominal Exam: Normal Bowel Sounds - Rectal Exam Rectal Exam: NORMAL INSPECTION - Exam External exam: NORMAL EXTERNAL EXAM - Extremities Exam Extremities exam: Positive for: normal inspection - Back Exam Back exam: NORMAL INSPECTION Additional comments: right leg weakness - Neurological Exam Neurological exam: Alert, Normal Gait - Psychiatric Exam Psychiatric exam: Normal Affect, Normal Mood - Skin Skin Exam: Dry Results - Vital Signs Recent Vital Signs: Last Vital Signs Temp 98.1 F 05/10/18 07:39 Pulse 82 05/10/18 09:38 Resp 20 05/10/18 07:39 BP 129/69 05/10/18 08:39 Pulse Ox 96 05/10/18 09:38 - Labs Result Diagrams: 05/10/18 05:35 05/09/18 07:14 Labs: Laboratory Results - last 24 hr 05/10/18 05:35 WBC 14.4 H RBC 3.48 L Hgb 10.2 L Hct 30.8 L MCV 88.4 MCH 29.4 MCHC 33.2 RDW 14.1 Plt Count 112 L Assessment & Plan (1) Status post right hip replacement Assessment and Plan: plan for physical, occupational therapy for range of motion, strengthening, transfers and gait training, precautions as per ortho Status: Chronic (2) Acute blood loss anemia Status: Acute (3) Acute massive pulmonary embolism Status: Acute (4) Chronic hip pain 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
[2018-05-11] MEDS: CEFEPIME IVPB SCH ×2 (05:10→16:18)
[2018-05-11] MEDS: NS IVPB SCH ×2 (05:10→16:18)
[2018-05-11] MEDS: Psyllium Packet PO SCH (08:46)
[2018-05-11] MEDS: Multivitamin With Minerals Tab PO SCH (08:47)
--- NOTE | 2018-05-11 10:53 | CP.PCM.PN ---
Subjective - Date & Time of Evaluation Date of Evaluation: 05/11/18 Time of Evaluation: 10:30 - Subjective Subjective: S- pt with minimal post op discomfort Objective - Vital Signs/Intake and Output Vital Signs (last 24 hours): Temp Pulse Resp BP Pulse Ox 98.2 F 69 20 125/69 94 L 05/11/18 09:08 05/11/18 09:08 05/11/18 09:08 05/11/18 09:08 05/11/18 09:08 - Medications Medications: Current Medications Acetaminophen (Tylenol 325mg Tab) 650 mg PO Q6 PRN PRN Reason: Fever >100.4 F Acetaminophen (Tylenol 325mg Tab) 650 mg PO Q6 PRN PRN Reason: Pain, Mild (1-3) Amlodipine Besylate (Norvasc) 5 mg PO DAILY [facility] Last Admin: 05/11/18 08:49 Dose: 5 mg Apixaban (Eliquis) 10 mg PO BID [facility] PRN Reason: Protocol Stop: 05/11/18 23:59 Last Admin: 05/11/18 08:52 Dose: 10 mg Apixaban (Eliquis) 5 mg PO BID [facility] PRN Reason: Protocol Atorvastatin Calcium (Lipitor) 20 mg PO HS [facility] Last Admin: 05/10/18 21:48 Dose: 20 mg Bisacodyl (Dulcolax) 10 mg [place] DAILY PRN PRN Reason: Constipation Last Admin: 05/08/18 10:07 Dose: 10 mg Clotrimazole (Lotrimin 1% Cream) 1 applic TOP BID [facility] Last Admin: 05/11/18 08:45 Dose: 1 applic Cyclobenzaprine HCl (Flexeril) 5 mg PO TID PRN PRN Reason: Muscle spasm Last Admin: 05/07/18 23:24 Dose: 5 mg Docusate Sodium (Colace) 200 mg PO BID [facility] Last Admin: 05/11/18 08:48 Dose: 200 mg Hydromorphone HCl (Dilaudid) 0.5 mg PO Q4 PRN PRN Reason: Pain, moderate (4-7) Last Admin: 05/08/18 10:04 Dose: 0.5 mg Cefepime HCl 1 gm/ Sodium (Chloride) 100 mls @ 100 mls/hr IVPB Q12@0500,1700 [facility] Last Admin: 05/11/18 05:10 Dose: 100 mls/hr Vancomycin HCl 1 gm/ Sodium (Chloride) 250 mls @ 166.667 mls/hr IVPB Q12 [facility] Last Admin: 05/11/18 08:50 Dose: 166.667 mls/hr Multivitamins/Minerals (Therapeutic-M Tab) 1 tab PO DAILY [facility] Last Admin: 05/11/18 08:47 Dose: 1 tab Oxybutynin Chloride (Ditropan Tab) 10 mg PO DAILY [facility] Last Admin: 05/11/18 08:53 Dose: 10 mg Psyllium Hydrophilic Mucilloid (Hydrocil Instant) 1 pkt PO DAILY [facility] Last Admin: 05/11/18 08:46 Dose: 1 pkt Tamsulosin HCl (Flomax) 0.4 mg PO DAILY [facility] Last Admin: 05/11/18 08:47 Dose: 0.4 mg - Labs Labs: 05/10/18 05:35 05/09/18 07:14 - Additional Findings Additional findings: Obj systemic- still with minor abnormal breath sounds Musculoskekltal stance/gait- defrred R hip wound benign no drainage Assessment and Plan - Assessment and Plan (Free Text) Assessment: A-s/p R THR P orthopedically stablemuch improved s/p Pulmonary embolus s/p successful complex revision R toatyl hip replacement
--- NOTE | 2018-05-11 11:51 | CP.PCM.PN ---
Subjective - Date & Time of Evaluation Date of Evaluation: 05/11/18 Time of Evaluation: 11:49 - Subjective Subjective: Seen on morning rounds seated in a bedside chair. Participating with physical therapy and doing well. Vital signs remain stable and he continues to be afebrile. Offers no complaint of chest discomfort but does note some degree of mild dyspnea on exertion. No cough or hemoptysis. Small amount of sputum is expectorated periodically due to the use of nasal CPAP. Lungs are clear on auscultation bilaterally. Will have follow-up CBC in the a.m. From a pulmonary standpoint he is medically clear for discharge. Objective - Vital Signs/Intake and Output Vital Signs (last 24 hours): Temp Pulse Resp BP Pulse Ox 98.2 F 69 20 125/69 94 L 05/11/18 09:08 05/11/18 09:08 05/11/18 09:08 05/11/18 09:08 05/11/18 09:08 - Medications Medications: Current Medications Acetaminophen (Tylenol 325mg Tab) 650 mg PO Q6 PRN PRN Reason: Fever >100.4 F Acetaminophen (Tylenol 325mg Tab) 650 mg PO Q6 PRN PRN Reason: Pain, Mild (1-3) Amlodipine Besylate (Norvasc) 5 mg PO DAILY [facility] Last Admin: 05/11/18 08:49 Dose: 5 mg Apixaban (Eliquis) 10 mg PO BID [facility] PRN Reason: Protocol Stop: 05/11/18 23:59 Last Admin: 05/11/18 08:52 Dose: 10 mg Apixaban (Eliquis) 5 mg PO BID [facility] PRN Reason: Protocol Atorvastatin Calcium (Lipitor) 20 mg PO HS [facility] Last Admin: 05/10/18 21:48 Dose: 20 mg Bisacodyl (Dulcolax) 10 mg [place] DAILY PRN PRN Reason: Constipation Last Admin: 05/08/18 10:07 Dose: 10 mg Clotrimazole (Lotrimin 1% Cream) 1 applic TOP BID [facility] Last Admin: 05/11/18 08:45 Dose: 1 applic Cyclobenzaprine HCl (Flexeril) 5 mg PO TID PRN PRN Reason: Muscle spasm Last Admin: 05/07/18 23:24 Dose: 5 mg Docusate Sodium (Colace) 200 mg PO BID [facility] Last Admin: 05/11/18 08:48 Dose: 200 mg Hydromorphone HCl (Dilaudid) 0.5 mg PO Q4 PRN PRN Reason: Pain, moderate (4-7) Last Admin: 05/08/18 10:04 Dose: 0.5 mg Cefepime HCl 1 gm/ Sodium (Chloride) 100 mls @ 100 mls/hr IVPB Q12@0500,1700 [facility] Last Admin: 05/11/18 05:10 Dose: 100 mls/hr Vancomycin HCl 1 gm/ Sodium (Chloride) 250 mls @ 166.667 mls/hr IVPB Q12 [facility] Last Admin: 05/11/18 08:50 Dose: 166.667 mls/hr Multivitamins/Minerals (Therapeutic-M Tab) 1 tab PO DAILY [facility] Last Admin: 05/11/18 08:47 Dose: 1 tab Oxybutynin Chloride (Ditropan Tab) 10 mg PO DAILY [facility] Last Admin: 05/11/18 08:53 Dose: 10 mg Psyllium Hydrophilic Mucilloid (Hydrocil Instant) 1 pkt PO DAILY [facility] Last Admin: 05/11/18 08:46 Dose: 1 pkt Tamsulosin HCl (Flomax) 0.4 mg PO DAILY [facility] Last Admin: 05/11/18 08:47 Dose: 0.4 mg - Labs Labs: 05/10/18 05:35 05/09/18 07:14 Assessment and Plan (1) DJD (degenerative joint disease) Status: Chronic (2) Obstructive sleep apnea Status: Chronic (3) Pulmonary emboli Status: Acute
[2018-05-12] MEDS: CEFEPIME IVPB SCH ×2 (05:14→17:08)
[2018-05-12] MEDS: NS IVPB SCH ×2 (05:14→17:08)
[2018-05-12 07:32] LABS: HEMOGLOBIN 10.4 g/dL (12.0-18.0); MEAN CELL VOLUME 87.8 fl (80.0-94.0); MEAN CORPUSCULAR HEMOGLOBIN 29.6 pg (27.0-31.0); MEAN CORPUSCULAR HGB CONC 33.7 g/dL (33.0-37.0); RBC 3.52 Mil/uL (4.40-5.90); RED CELL DISTRIBUTION WIDTH 14.2 % (11.5-14.5); WHITE BLOOD COUNT 12.4 K/uL (4.8-10.8)
[2018-05-12] MEDS: Psyllium Packet PO SCH (08:37)
[2018-05-12] MEDS: Multivitamin With Minerals Tab PO SCH (08:37)
[2018-05-13] MEDS: CEFEPIME IVPB SCH ×2 (05:45→16:54)
[2018-05-13] MEDS: NS IVPB SCH ×2 (05:45→16:54)
[2018-05-13] MEDS: Psyllium Packet PO SCH (08:22)
[2018-05-13] MEDS: Multivitamin With Minerals Tab PO SCH (08:23)
--- NOTE | 2018-05-13 09:36 | CP.PCM.PN ---
Subjective - Date & Time of Evaluation Date of Evaluation: 05/13/18 Time of Evaluation: 09:33 - Subjective Subjective: Patient states pain in hip is controlled. Denies CP/SOB. Complains of some pain in his right lower leg, but mild. Objective - Vital Signs/Intake and Output Vital Signs (last 24 hours): Temp Pulse Resp BP Pulse Ox 98.1 F 75 20 123/61 97 05/12/18 19:52 05/13/18 08:22 05/12/18 19:52 05/13/18 08:22 05/12/18 19:52 - Medications Medications: Current Medications Acetaminophen (Tylenol 325mg Tab) 650 mg PO Q6 PRN PRN Reason: Fever >100.4 F Acetaminophen (Tylenol 325mg Tab) 650 mg PO Q6 PRN PRN Reason: Pain, Mild (1-3) Last Admin: 05/12/18 13:00 Dose: 650 mg Amlodipine Besylate (Norvasc) 5 mg PO DAILY [facility] Last Admin: 05/13/18 08:22 Dose: 5 mg Apixaban (Eliquis) 5 mg PO BID [facility] PRN Reason: Protocol Last Admin: 05/13/18 08:22 Dose: 5 mg Atorvastatin Calcium (Lipitor) 20 mg PO HS [facility] Last Admin: 05/12/18 21:09 Dose: 20 mg Bisacodyl (Dulcolax) 10 mg [place] DAILY PRN PRN Reason: Constipation Last Admin: 05/08/18 10:07 Dose: 10 mg Clotrimazole (Lotrimin 1% Cream) 1 applic TOP BID [facility] Last Admin: 05/13/18 08:22 Dose: 1 applic Cyclobenzaprine HCl (Flexeril) 5 mg PO TID PRN PRN Reason: Muscle spasm Last Admin: 05/07/18 23:24 Dose: 5 mg Docusate Sodium (Colace) 200 mg PO BID [facility] Last Admin: 05/13/18 08:21 Dose: 200 mg Hydromorphone HCl (Dilaudid) 0.5 mg PO Q4 PRN PRN Reason: Pain, moderate (4-7) Last Admin: 05/08/18 10:04 Dose: 0.5 mg Cefepime HCl 1 gm/ Sodium (Chloride) 100 mls @ 100 mls/hr IVPB Q12@0500,1700 [facility] Last Admin: 05/13/18 05:45 Dose: 100 mls/hr Vancomycin HCl 1 gm/ Sodium (Chloride) 250 mls @ 166.667 mls/hr IVPB Q12 [facility] Last Admin: 05/13/18 08:24 Dose: 166.667 mls/hr Multivitamins/Minerals (Therapeutic-M Tab) 1 tab PO DAILY [facility] Last Admin: 05/13/18 08:23 Dose: 1 tab Oxybutynin Chloride (Ditropan Tab) 10 mg PO DAILY [facility] Last Admin: 05/12/18 08:36 Dose: 10 mg Psyllium Hydrophilic Mucilloid (Hydrocil Instant) 1 pkt PO DAILY [facility] Last Admin: 05/13/18 08:22 Dose: 1 pkt Tamsulosin HCl (Flomax) 0.4 mg PO DAILY [facility] Last Admin: 05/13/18 08:22 Dose: 0.4 mg - Labs Labs: 05/12/18 06:30 05/09/18 07:14 - Extremities Exam Additional comments: right hip: incision intact, healing well, dry, no erythema. THigh soft, no erythema to RLE. 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 Edwards, agrees with above Status: Acute
[2018-05-13 10:42] LABS: MEAN CELL VOLUME 87.7 fl (80.0-94.0); MEAN CORPUSCULAR HEMOGLOBIN 29.6 pg (27.0-31.0); MEAN CORPUSCULAR HGB CONC 33.7 g/dL (33.0-37.0); RBC 4.05 Mil/uL (4.40-5.90); RED CELL DISTRIBUTION WIDTH 14.6 % (11.5-14.5); WHITE BLOOD COUNT 13.2 K/uL (4.8-10.8)
[2018-05-14] MEDS: NS IVPB SCH ×2 (05:05→16:17)
[2018-05-14] MEDS: CEFEPIME IVPB SCH ×2 (05:05→16:17)
[2018-05-14 06:05] LABS: BASO # 0.1 K/uL (0.0-0.2); BASO % 1.3 % (0.0-2.0); EOS # 0.5 K/uL (0.0-0.7); EOS % 5.4 % (0.0-4.0); HEMOGLOBIN 10.4 g/dL (12.0-18.0); LYMPH # 1.5 K/uL (1.0-4.3); LYMPH % 15.7 % (20.0-40.0); MEAN CELL VOLUME 88.2 fl (80.0-94.0); MEAN CORPUSCULAR HEMOGLOBIN 29.7 pg (27.0-31.0); MEAN CORPUSCULAR HGB CONC 33.7 g/dL (33.0-37.0); MONO # 1.1 K/uL (0.0-0.8); MONO % 11.7 % (0.0-10.0); NEUT # 6.4 K/uL (1.8-7.0); NEUT % 65.9 % (50.0-75.0); RBC 3.5 Mil/uL (4.40-5.90); RED CELL DISTRIBUTION WIDTH 14.4 % (11.5-14.5); WHITE BLOOD COUNT 9.7 K/uL (4.8-10.8)
[2018-05-14] MEDS: Multivitamin With Minerals Tab PO SCH (08:11)
[2018-05-14] MEDS: Psyllium Packet PO SCH (08:14)
--- NOTE | 2018-05-14 13:20 | CP.PCM.PN ---
Subjective - Date & Time of Evaluation Date of Evaluation: 05/14/18 Time of Evaluation: 12:30 - Subjective Subjective: Patient seen and examined at bedside comfortable, working with OT. He has no complaints of pain. Tolerating PT well. Denies SOB/CP/dizziness. No other complaints. Objective - Vital Signs/Intake and Output Vital Signs (last 24 hours): Temp Pulse Resp BP Pulse Ox 97.8 F 70 18 131/71 100 05/14/18 08:05 05/14/18 08:11 05/14/18 08:05 05/14/18 08:11 05/14/18 08:05 - Medications Medications: Current Medications Acetaminophen (Tylenol 325mg Tab) 650 mg PO Q6 PRN PRN Reason: Fever >100.4 F Acetaminophen (Tylenol 325mg Tab) 650 mg PO Q6 PRN PRN Reason: Pain, Mild (1-3) Last Admin: 05/14/18 10:22 Dose: 650 mg Amlodipine Besylate (Norvasc) 5 mg PO DAILY [facility] Last Admin: 05/14/18 08:11 Dose: 5 mg Apixaban (Eliquis) 5 mg PO BID [facility] PRN Reason: Protocol Last Admin: 05/14/18 08:11 Dose: 5 mg Atorvastatin Calcium (Lipitor) 20 mg PO HS [facility] Last Admin: 05/13/18 21:13 Dose: 20 mg Bisacodyl (Dulcolax) 10 mg [place] DAILY PRN PRN Reason: Constipation Last Admin: 05/08/18 10:07 Dose: 10 mg Clotrimazole (Lotrimin 1% Cream) 1 applic TOP BID [facility] Last Admin: 05/14/18 08:15 Dose: 1 applic Cyclobenzaprine HCl (Flexeril) 5 mg PO TID PRN PRN Reason: Muscle spasm Last Admin: 05/14/18 08:12 Dose: 5 mg Docusate Sodium (Colace) 200 mg PO BID [facility] Last Admin: 05/14/18 08:11 Dose: 200 mg Hydromorphone HCl (Dilaudid) 0.5 mg PO Q4 PRN PRN Reason: Pain, moderate (4-7) Last Admin: 05/08/18 10:04 Dose: 0.5 mg Cefepime HCl 1 gm/ Sodium (Chloride) 100 mls @ 100 mls/hr IVPB Q12@0500,1700 [facility] Last Admin: 05/14/18 05:05 Dose: 100 mls/hr Vancomycin HCl 750 mg/ Sodium (Chloride) 250 mls @ 166.667 mls/hr IVPB Q12 [facility] PRN Reason: Protocol Last Admin: 05/14/18 08:10 Dose: 166.667 mls/hr Multivitamins/Minerals (Therapeutic-M Tab) 1 tab PO DAILY [facility] Last Admin: 05/14/18 08:11 Dose: 1 tab Psyllium Hydrophilic Mucilloid (Hydrocil Instant) 1 pkt PO DAILY [facility] Last Admin: 05/14/18 08:14 Dose: 1 pkt Tamsulosin HCl (Flomax) 0.4 mg PO DAILY [facility] Last Admin: 05/14/18 08:13 Dose: 0.4 mg - Labs Labs: 05/14/18 05:30 05/09/18 07:14 - Extremities Exam Additional comments: R hip: minimal swelling wound CDI with sourav, no drainage sensation intact SP/DP/TN motor intact EHL/FHL/TA/G pedal pulses intact comps soft NT b/l Assessment and Plan (1) Status post right hip replacement Assessment & Plan: POD #15 s/p R revision JACK, acute b/l PE -PT/OT 10%FF WB -posterior hip precautions -abx as per ID -orthopedically stable -above d/w Dr. Edwards in agreement Status: Chronic
--- NOTE | 2018-05-14 13:58 | CP.PCM.PN ---
Subjective - Date & Time of Evaluation Date of Evaluation: 05/14/18 Time of Evaluation: 10:00 - Subjective Subjective: Patient seen and examined. States he is feeling much better. Denies any SOB, cp , n/v/d today. Asking when he can go home. Objective - Vital Signs/Intake and Output Vital Signs (last 24 hours): Temp Pulse Resp BP Pulse Ox 97.8 F 70 18 131/71 100 05/14/18 08:05 05/14/18 08:11 05/14/18 08:05 05/14/18 08:11 05/14/18 08:05 - Medications Medications: Current Medications Acetaminophen (Tylenol 325mg Tab) 650 mg PO Q6 PRN PRN Reason: Fever >100.4 F Acetaminophen (Tylenol 325mg Tab) 650 mg PO Q6 PRN PRN Reason: Pain, Mild (1-3) Last Admin: 05/14/18 10:22 Dose: 650 mg Amlodipine Besylate (Norvasc) 5 mg PO DAILY [facility] Last Admin: 05/14/18 08:11 Dose: 5 mg Apixaban (Eliquis) 5 mg PO BID [facility] PRN Reason: Protocol Last Admin: 05/14/18 08:11 Dose: 5 mg Atorvastatin Calcium (Lipitor) 20 mg PO HS [facility] Last Admin: 05/13/18 21:13 Dose: 20 mg Bisacodyl (Dulcolax) 10 mg [place] DAILY PRN PRN Reason: Constipation Last Admin: 05/08/18 10:07 Dose: 10 mg Clotrimazole (Lotrimin 1% Cream) 1 applic TOP BID [facility] Last Admin: 05/14/18 08:15 Dose: 1 applic Cyclobenzaprine HCl (Flexeril) 5 mg PO TID PRN PRN Reason: Muscle spasm Last Admin: 05/14/18 08:12 Dose: 5 mg Docusate Sodium (Colace) 200 mg PO BID [facility] Last Admin: 05/14/18 08:11 Dose: 200 mg Hydromorphone HCl (Dilaudid) 0.5 mg PO Q4 PRN PRN Reason: Pain, moderate (4-7) Last Admin: 05/08/18 10:04 Dose: 0.5 mg Cefepime HCl 1 gm/ Sodium (Chloride) 100 mls @ 100 mls/hr IVPB Q12@0500,1700 [facility] Last Admin: 05/14/18 05:05 Dose: 100 mls/hr Vancomycin HCl 750 mg/ Sodium (Chloride) 250 mls @ 166.667 mls/hr IVPB Q12 [facility] PRN Reason: Protocol Last Admin: 05/14/18 08:10 Dose: 166.667 mls/hr Multivitamins/Minerals (Therapeutic-M Tab) 1 tab PO DAILY [facility] Last Admin: 05/14/18 08:11 Dose: 1 tab Psyllium Hydrophilic Mucilloid (Hydrocil Instant) 1 pkt PO DAILY [facility] Last Admin: 05/14/18 08:14 Dose: 1 pkt Tamsulosin HCl (Flomax) 0.4 mg PO DAILY [facility] Last Admin: 05/14/18 08:13 Dose: 0.4 mg - Labs Labs: 05/14/18 05:30 05/09/18 07:14 - Additional Findings Additional findings: Physical exam: Constitutional- cooperative, awake, alert Head- NCAT, PERRL Eye- PERRL, EOMI ENT- normal exam, MMM. Neck- normal inspection, supple, no JVD Respiratory- CTAB, no wheezes rales rhonchi Cardiovascular- RRR, +S1, +S2 no MRG GI/Abdominal- normal bowel sounds, soft, no mass, no hsm Skin- warm, dry Extremities Exam- Surgical site clean without drainage. normal capillary refill , normal inspection Neurological Exam- alert, awake, oriented Psych- normal mood, normal affect Assessment and Plan - Assessment and Plan (Free Text) Plan: 67 yo male with history of bilateral hip replacement, HTN, HLD, BPH and Gout was admitted and had revision of right THR on 04/29/18 because of persistent pain on the right hip. Surgery went well but the next day MANAGER INTERN was called because of desaturation associated with SOB, diaphoresis, hypotension and tachycardia. CT scan angio was positive for bilateral extensive PE with right heart strain. Patient was started immediately on therapeutic IV Heparin and sent to ICU for management and monitoring. Heparin was switched to therapeutic SC Lovenox then oral Eliquiz. In spite of continuous IV Cefazolin surgical wound got infected. Antibiotic was switched to Cepefime and Vanco. ID was also consulted. When he was hemodynamically stable he was transferred to TCU for continuation of IV antibiotics and therapy. 1. Bilateral Pulmonary Emboli continue Eliquis 10mg PO BID had chest pain yesterday but EKG and Troponin were within normal limit CXray: linear atelectasis on left base 2. Post Revision of Right THR leukocyte trending down no active drainage ID consult with Dr Cheung appreciated orthopedict consult with Dr Edwards continue PT continue pain management 3. Anemia secondary to blood loss from surgery Hgb: 10.3 4. HTN BP stable continue Amlodipine 5. BPH on Oxybutynin and Flomax 6. HLD continue Atorvastatin 7. DVT/PE prophylaxis/tx - continue Eliquis
[2018-05-14 15:50] VITALS: RESP 20
--- NOTE | 2018-05-14 18:22 | CP.PCM.PN ---
Subjective - Date & Time of Evaluation Date of Evaluation: 05/14/18 Time of Evaluation: 18:19 - Subjective Subjective: I D NOTE AFEBRILE R HIP :NO DRAINAGE ,NO EVIDENCE OF INFECTION WBC:9.5 C normal polys received7 days vanco/maxipeme 8to 9 days ancef WOULD GIVE 2 T0 4 WEEKS OF PO BACTRIM WILL DISCUSS c Objective - Vital Signs/Intake and Output Vital Signs (last 24 hours): Temp Pulse Resp BP Pulse Ox 98.2 F 74 20 131/70 97 05/14/18 15:50 05/14/18 15:50 05/14/18 15:50 05/14/18 15:50 05/14/18 15:50 - Medications Medications: Current Medications Acetaminophen (Tylenol 325mg Tab) 650 mg PO Q6 PRN PRN Reason: Fever >100.4 F Acetaminophen (Tylenol 325mg Tab) 650 mg PO Q6 PRN PRN Reason: Pain, Mild (1-3) Last Admin: 05/14/18 10:22 Dose: 650 mg Amlodipine Besylate (Norvasc) 5 mg PO DAILY [facility] Last Admin: 05/14/18 08:11 Dose: 5 mg Apixaban (Eliquis) 5 mg PO BID [facility] PRN Reason: Protocol Last Admin: 05/14/18 16:18 Dose: 5 mg Atorvastatin Calcium (Lipitor) 20 mg PO HS [facility] Last Admin: 05/13/18 21:13 Dose: 20 mg Bisacodyl (Dulcolax) 10 mg [place] DAILY PRN PRN Reason: Constipation Last Admin: 05/08/18 10:07 Dose: 10 mg Clotrimazole (Lotrimin 1% Cream) 1 applic TOP BID [facility] Last Admin: 05/14/18 16:19 Dose: Not Given Cyclobenzaprine HCl (Flexeril) 5 mg PO TID PRN PRN Reason: Muscle spasm Last Admin: 05/14/18 08:12 Dose: 5 mg Docusate Sodium (Colace) 200 mg PO BID [facility] Last Admin: 05/14/18 16:19 Dose: 200 mg Hydromorphone HCl (Dilaudid) 0.5 mg PO Q4 PRN PRN Reason: Pain, moderate (4-7) Last Admin: 05/08/18 10:04 Dose: 0.5 mg Cefepime HCl 1 gm/ Sodium (Chloride) 100 mls @ 100 mls/hr IVPB Q12@0500,1700 [facility] Last Admin: 05/14/18 16:17 Dose: 100 mls/hr Vancomycin HCl 750 mg/ Sodium (Chloride) 250 mls @ 166.667 mls/hr IVPB Q12 [facility] PRN Reason: Protocol Last Admin: 05/14/18 08:10 Dose: 166.667 mls/hr Multivitamins/Minerals (Therapeutic-M Tab) 1 tab PO DAILY [facility] Last Admin: 05/14/18 08:11 Dose: 1 tab Psyllium Hydrophilic Mucilloid (Hydrocil Instant) 1 pkt PO DAILY [facility] Last Admin: 05/14/18 08:14 Dose: 1 pkt Tamsulosin HCl (Flomax) 0.4 mg PO DAILY [facility] Last Admin: 05/14/18 08:13 Dose: 0.4 mg - Labs Labs: 05/14/18 05:30 05/09/18 07:14
[2018-05-15] MEDS: NS IVPB SCH (04:57)
[2018-05-15] MEDS: CEFEPIME IVPB SCH (04:57)
[2018-05-15 06:50] LABS: MEAN CELL VOLUME 87.8 fl (80.0-94.0); MEAN CORPUSCULAR HEMOGLOBIN 30.2 pg (27.0-31.0); MEAN CORPUSCULAR HGB CONC 34.4 g/dL (33.0-37.0); RBC 3.63 Mil/uL (4.40-5.90); RED CELL DISTRIBUTION WIDTH 14.7 % (11.5-14.5); WHITE BLOOD COUNT 8.6 K/uL (4.8-10.8)
--- NOTE | 2018-05-15 08:52 | CP.PCM.PN ---
Subjective - Date & Time of Evaluation Date of Evaluation: 05/15/18 Time of Evaluation: 07:30 - Subjective Subjective: Patient seen and examined at bedside comfortable. No complaints of pain. No other complaints. To be discharged to home today. Objective - Vital Signs/Intake and Output Vital Signs (last 24 hours): Temp Pulse Resp BP Pulse Ox 98.2 F 74 20 107/62 97 05/14/18 19:39 05/14/18 19:39 05/14/18 19:39 05/14/18 19:39 05/14/18 19:39 - Medications Medications: Current Medications Acetaminophen (Tylenol 325mg Tab) 650 mg PO Q6 PRN PRN Reason: Fever >100.4 F Acetaminophen (Tylenol 325mg Tab) 650 mg PO Q6 PRN PRN Reason: Pain, Mild (1-3) Last Admin: 05/15/18 04:56 Dose: 650 mg Amlodipine Besylate (Norvasc) 5 mg PO DAILY [facility] Last Admin: 05/14/18 08:11 Dose: 5 mg Apixaban (Eliquis) 5 mg PO BID [facility] PRN Reason: Protocol Last Admin: 05/14/18 16:18 Dose: 5 mg Atorvastatin Calcium (Lipitor) 20 mg PO HS [facility] Last Admin: 05/14/18 21:00 Dose: 20 mg Bisacodyl (Dulcolax) 10 mg [place] DAILY PRN PRN Reason: Constipation Last Admin: 05/08/18 10:07 Dose: 10 mg Clotrimazole (Lotrimin 1% Cream) 1 applic TOP BID [facility] Last Admin: 05/14/18 16:19 Dose: Not Given Cyclobenzaprine HCl (Flexeril) 5 mg PO TID PRN PRN Reason: Muscle spasm Last Admin: 05/14/18 08:12 Dose: 5 mg Docusate Sodium (Colace) 200 mg PO BID [facility] Last Admin: 05/14/18 16:19 Dose: 200 mg Hydromorphone HCl (Dilaudid) 0.5 mg PO Q4 PRN PRN Reason: Pain, moderate (4-7) Last Admin: 05/08/18 10:04 Dose: 0.5 mg Cefepime HCl 1 gm/ Sodium (Chloride) 100 mls @ 100 mls/hr IVPB Q12@0500,1700 [facility] Last Admin: 05/15/18 04:57 Dose: 100 mls/hr Vancomycin HCl 750 mg/ Sodium (Chloride) 250 mls @ 166.667 mls/hr IVPB Q12 [facility] PRN Reason: Protocol Last Admin: 05/14/18 20:38 Dose: 166.667 mls/hr Multivitamins/Minerals (Therapeutic-M Tab) 1 tab PO DAILY [facility] Last Admin: 05/14/18 08:11 Dose: 1 tab Psyllium Hydrophilic Mucilloid (Hydrocil Instant) 1 pkt PO DAILY [facility] Last Admin: 05/14/18 08:14 Dose: 1 pkt Tamsulosin HCl (Flomax) 0.4 mg PO DAILY [facility] Last Admin: 05/14/18 08:13 Dose: 0.4 mg - Labs Labs: 05/15/18 06:26 05/09/18 07:14 - Extremities Exam Additional comments: R hip: minimal swelling wound CDI with sourav, no drainage sensation intact SP/DP/TN motor intact EHL/FHL/TA/G pedal pulses intact comps soft NT b/l Assessment and Plan (1) Status post right hip replacement Assessment & Plan: POD #16 s/p R revision JACK, acute b/l PE -PT/OT 10%FF WB -sourav and sutures removed -posterior hip precautions -abx as per ID -orthopedically stable for discharge -f/u in office within 2 weeks, call for appt -above d/w Dr. Edwards in agreement Status: Chronic
[2018-05-15] MEDS: Multivitamin With Minerals Tab PO SCH (09:07)
[2018-05-15] MEDS: Psyllium Packet PO SCH (09:08)
[2018-05-15 09:10] VITALS: BP 126/65; PULSE 68
[2018-05-15 09:20] VITALS: TEMP 97.7; O2SAT 96
--- NOTE | 2018-05-15 09:59 | CP.PCM.DIS ---
Provider - Provider Date of Admission: 05/07/18 22:32 Attending physician: Deshaun Rader MD Primary care physician: MD Dr. Tyler Interiano III Consults: ID consult Ortho consult physiatry pulmonary consult urology consult Time Spent in preparation of Discharge (in minutes): 15 Hospital Course - Lab Results Lab Results: Most Recent Lab Values WBC 8.6 K/uL (4.8-10.8) 05/15/18 06:26 RBC 3.63 Mil/uL (4.40-5.90) L 05/15/18 06:26 Hgb 11.0 g/dL (12.0-18.0) L 05/15/18 06:26 Hct 31.9 % (35.0-51.0) L 05/15/18 06:26 MCV 87.8 fl (80.0-94.0) 05/15/18 06:26 MCH 30.2 pg (27.0-31.0) 05/15/18 06:26 MCHC 34.4 g/dL (33.0-37.0) 05/15/18 06:26 RDW 14.7 % (11.5-14.5) H 05/15/18 06:26 Plt Count 219 K/uL (130-400) 05/15/18 06:26 MPV 9.0 fl (7.2-11.7) 05/14/18 05:30 Neut % (Auto) 65.9 % (50.0-75.0) 05/14/18 05:30 Lymph % (Auto) 15.7 % (20.0-40.0) L 05/14/18 05:30 [place] % (Auto) 11.7 % (0.0-10.0) H 05/14/18 05:30 Eos % (Auto) 5.4 % (0.0-4.0) H 05/14/18 05:30 Baso % (Auto) 1.3 % (0.0-2.0) 05/14/18 05:30 Neut # (Auto) 6.4 K/uL (1.8-7.0) 05/14/18 05:30 Lymph # (Auto) 1.5 K/uL (1.0-4.3) 05/14/18 05:30 [place] # (Auto) 1.1 K/uL (0.0-0.8) H 05/14/18 05:30 Eos # (Auto) 0.5 K/uL (0.0-0.7) 05/14/18 05:30 Baso # (Auto) 0.1 K/uL (0.0-0.2) 05/14/18 05:30 Sodium 138 mmol/l (132-148) 05/09/18 07:14 Potassium 4.3 MMOL/L (3.6-5.0) 05/09/18 07:14 Chloride 106 mmol/L (98-107) 05/09/18 07:14 Carbon Dioxide 30 mmol/L (22-30) 05/09/18 07:14 Anion Gap 6 (10-20) L 05/09/18 07:14 BUN 12 mg/dl (9-20) 05/09/18 07:14 Creatinine 0.7 mg/dl (0.8-1.5) L 05/09/18 07:14 Est GFR ( Amer) > 60 05/09/18 07:14 Est GFR (Non-Af Amer) > 60 05/09/18 07:14 Random Glucose 110 mg/dL (75-110) 05/09/18 07:14 Calcium 8.5 mg/dL (8.4-10.2) 05/09/18 07:14 Total Bilirubin 1.3 mg/dl (0.2-1.3) 05/08/18 17:04 AST 65 U/L (17-59) H D 05/08/18 17:04 ALT 44 U/L (21-72) 05/08/18 17:04 Alkaline Phosphatase 89 U/L (38-126) 05/08/18 17:04 Troponin I 0.0310 ng/mL (0.00-0.120) 05/08/18 17:04 Total Protein 6.2 G/DL (6.3-8.2) L 05/08/18 17:04 Albumin 3.1 g/dL (3.5-5.0) L 05/08/18 17:04 Globulin 3.2 gm/dL (2.2-3.9) 05/08/18 17:04 Albumin/Globulin Ratio 1.0 (1.0-2.1) 05/08/18 17:04 Vancomycin Trough 14.0 ug/mL (5.0-10.0) H 05/13/18 18:04 - Hospital Course Hospital Course: 67 yo male with history of bilateral hip replacement, HTN, HLD, BPH and Gout was admitted and had revision of right THR on 04/29/18 because of persistent pain on the right hip. Surgery went well but the next day [employer] was called because of desaturation associated with SOB, diaphoresis, hypotension and tachycardia. CT scan angio was positive for bilateral extensive PE with right heart strain. Patient was started immediately on therapeutic IV Heparin and sent to ICU for management and monitoring. Heparin was switched to therapeutic SC Lovenox then oral Eliquiz. When he was hemodynamically stable he was transferred to TCU for continuation of IV antibiotics and therapy.ID was consulted and patient was started on IV antibiotics empirically due to elevated WBC count. At present patient is doing well. Hemodynamically stable, wound healing well, still with sourav in place.Will discharge patient home with toe touch to RLE and outpatient PT . Follow up with in 1 week . 1. Bilateral Pulmonary Emboli continue Eliquis 5 mg PO BID 2. Post Revision of Right THR no signs of infection sourav in place. Top follow up with Dr. Erwin in 1 week for staple removal ortho and ID were consulted received IV antibiotics, maxipime and Vancomycin . Will d/c on Bactrim PO for 2 weeks as per ID 3. Anemia secondary to blood loss from surgery Hgb: 10.3 4. HTN BP stable continue Amlodipine 5. BPH on Oxybutynin and Flomax 6. HLD continue Atorvastatin 7. DVT/PE prophylaxis/tx continue Eliquis Discharge Exam - Head Exam Head Exam: ATRAUMATIC, NORMAL INSPECTION, NORMOCEPHALIC - Eye Exam Eye Exam: EOMI, Normal appearance, PERRL Pupil Exam: NORMAL ACCOMODATION - ENT Exam ENT Exam: Mucous Membranes Moist, Normal Exam - Neck Exam Neck exam: Full Rom, Normal Inspection - Respiratory Exam Respiratory Exam: Clear to PA & Lateral, NORMAL BREATHING PATTERN. absent: Rales, Rhonchi, Wheezes - Cardiovascular Exam Cardiovascular Exam: REGULAR RHYTHM, RRR, +S2. absent: JVD - GI/Abdominal Exam GI & Abdominal Exam: Normal Bowel Sounds, Soft. absent: Distended, Guarding, Rebound, Tenderness - Rectal Exam Rectal Exam: Deferred - Extremities Exam Extremities exam: normal capillary refill, normal inspection, pedal pulses present Additional comments: right hip surgical incision with sourav in place healing well - Back Exam Back exam: NORMAL INSPECTION - Neurological Exam Neurological exam: Alert, CN II-XII Intact, Oriented x3, Reflexes Normal - Psychiatric Exam Psychiatric exam: Normal Affect, Normal Mood - Skin Skin Exam: Dry, Intact, Normal Color, Warm Discharge Plan - Discharge Medications Prescriptions: Apixaban [Eliquis] 5 mg PO BID #60 tab Apixaban [Eliquis] 5 mg PO BID #60 tab Sulfamethoxazole/Trimethoprim [Bactrim DS 800 mg-160 mg] 1 tab PO Q12 #28 tab - Follow Up Plan Condition: GOOD Disposition: HOME/ ROUTINE Patient education suggested?: Yes Additional Instructions: Toe touch to RLE Referrals: Soham Edwards III, MD [Primary Care Provider] -
--- NOTE | 2018-05-15 12:01 | CP.PCM.PN ---
Subjective - Date & Time of Evaluation Date of Evaluation: 05/11/18 Time of Evaluation: 12:00 - Subjective Subjective: no acute complaints at present Objective - Vital Signs/Intake and Output Vital Signs (last 24 hours): Temp Pulse Resp BP Pulse Ox 97.7 F 68 20 126/65 96 05/15/18 09:19 05/15/18 09:19 05/15/18 09:19 05/15/18 09:19 05/15/18 09:19 - Medications Medications: Current Medications Acetaminophen (Tylenol 325mg Tab) 650 mg PO Q6 PRN PRN Reason: Fever >100.4 F Acetaminophen (Tylenol 325mg Tab) 650 mg PO Q6 PRN PRN Reason: Pain, Mild (1-3) Last Admin: 05/15/18 04:56 Dose: 650 mg Amlodipine Besylate (Norvasc) 5 mg PO DAILY [facility] Last Admin: 05/15/18 09:07 Dose: 5 mg Apixaban (Eliquis) 5 mg PO BID [facility] PRN Reason: Protocol Last Admin: 05/15/18 09:07 Dose: 5 mg Atorvastatin Calcium (Lipitor) 20 mg PO [facility] Last Admin: 05/14/18 21:00 Dose: 20 mg Bisacodyl (Dulcolax) 10 mg [place] DAILY PRN PRN Reason: Constipation Last Admin: 05/08/18 10:07 Dose: 10 mg Clotrimazole (Lotrimin 1% Cream) 1 applic TOP BID [facility] Last Admin: 05/15/18 09:08 Dose: Not Given Cyclobenzaprine HCl (Flexeril) 5 mg PO TID PRN PRN Reason: Muscle spasm Last Admin: 05/14/18 08:12 Dose: 5 mg Docusate Sodium (Colace) 200 mg PO BID [facility] Last Admin: 05/15/18 09:06 Dose: 200 mg Hydromorphone HCl (Dilaudid) 0.5 mg PO Q4 PRN PRN Reason: Pain, moderate (4-7) Last Admin: 05/08/18 10:04 Dose: 0.5 mg Cefepime HCl 1 gm/ Sodium (Chloride) 100 mls @ 100 mls/hr IVPB Q12@0500,1700 [facility] Last Admin: 05/15/18 04:57 Dose: 100 mls/hr Vancomycin HCl 750 mg/ Sodium (Chloride) 250 mls @ 166.667 mls/hr IVPB Q12 [facility] PRN Reason: Protocol Last Admin: 05/15/18 09:09 Dose: Not Given Multivitamins/Minerals (Therapeutic-M Tab) 1 tab PO DAILY [facility] Last Admin: 05/15/18 09:07 Dose: 1 tab Psyllium Hydrophilic Mucilloid (Hydrocil Instant) 1 pkt PO DAILY [facility] Last Admin: 05/15/18 09:08 Dose: 1 pkt Tamsulosin HCl (Flomax) 0.4 mg PO DAILY [facility] Last Admin: 05/15/18 09:07 Dose: 0.4 mg - Labs Labs: 05/15/18 06:26 05/09/18 07:14 - Head Exam Head Exam: ATRAUMATIC, NORMAL INSPECTION, NORMOCEPHALIC - Eye Exam Eye Exam: EOMI, Normal appearance, PERRL Pupil Exam: NORMAL ACCOMODATION - ENT Exam ENT Exam: Mucous Membranes Moist, Normal Exam - Neck Exam Neck Exam: Full ROM, Normal Inspection - Respiratory Exam Respiratory Exam: NORMAL BREATHING PATTERN - Cardiovascular Exam Cardiovascular Exam: REGULAR RHYTHM - GI/Abdominal Exam GI & Abdominal Exam: Soft, Normal Bowel Sounds - Rectal Exam Rectal Exam: NORMAL INSPECTION - Exam External exam: NORMAL EXTERNAL EXAM - Extremities Exam Extremities Exam: Full ROM, Normal Capillary Refill, Normal Inspection - Back Exam Back Exam: NORMAL INSPECTION - Neurological Exam Neurological Exam: Alert, Oriented x3 Neuro motor strength exam: Right Lower Extremity: 3 - Psychiatric Exam Psychiatric exam: Normal Affect Additional comments: right leg weakness - Skin Skin Exam: Normal Color Assessment and Plan (1) Status post right hip replacement Assessment & Plan: physical, occupational therapy monitor pain Status: Chronic (2) Acute blood loss anemia Status: Acute (3) Acute massive pulmonary embolism Status: Acute (4) Chronic hip pain 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
--- NOTE | 2018-05-15 12:02 | CP.PCM.PN ---
Subjective - Date & Time of Evaluation Date of Evaluation: 05/14/18 Time of Evaluation: 13:00 - Subjective Subjective: no acute complaints at present Objective - Vital Signs/Intake and Output Vital Signs (last 24 hours): Temp Pulse Resp BP Pulse Ox 97.7 F 68 20 126/65 96 05/15/18 09:19 05/15/18 09:19 05/15/18 09:19 05/15/18 09:19 05/15/18 09:19 - Medications Medications: Current Medications Acetaminophen (Tylenol 325mg Tab) 650 mg PO Q6 PRN PRN Reason: Fever >100.4 F Acetaminophen (Tylenol 325mg Tab) 650 mg PO Q6 PRN PRN Reason: Pain, Mild (1-3) Last Admin: 05/15/18 04:56 Dose: 650 mg Amlodipine Besylate (Norvasc) 5 mg PO DAILY [facility] Last Admin: 05/15/18 09:07 Dose: 5 mg Apixaban (Eliquis) 5 mg PO BID [facility] PRN Reason: Protocol Last Admin: 05/15/18 09:07 Dose: 5 mg Atorvastatin Calcium (Lipitor) 20 mg PO [facility] Last Admin: 05/14/18 21:00 Dose: 20 mg Bisacodyl (Dulcolax) 10 mg [place] DAILY PRN PRN Reason: Constipation Last Admin: 05/08/18 10:07 Dose: 10 mg Clotrimazole (Lotrimin 1% Cream) 1 applic TOP BID [facility] Last Admin: 05/15/18 09:08 Dose: Not Given Cyclobenzaprine HCl (Flexeril) 5 mg PO TID PRN PRN Reason: Muscle spasm Last Admin: 05/14/18 08:12 Dose: 5 mg Docusate Sodium (Colace) 200 mg PO BID [facility] Last Admin: 05/15/18 09:06 Dose: 200 mg Hydromorphone HCl (Dilaudid) 0.5 mg PO Q4 PRN PRN Reason: Pain, moderate (4-7) Last Admin: 05/08/18 10:04 Dose: 0.5 mg Cefepime HCl 1 gm/ Sodium (Chloride) 100 mls @ 100 mls/hr IVPB Q12@0500,1700 [facility] Last Admin: 05/15/18 04:57 Dose: 100 mls/hr Vancomycin HCl 750 mg/ Sodium (Chloride) 250 mls @ 166.667 mls/hr IVPB Q12 [facility] PRN Reason: Protocol Last Admin: 05/15/18 09:09 Dose: Not Given Multivitamins/Minerals (Therapeutic-M Tab) 1 tab PO DAILY [facility] Last Admin: 05/15/18 09:07 Dose: 1 tab Psyllium Hydrophilic Mucilloid (Hydrocil Instant) 1 pkt PO DAILY [facility] Last Admin: 05/15/18 09:08 Dose: 1 pkt Tamsulosin HCl (Flomax) 0.4 mg PO DAILY [facility] Last Admin: 05/15/18 09:07 Dose: 0.4 mg - Labs Labs: 05/15/18 06:26 05/09/18 07:14 - Head Exam Head Exam: ATRAUMATIC, NORMAL INSPECTION, NORMOCEPHALIC - Eye Exam Eye Exam: EOMI, Normal appearance, PERRL Pupil Exam: NORMAL ACCOMODATION - ENT Exam ENT Exam: Mucous Membranes Moist - Neck Exam Neck Exam: Normal Inspection - Respiratory Exam Respiratory Exam: NORMAL BREATHING PATTERN - Cardiovascular Exam Cardiovascular Exam: REGULAR RHYTHM - GI/Abdominal Exam GI & Abdominal Exam: Soft, Normal Bowel Sounds - Rectal Exam Rectal Exam: NORMAL INSPECTION - Exam External exam: NORMAL EXTERNAL EXAM - Extremities Exam Extremities Exam: Full ROM, Normal Capillary Refill - Back Exam Back Exam: NORMAL INSPECTION - Neurological Exam Neuro motor strength exam: Right Lower Extremity: 3 - Psychiatric Exam Psychiatric exam: Normal Affect, Normal Mood - Skin Skin Exam: Dry, Intact, Normal Color Assessment and Plan (1) Status post right hip replacement Assessment & Plan: physiical, occupational therapy Dc planning Status: Chronic (2) Acute blood loss anemia Status: Acute (3) Acute massive pulmonary embolism Status: Acute (4) Chronic hip pain 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
--- NOTE | 2018-05-15 13:12 | CP.PCM.PN ---
Subjective - Date & Time of Evaluation Date of Evaluation: 05/15/18 Time of Evaluation: 09:00 - Subjective Subjective: no acute complaints at present Objective - Vital Signs/Intake and Output Vital Signs (last 24 hours): Temp Pulse Resp BP Pulse Ox 97.7 F 68 20 126/65 96 05/15/18 09:19 05/15/18 09:19 05/15/18 09:19 05/15/18 09:19 05/15/18 09:19 - Medications Medications: Current Medications Acetaminophen (Tylenol 325mg Tab) 650 mg PO Q6 PRN PRN Reason: Fever >100.4 F Acetaminophen (Tylenol 325mg Tab) 650 mg PO Q6 PRN PRN Reason: Pain, Mild (1-3) Last Admin: 05/15/18 12:22 Dose: 650 mg Amlodipine Besylate (Norvasc) 5 mg PO DAILY [facility] Last Admin: 05/15/18 09:07 Dose: 5 mg Apixaban (Eliquis) 5 mg PO BID [facility] PRN Reason: Protocol Last Admin: 05/15/18 09:07 Dose: 5 mg Atorvastatin Calcium (Lipitor) 20 mg PO [facility] Last Admin: 05/14/18 21:00 Dose: 20 mg Bisacodyl (Dulcolax) 10 mg [place] DAILY PRN PRN Reason: Constipation Last Admin: 05/08/18 10:07 Dose: 10 mg Clotrimazole (Lotrimin 1% Cream) 1 applic TOP BID [facility] Last Admin: 05/15/18 09:08 Dose: Not Given Cyclobenzaprine HCl (Flexeril) 5 mg PO TID PRN PRN Reason: Muscle spasm Last Admin: 05/14/18 08:12 Dose: 5 mg Docusate Sodium (Colace) 200 mg PO BID [facility] Last Admin: 05/15/18 09:06 Dose: 200 mg Hydromorphone HCl (Dilaudid) 0.5 mg PO Q4 PRN PRN Reason: Pain, moderate (4-7) Last Admin: 05/08/18 10:04 Dose: 0.5 mg Cefepime HCl 1 gm/ Sodium (Chloride) 100 mls @ 100 mls/hr IVPB Q12@0500,1700 [facility] Last Admin: 05/15/18 04:57 Dose: 100 mls/hr Vancomycin HCl 750 mg/ Sodium (Chloride) 250 mls @ 166.667 mls/hr IVPB Q12 [facility] PRN Reason: Protocol Last Admin: 05/15/18 09:09 Dose: Not Given Multivitamins/Minerals (Therapeutic-M Tab) 1 tab PO DAILY [facility] Last Admin: 05/15/18 09:07 Dose: 1 tab Psyllium Hydrophilic Mucilloid (Hydrocil Instant) 1 pkt PO DAILY [facility] Last Admin: 05/15/18 09:08 Dose: 1 pkt Tamsulosin HCl (Flomax) 0.4 mg PO DAILY [facility] Last Admin: 05/15/18 09:07 Dose: 0.4 mg - Labs Labs: 05/15/18 06:26 05/09/18 07:14 - Head Exam Head Exam: ATRAUMATIC, NORMAL INSPECTION, NORMOCEPHALIC - Eye Exam Eye Exam: EOMI, Normal appearance, PERRL Pupil Exam: NORMAL ACCOMODATION - ENT Exam ENT Exam: Mucous Membranes Moist - Neck Exam Neck Exam: Full ROM, Normal Inspection - Respiratory Exam Respiratory Exam: NORMAL BREATHING PATTERN - Cardiovascular Exam Cardiovascular Exam: REGULAR RHYTHM - GI/Abdominal Exam GI & Abdominal Exam: Soft, Normal Bowel Sounds - Rectal Exam Rectal Exam: NORMAL INSPECTION - Exam External exam: NORMAL EXTERNAL EXAM - Extremities Exam Extremities Exam: Full ROM, Normal Capillary Refill - Back Exam Back Exam: NORMAL INSPECTION - Neurological Exam Neurological Exam: Alert, Awake Neuro motor strength exam: Right Lower Extremity: 3 - Psychiatric Exam Psychiatric exam: Normal Affect, Normal Mood - Skin Skin Exam: Dry, Intact Assessment and Plan (1) Status post right hip replacement Assessment & Plan: status post physical, occupational therapy plan for Dc home Follow up with orth additional therapy after Dc equipment needs met. 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
== END 2018-05-15 13:30 | disposition home or self-care (01) | DRG 559 ==
LOC: H.TCU 22:32
PROVIDERS: ADMIT Internal Medicine; ATTEND Internal Medicine
PROC: F07Z9FZ Gait Training/Functional Ambulation Treatment using Assistive, Adaptive, Supportive or Protective Equipment (ICD-10-PCS; principal; 2018-05-07)
PROC: F07 Physical Rehabilitation and Diagnostic Audiology, Rehabilitation, Motor Treatment (ICD-10-PCS; 2018-05-07)
PROC: F08Z1FZ Dressing Techniques Treatment using Assistive, Adaptive, Supportive or Protective Equipment (ICD-10-PCS; 2018-05-07)
PROC: F07Z8FZ Transfer Training Treatment using Assistive, Adaptive, Supportive or Protective Equipment (ICD-10-PCS; 2018-05-07)
PROC: F07Z5FZ Bed Mobility Treatment using Assistive, Adaptive, Supportive or Protective Equipment (ICD-10-PCS; 2018-05-07)
DX: Z47.1 Aftercare following joint replacement surgery (principal); I26.99 Other pulmonary embolism without acute cor pulmonale; D62 Acute posthemorrhagic anemia; Z96.643 Presence of artificial hip joint, bilateral; E78.5 Hyperlipidemia, unspecified; M10.9 Gout, unspecified; E78.00 Pure hypercholesterolemia, unspecified; G47.33 Obstructive sleep apnea (adult) (pediatric); J44.9 Chronic obstructive pulmonary disease, unspecified; G89.29 Other chronic pain; N40.0 Benign prostatic hyperplasia without lower urinary tract symptoms; I12.9 Hypertensive chronic kidney disease with stage 1 through stage 4 chronic kidney disease, or unspecified chronic kidney disease; N18.9 Chronic kidney disease, unspecified; Z88.6 Allergy status to analgesic agent; Z88.5 Allergy status to narcotic agent